=== PATIENT | female | born 1950 | race Caucasian/White ===

== ENCOUNTER 2019-10-10 22:28 | Inpatient (IN) | payer OTHER, SELFPAY ==
[~2019-10-10] VITALS: Ht 160 cm; Wt 112.3 kg
[2019-10-10] MEDS ORDERED: NS 1,000 ML IV ONE (22:45)
[2019-10-10] MEDS ORDERED: MORPHINE 4 MG/ML 1ML VIAL/SYRINGE (J2270) IV ONE (22:45)
[2019-10-10 23:28] LABS: BASO # 0.1 10^3/uL (0.0-0.2); BASO % 0.4 % (0.0-1.0); EOS # 0.1 10^3/uL (0.0-0.5); EOS % 0.2 % (0.0-3.0); HEMATOCRIT 38.6 % (36.0-47.0); HEMOGLOBIN 12.5 g/dl (12.0-15.5); LYMPH # 1.6 10^3/uL (1.5-5.0); LYMPH % 6.6 % (24.0-44.0); MEAN CORPUSCULAR HEMOGLOBIN 30.6 pg (27.0-33.0); MEAN CORPUSCULAR HGB CONC 32.4 g/dl (32.0-36.5); MEAN CORPUSCULAR VOLUME 94.6 fl (80.0-96.0); MONO # 1.4 10^3/uL (0.0-0.8); MONO % 5.9 % (0.0-5.0); NEUTROPHILS # 20.9 10^3/uL (1.5-8.5); NEUTROPHILS % 86.2 % (36.0-66.0); PLATELET COUNT, AUTOMATED 241 10^3/uL (150-450); RED BLOOD COUNT 4.08 10^6/uL (4.00-5.40); WHITE BLOOD COUNT 24.2 10^3/uL (4.0-10.0)
[2019-10-10 23:38] LABS: INR 1.08; PROTHROMBIN TIME 13.7 SECONDS (11.8-14.0)
[2019-10-10 23:39] LABS: PARTIAL THROMBOPLASTIN TIME 22.9 SECONDS (25.0-38.4)
[2019-10-11] VITALS (12 sets, daily range): BP systolic 108–138; BP diastolic 53–86; O2SAT 91–97
[2019-10-11 00:05] LABS: ALT/SGPT 28 U/L (12-78); BILIRUBIN,DIRECT 0.1 MG/DL (0.0-0.2); BILIRUBIN,TOTAL 0.3 MG/DL (0.2-1.0); BLOOD UREA NITROGEN 23 MG/DL (7-18); CARBON DIOXIDE LEVEL 23 MEQ/L (21-32); CHLORIDE LEVEL 107 MEQ/L (98-107); CPK CREATINE PHOSPHOKINASE 339 U/L (26-192); CREATININE FOR GFR 1.05 MG/DL (0.55-1.30); ETHYL ALCOHOL (ETHANOL) < 0.003 % (0.000-0.010); GLOMERULAR FILTRATION RATE 55.2 (>39); GLUCOSE, FASTING 179 MG/DL (70-100); SODIUM LEVEL 141 MEQ/L (136-145); TOTAL PROTEIN 5.6 GM/DL (6.4-8.2)
[2019-10-11] MEDS ORDERED: [UNRECOGNIZED DRUG - CODE] PO (00:43)
[2019-10-11] MEDS ORDERED: MELO15TA28 PO (00:43)
[2019-10-11] MEDS ORDERED: METF750T36 PO (00:43)
[2019-10-11] MEDS ORDERED: BUSP30TA PO (00:43)
[2019-10-11] MEDS ORDERED: AMIT25TA PO (00:43)
[2019-10-11] MEDS ORDERED: SYNT137T7 PO (00:43)
[2019-10-11] MEDS ORDERED: NEXI40CA PO (00:43)
[2019-10-11] MEDS ORDERED: FLON1SPR NARES (00:43)
[2019-10-11] MEDS ORDERED: LEXA1TAB2 PO (00:43)
[2019-10-11] MEDS ORDERED: ZETI10TA16 PO (00:43)
[2019-10-11] MEDS ORDERED: ISOVUE-370 76% 100ML VIAL (Q9967) As Ordered ONE (00:48)
[2019-10-11] MEDS ORDERED: MORPHINE 4 MG/ML 1ML VIAL/SYRINGE (J2270) IV ONE (01:00)
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
[2019-10-11] MEDS ORDERED: MOM 30ML SUSPENSION UDC PO PRN (04:00)
[2019-10-11] MEDS ORDERED: LR 1,000 ML IV SCH (04:00)
[2019-10-11] MEDS ORDERED: MAALOX 30 ML SUSP *UDC PO PRN (04:00)
[2019-10-11] MEDS ORDERED: ACETAMINOPHEN TAB 650MG DOSE (2X325MG) PO PRN (04:00)
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
[2019-10-11] MEDS ORDERED: GLUCOSE 4 GM CHEW TABLET PO PRN (04:15)
[2019-10-11] MEDS ORDERED: DEXTROSE 50% 50 ML SYRINGE IV PRN (04:15)
[2019-10-11] MEDS ORDERED: GLUCAGON FOR INJ 1 MG VIAL (J1610) SC PRN (04:15)
[2019-10-11] MEDS ORDERED: MELO7.5T35 PO (04:22)
[2019-10-11] MEDS ORDERED: CARV25TA PO (04:22)
[2019-10-11] MEDS ORDERED: LOSA25TA14 PO (04:22)
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
[2019-10-11] MEDS: MORPHINE 2 MG/ML 1ML VIAL (J2270) IV PRN ×7 (05:03→22:26)
[2019-10-11] MEDS ORDERED: METOPROLOL 5 MG/5 ML VIAL IV PRN (05:15)
[2019-10-11] MEDS ORDERED: ceFAZolin SOD 2 GM in IV 1 EA IV SCH (06:00)
[2019-10-11 06:47] LABS: HEMOGLOBIN A1c 6.2 %
[2019-10-11] MEDS: LEVOTHYROXINE 137MCG TABLET (0.137MG) PO SCH (06:55)
[2019-10-11 06:59] LABS: INR 1.03; PROTHROMBIN TIME 13.2 SECONDS (11.8-14.0)
[2019-10-11] MEDS: HumaLOG INSULIN (NovoLOG) PER UNIT SC SCH ×3 (07:28→17:30)
[2019-10-11 08:07] LABS: TROPONIN I 4.34 NG/ML (< 0.10)
[2019-10-11] MEDS: FLUTICASONE PROP 0.05% NASAL SPRAY 16 GM (FLONASE) NARES SCH (08:24)
[2019-10-11] MEDS: DOCUSATE SODIUM 100 MG CAP PO SCH ×2 (08:25→20:50)
[2019-10-11] MEDS: PANTOPRAZOLE 40MG TAB (PROTONIX) PO SCH (08:26)
[2019-10-11] MEDS: CARVedilol 12.5 MG TAB PO SCH ×2 (08:26→20:50)
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
[2019-10-11] MEDS: amLODIPine 5 MG TAB PO SCH (09:00)
[2019-10-11] MEDS ORDERED: ESCITALOPRAM OXALATE 10 MG TAB (LEXAPRO) PO SCH ×2 (09:00→21:00)
[2019-10-11] MEDS ORDERED: EZETIMIBE 10 MG TAB (ZETIA) PO SCH ×2 (09:00→21:00)
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
--- NOTE | 2019-10-11 09:12 | CR ---
DATE OF CONSULTATION: 10/11/2019 REASON FOR CONSULTATION: Left distal femur fracture. CHIEF COMPLAINT: Left knee pain. HISTORY OF PRESENT ILLNESS: Chery Gunter is a 68-year-old, morbidly obese female who sustained a mechanical fall yesterday resulting in a left distal femur fracture. The patient had a left total knee arthroplasty performed in [facility] in February of 2018 that was otherwise uncomplicated. She did not have any new antecedent knee pain prior to her fall, but has had some residual pain after her TKA that never resolved. She denied any antecedent calf pain, chest pain, shortness of breath or other constitutional symptoms prior to her fall. She denies any numbness, tingling or burning sensations distally about her left lower extremity. She was admitted by the hospitalist service for preoperative medical optimization. PAST MEDICAL HISTORY: Significant for anxiety, depression, diabetes, hypertension, hyperlipidemia, gastroesophageal reflux disease (GERD), morbid obesity. Medications: Amitryptyline Carvedilol Escitalopram Esomeprazole Ezetimibe Fluticasone Levothyroxine Losartan Meloxicam Metformin ALLERGIES: NO KNOWN DRUG ALLERGIES. However, she does report LATEX ALLERGY. PAST SURGICAL HISTORY: Left total knee arthroplasty February 2018 per history of present illness (HPI), right total knee arthroplasty uncomplicated performed in February 2011, bunionectomy, hysterectomy, and cataract surgery. FAMILY HISTORY: Noncontributory. SOCIAL HISTORY: The patient lives independently. She had just recently moved here from [facility] about 1 week ago to be closer to her family. She does care for three dogs at home. She was independent in all activities of daily living prior to this injury. She does not smoke, drinks socially and does not use illicit drugs. REVIEW OF SYSTEMS: 14-point review of systems was reviewed and is unremarkable. PHYSICAL EXAMINATION: VITAL SIGNS: Temperature 98.4 heart rate 104, respiratory rate 20, blood pressure 126/86, pulse oximetry 95% on room air. GENERAL: This is a morbidly obese female, appears her stated age, in no acute distress. NEUROLOGIC: She is awake, alert and oriented to person, place and time. She has intact sensory and motor function in her left lower extremity, femoral, tibial, sural, saphenous, superficial peroneal, deep peroneal nerve distributions. CARDIOVASCULAR: She has 2+ dorsalis pedis and posterior tibial (DP/PT) pulses and brisk capillary refill to all digits of the left lower extremity. MUSCULOSKELETAL: Focused physical exam of left lower extremity demonstrates no open wounds or abrasions. There is no palpable knee effusion. The patient is able to independently flex and extend all toes and independently dorsiflex and plantar flex her ankle. Knee range of motion is limited secondary to pain and the nature of her injury. RADIOGRAPHS: Plain radiographs of the left knee demonstrates a left knee distal femur fracture around total knee arthroplasty components that extends to the level of the anterior flange. The patient had a CT scan of the knee, which was reviewed, which demonstrates evidence of well-fixed total knee arthroplasty components with a distal femur fracture as described above. The patient also had CT scan of the cervical, thoracic and lumbar spine as part of a trauma workup given the nature of her injury which demonstrated no evidence of acute fracture. Labs: Labs were reviewed demonstrating elevated troponin levels. ASSESSMENT: This is a 68-year-old female with periprosthetic distal femur fracture that extends to the anterior flange of the femur with well-fixed femoral component. PLAN: I discussed with the patient the nature of her injury, given the nature of her fracture this requires internal fixation. Fixation options for paraprosthetic distal femur fracture include intramedullary nail and lateral locking plate and given the distal nature of the fracture this will likely need to be fixed with a lateral locking plate which will require an extended period of non-weightbearing. The patient was discussed with the hospitalist she is pending clearance secondary to her elevated troponin levels and is being transferred to the telemetry unit for monitoring. We will plan for open reduction, internal fixation tomorrow, 10/12/2019. I counseled the patient that I will be her operating surgeon. Her followup care will be conducted by [facility]. The risks, benefits, indications, and alternatives of operative versus nonoperative information resources manager were discussed with the patient, and we will proceed with surgery tomorrow pending clearance. She expressed understanding and agreed. All questions were answered. MADONNA
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
[2019-10-11 13:48] LABS: CK-MB VALUE MASS 15.1 NG/ML (<3.6); MB/CK RELATIVE INDEX 1.52 (< OR =4); TROPONIN I 2.85 NG/ML (< 0.10)
[2019-10-11] MEDS ORDERED: PERCOCET 5MG/325MG TAB PO PRN ×2 (14:30)
[2019-10-11 17:43] LABS: CHOLESTEROL RISK RATIO 8.142 (<5)
--- NOTE | 2019-10-11 19:12 | ECGEPIP ---
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
--- NOTE | 2019-10-11 19:14 | ECGEPIP ---
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
[2019-10-11 19:23] LABS: CK-MB VALUE MASS 10.8 NG/ML (<3.6); MB/CK RELATIVE INDEX 1.08 (< OR =4); TROPONIN I 1.61 NG/ML (< 0.10)
[2019-10-11] MEDS: HEPARIN SOD (PORCINE) 5000 UNITS/ML VIAL SQ SCH (20:47)
[2019-10-11] MEDS ORDERED: AMITRIPTYLINE 25 MG TAB PO SCH (21:00)
[2019-10-11] MEDS ORDERED: HumaLOG INSULIN (NovoLOG) PER UNIT SC SCH (21:00)
[2019-10-12] VITALS (18 sets, daily range): BP systolic 116–142; BP diastolic 64–76; O2SAT 89–95
[2019-10-12] MEDS: MORPHINE 2 MG/ML 1ML VIAL (J2270) IV PRN ×5 (00:27→16:58)
[2019-10-12 06:06] LABS: BASO # 0.1 10^3/uL (0.0-0.2); BASO % 0.8 % (0.0-1.0); EOS # 0.1 10^3/uL (0.0-0.5); EOS % 1.4 % (0.0-3.0); HEMATOCRIT 32.3 % (36.0-47.0); LYMPH # 1.6 10^3/uL (1.5-5.0); LYMPH % 20.4 % (24.0-44.0); MEAN CORPUSCULAR HEMOGLOBIN 31.1 pg (27.0-33.0); MEAN CORPUSCULAR HGB CONC 32.2 g/dl (32.0-36.5); MEAN CORPUSCULAR VOLUME 96.7 fl (80.0-96.0); MONO # 1.3 10^3/uL (0.0-0.8); MONO % 17.3 % (0.0-5.0); NEUTROPHILS # 4.6 10^3/uL (1.5-8.5); NEUTROPHILS % 59.8 % (36.0-66.0); PLATELET COUNT, AUTOMATED 180 10^3/uL (150-450); RED BLOOD COUNT 3.34 10^6/uL (4.00-5.40); WHITE BLOOD COUNT 7.6 10^3/uL (4.0-10.0)
[2019-10-12 06:08] LABS: HEMOGLOBIN 10.4 g/dl (12.0-15.5)
[2019-10-12 06:33] LABS: CALCIUM LEVEL 8.5 MG/DL (8.8-10.2); CREATININE FOR GFR 1.13 MG/DL (0.55-1.30); GLOMERULAR FILTRATION RATE 50.7 (>39); POTASSIUM SERUM 4.1 MEQ/L (3.5-5.1)
[2019-10-12] MEDS: LEVOTHYROXINE 137MCG TABLET (0.137MG) PO SCH (06:44)
[2019-10-12] MEDS: HumaLOG INSULIN (NovoLOG) PER UNIT SC SCH ×2 (07:30→12:00)
[2019-10-12] MEDS: HEPARIN SOD (PORCINE) 5000 UNITS/ML VIAL SQ SCH ×2 (07:55→10:12)
[2019-10-12] MEDS: CARVedilol 12.5 MG TAB PO SCH (08:29)
[2019-10-12] MEDS: FLUTICASONE PROP 0.05% NASAL SPRAY 16 GM (FLONASE) NARES SCH (08:30)
[2019-10-12] MEDS: amLODIPine 5 MG TAB PO SCH (08:30)
[2019-10-12] MEDS: PANTOPRAZOLE 40MG TAB (PROTONIX) PO SCH (08:30)
[2019-10-12] MEDS: DOCUSATE SODIUM 100 MG CAP PO SCH (08:30)
--- NOTE | 2019-10-12 08:48 | IPNPDOC ---
Date Seen The patient was seen on 10/12/19. Progress Note SUBJECTIVE: Patient is a 68 y/o female with a left periprosthetic distal femur fx. She was evaluated by cardiology yesterday and was determined to be at high risk for perioperative MT and it has been recommended that she be transferred to a higher level of care where immediate cardiac catheterization is available. OBJECTIVE PHYSICAL EXAMINATION: VITAL SIGNS: Please see below. GENERAL: obese female, NAD CARDIOVASCULAR: 2+ DP/PT pulses, BCR all digits LLE. RESPIRATORY: Non labored breathing. EXTREMITIES: L knee no open wounds. Ecchymosis on lateral distal thigh extending anteriorly to knee. No skin blistering. Able to flex/extend toes. NEUROLOGICAL: Sensation intact to all distributions LLE LABORATORY DATA, IMAGING STUDIES, MICROBIOLOGY: Please see below. ASSESSMENT: This is a 68-year-old female with a left periprosthetic distal femur fracture around a well fixed TKA component DISPOSITION: After discussion with the hospitalist Dr. Andersen, the patient has been deemed high risk for perioperative MT given risk factors associated with her injury and presentation. The digital circuit designer has recommended that the patient be transferred to a higher level of care so that immediate cardiac intervention could be performed if necessary. A knee immobilizer has been placed for transport. I recommend q8h skin checks for the areas of skin touching the straps and distal posterior splint given her body habitus. Keep NPO if being transferred today. Please reconsult with questions. VS, I&O, 24H, Fishbone Vital Signs/I&O Vital Signs Date Time Temp Pulse Resp B/P (MAP) Pulse Ox O2 Delivery O2 Flow Rate FiO2 10/12/19 08:30 96 142/71 10/12/19 07:00 93 Room Air 10/12/19 06:45 20 10/12/19 04:00 97.0 I&O- Last 24 Hours up to 6 AM 10/12/19 06:00 Intake Total 600 ml Output Total 525 ml Balance 75 ml Laboratory Data 24H LABS Laboratory Tests 2 10/11/19 11:28: Bedside Glucose (Misc Panel) 111H 10/11/19 12:05: Total Creatine Kinase 991#H, Creatine Kinase MB 15.1H, Creatine Kinase MB Relative Index 1.52, Troponin I 2.85#*H 10/11/19 18:30: Total Creatine Kinase 1003H, Creatine Kinase MB 10.8H, Creatine Kinase MB Relative Index 1.08, Troponin I 1.61#*H 10/11/19 18:31: Bedside Glucose (Misc Panel) 104 10/11/19 20:46: Bedside Glucose (Misc Panel) 136H 10/12/19 05:35: Immature Granulocyte % (Auto) 0.3, Neutrophils (%) (Auto) 59.8, Lymphocytes (%) (Auto) 20.4L, Monocytes (%) (Auto) 17.3H, Eosinophils (%) (Auto) 1.4, Basophils (%) (Auto) 0.8, Neutrophils # (Auto) 4.6, Lymphocytes # (Auto) 1.6, Monocytes # (Auto) 1.3H, Eosinophils # (Auto) 0.1, Basophils # (Auto) 0.1, Nucleated Red Blood Cells % (auto) 0.0, Anion Gap 6L, Glomerular Filtration Rate 50.7, Calcium Level 8.5L CBC/BMP Laboratory Tests 10/12/19 05:35 SUNIL CARNEY MD Oct 12, 2019 08:48
[2019-10-12] MEDS ORDERED: ATORVASTATIN 20 MG TAB PO SCH (09:00)
--- NOTE | 2019-10-12 09:33 | ECHO ---
DATE OF PROCEDURE: 10/11/2019 REFERRING PROVIDER: Dr. Jacquie Andersen. LOCATION: Room 3225. REASON FOR THE CONSULT: Elevated serum troponin, preop. 2D MEASUREMENTS: IVS - 0.8 cm LV - 4.1 cm LVPW - 0.9 IVC - 1.5 cm DOPPLER MEASUREMENT: Peak velocity across the aortic valve was 1.5 meters per second. 2D COMMENTS: 1. Technically limited study due to poor acoustic window. 2. The left ventricular size is normal with normal left ventricular wall thickness and a low normal global left ventricular systolic function estimated at 55-60%. The basal anterior septum appeared to be mildly hypokinetic. 3. Normal left atrium. Normal right atrium and right ventricle. 4. The atrial septum appeared to be normal without evidence of defect or shunt. 5. Normal aortic root. 6. No pericardial effusion seen in limited views. 7. Mildly calcified aortic valve, leaflet excursion appeared to be normal. Normal mitral valve and tricuspid valve. The pulmonic valve and proximal pulmonary artery branches were not well visualized. 8. The inferior vena cava was normal in size, central venous pressure is most likely normal. Doppler: No significant valvular abnormalities detected. Abnormal relaxation pattern was noted across the mitral valve leaflets as well as the mitral annulus consistent with features of grade 1 left ventricular diastolic dysfunction. IMPRESSION: 1. Low normal global left ventricular systolic function. There may be basal anteroseptal hypokinesis, mild. There was grade 1 left ventricular diastolic dysfunction manifested by abnormal relaxation. 2. Aortic valve sclerosis without any evidence of significant aortic stenosis. There is no aortic regurgitation. 3. The study was technically limited due to poor acoustic window secondary to body habitus.
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
[2019-10-12] MEDS ORDERED: SLF 3 ML SYR IV PRN (11:30)
[2019-10-12] MEDS ORDERED: SLF 3 ML SYR IV SCH (14:00)
[2019-10-12] MEDS ORDERED: MYLASSUD PO (14:53)
[2019-10-12] MEDS ORDERED: ATOR1TAB21 PO (14:53)
[2019-10-12] MEDS ORDERED: HEPA500011 SQ (14:53)
[2019-10-12] MEDS ORDERED: DOCU100C16 PO (14:53)
[2019-10-12] MEDS ORDERED: AMLO5TAB6 PO (14:53)
[2019-10-12] MEDS ORDERED: MORP2INJ4 IV (14:53)
[2019-10-12] MEDS ORDERED: INSUHUMDS SC ×2 (14:55)
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
== END 2019-10-12 17:17 | disposition short-term general hospital (02) | DRG 533 ==
LOC: M ED 22:28 → M ED INP 10-11 03:50 → ENRESERVTM 10-11 04:19 → ENRESERVDT 10-11 04:19 → M MS5PR 10-11 04:45 → M PCU 10-11 08:53
PROVIDERS: ADMIT Internal Medicine; ATTEND Internal Medicine Nephrology
DX: S72.352A Displaced comminuted fracture of shaft of left femur, initial encounter for closed fracture (principal); I21.4 Non-ST elevation (NSTEMI) myocardial infarction; Z68.41 Body mass index [BMI] 40.0-44.9, adult; E11.9 Type 2 diabetes mellitus without complications; E66.01 Morbid (severe) obesity due to excess calories; F32.9 Major depressive disorder, single episode, unspecified; G43.909 Migraine, unspecified, not intractable, without status migrainosus; J30.9 Allergic rhinitis, unspecified; I10 Essential (primary) hypertension; E03.9 Hypothyroidism, unspecified; K21.9 Gastro-esophageal reflux disease without esophagitis; Z96.653 Presence of artificial knee joint, bilateral; Z79.84 Long term (current) use of oral hypoglycemic drugs; Z79.899 Other long term (current) drug therapy; W16.112A Fall into natural body of water striking water surface causing other injury, initial encounter; Y92.008 Other place in unspecified non-institutional (private) residence as the place of occurrence of the external cause; Y93.K9 Activity, other involving animal care

== ENCOUNTER → 2020-01-22 | Outpatient (CLI) | payer OTHER ==
[~2020-01-22] MED LIST: AMIT25TA PO; AMLO5TAB6 PO; ATOR1TAB21 PO; BUSP30TA PO; CARV25TA PO; DOCU100C16 PO; FLON1SPR NARES; HEPA500011 SQ; INSUHUMDS SC; LEXA1TAB2 PO; LOSA25TA14 PO; MELO15TA28 PO; MELO7.5T35 PO; METF750T36 PO; MORP2INJ4 IV; MYLASSUD PO; NEXI40CA PO; SYNT137T7 PO; ZETI10TA16 PO; [UNRECOGNIZED DRUG - CODE] PO
--- NOTE | 2020-01-23 02:50 | REP ---
Clinical: Fracture. Pain. Technique: AP and frog lateral views of the left femur. Findings: Evidence for prior fracture involving the distal femur with stabilizing orthopedic hardware and prior knee replacement. Heterotopic ossification and chronic healing periosteal reaction at the site of prior fracture extends into the surrounding soft tissues. No obvious acute fracture or dislocation identified. Orthopedic hardware appears intact. Impression: Old left femur fracture. No obvious acute injury. Electronically Signed by Dg Beckham MD 01/23/2020 02:41 A
== END ==
LOC: M WUC 13:53
PROVIDERS: ATTEND Nurse Practitioner Family
DX: S72.402S Unspecified fracture of lower end of left femur, sequela (principal); X58.XXXS Exposure to other specified factors, sequela; Y92.89 Other specified places as the place of occurrence of the external cause

== ENCOUNTER → 2020-06-07 | Outpatient (CLI) | payer OTHER ==
[~2020-06-07] MED LIST changes: +AMLO1TAB24 PO; -AMLO5TAB6 PO
[2020-06-07 13:26] LABS: ALBUMIN 3.4 GM/DL (3.2-5.2); BILIRUBIN,TOTAL 0.5 MG/DL (0.2-1.0); CALCIUM LEVEL 9.1 MG/DL (8.8-10.2); CHOLESTEROL RISK RATIO 4.48 (<5); CREATININE FOR GFR 1.31 MG/DL (0.55-1.30); GLOMERULAR FILTRATION RATE 42.6 (>39); POTASSIUM SERUM 5.1 MEQ/L (3.5-5.1); THYROID STIMULATING HORMONE 0.333 uIU/ML (0.358-3.740); TOTAL 25(OH) VITAMIN D 37.6 NG/ML (30.0-100.0); TOTAL PROTEIN 6.7 GM/DL (6.4-8.2)
[2020-06-07 13:56] LABS: HEMOGLOBIN A1c 6.2 %
== END ==
LOC: M WUC 11:16
PROVIDERS: ATTEND Nurse Practitioner Adult Health
DX: E55.9 Vitamin D deficiency, unspecified (principal); E78.2 Mixed hyperlipidemia; E11.8 Type 2 diabetes mellitus with unspecified complications; I10 Essential (primary) hypertension; Z79.899 Other long term (current) drug therapy

== ENCOUNTER → 2021-02-10 | Outpatient (CLI) | payer OTHER ==
[~2021-02-10] MED LIST changes: -AMIT25TA PO; +AMIT25TA17 PO
--- NOTE | 2021-02-10 19:31 | REPPI ---
INDICATION: M79.641 M79.642 PAIN IN RIGHT HAND PAIN IN LEFT HAND. COMPARISON: None. TECHNIQUE: Eight views, four views of each hand are provided. FINDINGS: Four views of the right hand demonstrate mild diffuse osteopenia. There is osteoarthritic spurring at the DIP joints of the index and small finger and the PIP joints of the ring and small finger. There is mild spurring and narrowing at the 1st carpometacarpal articulation. Subcortical cyst formation is seen in the lunate and navicular bone. There is a small dystrophic calcification adjacent to the ulnar styloid on the right. No erosive changes are seen.. Four views of the left hand demonstrate mild diffuse osteopenia. There are similar osteoarthritic spurs at the DIP joints of the small, ring, long and index finger on the left. Minimal narrowing and spur formation is seen at the 1st MCP joint. Subcortical cyst formation is seen in the capitate and lunate. There is no erosive change. No opaque foreign body noted. IMPRESSION: Osteoarthritic changes as noted above. Some diffuse osteopenia.. <Electronically signed by Jase Rush > 02/10/211926
== END ==
LOC: M PLAIMG 12:25
PROVIDERS: ATTEND Nurse Practitioner Adult Health
DX: M85.841 Other specified disorders of bone density and structure, right hand (principal); M85.842 Other specified disorders of bone density and structure, left hand; M19.041 Primary osteoarthritis, right hand; M19.042 Primary osteoarthritis, left hand; M79.641 Pain in right hand; M79.642 Pain in left hand; M25.50 Pain in unspecified joint; E11.8 Type 2 diabetes mellitus with unspecified complications; E78.2 Mixed hyperlipidemia; E03.9 Hypothyroidism, unspecified; E55.9 Vitamin D deficiency, unspecified; R25.2 Cramp and spasm
CPT/HCPCS: 36415; 73130; 80053; 80061; 82043; 82306; 83036; 83735; 84443; 85652; 86038; 86140; 86200; 86431; G0463

== ENCOUNTER → 2021-02-10 | Outpatient (REF) | payer OTHER ==
[2021-02-10 14:28] LABS: ALBUMIN 3.8 GM/DL (3.2-5.2); ALT/SGPT 32 U/L (12-78); BILIRUBIN,TOTAL 0.7 MG/DL (0.2-1.0); BLOOD UREA NITROGEN 20 MG/DL (7-18); CALCIUM LEVEL 9.8 MG/DL (8.8-10.2); CARBON DIOXIDE LEVEL 32 MEQ/L (21-32); CHLORIDE LEVEL 103 MEQ/L (98-107); CHOLESTEROL LEVEL 135 MG/DL (<200); CREATININE FOR GFR 1.05 MG/DL (0.55-1.30); GLOMERULAR FILTRATION RATE 54.8 (>39); GLUCOSE, FASTING 94 MG/DL (70-100); HDL CHOLESTEROL 33 MG/DL (>40); LDL CHOLESTEROL 37 MG/DL (<100); MAGNESIUM LEVEL 2.1 MG/DL (1.8-2.4); NON-HDL-C 102 MG/DL; POTASSIUM SERUM 4.9 MEQ/L (3.5-5.1); RHEUMATOID FACTOR QUANT < 10.0 IU/ML (<15.0); SODIUM LEVEL 138 MEQ/L (136-145); THYROID STIMULATING HORMONE 0.633 uIU/ML (0.358-3.740); TOTAL 25(OH) VITAMIN D 32.7 NG/ML (30.0-100.0); TRIGLYCERIDES LEVEL 327 MG/DL (<150)
[2021-02-10 14:28] LABS: CREATININE, URINE 70.3 MG/DL; MALB URINE SIEMENS 6.2 MG/L; MAU/CREAT RATIO 8.8 MCG/MG (0.0-30.0)
[2021-02-12 00:08] LABS: ANA (HEP2) Negative (.); CYCLIC CITRULLINATED PEPTIDE 2 units (0-19)
== END ==
LOC: M SFHCPLAZ 12:25
PROVIDERS: ATTEND Nurse Practitioner Adult Health
DX: M25.50 Pain in unspecified joint (principal); E11.8 Type 2 diabetes mellitus with unspecified complications; E78.2 Mixed hyperlipidemia; E03.9 Hypothyroidism, unspecified; E55.9 Vitamin D deficiency, unspecified; R25.2 Cramp and spasm

== ENCOUNTER → 2021-02-17 | Outpatient (CLI) | payer OTHER ==
--- NOTE | 2021-02-17 14:55 | REP ---
INDICATION: RIGHT UPPER QUAD PAIN COMPARISON: None. TECHNIQUE: Real time queen scale ultrasound examination using curved array transducer. FINDINGS: Liver is normal in contour, size, and echogenicity without focal hepatic lesions identified. Pancreas is incompletely evaluated due to interposed bowel gas. The gallbladder is normal and without gallstones, wall thickening, or pericholecystic fluid. The common bile duct is upper limits of normal at approximately 8 mm. Right kidney is normal in reniform shape without hydronephrosis and measures 11.0 x 4.5 x 5.1 cm cm. No ascites in the visualized right upper quadrant. IMPRESSION: Normal limited right upper quadrant ultrasound <Electronically signed by Dg Beckham > 02/17/21 [id number]
== END ==
LOC: M RAD 08:29
PROVIDERS: ATTEND Nurse Practitioner Adult Health
DX: R10.9 Unspecified abdominal pain (principal)

== ENCOUNTER 2021-08-31 14:46 | Inpatient (IN) | payer OTHER ==
[~2021-08-31] VITALS: Ht 157.5 cm; Wt 122.5 kg
--- OUTSIDE RECORDS SUMMARY | 2021-08-31 15:29 | CCD ---
Author Author [facility] [employer] Organization [facility] [employer] Address Unknown Phone Unavailable Care Team Providers Care Reproducer Name Role Phone Julienne Almanzar Unavailable PROBLEMS Type Condition ICD9-CM Code [id number] Code Onset Dates Condition S tatus W/U Status Risk SNOMED Code Notes Problem Chronic GERD K21.9 Active confirmed [id number] Stable on esomeprazole 40 mg once a day, no medication changes at been made Problem Anxiety with depression F41.8 Active confirmed 172456387 Continue escitalopram and amitriptyline with no change Problem Seasonal allergies J30.2 Active confirmed 4 79511180 Problem Hypothyroidism, unspecified type E03.9 Active conf irmed 12267829 check TSH, then adjust medication as needed, I told Ralph that if we have any room to play with that we will increase her dose Problem Mixed hyperlipidemia E78.2 Active confirmed [id number] rechallenge Lipitor Problem Type 2 diabetes mellitus with unspecified complications E11.8 Active confirmed 727976635 Stable for now o n metformin 750 mg, no medication changes have been made Problem Insomnia, unspecified type G47.00 Active confirmed 484221507 Problem Spinal stenosis of lumbar region 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 viktor claudication M48.061 Active confirmed 50633261 Problem Vitamin D deficiency E55.9 Active confirmed 75652535 Continue vitamin D 2000 units daily with no change Problem Decreased hearing of both ears H91.93 Active confir med 662425585 Problem Essential hypertension I10 Active confirmed 65136384 increase losartan from 25 mg twice a day to 100 mg once a day Problem Coronary artery disease invo lving 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 I25.10 Active confirmed 402922 000 needs Entry Level Assistant Manager Problem Neuropathy G62.9 Active confirmed 949401131 Problem Other chronic pain G89.29 Active confirmed 8 3689679 Problem Elevated liver enzymes R74.8 Active confirmed 682168496 ALLERGIES Allergen (clinical drug ingredient) Drug/Non Drug Allergy do cumented on EMR Reaction Allergy Type Onset Date Status duloxetine Cymbalta([facility] Code:[address]-74) not efective Drug Allergy Active ENCOUNTERS from 1950 to 2021-08-23 Encounter Location Date Provider Diagnosis [place] [id number] [facility] [phone] [place] [address] 11 Aug, 2021 Julienne Servage Essential hypertension I10 ; Type 2 diabetes mellitus with unspecified complications E11.8 ; Coronary artery disease involving 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 I25.10 ; Mixed hyperlipidemia E78.2 ; Immunization due Z23 ; Hypothyroidism, unspecified type E03.9 ; Vitamin D deficiency E55.9 ; Spinal stenosis of lumbar region 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nic claudication M48.061 ; Arthralgia, unspecified joint M25.50 ; Pain in right hand M79.641 ; Pain in left hand M79.642 ; Leg cramps R25.2 ; Family history of rheumatoid arthritis Z82.61 ; Chronic GERD K21.9 ; Seasonal allergies J30.2 ; Anxiety with depression F41.8 and Encounter for immunization Z23 IMMUNIZATIONS Vaccine Route Administration Date Status Moderna #1 dose COVID-19 (given elsewhere) SARSCOV2 VAC 100M CG/0.5ML IM Unknown December 07, 2020 Administered Moderna #2 dose COVID-19 (given elsewhere) SARSCOV2 VAC 100M CG/0.5ML IM Unknown January 04, 2021 Administered Influenza Pharmacy Given Unknown Aug 09, 2020 Adminis tered Influenza 18 yrs & older Flublok IM Intramuscular Aug 18, 2021 Administered Pneumococcal Adult 0.5mL Pneumovax 23 IM Intramuscular Aug 18 Administered SOCIAL HISTORY Tobacco Use: Social History Observation Description Date Details (start date - stop date) Never Smoker Sex Assigned At : Social History Observation Description Sex Assigned At Unknown Education: Question Answer Notes Level of Education: Not Finished College Audit Question Answer Notes Total Score: 2 Interpretation: Alcohol Education Language: Question Answer Notes Languages spoken: Kenyan Church: Question Answer Notes Church 33 None Sexual Hx: Question Answer Notes Had sex in the last 12 months (vaginal, oral, or anal)? No Have you ever had an STD? No Drug and Alcohol Question Answer Notes Total Score: 0 Interpretation: No problems reported Alcohol Screening: Question Answer Notes Did you have a drink containing alcohol in the past year? Ye s Points 1 Interpretation Negative How many drinks did you have on a typica l day when you were drinking in the past year? 1 or 2 (0 points) How often did you have a drink containing alcohol in t he past year? Monthly or less (1 point) Tobacco Use: Question Answer Notes Are you a: never smoker REASON FOR REFERRAL from 1950 to 2021-08-23 Reason please eval and treat, moved to area has history of spinal stenosis seeking injections if possible Diagnosis 1 Spinal stenosis of lumbar re gion 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nic claudication (M48.061) Referral Organization [facility] Referring Provider First Name Julienne Referring Provider Last Name Yohan Referring Provider Specialty Family Medicine Referred Provider Adam ([facility]) Vimal Referred Provider Specialty Pain Medicine Referral Priority Routine General Notes Shaila Llanes 08/18/2021 2: 24:19 PM > referral faxJulienne Mccormack ANP 08/22/2021 7:09:32 PM > insurance not accepted by Dr. Medina office notified pt. VITAL SIGNS Weight 226.4 lbs Aug, Weight-kg 102.69 kg Aug, Height 64 in Aug, BMI 38.86 kg/m2 Aug, Heart Rate 80 /min Aug, Respiratory Rate 18 /min Aug, Temperature 96.9 degrees Fahrenheit Aug, Oximetry 96 Aug, Blood pressure systolic 122 mm Hg Aug, Blood pressure diastolic 68 mm Hg Aug, MEDICATIONS Medication SIG (Take, Route, Frequency, Duration) Notes Start Da te End Date Status Gabapentin 300 MG 1 capsule Orally tid for 90 days Active Esomeprazole Magnesium 40 MG 1 capsule Orally Once a day for 90 days Active Atorvastatin Calcium 80 MG 1 tablet Orally Once a day for 90 days Active Ezetimibe 10 MG 1 tablet Orally Once a day for 90 Active Valsartan 320 MG 1 tablet Orally Once a day for 90 days Active Carvedilol 12.5 MG 1 tab Orally Twice a day for 90 days Active Vitamin D 50 MCG (1999) 1 tablet Orally Once a day for 90 day(s) Active Flonase Allergy Relief 50 MCG/ACT 1 spray in each nost ril Nasally Once a day for 90 days Active HYDROcodone-Acetaminophen 5-325 MG 1 tablet as needed Orally [id number] Twice a day, mdd=2 for 30 Days Aug, Active Ezetimibe 10 MG 1 tablet Orally Once a day for 90 day(s) Active buPROPion HCl ER (XL) 150 MG 1 tablet in the morning O rally Once a day for 90 days Aug, Active Trulicity 1.5 MG/0.5ML 1 injection Subcutaneous weekly for 90 days Active Amitriptyline HCl 50 MG 1 tablet at bedtime Orally Once a day fo r 90 days Mar, Active Levothyroxine Sodium 100 MCG 1 tablet in the morning o n an empty stomach Orally Once a day for 90 days Active Escitalopram Oxalate 20 MG 1 tablet Orally Once a day for 90 days Active predniSONE 20 MG 1 tablet Orally bid for shoulder pain for 5 day s Aug, Active PROCEDURES from 1950 to 2021-08-23 Procedure Date Ordered Result Body Site Imm: Flublok Quadrivalent 18 years & older 0.5mL IM Influenza 20 28-08-11 N/A Imm: Pneumovax 23 0.5mL IM Pneumococcal 2021-08-18 N/A RESULTS No Results REASON FOR VISIT Julienne 3 months routine visit MEDICAL (GENERAL) HISTORY Type Description Date Medical History Type 2 DM Medical History Hypertension Medical History Mixed Hyperlipidemia Medical History Hypothyroidism Medical History GERD Medical History Anxiety and Depression Medical History h/o Left Femur Fracture Medical History Seasonal Allergies Medical History Vitamin D Deficiency Medical History Insomnia Medical History Probable Sponal Stenosis Surgical History hysterectomy 1980 Surgical History cataract Surgical History left femur fracture repair 2019 Surgical History hernia repair Goals Section No Information Health Concerns No Information MEDICAL EQUIPMENT No Information MENTAL STATUS No Information FUNCTIONAL STATUS No Information ASSESSMENTS Encounter Date Diagnosis Assessment Notes Treatment Notes Treatm ent Clinical Notes Aug, Type 2 diabetes mellitus wit h unspecified complications (ICD-10 - E11.8) Stable for now on metformin 750 mg, started on Trulicity, tolerating medication with no difficulty Metformin was stopped, will reassess hemoglobin A1c Aug, Essential hypertension (ICD-10 - I10) Per JNC 8 guidelines, goal BP 150/90 if age >60, is meeting goal on current regimen. Advised heart-healthy diet, sodium restriction Aug, Coronary artery disease invo lving 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 (ICD-10 - I25.10) seen by cardiology echo completed. stress test completed, stable Aug, Mixed hyperlipidemia (ICD-10 - E78.2) Back on Lipitor and Zetia, tolerating with no issues Aug, Immunization due (ICD-10 - Z23) Aug, Hypothyroidism, unspecified type (ICD-10 - E03.9 ) on replacement Aug, Vitamin D deficiency (ICD-10 - E55.9) remains on replacement Aug, Spinal stenosis of lumbar re gion 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nic claudication (ICD-10 - M48.061) has been a issue gabapentin helping, currently using 300 mg at night, instructed to increase to bid and use up her current supply and call for renewal for bid if it works wants to wean off arthrotec, expensive but effective. would be willling to try mobic again if gabapentin worked [place] snot want a referral to pain clinic using hydrocodone prn nys i stop compliant. Advised to increase gabapentin to 3 times a day, states it is helping. will tray 300 mg in am and 600 mg in pm will increase celebrex to bid ny i stop reviewed last filled 02/24/21 # [id number] 08/28 [facility] I stop reviewed, pain and medication renewed, tolerating gabapentin 300 mg 3 times daily states is working very well Discussed with patient [place] a [place], will refer to Dr. Medina for further evaluation and treatment, question injections Aug, Arthralgia, unspecified joint (ICD-10 - M25.50) labs reviewed. xray reviewed using voltaren with effect Was referred to rheumatology, has appointment in Aug, Pain in right hand (ICD-10 - M79.641) xrays reviewed appears to be osteoarthritis Aug, Pain in left hand (ICD-10 - M79.642) osteo Aug, Leg cramps (ICD-10 - R25.2) magnesium level wnl 11 Nov, 2021 Family history of rheumatoid arthritis (ICD-10 - Z82.61) daughter and sister who are on medications inital abs were negative hand x ray negative. 11 Aug, 2021 Chronic GERD (ICD-10 - K21.9) Stable on esomeprazole 40 mg once a day, no medication changes at been made controlled with meds Aug, Seasonal allergies (ICD-10 - J30.2) Aug, Anxiety with depression (ICD-10 - F41.8) Continue escitalopram and amitriptyline with no change After long discussion, will restart Wellbutrin 11 Aug, 2021 Encounter for immunization (ICD-10 - Z23) Aug, Other gallbladder ult rasound for evaluation reviewed negative pain improved PLAN OF TREATMENT Medication Medication Name Sig Start Date Stop Date predniSONE 20 MG 1 tablet Orally bid for shoulder pain for 5 day s 15 Aug, 2021 Treatment Notes Assessment Notes Clinical Notes Anxiety with depression After long discu ssion, will restart Wellbutrin Type 2 diabetes mellitus with unspecified complications Stable for now on metformin 750 mg, started on Trulicity, tolerating medication with no difficulty Metformin was stopped, will reassess hemoglobin A1c Chronic GERD controlled with meds Essential hypertension Per JNC 8 guideli yovani, goal BP 150/90 if age >60, is meeting goal on current regimen. Advised heart-healthy diet, sodium restriction Coronary artery disease involving 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 seen by cardiology echo comp leted. stress test completed, stable Mixed hyperlipidemia Back on Lipitor and Zetia, tolerating with no issues Hypothyroidism, unspecified type on repl acement Vitamin D deficiency remains on replacem ent Spinal stenosis of lumbar region 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nic claudica tion has been a issue gabapentin helping, currently using 300 mg at night,instructed to increase to bid and use up her current supply and call for renewal for bid if it workswants to wean off arthrotec, expensive but effective. would be willling to try mobic again if gabapentin workeddoe snot want a referral to pain clinicusing hydrocodone prn health system i stop compliant.Advised to increase gabapentin to 3 times a day,states it is helping.will tray 300 mg in am and 600 mg in pmwill increase celebrex to bidnys i stop reviewed last filled 02/24/21 # [id number] [facility] I stop reviewed, pain and medication renewed, tolerating gabapentin 300 mg 3 times daily states is working very wellDiscussed with patient [place] a [place], will refer to Dr. Medina for further evaluation a nd treatment, question injections Family history of rheumatoid arthritis d alda and sister who are on medicationsinital abs were negative hand x ray negative. Leg cramps magnesium level wnl Arthralgia, unspecified joint labs revie wed. xray reviewed using haylien with effectWas referred to rheumatology, has appointment in October Pain in right hand xrays reviewed appea rs to be osteoarthritis Pain in left hand osteo Pending Tests Test Name Order Date HEMOGLOBIN A1c 2021-08-18 VITAMIN D 25-HYDROXY 2021-08-18 Comprehensive Metabolic Profile (CMP) 2021-08-18 TSH 2021-08-18 Referrals Referral Date Details please eval and treat, moved to area has history of spinal stenosis seeking injections if possible, Vimal Medina ([facility]) Next Appt Details Julienne 3 month routine visit Reason: Provider Name:Alysa Britt, 2021-10-31 01:45:00 PM, [address] [facility], , [place], [place], [facility] [phone] Provider Name:Julienne Almanzar, 02:00:00 PM, [address] [place] [address] , [place], [address], Insurance Providers Payer Name Payer Address Payer Phone Insured Name Patient Relati onship to Insured Coverage Start Date Coverage End Date [employer] [address] [address] [facility] [id number] [place]
--- OUTSIDE RECORDS SUMMARY | 2021-08-31 15:29 | CCD ---
Author Author [facility] [employer] Organization [facility] [employer] Address Unknown Phone Unavailable Care Team Providers Care Construction Job Titles Name Role Phone Julienne Almanzar Unavailable PROBLEMS Type Condition ICD9-CM Code [id number] Code Onset Dates Condition S tatus W/U Status Risk SNOMED Code Notes Problem Chronic GERD K21.9 Active confirmed 9570601 09 Stable on esomeprazole 40 mg once a day, no medication changes at been made Problem Anxiety with depression F41.8 Active confirmed 166934202 Continue escitalopram and amitriptyline with no change Problem Seasonal allergies J30.2 Active confirmed 4 61153338 Problem Hypothyroidism, unspecified type E03.9 Active conf irmed 37018636 check TSH, then adjust medication as needed, I told Ralph that if we have any room to play with that we will increase her dose Problem Mixed hyperlipidemia E78.2 Active confirmed 191172596 rechallenge Lipitor Problem Type 2 diabetes mellitus with unspecified complications E11.8 Active confirmed 029455030 Stable for now o n metformin 750 mg, no medication changes have been made Problem Insomnia, unspecified type G47.00 Active confirmed 973152930 Problem Spinal stenosis of lumbar region 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 viktor claudication M48.061 Active confirmed 94562863 Problem Vitamin D deficiency E55.9 Active confirmed 68961388 Continue vitamin D 2000 units daily with no change Problem Decreased hearing of both ears H91.93 Active confir med 090138241 Problem Essential hypertension I10 Active confirmed 81911551 increase losartan from 25 mg twice a day to 100 mg once a day Problem Coronary artery disease invo lving [place] coronary artery of [place] heart without angina pectoris I25.10 Active confirmed 455936 000 needs Phys Ther Problem Neuropathy G62.9 Active confirmed 403967213 Problem Other chronic pain G89.29 Active confirmed 8 6162826 Problem Elevated liver enzymes R74.8 Active confirmed 332756538 ALLERGIES Allergen (clinical drug ingredient) Drug/Non Drug Allergy do cumented on EMR Reaction Allergy Type Onset Date Status duloxetine Cymbalta([facility] Code:[address]-15) not efective Drug Allergy Active ENCOUNTERS from 1950 to 2021-08-19 Encounter Location Date Provider Diagnosis [place] [address] [facility] [phone] [place] [address] 11 Aug, 2021 Julienne Servage Spinal stenosis of lumbar re gion 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nic claudication M48.061 IMMUNIZATIONS Vaccine Route Administration Date Status Moderna #1 dose COVID-19 (given elsewhere) SARSCOV2 VAC 100M CG/0.5ML IM Unknown December 07, 2020 Administered Moderna #2 dose COVID-19 (given elsewhere) SARSCOV2 VAC 100M CG/0.5ML IM Unknown January 04, 2021 Administered Influenza Pharmacy Given Unknown Aug 09, 2020 Adminis tered Pneumococcal Adult 0.5mL Pneumovax 23 IM Intramuscular [...] Education Language: Question Answer Notes Languages spoken: Setswana Methodist: Question Answer Notes [facility] 33 None Sexual Hx: Question Answer Notes [...] you a: never smoker REASON FOR REFERRAL No Information VITAL SIGNS No information MEDICATIONS Medication SIG (Take, Route, Frequency, Duration) Notes Start Da te End Date Status Gabapentin 300 MG 1 capsule Orally tid for 90 days Active Carvedilol 12.5 MG 1 tab Orally Twice a day for 90 days Active Vitamin D 50 MCG (2000 UT) 1 tablet Orally Once a day for 90 day(s) Active Valsartan 320 MG 1 tablet Orally Once a day for 90 days Active Flonase Allergy Relief 50 MCG/ACT 1 spray in each nost ril Nasally Once a day for 90 days Active Escitalopram Oxalate 20 MG 1 tablet Orally Once a day for 90 days Active Trulicity 1.5 MG/0.5ML 1 injection Subcutaneous weekly for 90 days Active Atorvastatin Calcium 80 MG 1 tablet Orally Once a day for 90 days Active Levothyroxine Sodium 100 MCG 1 tablet in the morning o n an empty stomach Orally Once a day for 90 days Active Ezetimibe 10 MG 1 tablet Orally Once a day for 90 Active Ezetimibe 10 MG 1 tablet Orally Once a day for 90 day(s) Active Amitriptyline HCl 50 MG 1 tablet at bedtime Orally Once a day fo r 90 days Mar, Active HYDROcodone-Acetaminophen 5-325 MG 1 tablet as needed Orally 204855119 Twice a day, mdd=2 for 30 Days Aug, Active Esomeprazole Magnesium 40 MG 1 capsule Orally Once a day for 90 days Active buPROPion HCl ER (XL) 150 MG 1 tablet in the morning O rally Once a day for 90 days Aug, Active PROCEDURES No Information RESULTS No Results REASON FOR VISIT refills MEDICAL (GENERAL) HISTORY Type Description Date Medical [...] Treatment Notes Treatm ent Clinical Notes Aug, Spinal stenosis of lumbar re gion 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nic claudication (ICD-10 - M48.061) PLAN OF TREATMENT Medication Medication Name Sig Start Date Stop Date Escitalopram Oxalate 20 MG 1 tablet Orally Once a day for 90 day s HYDROcodone-Acetaminophen 5-325 MG 1 tablet as needed Orally [id number] Twice a day, mdd=2 for 30 Days Aug, Flonase Allergy Relief 50 MCG/ACT 1 spray in each nost ril Nasally Once a day for 90 days Valsartan 320 MG 1 tablet Orally Once a day for 90 days Atorvastatin Calcium 80 MG 1 tablet Orally Once a day for 90 day s Carvedilol 12.5 MG 1 tab Orally Twice a day for 90 days Levothyroxine Sodium 100 MCG 1 tablet in the morning o n an empty stomach Orally Once a day for 90 days Vitamin D 50 MCG (2000 UT) 1 tablet Orally Once a day for 90 day (s) Ezetimibe 10 MG 1 tablet Orally Once a day for 90 day(s) Esomeprazole Magnesium 40 MG 1 capsule Orally Once a day for 90 days Trulicity 1.5 MG/0.5ML 1 injection Subcutaneous weekly for 90 da ys buPROPion HCl ER (XL) 150 MG 1 tablet in the morning O rally Once a day for 90 days Aug, Amitriptyline HCl 50 MG 1 tablet at bedtime Orally Once a da y for 90 days Mar, Gabapentin 300 MG 1 capsule Orally tid for 90 days Next Appt Details Provider Name:Alysa Britt, 2021-10-31 01:45:00 PM, [address] [place] [address], , [place], [address], Provider Name:Julienne Almanzar, 02:00:00 PM, [facility] [phone], [place], [address], Insurance Providers Payer Name Payer Address Payer Phone Insured Name Patient Relati onship to Insured Coverage Start Date Coverage End Date THOMAS [place] [address] [address] [facility] [phone] RALPH GAN self
--- OUTSIDE RECORDS SUMMARY | 2021-08-31 15:29 | CCD ---
Author Author [facility] [employer] Organization [facility] [employer] Address Unknown Phone Unavailable Care Team Providers Care Canned Food Reconditioning Inspector Name Role Phone Julienne Almanzar Unavailable PROBLEMS Type Condition ICD9-CM Code ONE20-FA Code Onset Dates Condition S tatus W/U Status Risk SNOMED Code Notes Problem Chronic GERD K21.9 Active confirmed 0281221 09 Stable on esomeprazole 40 mg once a day, no medication changes at been made Problem Anxiety with depression F41.8 Active confirmed 041323763 Continue escitalopram and amitriptyline with no change Problem Seasonal allergies J30.2 Active confirmed 4 23552452 Problem Hypothyroidism, unspecified type E03.9 Active conf irmed 57173225 check TSH, then adjust medication as needed, I told Ralph that if we have any room to play with that we will increase her dose Problem Mixed hyperlipidemia E78.2 Active confirmed 375186616 rechallenge Lipitor Problem Type 2 diabetes mellitus with unspecified complications E11.8 Active confirmed 760610338 Stable for now o n metformin 750 mg, no medication changes have been made Problem Insomnia, unspecified type G47.00 Active confirmed 264252513 Problem Spinal stenosis of lumbar region 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 viktor claudication M48.061 Active confirmed 49970015 Problem Vitamin D deficiency E55.9 Active confirmed 73088162 Continue vitamin D 2000 units daily with no change Problem Decreased hearing of both ears H91.93 Active confir med 682372801 Problem Essential hypertension I10 Active confirmed 07457386 increase losartan from 25 mg twice a day to 100 mg once a day Problem Coronary artery disease invo lving [place] coronary artery of [place] heart without angina pectoris I25.10 Active confirmed 487054 000 needs 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 Problem Neuropathy G62.9 Active confirmed 929403310 Problem Other chronic pain G89.29 Active confirmed 8 8657775 Problem Elevated liver enzymes R74.8 Active confirmed 436486063 ALLERGIES Allergen (clinical drug ingredient) Drug/Non Drug Allergy do cumented on EMR Reaction Allergy Type Onset Date Status duloxetine Cymbalta([facility] Code:[address]-26) not efective Drug Allergy Active ENCOUNTERS from 1950 to 2021-07-15 Encounter Location Date Provider Diagnosis [place] [id number] [facility] [phone] [place] [address] 07 Jul, 2021 Julienne Almanzar Arthralgia, unspecified join t M25.50 ; Hypothyroidism, unspecified type E03.9 ; Essential hypertension I10 and Mixed hyperlipidemia E78.2 IMMUNIZATIONS Vaccine Route Administration Date Status Moderna #1 dose COVID-19 (given elsewhere) SARSCOV2 VAC 100M CG/0.5ML IM Unknown December 07, 2020 Administered Moderna #2 dose COVID-19 (given elsewhere) SARSCOV2 VAC 100M CG/0.5ML IM Unknown January 04, 2021 Administered Influenza Pharmacy Given Unknown Aug 09, 2020 Adminis tered SOCIAL HISTORY Tobacco Use: Social History Observation Description Date Details (start date - stop date) Never Smoker Sex Assigned At : Social History Observation Description Sex Assigned At Unknown Education: Question Answer Notes Level of Education: Not Finished College Audit Question Answer Notes Total Score: 2 Interpretation: Alcohol Education Language: Question Answer Notes Languages spoken: Danish Druze: Question Answer Notes Druze 33 None Sexual Hx: Question Answer Notes [...] Notes Start Da te End Date Status Ezetimibe 10 MG 1 tablet Orally Once a day for 90 Active Trulicity 1.5 MG/0.5ML 1 injection Subcutaneous weekly for 90 da ys Apr, Active Esomeprazole Magnesium 40 MG 1 capsule Orally Once a day for 90 day(s ) Active Vitamin D 50 MCG (1999) 1 tablet Orally Once a day for 90 day(s) Active HYDROcodone-Acetaminophen 5-325 MG 1 tablet as needed [id number] Twice a day, mdd=2 for 30 Days May, Active Levothyroxine Sodium 100 MCG 1 tablet in the morning o n an empty stomach Orally Once a day for 90 days Active Diclofenac Sodium 3 % 2 grams topically Twice a day to shoulder for 90 days Active Valsartan 320 MG 1 tablet Orally Once a day for 90 days Active Carvedilol 12.5 MG 1 tab Orally Twice a day Active Ezetimibe 10 MG 1 tablet Orally Once a day for 90 day(s) Active Gabapentin 300 MG 1 capsule Orally tid Active Amitriptyline HCl 50 MG 1 tablet at bedtime Orally Once a day fo r 90 days Mar, Active Celecoxib 100 MG 1 capsule with food Orally bid for 90 days Apr, Active Flonase Allergy Relief 50 MCG/ACT 1 spray in each nost ril Nasally Once a day for 90 days Active Atorvastatin Calcium 80 MG 1 tablet Orally Once a day for 90 days Active Diclofenac-miSOPROStol 75-0.2 MG TAKE 1 TABLET BY MOUT H TWICE DAILY WITH FOOD for 90 days Not-Taking Escitalopram Oxalate 20 MG 1 tablet Orally Once a day for 90 days Active PROCEDURES No Information RESULTS No Results REASON FOR VISIT New Refill Request MEDICAL (GENERAL) HISTORY Type Description Date Medical History Type 2 DM Medical History Hypertension Medical History Mixed Hyperlipidemia Medical History Hypothyroidism Medical History GERD Medical History Anxiety and Depression Medical History h/o Left Femur Fracture Medical History Seasonal Allergies Medical History Vitamin D Deficiency Medical History Insomnia Medical History Probable Sponal Stenosis Surgical History hysterectomy 1979 Surgical History cataract Surgical History left femur fracture repair 2019 Surgical History hernia repair Goals Section No Information Health Concerns No Information MEDICAL EQUIPMENT No Information MENTAL STATUS No Information FUNCTIONAL STATUS No Information ASSESSMENTS Encounter Date Diagnosis Assessment Notes Treatment Notes Treatm ent Clinical Notes Jul, Arthralgia, unspecified joint (ICD-10 - M25.50) Jul, Hypothyroidism, unspecified type (ICD-10 - E03.9 ) Jul, Essential hypertension (ICD-10 - I10) Jul, Mixed hyperlipidemia (ICD-10 - E78.2) PLAN OF TREATMENT Medication Medication Name Sig Start Date Stop Date Valsartan 320 MG 1 tablet Orally Once a day for 90 days Atorvastatin Calcium 80 MG 1 tablet Orally Once a day for 90 day s Diclofenac Sodium 3 % 2 grams topically Twice a day to shoulder for 90 days Trulicity 1.5 MG/0.5ML 1 injection Subcutaneous weekly for 90 da ys Apr, Levothyroxine Sodium 100 MCG 1 tablet in the morning o n an empty stomach Orally Once a day for 90 days Vitamin D 50 MCG (1999) 1 tablet Orally Once a day for 90 day (s) Flonase Allergy Relief 50 MCG/ACT 1 spray in each nost ril Nasally Once a day for 90 days Carvedilol 12.5 MG 1 tab Orally Twice a day Gabapentin 300 MG 1 capsule Orally tid HYDROcodone-Acetaminophen 5-325 MG 1 tablet as needed [id number] Twice a day, mdd=2 for 30 Days May, Ezetimibe 10 MG 1 tablet Orally Once a day for 90 day(s) Celecoxib 100 MG 1 capsule with food Orally bid for 90 days 2020 Next Appt Details Provider Name:Julienne Almanzar, 10:30:00 AM, [address] [facility], , [place], [address], Insurance Providers Payer Name Payer Address Payer Phone Insured Name Patient Relati onship to Insured Coverage Start Date Coverage End Date THOMAS [address]AL [address] [address] [facility] [id number] RALPH GAN
--- OUTSIDE RECORDS SUMMARY | 2021-08-31 15:29 | CCD ---
Author Author [facility] [employer] Organization [facility] [employer] Address Unknown Phone Unavailable Care Team Providers Care Health Care Coach Name Role Phone Julienne Almanzar Unavailable PROBLEMS Type Condition ICD9-CM Code [id number] Code Onset Dates Condition S tatus W/U Status Risk SNOMED Code Notes Problem Chronic GERD K21.9 Active confirmed 2238864 09 Stable on esomeprazole 40 mg once a day, no medication changes at been made Problem Anxiety with depression F41.8 Active confirmed 532829183 Continue escitalopram and amitriptyline with no change Problem Seasonal allergies J30.2 Active confirmed 4 79892584 Problem Hypothyroidism, unspecified type E03.9 Active conf irmed 30423568 check TSH, then adjust medication as needed, I told Ralph that if we have any room to play with that we will increase her dose Problem Mixed hyperlipidemia E78.2 Active confirmed 200880075 rechallenge Lipitor Problem Type 2 diabetes mellitus with unspecified complications E11.8 Active confirmed 681763304 Stable for now o n metformin 750 mg, no medication changes have been made Problem Insomnia, unspecified type G47.00 Active confirmed 321585494 Problem Spinal stenosis of lumbar region 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 viktor claudication M48.061 Active confirmed 09382610 Problem Vitamin D deficiency E55.9 Active confirmed 91066310 Continue vitamin D 2000 units daily with no change Problem Decreased hearing of both ears H91.93 Active confir med 930923711 Problem Essential hypertension I10 Active confirmed 06190404 increase losartan from 25 mg twice a day to 100 mg once a day Problem Coronary artery disease invo lving [place] coronary artery of [place] heart without angina pectoris I25.10 Active confirmed 055602 000 needs Content Checker Problem Neuropathy G62.9 Active confirmed 975044807 Problem Other chronic pain G89.29 Active confirmed 8 4100466 Problem Elevated liver enzymes R74.8 Active confirmed 341691779 ALLERGIES Allergen (clinical drug ingredient) Drug/Non Drug Allergy do cumented on EMR Reaction Allergy Type Onset Date Status duloxetine Cymbalta([facility] Code:[address]-10) not efective Drug Allergy Active ENCOUNTERS from 1950 to 2021-06-22 Encounter Location Date Provider Diagnosis [place] [address] [facility] [phone] [place] [address] Jun, Julienne Almanzar Arthralgia, unspecified join t M25.50 IMMUNIZATIONS Vaccine Route Administration Date Status Moderna #1 dose COVID-19(given elsewhere) SARSCOV2 VAC 100MC G/0.5ML IM Unknown December 07, 2020 Administered Moderna #2 dose COVID-19(given elsewhere) SARSCOV2 VAC 100MC G/0.5ML IM Unknown January 04, 2021 Administered Influenza [...] Education Language: Question Answer Notes Languages spoken: Turkish Mandaeism: Question Answer Notes Mandaeism 33 None Sexual Hx: Question Answer Notes [...] Notes Start Da te End Date Status Vitamin D 50 MCG (1999 UT) 1 tablet Orally Once a day for 90 day(s) Active Ezetimibe 10 MG 1 tablet Orally Once a day for 90 Active Carvedilol 12.5 MG 1 tab Orally Twice a day Active Atorvastatin Calcium 80 MG 1 tablet Orally Once a day Active Celecoxib 100 MG 1 capsule with food Orally bid for 90 days Apr, Active Gabapentin 300 MG 1 capsule Orally tid Active Diclofenac-miSOPROStol 75-0.2 MG TAKE 1 TABLET BY MOUT H TWICE DAILY WITH FOOD for 90 days Not-Taking HYDROcodone-Acetaminophen 5-325 MG 1 tablet as needed [id number] Twice a day, mdd=2 for 30 Days May, Active Amitriptyline HCl 50 MG 1 tablet at bedtime Orally Once a day fo r 90 days Mar, Active Flonase Allergy Relief 50 MCG/ACT 1 spray in each nost ril Nasally Once a day for 90 days Active Esomeprazole Magnesium 40 MG 1 capsule Orally Once a day for 90 day(s ) Active Escitalopram Oxalate 20 MG 1 tablet Orally Once a day for 90 days Active Levothyroxine Sodium 100 MCG 1 tablet in the morning o n an empty stomach Orally Once a day for 90 days Active Valsartan 320 MG 1 tablet Orally Once a day Active Diclofenac Sodium 3 % 2 grams topically Twice a day to shoulder for 90 days Active Ezetimibe 10 MG 1 tablet Orally Once a day for 90 day(s) Active Trulicity 1.5 MG/0.5ML 1 injection Subcutaneous weekly for 90 da ys Apr, Active PROCEDURES No Information RESULTS No Results REASON FOR VISIT refill MEDICAL (GENERAL) HISTORY Type Description Date Medical [...] Notes Treatment Notes Treatm ent Clinical Notes Jun, Arthralgia, unspecified joint (ICD-10 - M25.50) PLAN OF TREATMENT Medication Medication Name Sig Start Date Stop Date HYDROcodone-Acetaminophen 5-325 MG 1 tablet as needed [id number] Twice a day, mdd=2 for 30 Days May, Diclofenac Sodium 3 % 2 grams topically Twice a day to shoulder for 90 days Celecoxib 100 MG 1 capsule with food Orally bid for 90 days 2020 Vitamin D 50 MCG (1999 UT) 1 tablet Orally Once a day for 90 day (s) Gabapentin 300 MG 1 capsule Orally tid Atorvastatin Calcium 80 MG 1 tablet Orally Once a day Trulicity 1.5 MG/0.5ML 1 injection Subcutaneous weekly for 90 da ys Apr, Valsartan 320 MG 1 tablet Orally Once a day Levothyroxine Sodium 100 MCG 1 tablet in the morning o n an empty stomach Orally Once a day for 90 days Ezetimibe 10 MG 1 tablet Orally Once a day for 90 day(s) Flonase Allergy Relief 50 MCG/ACT 1 spray in each nost ril Nasally Once a day for 90 days Carvedilol 12.5 MG 1 tab Orally Twice a day Next Appt Details Provider Name:Julienne Almanzar, 10:30:00 AM, [address] [place] [address], , [place], [address], Insurance Providers Payer Name Payer Address Payer Phone Insured Name Patient Relati onship to Insured Coverage Start Date Coverage End Date THOMAS CRAB[address]REE [address] [address] [facility] [phone] RALPH GAN
--- OUTSIDE RECORDS SUMMARY | 2021-08-31 15:29 | CCD ---
Author Author [facility] Organization [facility] Address Unknown Phone Unavailable Care Team Providers Care Irs Agent Name Role Phone Julienne Almanzar Unavailable PROBLEMS Type Condition ICD9-CM Code [id number] Code Onset Dates Condition S tatus W/U Status Risk SNOMED Code Notes Problem Chronic GERD K21.9 Active confirmed 1536854 [id number] Stable on esomeprazole 40 mg once a day, no medication changes at been made Problem Anxiety with depression F41.8 Active confirmed 128221827 Continue escitalopram and amitriptyline with no change Problem Seasonal allergies J30.2 Active confirmed 4 15453559 Problem Hypothyroidism, unspecified type E03.9 Active conf irmed 54681797 check TSH, then adjust medication as needed, I told Ralph that if we have any room to play with that we will increase her dose Problem Mixed hyperlipidemia E78.2 Active confirmed 397801438 rechallenge Lipitor Problem Type 2 diabetes mellitus with unspecified complications E11.8 Active confirmed 946831638 Stable for now o n metformin 750 mg, no medication changes have been made Problem Insomnia, unspecified type G47.00 Active confirmed 390044189 Problem Spinal stenosis of lumbar region 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 viktor claudication M48.061 Active confirmed 04757787 Problem Vitamin D deficiency E55.9 Active confirmed 85793962 Continue vitamin D 2000 units daily with no change Problem Decreased hearing of both ears H91.93 Active confir med 599229553 Problem Essential hypertension I10 Active confirmed 47475758 increase losartan from 25 mg twice a day to 100 mg once a day Problem Coronary artery disease invo lving [place] coronary artery of teller heart without angina pectoris I25.10 Active confirmed 195582 000 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 Problem Neuropathy G62.9 Active confirmed 825145797 Problem Other chronic pain G89.29 Active confirmed 8 3959821 Problem Elevated liver enzymes R74.8 Active confirmed 837183246 ALLERGIES Allergen (clinical drug ingredient) Drug/Non Drug Allergy do cumented on EMR Reaction Allergy Type Onset Date Status duloxetine Cymbalta([facility] Code:[address]-32) not efective Drug Allergy Active ENCOUNTERS from 1950 to 2021-06-08 Encounter Location Date Provider Diagnosis [place] [id number] [facility] [phone] [place] [address] May, Julienne Harrellage Essential hypertension I10 ; Coronary artery disease involving teller coronary artery of teller heart without angina pectoris I25.10 ; Mixed hyperlipidemia E78.2 ; Type 2 diabetes mellitus with unspecified complications E11.8 ; Hypothyroidism, unspecified type E03.9 ; Vitamin D deficiency E55.9 ; Spinal stenosis of lumbar region 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nic claudication M48.061 ; Arthralgia, unspecified joint M25.50 ; Pain in right hand M79.641 ; Pain in left hand M79.642 ; Leg cramps R25.2 ; Right upper quadrant pain R10.11 ; Family history of rheumatoid arthritis Z82.61 ; Chronic GERD K21.9 and Seasonal a llergies J30.2 IMMUNIZATIONS Vaccine Route Administration Date Status Moderna [...] Education Language: Question Answer Notes Languages spoken: Occitan Muslim: Question Answer Notes Muslim 33 None Sexual Hx: Question Answer Notes [...] REASON FOR REFERRAL No Information VITAL SIGNS Weight 230 lbs May, Weight-kg 104.33 kg May, Height 64 in May, BMI 39.48 kg/m2 May, Heart Rate 86 /min May, Respiratory Rate 18 /min May, Temperature 96.9 degrees Fahrenheit May, Oximetry 97 May, Blood pressure systolic 112 mm Hg May, Blood pressure diastolic 74 mm Hg May, MEDICATIONS Medication SIG (Take, Route, Frequency, Duration) Notes Start Da te End Date Status Vitamin D 50 MCG (1999) 1 tablet Orally Once a day for 90 day(s) Active Ezetimibe 10 MG 1 tablet Orally Once a day for 90 Active Carvedilol 12.5 MG 1 tab Orally Twice a day Active Atorvastatin Calcium 80 MG 1 tablet Orally Once a day Active Celecoxib 100 MG 1 capsule with food Orally bid for 90 days Apr, Active Diclofenac-miSOPROStol 75-0.2 MG TAKE 1 TABLET BY MOUT H TWICE DAILY WITH FOOD for 90 days Not-Taking Diclofenac Sodium 3 % 2 grams topically Twice a day to shoulder for 90 days Active Gabapentin 300 MG 1 capsule Orally tid Active Amitriptyline HCl 50 MG 1 tablet at bedtime Orally Once a day fo r days Mar, Active Flonase Allergy Relief 50 [...] 1 tablet Orally Once a day Active HYDROcodone-Acetaminophen 5-325 MG 1 tablet as needed [id number] Twice a day, mdd=2 for 30 Days May, Active Ezetimibe 10 MG 1 tablet Orally Once a day for 90 day(s) Active Trulicity 1.5 MG/0.5ML 1 injection Subcutaneous weekly for 90 da ys Apr, Active PROCEDURES No Information RESULTS No Results REASON FOR VISIT 3 MONTHS MEDICAL (GENERAL) HISTORY Type Description Date Medical [...] Notes Treatment Notes Treatm ent Clinical Notes May, Essential hypertension (ICD-10 - I10) Per JNC 8 guidelines, goal BP 150/90 if age >60, is meeting goal on current regimen. Advised heart-healthy diet, sodium restriction May, Coronary artery disease invo lving [place] coronary artery of teller heart without angina pectoris (ICD-10 - I25.10) seen by cardiology echo completed. stress test completed, stable May, Mixed hyperlipidemia (ICD-10 - E78.2) she never started the lipitor back up, encouraged to restart it. thought it was giving her muscle aches, will stay on the zetia May, Type 2 diabetes mellitus wit h unspecified complications (ICD-10 - E11.8) Stable for now on metformin 750 mg, started on Trulicity, tolerating medication with no difficulty will stop the Metformin today May, Hypothyroidism, unspecified type (ICD-10 - E03.9 ) on replacement May, Vitamin D deficiency (ICD-10 - E55.9) remains on replacement May, Spinal stenosis of lumbar re gion without [...] in pm will increase celebrex to bid nys i stop reviewed last filled 02/24/21 # [id number] May, Arthralgia, unspecified joint (ICD-10 - M25.50) labs reviewed. xray reviewed using voltaren with effect May, Pain in right hand (ICD-10 - M79.641) xrays reviewed appears to be osteoarthritis May, Pain in left hand (ICD-10 - M79.642) osteo May, Leg cramps (ICD-10 - R25.2) magnesium level wnl May, Right upper quadrant pain (ICD-10 - R10.11) gallbladder ultrasound for evaluation reviewed negative pain improved May, Family history of rheumatoid arthritis (ICD-10 - Z82.61) daughter and sister who are on medications inital abs were negative hand x ray negative. May, Chronic GERD (ICD-10 - K21.9) Stable on esomeprazole 40 mg once a day, no medication changes at been made controlled with meds May, Seasonal allergies (ICD-10 - J30.2) PLAN OF TREATMENT Medication Medication Name Sig Start Date Stop Date Gabapentin 300 MG 1 capsule Orally tid HYDROcodone-Acetaminophen 5-325 MG 1 tablet as needed [id number] Twice a day, mdd=2 for 30 Days May, Celecoxib 100 MG 1 capsule with food Orally bid for 90 days 2020 Vitamin D 50 MCG (1999) 1 tablet Orally Once a day for 90 day (s) Diclofenac Sodium 3 % 2 grams topically Twice a day to shoulder for 90 days Atorvastatin Calcium 80 MG 1 tablet Orally Once a day Trulicity 1.5 MG/0.5ML 1 injection Subcutaneous weekly for da ys Apr, Valsartan 320 MG 1 [...] MG 1 tab Orally Twice a day Treatment Notes Assessment Notes Clinical Notes Chronic GERD controlled with meds Essential hypertension Per JNC 8 guideli yovani, goal BP 150/90 if age >60, is meeting goal on current regimen. Advised heart-healthy diet, sodium restriction Family history of rheumatoid arthritis d alda and sister who are on medicationsinital abs were negative hand x ray negative. Coronary artery disease involving teller coronary artery of teller heart without angina pectoris seen by cardiology echo comp leted. stress test completed, stable Mixed hyperlipidemia she never started t he lipitor back up, encouraged to restart it. thought it was giving her muscle aches, will stay on the zetia Type 2 diabetes mellitus with unspecified complications Stable for now on metformin 750 mg, started on Trulicity, tolerating medication with no difficulty will stop the Metformin today Hypothyroidism, unspecified type on repl acement Vitamin [...] a referral to pain clinicusing hydrocodone prn nys i stop compliant.Advised to increase gabapentin to 3 times a day,states it is helping.will tray 300 mg in am and 600 mg in pmwill increase celebrex to bidnys i stop reviewed last filled 02/24/21 # [id number] Right upper quadrant pain gallbladder ul trasound for evaluation reviewed negative pain improved Leg cramps magnesium level wnl Arthralgia, unspecified joint labs revie wed. xray reviewed using voltaren with effect Pain in right hand xrays reviewed appea rs to be osteoarthritis Pain in left hand osteo Next Appt Details Julienne 3 months routine visit Reason: Provider Name:Julienne Almanzar, 10:30:00 AM, [address] [facility], , [place], [address], Insurance Providers Payer Name Payer Address Payer Phone Insured Name Patient Relati onship to Insured Coverage Start Date Coverage End Date [employer] [address] [address] [place] [address] RALPH GAN
--- OUTSIDE RECORDS SUMMARY | 2021-08-31 15:29 | CCD ---
Author Author [facility] Organization [facility] Address Unknown Phone Unavailable Care Team Providers Care Gage Designer Name Role Phone Julienne Almanzar Unavailable PROBLEMS Type Condition ICD9-CM Code [id number] Code Onset Dates Condition S tatus W/U Status Risk SNOMED Code Notes Problem Chronic GERD K21.9 Active confirmed 5398490 09 Stable on esomeprazole 40 mg once a day, no medication changes at been made Problem Anxiety with depression F41.8 Active confirmed 395939183 Continue escitalopram and amitriptyline with no change Problem Seasonal allergies J30.2 Active confirmed 4 28398867 Problem Hypothyroidism, unspecified type E03.9 Active conf irmed 47472446 check TSH, then adjust medication as needed, I told Ralph that if we have any room to play with that we will increase her dose Problem Mixed hyperlipidemia E78.2 Active confirmed 720042271 rechallenge Lipitor Problem Type 2 diabetes mellitus with unspecified complications E11.8 Active confirmed 039619133 Stable for now o n metformin 750 mg, no medication changes have been made Problem Insomnia, unspecified type G47.00 Active confirmed 974058664 Problem Spinal stenosis of lumbar region 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 viktor claudication M48.061 Active confirmed 12183531 Problem Vitamin D deficiency E55.9 Active confirmed 12338097 Continue vitamin D 2000 units daily with no change Problem Decreased hearing of both ears H91.93 Active confir med 577253605 Problem Essential hypertension I10 Active confirmed 28282823 increase losartan from 25 mg twice a day to 100 mg once a day Problem Coronary artery disease invo lving [place] coronary artery of [place] heart without angina pectoris I25.10 Active confirmed 678265 000 needs Agronomy Specialist Problem Neuropathy G62.9 Active confirmed 028471188 Problem Other chronic pain G89.29 Active confirmed 8 1907686 Problem Elevated liver enzymes R74.8 Active confirmed 776203623 ALLERGIES Allergen (clinical drug ingredient) Drug/Non Drug Allergy do cumented on EMR Reaction Allergy Type Onset Date Status duloxetine Cymbalta([facility] Code:[address]-93) not efective Drug Allergy Active ENCOUNTERS from 1950 to 2021-08-02 Encounter Location Date Provider Diagnosis [place] [address] [facility] [phone] [place] [address] Jul, Julienne Servage IMMUNIZATIONS Vaccine Route Administration Date Status Moderna [...] Education Language: Question Answer Notes Languages spoken: Thai Taoist: Question Answer Notes Taoist 33 None Sexual Hx: Question Answer Notes [...] Notes Start Da te End Date Status Esomeprazole Magnesium 40 MG 1 capsule Orally Once a day for 90 day(s ) Active Vitamin D 50 MCG (1999) 1 tablet Orally Once a day for 90 day(s) Active Carvedilol 12.5 MG 1 tab Orally Twice a day Active Escitalopram Oxalate 20 MG 1 tablet Orally Once a day for 90 days Active Diclofenac-miSOPROStol 75-0.2 MG TAKE 1 TABLET BY MOUT H TWICE DAILY WITH FOOD for 90 days Not-Taking Levothyroxine Sodium 100 MCG 1 tablet in [...] weekly for 90 da ys Apr, Active Flonase Allergy Relief 50 MCG/ACT 1 spray in each nost ril Nasally Once a day for 90 days Active Amitriptyline HCl 50 MG 1 tablet at bedtime Orally Once a day fo r 90 days Mar, Active Ezetimibe 10 MG 1 tablet Orally Once a day for 90 Active Ezetimibe 10 MG 1 tablet Orally Once a day for 90 day(s) Active Gabapentin 300 MG 1 capsule Orally tid Active Atorvastatin Calcium 80 MG 1 tablet Orally Once a day for 90 days Active Celecoxib 100 MG 1 capsule with food Orally bid for 90 days Apr, Active HYDROcodone-Acetaminophen 5-325 MG 1 tablet as needed [id number] Twice a day, mdd=2 for 30 Days May, Active PROCEDURES No Information RESULTS No Results [...] No Information FUNCTIONAL STATUS No Information ASSESSMENTS No Information PLAN OF TREATMENT Medication Medication Name Sig Start Date Stop Date Valsartan 320 MG 1 tablet Orally Once a day for 90 days Atorvastatin Calcium 80 MG 1 tablet Orally Once a day for 90 day s Diclofenac Sodium 3 % 2 grams topically Twice a day to shoulder for 90 days Levothyroxine Sodium 100 MCG 1 tablet in the morning o n an empty stomach Orally Once a day for 90 days Trulicity 1.5 MG/0.5ML 1 injection Subcutaneous weekly for 90 da ys Apr, Flonase Allergy Relief 50 MCG/ACT 1 spray in each nost ril Nasally Once a day for 90 days Escitalopram Oxalate 20 MG 1 tablet Orally Once a day for 90 day s Celecoxib 100 MG 1 capsule with food Orally bid for 90 days 2020 Amitriptyline HCl 50 MG 1 tablet at bedtime Orally Once a da y for 90 days Mar, Carvedilol 12.5 MG 1 tab Orally Twice a day Ezetimibe 10 MG 1 tablet Orally Once a day for 90 day(s) Gabapentin 300 MG 1 capsule Orally tid HYDROcodone-Acetaminophen 5-325 MG 1 tablet as needed [id number] Twice a day, mdd=2 for 30 Days May, Ezetimibe 10 MG 1 tablet Orally Once a day for 90 Esomeprazole Magnesium 40 MG 1 capsule Orally Once a day for 90 day(s) Vitamin D 50 MCG (1999) 1 tablet Orally Once a day for 90 day (s) Next Appt Details Provider Name:Julienne Almanzar, 10:30:00 AM, [address] [facility], , [place], [address], Insurance Providers Payer Name Payer Address Payer Phone Insured Name Patient Relati onship to Insured Coverage Start Date Coverage End Date [address] [address] [facility] [phone] RALPH GAN self
--- OUTSIDE RECORDS SUMMARY | 2021-08-31 15:29 | CCD ---
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 Name Role Phone Julienne Almanzar Unavailable PROBLEMS Type Condition ICD9-CM Code [id number] Code Onset Dates Condition S tatus W/U Status Risk SNOMED Code Notes Problem Chronic GERD K21.9 Active confirmed 6522764 09 Stable on esomeprazole 40 mg once a day, no medication changes at been made Problem Anxiety with depression F41.8 Active confirmed 505991884 Continue escitalopram and amitriptyline with no change Problem Seasonal allergies J30.2 Active confirmed 4 75847458 Problem Hypothyroidism, unspecified type E03.9 Active conf irmed 47992330 check TSH, then adjust medication as needed, I told Ralph that if we have any room to play with that we will increase her dose Problem Mixed hyperlipidemia E78.2 Active confirmed 604067060 rechallenge Lipitor Problem Type 2 diabetes mellitus with unspecified complications E11.8 Active confirmed 235850038 Stable for now o n metformin 750 mg, no medication changes have been made Problem Insomnia, unspecified type G47.00 Active confirmed 950220615 Problem Spinal stenosis of lumbar region 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 viktor claudication M48.061 Active confirmed 61025221 Problem Vitamin D deficiency E55.9 Active confirmed 13278664 Continue vitamin D 2000 units daily with no change Problem Decreased hearing of both ears H91.93 Active confir med 721430513 Problem Essential hypertension I10 Active confirmed 16143684 increase losartan from 25 mg twice a day to 100 mg once a day Problem Coronary artery disease invo lving [place] coronary artery of [place] heart without angina pectoris I25.10 Active confirmed 174353 000 needs Hearing Therapy Teacher Problem Neuropathy G62.9 Active confirmed 258209506 Problem Other chronic pain G89.29 Active confirmed 8 2180490 Problem Elevated liver enzymes R74.8 Active confirmed 626615420 ALLERGIES Allergen (clinical drug ingredient) Drug/Non Drug Allergy do cumented on EMR Reaction Allergy Type Onset Date Status duloxetine Cymbalta([facility] Code:[address]-03) not efective Drug Allergy Active ENCOUNTERS from 1950 to 2021-08-25 Encounter Location Date Provider Diagnosis [place] [id number] [facility] [phone] [place] [address] Aug, Julienne Servage IMMUNIZATIONS Vaccine Route Administration Date [...] 0.5mL Pneumovax 23 IM Intramuscular Aug 18 021 Administered SOCIAL HISTORY Tobacco Use: Social History Observation Description Date Details (start date - stop date) Never Smoker Sex Assigned At : Social History Observation Description Sex Assigned At Unknown Education: Question Answer Notes Level of Education: Not Finished College Audit Question Answer Notes Total Score: 2 Interpretation: Alcohol Education Language: Question Answer Notes Languages spoken: Honduran Scientologist: Question Answer Notes Scientologist 33 None Sexual Hx: Question Answer Notes [...] 5-325 MG 1 tablet as needed Orally [id number] Twice a day, mdd=2 for 30 Days [...] for 5 day s Aug, Active PROCEDURES No Information RESULTS No Results REASON FOR VISIT Bursitis MEDICAL (GENERAL) HISTORY Type Description Date Medical [...] shoulder pain for 5 day s Aug, Next Appt Details Provider Name:Alysaoliva Britt, 2021-10-31 01:45:00 PM, [address] [place] [address], , [place], [address], Provider Name:Julienne Almanzar, 02:00:00 PM, [address] [facility], , [place], [address], Insurance Providers Payer Name Payer Address Payer Phone Insured Name Patient Relati onship to Insured Coverage Start Date Coverage End Date [address]OMAS [address] [address] [facility] [phone] RALPH [employer]
--- OUTSIDE RECORDS SUMMARY | 2021-08-31 15:29 | CCD ---
Author Author [facility] Organization [facility] Address Unknown Phone Unavailable Support Name Relationship Address Phone CR PATTON Next Of Kin [address] [phone] RALPH BARBER Next Of Kin [address] [place] [address] CR LINDQUIST Next Of Kin [address] [place], [place] [id number] MARISOL LINDQUIST Next Of Kin [address] [place], [place] [id number] NIRANJAN LINDQUIST Next Of Kin [address] [facility] [address] Unknown Unavailable RE Next Of Kin Unknown Unavailable CR PATTON ECON [address] [place] [address] Unavailable Re-disclosure Warning The records that you are about to access may contain information from federally-assisted alcohol or drug abuse programs. If such information is present, then the following federally mandated warning applies: This information has been disclosed to you from records protected by federal confidentiality rules (42 CFR part 2). The federal rules prohibit you from making any further disclosure of this information unless further disclosure is expressly permitted by the written consent of the person to whom it pertains or as otherwise permitted by 42 CFR part 2. A general authorization for the release of medical or other information is NOT sufficient for this purpose. The Federal rules restrict any use of the information to criminally investigate or prosecute any alcohol or drug abuse patient.The records that you are about to access may contain highly sensitive health information, the redisclosure of which is protected by Article 27-F of the [facility] Public Health law. If you continue you may have access to information: Regarding HIV / AIDS; Provided by facilities licensed or operated by the [facility] Office of Mental Health; or Provided by the [facility] Office for People With Developmental Disabilities. If such information is present, then the following [facility] mandated warning applies: This information has been disclosed to you from confidential records which are protected by state law. State law prohibits you from making any further disclosure of this information without the specific written consent of the person to whom it pertains, or as otherwise permitted by law. Any unauthorized further disclosure in violation of state law may result in a fine or [place] [facility] sentence or both. A general authorization for the release of medical or other information is NOT sufficient authorization for further disc losure. Encounters Encounter Providers Location Date Indications Data Source(s ) Unknown [address] [place] [address] [place] [address] 08/25/2021 12:00:00 AM EST eCW1 ([facility]) Unknown [address] [facility] [address] 08/19/2021 12:00:00 AM EST eCW1 [facility]) Office Visit, Est Pt., Level 4 PC [address] [place] [address] 08/18/2021 12:00:00 AM EST eCW1 ([facility]) Unknown [address] [facility] [address] 08/18/2021 12:00:00 AM EST eCW1 ([facility]) Unknown [address] [facility] [address] 08/01/2021 12:00:00 AM EDT eCW1 ([facility]) Unknown [address] [facility] [address] 07/14/2021 12:00:00 AM EDT eCW1 ([facility]) Unknown [address] [facility] [place] [address] 06/22/2021 12:00:00 AM EDT eCW1 ([facility]) Office Visit, Est Pt., Level 4 PC [address] [place] [address] 05/31/2021 12:00:00 AM EDT eCW1 ([facility]) Unknown [address] [facility] [address] 04/13/2021 12:00:00 AM EDT eCW1 ([facility]) [place] [address] [facility] [address] 04/11/2021 12:00:00 AM EDT eCW1 ([facility]) [place] [address] [facility] [address] 03/10/2021 12:00:00 AM EDT eCW1 ([facility]) Office Visit, Est Pt., Level 2 FC [address] [place] [address] 03/01/2021 12:00:00 AM EDT eCW1 ([facility]) Unknown [address] [facility] [address] 02/22/2021 12:00:00 AM EDT eCW1 ([facility]) Outpatient [address] [facility] [address] 02/10/2021 12:00:00 AM EDT eCW1 ([facility]) Unknown [address] [facility] [address] 01/03/2021 12:00:00 AM EDT eCW1 ([facility]) [place] [address] [facility] [address] 12/31/2020 12:00:00 AM EDT eCW1 ([facility]) Unknown [address] [facility] [address] 11/01/2020 12:00:00 AM EST eCW1 ([facility]) Unknown [address] [facility] [address] 10/12/2020 12:00:00 AM EST eCW1 ([facility]) Unknown [address] [facility] [address] 09/29/2020 12:00:00 AM EST eCW1 ([facility]) Outpatient [address] [facility] [address] 09/28/2020 12:00:00 AM EST eCW1 ([facility]) Unknown [address] [facility] [address] 09/27/2020 12:00:00 AM EST eCW1 ([facility]) Unknown [address] [facility] [address] 09/21/2020 12:00:00 AM EST eCW1 ([facility]) Unknown [address] [facility] [address] 09/07/2020 12:00:00 AM EST eCW1 ([facility]) Unknown [address] [facility] [address] 08/20/2020 12:00:00 AM EST eCW1 ([facility]) Outpatient [address] [facility] [address] 07/29/2020 12:00:00 AM EDT eCW1 ([facility]) Unknown [address] [facility] [address] 07/28/2020 12:00:00 AM EDT eCW1 ([facility]) Immunizations Vaccine Date Status Description Data Source(s) influenza, recombinant, quadrIvalent,injectable, prese rvative free 08/18/2021 11:28:00 AM EST completed eCW1 ([facility]) influenza, recombinant, quadrIvalent,injectable, prese rvative free 08/18/2021 11:28:00 AM EST completed eCW1 ([facility]) pneumococcal polysaccharide PPV23 08/18/2021 11:07:00 AM EST comple adarsh eCW1 ([facility], [facility]) pneumococcal polysaccharide PPV23 08/18/2021 11:07:00 AM EST comple adarsh eCW1 ([facility], [facility]) pneumococcal polysaccharide PPV23 08/18/2021 11:07:00 AM EST comple adarsh eCW1 ([facility], [facility]) pneumococcal polysaccharide PPV23 08/18/2021 11:07:00 AM EST comple adarsh eCW1 ([facility], [facility]) Moderna #2 dose COVID-19 (given elsewhere) SARSCOV2 VA C 100MCG/0.5ML IM 01/04/2021 10:35:00 AM EDT completed eCW1 ([facility]) Moderna #2 dose COVID-19 (given elsewhere) SARSCOV2 VA C 100MCG/0.5ML IM 01/04/2021 10:35:00 AM EDT completed eCW1 ([facility]) Moderna #2 dose COVID-19 (given elsewhere) SARSCOV2 VA C 100MCG/0.5ML IM 01/04/2021 10:35:00 AM EDT completed eCW1 ([facility]) Moderna #2 dose COVID-19 (given elsewhere) SARSCOV2 VA C 100MCG/0.5ML IM 01/04/2021 10:35:00 AM EDT completed eCW1 ([facility]) Moderna #2 dose COVID-19 (given elsewhere) SARSCOV2 VA C 100MCG/0.5ML IM 01/04/2021 10:35:00 AM EDT completed eCW1 ([facility]) Moderna #2 dose COVID-19 (given elsewhere) SARSCOV2 VA C 100MCG/0.5ML IM 01/04/2021 10:35:00 AM EDT completed eCW1 ([facility]) Moderna #2 dose COVID-19(given elsewhere) SARSCOV2 VAC 100MCG/0.5ML IM 01/04/2021 10:35:00 AM EDT completed eCW1 ([facility]) Moderna #2 dose COVID-19(given elsewhere) SARSCOV2 VAC 100MCG/0.5ML IM 01/04/2021 10:35:00 AM EDT completed eCW1 ([facility]) Moderna #2 dose COVID-19(given elsewhere) SARSCOV2 VAC 100MCG/0.5ML IM 01/04/2021 10:35:00 AM EDT completed eCW1 ([facility]) Moderna #2 dose COVID-19(given elsewhere) SARSCOV2 VAC 100MCG/0.5ML IM 01/04/2021 10:35:00 AM EDT completed eCW1 ([facility]) Moderna #2 dose COVID-19(given elsewhere) SARSCOV2 VAC 100MCG/0.5ML IM 01/04/2021 10:35:00 AM EDT completed eCW1 ([facility]) Moderna #2 dose COVID-19(given elsewhere) SARSCOV2 VAC 100MCG/0.5ML IM 01/04/2021 10:35:00 AM EDT completed eCW1 ([facility]) Moderna #2 dose COVID-19(given elsewhere) SARSCOV2 VAC 100MCG/0.5ML IM 01/04/2021 10:35:00 AM EDT completed eCW1 ([facility]) COVID-19 VACCINE Moderna 01/04/2021 12:00:00 AM EDT completed [employer] Vaccine Series Complete: YESThis Data wa s Submitted to [facility] Via [employer]. Moderna #1 dose COVID-19 (given elsewhere) SARSCOV2 VA C 100MCG/0.5ML IM 12/07/2020 10:34:00 AM EST completed eCW1 ([facility]) Moderna #1 dose COVID-19 (given elsewhere) SARSCOV2 VA C 100MCG/0.5ML IM 12/07/2020 10:34:00 AM EST completed eCW1 ([facility]) Moderna #1 dose COVID-19 (given elsewhere) SARSCOV2 VA C 100MCG/0.5ML IM 12/07/2020 10:34:00 AM EST completed eCW1 ([facility]) Moderna #1 dose COVID-19 (given elsewhere) SARSCOV2 VA C 100MCG/0.5ML IM 12/07/2020 10:34:00 AM EST completed eCW1 ([facility]) Moderna #1 dose COVID-19 (given elsewhere) SARSCOV2 VA C 100MCG/0.5ML IM 12/07/2020 10:34:00 AM EST completed eCW1 ([facility]) Moderna #1 dose COVID-19 (given elsewhere) SARSCOV2 VA C 100MCG/0.5ML IM 12/07/2020 10:34:00 AM EST completed eCW1 ([facility]) Moderna #1 dose COVID-19(given elsewhere) SARSCOV2 VAC 100MCG/0.5ML IM 12/07/2020 10:34:00 AM EST completed eCW1 ([facility]) Moderna #1 dose COVID-19(given elsewhere) SARSCOV2 VAC 100MCG/0.5ML IM 12/07/2020 10:34:00 AM EST completed eCW1 ([facility]) Moderna #1 dose COVID-19(given elsewhere) SARSCOV2 VAC 100MCG/0.5ML IM 12/07/2020 10:34:00 AM EST completed eCW1 ([facility]) Moderna #1 dose COVID-19(given elsewhere) SARSCOV2 VAC 100MCG/0.5ML IM 12/07/2020 10:34:00 AM EST completed eCW1 ([facility]) Moderna #1 dose COVID-19(given elsewhere) SARSCOV2 VAC 100MCG/0.5ML IM 12/07/2020 10:34:00 AM EST completed eCW1 ([facility]) Moderna #1 dose COVID-19(given elsewhere) SARSCOV2 VAC 100MCG/0.5ML IM 12/07/2020 10:34:00 AM EST completed eCW1 ([facility]) Moderna #1 dose COVID-19(given elsewhere) SARSCOV2 VAC 100MCG/0.5ML IM 12/07/2020 10:34:00 AM EST completed eCW1 ([facility]) COVID-19 VACCINE Moderna 12/07/2020 12:00:00 AM EST completed [employer] Vaccine Series Complete: NOThis Data was Submitted to [facility] Via [employer]. IIV3. This is one of two codes replacing CVX 15, which is being retired. 08/09/2020 04:28:00 PM EST completed eCW1 ([facility]) IIV3. This is one of two codes replacing CVX 15, which is being retired. 08/09/2020 04:28:00 PM EST completed eCW1 ([facility]) IIV3. This is one of two codes replacing CVX 15, which is being retired. 08/09/2020 04:28:00 PM EST completed eCW1 ([facility]) IIV3. This is one of two codes replacing CVX 15, which is being retired. 08/09/2020 04:28:00 PM EST completed eCW1 ([facility]) IIV3. This is one of two codes replacing CVX 15, which is being retired. 08/09/2020 04:28:00 PM EST completed eCW1 ([facility]) IIV3. This is one of two codes replacing CVX 15, which is being retired. 08/09/2020 04:28:00 PM EST completed eCW1 ([facility]) IIV3. This is one of two codes replacing CVX 15, which is being retired. 08/09/2020 04:28:00 PM EST completed eCW1 ([facility]) IIV3. This is one of two codes replacing CVX 15, which is being retired. 08/09/2020 04:28:00 PM EST completed eCW1 ([facility]) IIV3. This is one of two codes replacing CVX 15, which is being retired. 08/09/2020 04:28:00 PM EST completed eCW1 ([facility]) IIV3. This is one of two codes replacing CVX 15, which is being retired. 08/09/2020 04:28:00 PM EST completed eCW1 ([facility]) IIV3. This is one of two codes replacing CVX 15, which is being retired. 08/09/2020 04:28:00 PM EST completed eCW1 ([facility]) IIV3. This is one of two codes replacing CVX 15, which is being retired. 08/09/2020 04:28:00 PM EST completed eCW1 ([facility]) IIV3. This is one of two codes replacing CVX 15, which is being retired. 08/09/2020 04:28:00 PM EST completed eCW1 ([facility]) IIV3. This is one of two codes replacing CVX 15, which is being retired. 08/09/2020 04:28:00 PM EST completed eCW1 ([facility]) IIV3. This is one of two codes replacing CVX 15, which is being retired. 08/09/2020 04:28:00 PM EST completed eCW1 ([facility]) IIV3. This is one of two codes replacing CVX 15, which is being retired. 08/09/2020 04:28:00 PM EST completed eCW1 ([facility]) IIV3. This is one of two codes replacing CVX 15, which is being retired. 08/09/2020 04:28:00 PM EST completed eCW1 ([facility]) IIV3. This is one of two codes replacing CVX 15, which is being retired. 08/09/2020 04:28:00 PM EST completed eCW1 ([facility]) IIV3. This is one of two codes replacing CVX 15, which is being retired. 08/09/2020 04:28:00 PM EST completed eCW1 ([facility]) IIV3. This is one of two codes replacing CVX 15, which is being retired. 08/09/2020 04:28:00 PM EST completed eCW1 ([facility]) IIV3. This is one of two codes replacing CVX 15, which is being retired. 08/09/2020 04:28:00 PM EST completed eCW1 ([facility]) Medications Medication Brand Name Start Date Product Form Dose Route Admi nistrative Instructions Pharmacy Instructions Status Indications Reaction Description Data Source(s) Prednisone 20 MG Oral Tablet predniSONE 20 MG predniSONE 20 MG 08/22/2021 12:00:00 AM EST 1.0 {tablet} active pr edniSONE 20 MG eCW1 ([facility], 1928–1983) Prednisone 20 MG Oral Tablet predniSONE 20 MG predniSONE 20 MG 08/22/2021 12:00:00 AM EST 1.0 {tablet} active pr edniSONE 20 MG eCW1 ([facility], [facility]–1983) 24 HR Bupropion Hydrochloride 150 MG Ext ended Release Oral Tablet buPROPion HCl ER (XL) 150 MG buPROPion HCl ER (XL) 150 MG 08/18/2021 12:00:00 AM EST 1.0 {tablet_in_the_morning} active buPROPio n HCl ER (XL) 150 MG eCW1 ([facility], 1928–1983) Acetaminophen 325 MG / Hydrocodone Nanette trate 5 MG Oral Tablet HYDROcodone- Acetaminophen 5-325 MG HYDROcodone-Acetaminophen 5-325 MG 08/18/2021 12:00:00 AM EST 1.0 {tablet_as_needed} active HYDROcodone-Acetaminophen 5-325 MG eCW1 ([facility], 1928–1983) 24 HR Bupropion Hydrochloride 150 MG Ext ended Release Oral Tablet buPROPion HCl ER (XL) 150 MG buPROPion HCl ER (XL) 150 MG 08/18/2021 12:00:00 AM EST 1.0 {tablet_in_the_morning} active buPROPio n HCl ER (XL) 150 MG eCW1 ([facility], 1928–1983) Acetaminophen 325 MG / Hydrocodone Nanette trate 5 MG Oral Tablet HYDROcodone- Acetaminophen 5-325 MG HYDROcodone-Acetaminophen 5-325 MG 08/18/2021 12:00:00 AM EST 1.0 {tablet_as_needed} active HYDROcodone-Acetaminophen 5-325 MG eCW1 ([facility], 1928–1983) Acetaminophen 325 MG / Hydrocodone Nanette trate 5 MG Oral Tablet HYDROcodone- Acetaminophen 5-325 MG HYDROcodone-Acetaminophen 5-325 MG 08/18/2021 12:00:00 AM EST 1.0 {tablet_as_needed} active HYDROcodone-Acetaminophen 5-325 MG eCW1 ([facility], 1928–1983) Acetaminophen 325 MG / Hydrocodone Nanette trate 5 MG Oral Tablet HYDROcodone- Acetaminophen 5-325 MG HYDROcodone-Acetaminophen 5-325 MG 08/18/2021 12:00:00 AM EST 1.0 {tablet_as_needed} active HYDROcodone-Acetaminophen 5-325 MG eCW1 ([facility], 1928–1983) 24 HR Bupropion Hydrochloride 150 MG Ext ended Release Oral Tablet buPROPion HCl ER (XL) 150 MG buPROPion HCl ER (XL) 150 MG 08/18/2021 12:00:00 AM EST 1.0 {tablet_in_the_morning} active buPROPio n HCl ER (XL) 150 MG eCW1 ([facility], 1928–1983) 24 HR Bupropion Hydrochloride 150 MG Ext ended Release Oral Tablet buPROPion HCl ER (XL) 150 MG buPROPion HCl ER (XL) 150 MG 08/18/2021 12:00:00 AM EST 1.0 {tablet_in_the_morning} active buPROPio n HCl ER (XL) 150 MG eCW1 ([facility], 1928–1983) Acetaminophen 325 MG / Hydrocodone Nanette trate 5 MG Oral Tablet HYDROcodone- Acetaminophen 5-325 MG HYDROcodone-Acetaminophen 5-325 MG 05/31/2021 12:00:00 AM EDT 1.0 {tablet_as_needed} active HYDROcodone-Acetaminophen 5-325 MG eCW1 ([facility], 1928–1983) Acetaminophen 325 MG / Hydrocodone Nanette trate 5 MG Oral Tablet HYDROcodone- Acetaminophen 5-325 MG HYDROcodone-Acetaminophen 5-325 MG 05/31/2021 12:00:00 AM EDT 1.0 {tablet_as_needed} active HYDROcodone-Acetaminophen 5-325 MG eCW1 ([facility], 1928–1983) Acetaminophen 325 MG / Hydrocodone Nanette trate 5 MG Oral Tablet HYDROcodone- Acetaminophen 5-325 MG HYDROcodone-Acetaminophen 5-325 MG 05/31/2021 12:00:00 AM EDT 1.0 {tablet_as_needed} active HYDROcodone-Acetaminophen 5-325 MG eCW1 ([facility], [facility]–1983) Acetaminophen 325 MG / Hydrocodone Nanette trate 5 MG Oral Tablet HYDROcodone- Acetaminophen 5-325 MG HYDROcodone-Acetaminophen 5-325 MG 05/31/2021 12:00:00 AM EDT 1.0 {tablet_as_needed} active HYDROcodone-Acetaminophen 5-325 MG eCW1 ([facility], [facility]–1983) 0.5 ML dulaglutide 3 MG/ML Auto-Injector [Trulicity] T rulicity 1.5 MG/0.5ML Trulicity 1.5 MG/0.5ML 04/11/2021 12:00:00 AM EDT active Trulicity 1.5 MG/0.5ML eCW1 ([facility], [facility]–1983) celecoxib 100 MG Oral Capsule Celecoxib 100 MG Celecoxib 100 MG 04/11/2021 12:00:00 AM EDT 1.0 {capsule_with_food} active Celecoxib 100 MG eCW1 ([facility], 1928–[facility]) celecoxib 100 MG Oral Capsule Celecoxib 100 MG Celecoxib 100 MG 04/11/2021 12:00:00 AM EDT 1.0 {capsule_with_food} active Celecoxib 100 MG eCW1 ([facility], [facility]) 0.5 ML dulaglutide 3 MG/ML Auto-Injector [Trulicity] T rulicity 1.5 MG/0.5ML Trulicity 1.5 MG/0.5ML 04/11/2021 12:00:00 AM EDT active Trulicity 1.5 MG/0.5ML eCW1 ([facility], [facility]) celecoxib 100 MG Oral Capsule Celecoxib 100 MG Celecoxib 100 MG 04/11/2021 12:00:00 AM EDT 1.0 {capsule_with_food} active Celecoxib 100 MG eCW1 ([facility], [facility]) 0.5 ML dulaglutide 3 MG/ML Auto-Injector [Trulicity] T rulicity 1.5 MG/0.5ML Trulicity 1.5 MG/0.5ML 04/11/2021 12:00:00 AM EDT active Trulicity 1.5 MG/0.5ML eCW1 ([facility], [facility]–1983) 0.5 ML dulaglutide 3 MG/ML Auto-Injector [Trulicity] T rulicity 1.5 MG/0.5ML Trulicity 1.5 MG/0.5ML 04/11/2021 12:00:00 AM EDT active Trulicity 1.5 MG/0.5ML eCW1 ([facility], [facility]) celecoxib 100 MG Oral Capsule Celecoxib 100 MG Celecoxib 100 MG 04/11/2021 12:00:00 AM EDT 1.0 {capsule_with_food} active Celecoxib 100 MG eCW1 ([facility], [facility]) 0.5 ML dulaglutide 3 MG/ML Auto-Injector [Trulicity] T rulicity 1.5 MG/0.5ML Trulicity 1.5 MG/0.5ML 04/11/2021 12:00:00 AM EDT active Trulicity 1.5 MG/0.5ML eCW1 ([facility], [facility]) celecoxib 100 MG Oral Capsule Celecoxib 100 MG Celecoxib 100 MG 04/11/2021 12:00:00 AM EDT 1.0 {capsule_with_food} active Celecoxib 100 MG eCW1 ([facility], [facility]) celecoxib 100 MG Oral Capsule Celecoxib 100 MG Celecoxib 100 MG 04/11/2021 12:00:00 AM EDT 1.0 {capsule_with_food} active Celecoxib 100 MG eCW1 ([facility], [facility]) 0.5 ML dulaglutide 3 MG/ML Auto-Injector [Trulicity] T rulicity 1.5 MG/0.5ML Trulicity 1.5 MG/0.5ML 04/11/2021 12:00:00 AM EDT active Trulicity 1.5 MG/0.5ML eCW1 ([facility], 1928–1983) Diclofenac Sodium 0.03 MG/MG Topical Gel Diclofenac So dium 3 % Diclofenac Sodium 3 % 03/01/2021 12:00:00 AM EDT active Diclofenac Sodium 3 % eCW1 ([facility], [facility]–1983) Levothyroxine Sodium 0.1 MG Oral Tablet Levothyroxine Sodium 100 MCG Levothyroxine Sodium 100 MCG 03/01/2021 12:00:00 AM EDT active Levothyroxine Sodium 100 MCG eCW1 ([facility], 1928–1983) Diclofenac Sodium 0.03 MG/MG Topical Gel Diclofenac So dium 3 % Diclofenac Sodium 3 % 03/01/2021 12:00:00 AM EDT active Diclofenac Sodium 3 % eCW1 ([facility], 1928–[facility]) Diclofenac Sodium 0.03 MG/MG Topical Gel Diclofenac So dium 3 % Diclofenac Sodium 3 % 03/01/2021 12:00:00 AM EDT active Diclofenac Sodium 3 % eCW1 ([facility], 1928–1983) Levothyroxine Sodium 0.1 MG Oral Tablet Levothyroxine Sodium 100 MCG Levothyroxine Sodium 100 MCG 03/01/2021 12:00:00 AM EDT active Levothyroxine Sodium 100 MCG eCW1 ([facility], [facility]) Levothyroxine Sodium 0.1 MG Oral Tablet Levothyroxine Sodium 100 MCG Levothyroxine Sodium 100 MCG 03/01/2021 12:00:00 AM EDT active Levothyroxine Sodium 100 MCG eCW1 ([facility], 1928–1983) Levothyroxine Sodium 0.1 MG Oral Tablet Levothyroxine Sodium 100 MCG Levothyroxine Sodium 100 MCG 03/01/2021 12:00:00 AM EDT active Levothyroxine Sodium 100 MCG eCW1 ([facility], 1928–1983) Diclofenac Sodium 0.03 MG/MG Topical Gel Diclofenac So dium 3 % Diclofenac Sodium 3 % 03/01/2021 12:00:00 AM EDT active Diclofenac Sodium 3 % eCW1 ([facility], [facility]–1983) Acetaminophen 325 MG / Hydrocodone Nanette trate 5 MG Oral Tablet Hydrocodone- Acetaminophen 5-325 MG Hydrocodone-Acetaminophen 5-325 MG 02/22/2021 12:00:00 AM EDT 1.0 {tablet_as_needed} active Hydrocodone-Acetaminophen 5-325 MG eCW1 ([facility], [facility]–1983) Acetaminophen 325 MG / Hydrocodone Nanette trate 5 MG Oral Tablet Hydrocodone- Acetaminophen 5-325 MG Hydrocodone-Acetaminophen 5-325 MG 12/31/2020 12:00:00 AM EDT 1.0 {tablet_as_needed} active Hydrocodone-Acetaminophen 5-325 MG eCW1 ([facility], 1928–1983) Acetaminophen 325 MG / Hydrocodone Nanette trate 5 MG Oral Tablet Hydrocodone- Acetaminophen 5-325 MG Hydrocodone-Acetaminophen 5-325 MG 12/31/2020 12:00:00 AM EDT 1.0 {tablet_as_needed} active Hydrocodone-Acetaminophen 5-325 MG eCW1 ([facility], 1928–1983) Levothyroxine Sodium 0.112 MG Oral Tablet Levothyroxin e Sodium 112 MCG Levothyroxine Sodium 112 MCG 09/28/2020 12:00:00 AM EST active Levothyroxine Sodium 112 MCG eCW1 ([facility], 1928–1983) Levothyroxine Sodium 0.112 MG Oral Tablet Levothyroxin e Sodium 112 MCG Levothyroxine Sodium 112 MCG 09/28/2020 12:00:00 AM EST active Levothyroxine Sodium 112 MCG eCW1 ([facility], 1928–1983) Levothyroxine Sodium 0.112 MG Oral Tablet Levothyroxin e Sodium 112 MCG Levothyroxine Sodium 112 MCG 09/28/2020 12:00:00 AM EST active Levothyroxine Sodium 112 MCG eCW1 (Formerly [facility], 1928–1983) Levothyroxine Sodium 0.112 MG Oral Tablet Levothyroxin e Sodium 112 MCG Levothyroxine Sodium 112 MCG 09/28/2020 12:00:00 AM EST active Levothyroxine Sodium 112 MCG eCW1 (Formerly [facility], 1928–1983) Levothyroxine Sodium 0.112 MG Oral Tablet Levothyroxin e Sodium 112 MCG Levothyroxine Sodium 112 MCG 09/28/2020 12:00:00 AM EST active Levothyroxine Sodium 112 MCG eCW1 (Formerly [facility], 1928–1983) Levothyroxine Sodium 0.112 MG Oral Tablet Levothyroxin e Sodium 112 MCG Levothyroxine Sodium 112 MCG 09/28/2020 12:00:00 AM EST active Levothyroxine Sodium 112 MCG eCW1 (Formerly [facility], 1928–1983) Levothyroxine Sodium 0.112 MG Oral Tablet Levothyroxin e Sodium 112 MCG Levothyroxine Sodium 112 MCG 09/28/2020 12:00:00 AM EST active Levothyroxine Sodium 112 MCG eCW1 (Formerly [facility], 1928–1983) gabapentin 300 MG Oral Capsule Gabapentin 300 MG Gabapentin 300 MG 07/29/2020 12:00:00 AM EDT 1.0 {capsule} active G abapentin 300 MG eCW1 (Formerly [facility], 1928–1983) gabapentin 300 MG Oral Capsule Gabapentin 300 MG Gabapentin 300 MG 07/29/2020 12:00:00 AM EDT 1.0 {capsule} active G abapentin 300 MG eCW1 (Formerly [facility], 1928–1983) Acetaminophen 325 MG / Hydrocodone Nanette trate 5 MG Oral Tablet Hydrocodone- Acetaminophen 5-325 MG Hydrocodone-Acetaminophen 5-325 MG 07/29/2020 12:00:00 AM EDT 1.0 {tablet_as_needed} active Hydrocodone-Acetaminophen 5-325 MG eCW1 (Formerly [facility], 1928–1983) Acetaminophen 325 MG / Hydrocodone Nanette trate 5 MG Oral Tablet Hydrocodone- Acetaminophen 5-325 MG Hydrocodone-Acetaminophen 5-325 MG 07/29/2020 12:00:00 AM EDT 1.0 {tablet_as_needed} active Hydrocodone-Acetaminophen 5-325 MG eCW1 (Formerly [facility], 1928–1983) Acetaminophen 325 MG / Hydrocodone Nanette trate 5 MG Oral Tablet Hydrocodone- Acetaminophen 5-325 MG Hydrocodone-Acetaminophen 5-325 MG 07/29/2020 12:00:00 AM EDT 1.0 {tablet_as_needed} active Hydrocodone-Acetaminophen 5-325 MG eCW1 (Formerly [facility], 1928–1983) Acetaminophen 325 MG / Hydrocodone Nanette trate 5 MG Oral Tablet Hydrocodone- Acetaminophen 5-325 MG Hydrocodone-Acetaminophen 5-325 MG 07/29/2020 12:00:00 AM EDT 1.0 {tablet_as_needed} active Hydrocodone-Acetaminophen 5-325 MG eCW1 (Formerly [facility], 1928–1983) gabapentin 300 MG Oral Capsule Gabapentin 300 MG Gabapentin 300 MG 07/29/2020 12:00:00 AM EDT 1.0 {capsule} active G abapentin 300 MG eCW1 (Formerly [facility], 1928–1983) Acetaminophen 325 MG / Hydrocodone Nanette trate 5 MG Oral Tablet Hydrocodone- Acetaminophen 5-325 MG Hydrocodone-Acetaminophen 5-325 MG 07/29/2020 12:00:00 AM EDT 1.0 {tablet_as_needed} active Hydrocodone-Acetaminophen 5-325 MG eCW1 (Formerly [facility], 1928–1983) gabapentin 300 MG Oral Capsule Gabapentin 300 MG Gabapentin 300 MG 07/29/2020 12:00:00 AM EDT 1.0 {capsule} active G abapentin 300 MG eCW1 (Formerly [facility], 1928–1983) Insurance Providers Payer name Policy type / Coverage type Policy ID Covered constitution party ID Covered constitution party's relationship to adler Policy Adler Plan Information HUMANA MEDICARE [id number] Maru [id number] HUMANA MEDICARE [id number] Amru [id number] HUMANA MEDICARE [id number] xxxxxxxxx [phone] Humana Medicare F [id number] SELF [id number] HUMANA MEDICARE HMO HM UNAVAILABLE [id number] UNAVAILABLE "" MNC None HUMANA HMO [id number] SP [id number] Humana Medicare F [id number] SELF [id number] HUMANA HMO [id number] SP [id number] HUMANA GOLD [id number] SP [id number] SELF PAY ONLY [id number] SP [id number] HUMANA GOLD [id number] SP [id number] MEDICARE [id number] SP [id number] Medicare replace-Humana [id number] Problems, Conditions, and Diagnoses Code Display Name Description Problem Type Effective Dates Data Source(s) H91.93 [id number] Decreased hearing of both ears Problem 11/10/2020 12:00:00 AM EST eCW1 (Formerly [facility], 1928–1983) R74.8 [id number] Elevated liver enzymes Problem 09/28/2020 12 :00:00 AM EST eCW1 (Formerly [facility], 1928–1983) M48.061 Spinal stenosis of lumbar region Spinal stenosis of lumbar region 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nic claudication Problem 09/28/2020 12:00:00 AM EST e CW1 (Formerly [facility], 1928–1983) G89.29 [id number] Other chronic pain Problem 07/29/2020 12:00: 00 AM EDT eCW1 (Formerly [facility], 1928–1983) G62.9 [id number] Neuropathy Problem 07/29/2020 12:00:00 AM ED T eCW1 (Formerly [facility], 1928–1983) Surgeries/Procedures Procedure Description Date Indications Data Source(s) PNEUMOCOCCAL POLYSAC VACCINE 23-V 2 />YR SUBQ/IM 08/18 12:00:00 AM EST eCW1 (Formerly [facility], 1928–1983) Imm: Flublok Quadrivalent 18 years & older 0.5mL IM Influenz a 08/18/2021 12:00:00 AM EST eCW1 ([facility]) Results ID Date Data Source [id number] 05/31/2021 12:00:00 AM EDT [facility] Name Value Range Interpretation Code Description Data Nini rce(s) Supporting Document(s) SARS coronavirus 2 RNA Not Detected [facility] This lab was ordered by [facility] and rep orted by [facility]. Procedure Social History Code Duration Value Status Description Data Source(s ) Smoking 08/22/2021 12:00:00 AM EST Never Smoker completed Never S moker eCW1 (Formerly [facility], 1928–1983) Smoking 08/22/2021 12:00:00 AM EST Never Smoker completed Never S moker eCW1 (Formerly [facility], 1928–1983) Smoking 08/17/2021 12:00:00 AM EST Never Smoker completed Never S moker eCW1 (Formerly [facility], 1928–1983) Smoking 08/17/2021 12:00:00 AM EST Never Smoker completed Never S moker eCW1 (Formerly [facility], 1928–1983) Smoking 06/04/2021 12:00:00 AM EDT Never Smoker completed Never S moker eCW1 (Formerly [facility], 1928–1983) Smoking 06/04/2021 12:00:00 AM EDT Never Smoker completed Never S moker eCW1 (Formerly [facility], 1928–1983) Smoking 06/04/2021 12:00:00 AM EDT Never Smoker completed Never S moker eCW1 (Formerly [facility], 1928–1983) Smoking 06/04/2021 12:00:00 AM EDT Never Smoker completed Never S moker eCW1 (Formerly [facility], 1928–1983) Smoking 03/01/2021 12:00:00 AM EDT Never Smoker completed Never S moker eCW1 (Formerly [facility], 1928–1983) Smoking 03/01/2021 12:00:00 AM EDT Never Smoker completed Never S moker eCW1 (Formerly [facility], 1928–1983) Smoking 03/01/2021 12:00:00 AM EDT Never Smoker completed Never S moker eCW1 (Formerly [facility], 1928–1983) Smoking 03/01/2021 12:00:00 AM EDT Never Smoker completed Never S moker eCW1 (Formerly [facility], 1928–1983) Smoking 02/09/2021 12:00:00 AM EDT Never Smoker completed Never S moker eCW1 (Formerly [facility], 1928–1983) Smoking 02/09/2021 12:00:00 AM EDT Never Smoker completed Never S moker eCW1 (Formerly [facility], 1928–1983) Smoking 09/28/2020 12:00:00 AM EST Never Smoker completed Never S moker eCW1 (Formerly [facility], 1928–1983) Smoking 09/28/2020 12:00:00 AM EST Never Smoker completed Never S moker eCW1 (Formerly [facility], 1928–1983) Smoking 09/28/2020 12:00:00 AM EST Never Smoker completed Never S moker eCW1 (Formerly [facility], 1928–1983) Smoking 09/28/2020 12:00:00 AM EST Never Smoker completed Never S moker eCW1 (Formerly [facility], 1928–1983) Smoking 09/28/2020 12:00:00 AM EST Never Smoker completed Never S moker eCW1 (Formerly [facility], 1928–1983) Smoking 09/28/2020 12:00:00 AM EST Never Smoker completed Never S moker eCW1 (Formerly [facility], 1928–1983) Smoking 09/28/2020 12:00:00 AM EST Never Smoker completed Never S moker eCW1 (Formerly [facility], 1928–1983) Smoking 07/29/2020 12:00:00 AM EDT Never Smoker completed Never S moker eCW1 (Formerly [facility], 1928–1983) Smoking 07/29/2020 12:00:00 AM EDT Never Smoker completed Never S moker eCW1 (Formerly [facility], 1928–1983) Smoking 07/29/2020 12:00:00 AM EDT Never Smoker completed Never S moker eCW1 (Formerly [facility], 1928–1983) Smoking 07/29/2020 12:00:00 AM EDT Never Smoker completed Never S moker eCW1 (Formerly [facility], 1928–1983) Smoking 07/29/2020 12:00:00 AM EDT Never Smoker completed Never S moker eCW1 (Formerly [facility], 1928–1983) Vital Signs ID Date Data Source UNK Name Value Range Interpretation Code Description Data Source(s) Body weight 226.4 [lb_av] 226.4 [lb_av] eCW1 ([facility]) Body weight 102.69 kg 102.69 kg W1 ([facility]) Body height 64 [in_i] 64 [in_i] eCW1 ([facility]) Body mass index (BMI) [Ratio] 38.86 kg/m2 38.86 kg/m2 eCW1 (Formerly [facility], 1928–1983) Heart rate 80 /min 80 /min eCW1 ([facility]) Respiratory rate 18 /min 18 /min eCW1 ([facility]) Body temperature 96.9 [degF] 96.9 [degF] eCW1 ( Formerly [facility], 1928–1983) Systolic blood pressure 122 mm[Hg] 122 mm[Hg] e CW1 (Formerly [facility], 1928–1983) Diastolic blood pressure 68 mm[Hg] 68 mm[Hg] eCW1 (Formerly [facility], 1928–1983) Body mass index (BMI) [Ratio] 39.48 kg/m2 39.48 kg/m2 eCW1 (Formerly [facility], 1928–1983) Body weight 230 [lb_av] 230 [lb_av] eCW1 ([facility]) Body weight 104.33 kg 104.33 kg eCW1 ([facility]) Body height 64 [in_i] 64 [in_i] eCW1 ([facility]) Heart rate 86 /min 86 /min eCW1 ([facility]) Respiratory rate 18 /min 18 /min eCW1 ([facility]) Body temperature 96.9 [degF] 96.9 [degF] eCW1 ( Formerly [facility], 1928–1983) Systolic blood pressure 112 mm[Hg] 112 mm[Hg] e CW1 (Formerly [facility], 1928–1983) Diastolic blood pressure 74 mm[Hg] 74 mm[Hg] eCW1 (Formerly [facility], 1928–1983) Systolic blood pressure 136 mm[Hg] 136 mm[Hg] e CW1 (Formerly [facility], 1928–1983) Body weight 237.8 [lb_av] 237.8 [lb_av] eCW1 ([facility]) Body height 64 [in_i] 64 [in_i] eCW1 ([facility]) Body mass index (BMI) [Ratio] 40.81 kg/m2 40.81 kg/m2 eCW1 (Formerly [facility], 1928–1983) Heart rate 96 /min 96 /min eCW1 ([facility]) Respiratory rate 20 /min 20 /min eCW1 ([facility]) Body temperature 97 [degF] 97 [degF] eCW1 ([facility]) Diastolic blood pressure 80 mm[Hg] 80 mm[Hg] eCW1 (Formerly [facility], 1928–1983) Body weight 240 [lb_av] 240 [lb_av] eCW1 ([facility]) Body height 64 [in_i] 64 [in_i] eCW1 ([facility]) Body mass index (BMI) [Ratio] 41.19 kg/m2 41.19 kg/m2 eCW1 (Formerly [facility], 1928–1983) Heart rate 90 /min 90 /min eCW1 ([facility]) Respiratory rate 18 /min 18 /min eCW1 ([facility]) Body temperature 98.4 [degF] 98.4 [degF] eCW1 ( Formerly [facility], 1928–1983) Systolic blood pressure 138 mm[Hg] 138 mm[Hg] e CW1 (Formerly [facility], 1928–1983) Diastolic blood pressure 88 mm[Hg] 88 mm[Hg] eCW1 (Formerly [facility], 1928–1983) Diastolic blood pressure 80 mm[Hg] 80 mm[Hg] eCW1 (Formerly [facility], 1928–1983) Body weight 232 [lb_av] 232 [lb_av] eCW1 ([facility]) Body height 64 [in_i] 64 [in_i] eCW1 ([facility]) Body mass index (BMI) [Ratio] 39.82 kg/m2 39.82 kg/m2 eCW1 (Formerly [facility], 1928–1983) Heart rate 84 /min 84 /min eCW1 ([facility]) Respiratory rate 18 /min 18 /min eCW1 ([facility]) Body temperature 98 [degF] 98 [degF] eCW1 ([facility]) Systolic blood pressure 140 mm[Hg] 140 mm[Hg] e CW1 (Formerly [facility], 1928–1983) Body weight 227.8 [lb_av] 227.8 [lb_av] eCW1 ([facility]) Body temperature 98.1 [degF] 98.1 [degF] eCW1 ( Formerly [facility], 1928–1983) Systolic blood pressure 138 mm[Hg] 138 mm[Hg] e CW1 (Formerly [facility], 1928–1983) Diastolic blood pressure 82 mm[Hg] 82 mm[Hg] eCW1 (Formerly [facility], 1928–1983) Body height 64 [in_i] 64 [in_i] eCW1 ([facility]) Body mass index (BMI) [Ratio] 39.10 kg/m2 39.10 kg/m2 eCW1 (Formerly [facility], 1928–1983) Heart rate 76 /min 76 /min eCW1 ([facility]) Respiratory rate 18 /min 18 /min eCW1 ([facility]) Patient Treatment Plan of Care Planned Activity Planned Date Details Description Data Source (s) Prednisone 20 MG Oral Tablet 08/22/2021 12:00:00 AM EST eCW1 (Formerly [facility], 1928–1983) Prednisone 20 MG Oral Tablet 08/22/2021 12:00:00 AM EST eCW1 (Formerly [facility], 1928–1983) 24 HR Bupropion Hydrochloride 150 MG Extended Release Oral Tablet 08/18/2021 12:00:00 AM EST eCW1 ([facility]) Acetaminophen 325 MG / Hydrocodone Bitartrate 5 MG Ora l Tablet 08/18/2021 12:00:00 AM EST eCW1 ([facility]) 24 HR Bupropion Hydrochloride 150 MG Extended Release Oral Tablet 08/18/2021 12:00:00 AM EST eCW1 ([facility]) Acetaminophen 325 MG / Hydrocodone Bitartrate 5 MG Ora l Tablet 08/18/2021 12:00:00 AM EST eCW1 ([facility]) Acetaminophen 325 MG / Hydrocodone Bitartrate 5 MG Ora l Tablet 05/31/2021 12:00:00 AM EDT eCW1 ([facility]) Acetaminophen 325 MG / Hydrocodone Bitartrate 5 MG Ora l Tablet 05/31/2021 12:00:00 AM EDT eCW1 ([facility]) Acetaminophen 325 MG / Hydrocodone Bitartrate 5 MG Ora l Tablet 05/31/2021 12:00:00 AM EDT eCW1 ([facility]) Acetaminophen 325 MG / Hydrocodone Bitartrate 5 MG Ora l Tablet 05/31/2021 12:00:00 AM EDT eCW1 ([facility]) celecoxib 100 MG Oral Capsule 04/11/2021 12:00:00 AM EDT eCW1 (Formerly [facility], 1928–1983) 0.5 ML dulaglutide 3 MG/ML Auto-Injector [Trulicity] 021 12:00:00 AM EDT eCW1 ([facility]) celecoxib 100 MG Oral Capsule 04/11/2021 12:00:00 AM EDT eCW1 (Formerly [facility], 1928–1983) 0.5 ML dulaglutide 3 MG/ML Auto-Injector [Trulicity] 12:00:00 AM EDT eCW1 ([facility]) 0.5 ML dulaglutide 3 MG/ML Auto-Injector [Trulicity] 12:00:00 AM EDT eCW1 ([facility]) celecoxib 100 MG Oral Capsule 04/11/2021 12:00:00 AM EDT eCW1 (Formerly [facility], 1928–1983) 0.5 ML dulaglutide 3 MG/ML Auto-Injector [Trulicity] 12:00:00 AM EDT eCW1 ([facility]) celecoxib 100 MG Oral Capsule 04/11/2021 12:00:00 AM EDT eCW1 (Formerly [facility], 1928–1983) 0.5 ML dulaglutide 3 MG/ML Auto-Injector [Trulicity] 12:00:00 AM EDT eCW1 ([facility]) celecoxib 100 MG Oral Capsule 04/11/2021 12:00:00 AM EDT eCW1 (Formerly [facility], 1928–1983) 0.5 ML dulaglutide 3 MG/ML Auto-Injector [Trulicity] 12:00:00 AM EDT eCW1 ([facility]) celecoxib 100 MG Oral Capsule 04/11/2021 12:00:00 AM EDT eCW1 (Formerly [facility], 1928–1983) Diclofenac Sodium 0.03 MG/MG Topical Gel 03/01/2021 12:00:00 AM EDT eCW1 (Formerly [facility], 1928–1983) Levothyroxine Sodium 0.1 MG Oral Tablet 03/01/2021 12:00:00 AM EDT eCW1 (Formerly [facility], 1928–1983) Diclofenac Sodium 0.03 MG/MG Topical Gel 03/01/2021 12:00:00 AM EDT eCW1 (Formerly [facility], 1928–1983) Levothyroxine Sodium 0.1 MG Oral Tablet 03/01/2021 12:00:00 AM EDT eCW1 (Formerly [facility], 1928–1983) Diclofenac Sodium 0.03 MG/MG Topical Gel 03/01/2021 12:00:00 AM EDT eCW1 (Formerly [facility], 1928–1983) Levothyroxine Sodium 0.1 MG Oral Tablet 03/01/2021 12:00:00 AM EDT eCW1 (Formerly [facility], 1928–1983) Levothyroxine Sodium 0.1 MG Oral Tablet 03/01/2021 12:00:00 AM EDT eCW1 (Formerly [facility], 1928–1983) Diclofenac Sodium 0.03 MG/MG Topical Gel 03/01/2021 12:00:00 AM EDT eCW1 (Formerly [facility], [facility]–1983) Acetaminophen 325 MG / Hydrocodone Bitartrate 5 MG Ora l Tablet 02/22/2021 12:00:00 AM EDT eCW1 ([facility]) Acetaminophen 325 MG / Hydrocodone Bitartrate 5 MG Ora l Tablet 12/31/2020 12:00:00 AM EDT eCW1 ([facility]) Acetaminophen 325 MG / Hydrocodone Bitartrate 5 MG Ora l Tablet 12/31/2020 12:00:00 AM EDT eCW1 ([facility]) Levothyroxine Sodium 0.112 MG Oral Tablet 09/28/2020 12:00:00 AM ES T eCW1 (Formerly [facility], [facility]–1983) Levothyroxine Sodium 0.112 MG Oral Tablet 09/28/2020 12:00:00 AM ES T eCW1 (Formerly [facility], 1928–1983) Levothyroxine Sodium 0.112 MG Oral Tablet 09/28/2020 12:00:00 AM ES T eCW1 (Formerly [facility], 1928–1983) Levothyroxine Sodium 0.112 MG Oral Tablet 09/28/2020 12:00:00 AM ES T eCW1 (Formerly [facility], 1928–1983) Levothyroxine Sodium 0.112 MG Oral Tablet 09/28/2020 12:00:00 AM ES T eCW1 (Formerly [facility], 1928–1983) Levothyroxine Sodium 0.112 MG Oral Tablet 09/28/2020 12:00:00 AM ES T eCW1 (Formerly [facility], 1928–1983) Levothyroxine Sodium 0.112 MG Oral Tablet 09/28/2020 12:00:00 AM ES T eCW1 (Formerly [facility], [facility]–1983) Acetaminophen 325 MG / Hydrocodone Bitartrate 5 MG Ora l Tablet 07/29/2020 12:00:00 AM EDT eCW1 ([facility]) gabapentin 300 MG Oral Capsule 07/29/2020 12:00:00 AM EDT eCW1 (Formerly [facility], [facility]–1983) Acetaminophen 325 MG / Hydrocodone Bitartrate 5 MG Ora l Tablet 07/29/2020 12:00:00 AM EDT eCW1 ([facility]) gabapentin 300 MG Oral Capsule 07/29/2020 12:00:00 AM EDT eCW1 (Formerly [facility], 1928–1983) Acetaminophen 325 MG / Hydrocodone Bitartrate 5 MG Ora l Tablet 07/29/2020 12:00:00 AM EDT eCW1 ([facility]) gabapentin 300 MG Oral Capsule 07/29/2020 12:00:00 AM EDT eCW1 (Formerly [facility], 1928–1983) Acetaminophen 325 MG / Hydrocodone Bitartrate 5 MG Ora l Tablet 07/29/2020 12:00:00 AM EDT eCW1 ([facility]) gabapentin 300 MG Oral Capsule 07/29/2020 12:00:00 AM EDT eCW1 (Formerly [facility], 1928–1983) Acetaminophen 325 MG / Hydrocodone Bitartrate 5 MG Ora l Tablet 07/29/2020 12:00:00 AM EDT eCW1 ([facility])
[2021-08-31] MEDS ORDERED: NS 1,000 ML IV ONE (15:50)
[2021-08-31] MEDS ORDERED: MORPHINE 4 MG/ML 1ML VIAL/SYRINGE (J2270) IV ONE (15:50)
--- NOTE | 2021-08-31 16:32 | REP ---
INDICATION: increased pain. COMPARISON: 10/11/2019 TECHNIQUE: Axial noncontrast images of the lumbosacral spine from mid T12 through mid sacrum with coronal and sagittal reformations. This CT examination was performed using the following dose reduction techniques: Automated exposure control, adjustment of mA and/or kv according to the patient's size, and use of iterative reconstruction technique. FINDINGS: Moderate to advanced multilevel degenerative changes are appreciated and specifically have progressed at the L2-3 level which demonstrates the most heterogeneous sclerotic changes and subchondral cystic changes along with disc space obliteration and vacuum phenomenon. Chronic grade 1 anterolisthesis at the L4-5 level is also noted. There is no evidence for acute fracture/compression injury or acute subluxation. IMPRESSION: Advanced multilevel degenerative spondylosis most pronounced at the L2-3 level and increased from prior examination. Correlation with MRI may be warranted. No acute fracture/compression injury. <Electronically signed by Dg Beckham > 08/31/21 [id number]
--- NOTE | 2021-08-31 16:43 | REP ---
INDICATION: swelling/pain Nontraumatic hip pain. COMPARISON: None. TECHNIQUE: Frontal view of the pelvis with neutral and frog lateral views of the right hip. FINDINGS: Age-related osteopenia and degenerative changes are appreciated. Evaluation of the proximal right femur is limited due to positioning. While no definite acute fractures appreciated, subtle injury cannot be excluded. IMPRESSION: Osteopenia and degenerative changes. As above. <Electronically signed by Dg Beckham > 08/31/21 [id number]
--- NOTE | 2021-08-31 16:44 | REP ---
INDICATION: swelling/pain. COMPARISON: None. TECHNIQUE: Three views of the left shoulder were performed. FINDINGS: Although not performed as an AC joint study since only static images of the left shoulder were obtained there is, however, evidence of an AC joint separation. There is evidence of significant soft tissue swelling along the superior surface of the soft tissues shoulder. Scattered low densities are seen within this soft tissue. There is degenerative change seen involving the glenohumeral joint with humeral head marginal osteophytosis. IMPRESSION: 1. Probable AC joint separation, however, the exam is limited as described above. 2. Significant soft tissue swelling. Abscess cannot be ruled out. Clinical evaluation is necessary. Consider pre and post contrast enhanced CT examination of the entire left shoulder girdle. <Electronically signed by Amado Mcclain > 08/31/21 [id number]
--- NOTE | 2021-08-31 16:45 | REP ---
INDICATION: swelling/pain COMPARISON: None. TECHNIQUE: Four views right knee. FINDINGS: Soft tissue edema is seen medially. A total knee prosthesis is noted. There is no radiographic evidence of acute fracture. A smoothly marginated oval calcification at the medial joint margin measures 9 mm. IMPRESSION: No acute fracture or dislocation. <Electronically signed by Ajit Buenrostro > 08/31/21 [id number]
--- NOTE | 2021-08-31 17:10 | ECGEPIP ---
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
[2021-08-31 17:14] LABS: HEMATOCRIT 33.9 % (36.0-47.0); HEMOGLOBIN 11.3 g/dl (12.0-15.5); MEAN CORPUSCULAR HEMOGLOBIN 30.8 pg (27.0-33.0); MEAN CORPUSCULAR HGB CONC 33.3 g/dl (32.0-36.5); MEAN CORPUSCULAR VOLUME 92.4 fl (80.0-96.0); PLATELET COUNT, AUTOMATED 132 10^3/uL (150-450); RED BLOOD COUNT 3.67 10^6/uL (4.00-5.40); WHITE BLOOD COUNT 28.6 10^3/uL (4.0-10.0)
[2021-08-31 17:29] LABS: INR 1.48; PROTHROMBIN TIME 18.4 SECONDS (12.7-14.5)
[2021-08-31 17:30] LABS: PARTIAL THROMBOPLASTIN TIME 37.4 SECONDS (25.9-37.0)
[2021-08-31 17:37] LABS: ERYTHROCYTE SEDIMENTATION RATE 75 mm/hr (0-30)
[2021-08-31] MEDS ORDERED: HYDROMORPHONE HCL 0.5 MG/ 0.5 ML SYRINGE (J1170 PER 1) IV ONE (17:40)
[2021-08-31 17:45] LABS: ALBUMIN 1.4 GM/DL (3.2-5.2); BILIRUBIN,DIRECT 0.5 MG/DL (0.0-0.2); BILIRUBIN,TOTAL 1.1 MG/DL (0.2-1.0); C REACTIVE PROTEIN QUANTITATIV 45.2 MG/DL (0.00-0.30); CALCIUM LEVEL 7.4 MG/DL (8.8-10.2); CK-MB VALUE MASS 5.4 NG/ML (<3.6); CREATININE FOR GFR 1.64 MG/DL (0.55-1.30); GLOMERULAR FILTRATION RATE 32.8 (>39); MB/CK RELATIVE INDEX 2.09 (< OR =4); POTASSIUM SERUM 4.5 MEQ/L (3.5-5.1); RSV AMPLIFICATION NEGATIVE (NEGATIVE)
[2021-08-31] MEDS ORDERED: DEXTROSE 50% 50 ML SYRINGE IV STA (17:47)
[2021-08-31] MEDS ORDERED: NS 2,000 ML in IV 1 EA IV ONE (17:50)
[2021-08-31] MEDS ORDERED: ISOVUE-370 76% 100ML VIAL As Ordered ONE (17:52)
[2021-08-31 18:19] LABS: LYMPHOCYTES 5 % (16-44); METAMYELOCYTES 1 % (0-0); MONOCYTES 4 % (0-5); NEUTROPHILS 56 % (28-66)
[2021-08-31 18:20] LABS: PLATELET ESTIMATE NORMAL (NORMAL)
--- NOTE | 2021-08-31 19:23 | REPVR ---
PROCEDURE INFORMATION: Exam: CT Left Upper Extremity Without and With Contrast, Shoulder Exam date and time: 08/31/2021 6:28 PM Age: 70 years old Clinical indication: Swelling; Shoulder; Left; Additional info: Pre and post contrast enhanced CT shoulder girdle ? abscess TECHNIQUE: Imaging protocol: CT of the Left upper extremity without and with intravenous contrast was performed. Exam focused on the shoulder. Radiation optimization: All CT scans at this facility use at least one of these dose optimization techniques: automated exposure control; mA and/or kV adjustment per patient size (includes targeted exams where dose is matched to clinical indication); or iterative reconstruction. Contrast material: ISOVUE 370; Contrast volume: 100 ml; Contrast route: INTRAVENOUS (IV); COMPARISON: CR Shoulder, complete 08/31/2021 4:17 PM FINDINGS: Bones/joints: Acromioclavicular joint widened to 8.7 mm a finding which may represent the sequelae of prior trauma. Changes secondary to extension of the adjacent abscess not excluded. Degenerative changes in the glenohumeral joint. Soft tissues: Lobular soft tissue mass superior to the left acromioclavicular joint measures 10.3 x 8 x 3.9 cm contains multiple small locules of gas consistent with a complex abscess. The abscess abuts and tracks into the deltoid and trapezius muscles. There is heterogeneous enhancement of portions of the deltoid and trapezius muscles adjacent to the abscess within irregular border between the abscess and muscles, finding which may suggest myonecrosis. IMPRESSION: 1. Large abscess in the soft tissues superior to the left shoulder joint. Possible myonecrosis demonstrated as well. 2. Acromioclavicular joint widened to 8.7 mm a finding which may represent the sequelae of prior trauma. Changes secondary to extension of the adjacent abscess not excluded. Electronically signed by: Thad Briseno On 08/31/2021 19:22:13 PM
[2021-08-31] MEDS ORDERED: GLUCOSE 4GM CHEW TABLET PO PRN (19:40)
[2021-08-31] MEDS ORDERED: DEXTROSE 50% 50 ML SYRINGE IV PRN (19:40)
[2021-08-31] MEDS ORDERED: VANCOMYCIN HCL 750 MG, VIAL MATE ADAPTER 1 EACH in NS 250 ML IV SCH (19:40)
[2021-08-31] MEDS ORDERED: GLUCAGON INJ 1MG VIAL SC PRN (19:40)
[2021-08-31] MEDS ORDERED: LIDOCAINE 2% MDV 20ML VIAL SC ONE (19:55)
[2021-08-31] MEDS ORDERED: MEROPENEM INJ 1 GM in IV 1 EA IV ONE (20:00)
--- NOTE | 2021-08-31 20:46 | CR.PDOC ---
General Date of Consultation: Aug 31, 2021 Consultation REASON FOR CONSULTATION/CHIEF COMPLAINT: Left shoulder abscess HISTORY OF PRESENT ILLNESS: Patient has reportedly had some issues with her left shoulder for approximately a week. It does not sound as if there was any injury or otherwise. She went to her primary care and reportedly received a course of oral corticosteroids for what was thought to be bursitis. She continued to have worsening symptoms and she was brought to the emergency room. Currently her nephew from [place] is staying with her and is aware that she is in the emergency room. She does sign her own consent for procedures. She was consulted to me with regards to concern for sepsis associated with the abscess on her shoulder. The patient reports that she has not had anything significant to eat in the last 3 days and she has only had something to drink before noon this morning. She also mentioned that she has a referral to rheumatology pending for polyarthropathy ALLERGIES: Please see below. HOME MEDICATIONS: Please see below. PAST MEDICAL/ SURGICAL HISTORY: Essential HTN Remote hx of DM (per pt resolved) Osteopenia Hx of Bel[place] Palsy when she was 17 yrs of age Osteopenia GERD Hemorrhoids Hx of Type 2 NSTEMI ? i/s/o left femur fx (per pt she had an elevated troponin, but the stress test & Echo results were not c/w acute NE) Hypothyroidism Anxiety / Depression Spinal stenosis Class 3 obesity Bilateral Knee replacements Hysterectomy /hx of Endometriosis Bilateral Cataract surgeries Bunionectomy Surgical repair of left femur fracture SOCIAL HISTORY: She moved to the area from [facility] 2 years ago. Her Nephew (Carrillo Rankin [phone]) who lives in [place] is her HCPOA. She richmond snt smoke & drinks alcohol occasionally. FAMILY HISTORY: Mother HTN / Sister DM & COPD REVIEW OF SYSTEMS: The patient does have multiple complaints of pain throughout her joints. The majority of her pain however is coming from her left shoulder. PHYSICAL EXAMINATION: VITAL SIGNS: Please see below. GENERAL APPEARANCE: Patient is alert and oriented but she does state that she feels like at some point she has a little bit of confusion over the last few days EXTREMITIES: The left shoulder AC joint region demonstrates swelling with fluctuance and erythema edema and calor. This is tender to touch. The area is blanchable. This appears to be consistent with an abscess NEUROLOGICAL: Patient is grossly neurovascularly intact to the left upper extremity with light sensation to median, ulnar and radial nerve distributions. She appears to have intact motor to these distributions. Vascular: The patient has a palpable radial pulse to the left wrist LABORATORY DATA: Please see below. ASSESSMENT/PLAN: 1. The hospitalist service has been consulted for the concern with regards to sepsis for the patient. They will start the patient on empiric antibiotics. Procedure: The patient was consented for an aspiration of the left shoulder abscess aspiration. The superior lateral aspect of the abscess was cleansed with chlorhexidine swab. An 18-gauge needle was used to aspirate approximately 3 mL of purulent material that was greenish-brown in color. This was dressed with gauze and paper tape The emergency room ordered Gram stain, aerobic and anaerobic cultures for this. 2. The patient will be taken to the operating room tonight and has been consented for an irrigation and debridement with or without wound VAC dressing and all indicated procedures as well as consented for blood transfusion as necessary. She has signed consent for this. Vital Signs/I&O Vital Signs Date Time Temp Pulse Resp B/P (MAP) Pulse Ox O2 Delivery O2 Flow Rate FiO2 08/31/21 20:25 97.4 98 18 81/49 96 Room Air Laboratory Data Labs 24H Laboratory Tests 2 08/31/21 16:51: Immature Granulocyte % (Auto) , Neutrophils (%) (Auto) , Nucleated Red Blood Cells % (auto) 0.1H, Neutrophils 56, Band Neutrophils 34H, Lymphocytes (Manual) 5L, Monocytes (Manual) 4, Metamyelocytes 1H, Red Blood Cell Morphology NORMAL, Platelet Estimate NORMAL, Erythrocyte Sedimentation Rate 75H, Prothrombin Time 18.4H, Prothromb Time International Ratio 1.48, Activated Partial Thromboplast Time 37.4, Anion Gap 10, Glomerular Filtration Rate 32.8L, Lactic Acid Level 3.5*H, Calcium Level 7.4L, Total Bilirubin 1.1H, Direct Bilirubin 0.5H, Aspartate Amino Transf (AST/SGOT) 132H, Alanine Aminotransferase (ALT/SGPT) 123H , Alkaline Phosphatase 220H, Total Creatine Kinase 258H, Creatine Kinase MB 5.4H, Creatine Kinase MB Relative Index 2.09, Troponin I High Sensitivity 109.0H, C-Reactive Protein, Quantitative 45.20H, Total Protein 5.0L, Albumin 1.4L, Albumin/Globulin Ratio 0.4L, Coronavirus (COVID-19)(PCR) NEGATIVE, Influenza Type A (RT-PCR) NEGATIVE, Influenza Type B (RT-PCR) NEGATIVE, Respiratory Syncytial Virus (PCR) NEGATIVE 08/31/21 19:17: Bedside Glucose (Misc Panel) 92 CBC/BMP Laboratory Tests 08/31/21 16:51 Microbiology Microbiology 08/31/21 Blood Culture, Received Pending 08/31/21 Blood Culture, Received Pending Allergies Coded Allergies: No Known Allergies (Unverified , 10/11/19) Home Medications Scheduled Amitriptyline HCl (Amitriptyline HCl) 50 Mg Tablet, 50 MG PO QHS, (Reported) Atorvastatin Calcium (Atorvastatin Calcium) 80 Mg Tablet, 80 MG PO QHS, (Reported) Bupropion Hcl (Bupropion Xl) 150 Mg Tab.er.24h, 150 MG PO DAILY, (Reported) Carvedilol (Carvedilol) 12.5 Mg Tablet, 12.5 MG PO BID, (Reported) Celecoxib (Celebrex) 100 Mg Capsule, 100 MG PO BID, (Reported) Cholecalciferol (Vitamin D3) (Vitamin D3) 50 Mcg Tablet, 50 MCG PO DAILY, (Reported) Escitalopram Oxalate (Lexapro) 20 Mg Tablet, 20 MG PO DAILY, (Reported) Esomeprazole Magnesium (Esomeprazole Magnesium) 40 Mg Capsule.dr, 40 MG PO DAILY, (Reported) Ezetimibe (Ezetimibe) 10 Mg Tablet, 10 MG PO QHS, (Reported) Fluticasone Propionate (Flonase Allergy Relief) 9.9 Ml [place].susp, 1 SPRAY NA BID, (Reported) Gabapentin (Gabapentin) 300 Mg Capsule, 300 MG PO TID, (Reported) Levothyroxine Sodium (Synthroid) 100 Mcg Tablet, 100 MCG PO DAILY, (Reported) Valsartan (Valsartan) 320 Mg Tablet, 320 MG PO DAILY, (Reported) Scheduled PRN Hydrocodone/Acetaminophen (Hydrocodone-Acetamin 5-325 mg) 1 Each Tablet, 1 TAB PO BID PRN for MODERATE/SEVERE PAIN (PS 5-10), (Reported) CARRILLO VILLAVICENCIO MD Aug 31, 2021 20:46
[2021-08-31] MEDS ORDERED: LR 1,000 ML IV SCH (20:55)
--- NOTE | 2021-08-31 20:59 | HPEPDOC ---
[facility] Medical History & Physical Date of Admission Aug 31, 2021 Date of Service: Aug 31, 2021 Primary Care Physician: Julienne Almanzar Attending Physician: OPAL MERCER MD History and Physical TIME OF SERVICE: 800pm CHIEF COMPLAINT: back pain and shoulder swelling HISTORY OF PRESENT ILLNESS: , a 70 yr old F had made plans to have her nephew and his visit her for Thanksgiving. About 2 weeks ago while carrying heavy groceries, including a 28 lb turkey, she heard a popping sound coming from her left shoulder. Her PCP, diagnosed her with bursitis and started her on steroids. denied having acute shoulder pain but noticed that the range of motion in her shoulder had decreased, and the shoulder was swollen and redder. Today she came to the ER primarily because of 10/10 back pain. She has also had body aches, chills, sweating, headache diarrhea and difficulties walking. REVIEW OF SYSTEMS: 10-point review of systems negative except as listed in HPI PAST MEDICAL/ SURGICAL HISTORY: Essential HTN Remote hx of DM (per pt resolved) Osteopenia Hx of Bellys Palsy when she was 17 yrs of age Osteopenia GERD Hemorrhoids Hx of Type 2 NSTEMI ? i/s/o left femur fx (per pt she had an elevated troponin, but the stress test & Echo results were not c/w acute [place]) Hypothyroidism Anxiety / Depression Spinal stenosis Class 3 obesity Bilateral Knee replacements Hysterectomy /hx of Endometriosis Bilateral Cataract surgeries Bunionectomy Surgical repair of left femur fracture SOCIAL HISTORY: She moved to the area from [facility] 2 years ago. Her Nephew (Carrillo Rankin [phone]) who lives in [place] is her HCPOA. She doesnt smoke & drinks alcohol occasionally. FAMILY HISTORY: Mother HTN / Sister DM & COPD ALLERGIES: Please see below. HOME MEDICATIONS: Please see below. PHYSICAL EXAMINATION: Vital Signs Date Time Temp Pulse Resp B/P (MAP) Pulse Ox O2 Delivery O2 Flow Rate FiO2 08/31/21 14:58 97.4 91 20 112/63 (79) 92 Room Air 09/01/21 00:35 12.0 GENERAL APPEARANCE: well nourished and developed/ NAD HEENT: EOMI / MM pink but dry CARDIOVASCULAR: tachycardic/ NMRG LUNGS: CTAB on RA / not coughing ABDOMEN: contour convex MUSCULOSKELETAL: NCAT INTEGUMENT: she is not flushed or diaphoretic NEUROLOGICAL: CN 2-12 intact speech not dysarthric PSYCHIATRIC: A&O x 3 /able to understand and follow all commands LABORATORY DATA: IMAGING: Hip pelvis xray IMPRESSION: Osteopenia and degenerative changes. As above. Knee xray IMPRESSION: No acute fracture or dislocation. CT LS IMPRESSION: Advanced multilevel degenerative spondylosis most pronounced at the L2-3 level and increased from prior examination. Correlation with MRI may be warranted. No acute fracture/compression injury. Shoulder xray IMPRESSION: 1. Probable AC joint separation, however, the exam is limited as described above. 2. Significant soft tissue swelling. Abscess cannot be ruled out. Clinical evaluation is necessary. Consider pre and post contrast enhanced CT examination of the entire left shoulder girdle. Shoulder CT IMPRESSION: 1. Large abscess in the soft tissues superior to the left shoulder joint. Possible myonecrosis demonstrated as well. 2. Acromioclavicular joint widened to 8.7 mm a finding which may represent the sequelae of prior trauma. Changes secondary to extension of the adjacent abscess not excluded. MICROBIOLOGY: Respiratory panel negative ASSESSMENT: is a 70 yr old F w a hx of HTN, Osteopenia, Anxiety / Depression, Hypothyroidism, Spinal stenosis & obesity who is admitted for sepsis 2/2 complex abscess of the left shoulder, JAMIE and Hypoglycemia. PLAN: 1 Sepsis -2/2 complex abscess of the left shoulder - She has HR >90 / bands >10% / WBC >12 & lactic acidosis Plan: admit to ICU / telemetry / f/u repeat lactic acid and exam in 3H / Meropenem and vancomycin / switch to lactate ringers / target MAP at of least 65 to 70 / edwards / f/u Is and Os with target UOP of at least 0.5 ml/kg/H / f/u FSBS Q1H bc of hypoglycemia w target serum glucose 140-180 while acutely ill / hold BP meds 2 Complex abscess of the left shoulder Plan: will take her to the OR shortly / abx as above / pain meds / the day time team will likely order PT/OT 3 Hypoglycemia -likely due to infection -she has a Remote hx of DM that resolved and is no longer on Metformin or insulin Plan: f/u FSBS Q1H / hypoglycema protocol / treat infection / check A1C 4 JAMIE -2/2 infection Plan: monitor UOP / IVF / f/u repeat BMP, UA & renal US / hold Valsartan & Gabapentin 5 Shock Liver -likely 2/2 infection Plan: check Hepatitis panel / trend LFTs / check coags, and liver US / 6 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 / Spinal stenosis Plan: lidocaine patch / if her pain persists the day time team may consider addressing this with 7 Bicytopenia Plan: f/u CBC 8 History of Essential HTN Plan: hold Amlodipine, Carvedilol 9 Osteopenia -based on imaging studies Plan: f/u w PCP for Dexa Scan 10 Hypothyroidism Plan: Levothyroxine 11 Anxiety / Depression Plan: Amitriptyline, Escitalopram 12 Class 3 obesity -complicates care DVT px w TEDs & SCDs pending surgery Dispo: likely transfer to ARU after at least 2 midnights stay Home Medications Scheduled Amitriptyline HCl (Amitriptyline HCl) 50 Mg Tablet, 50 MG PO QHS Atorvastatin Calcium (Atorvastatin Calcium) 80 Mg Tablet, 80 MG PO QHS Bupropion Hcl (Bupropion Xl) 150 Mg Tab.er.24h, 150 MG PO DAILY Carvedilol (Carvedilol) 12.5 Mg Tablet, 12.5 MG PO BID Celecoxib (Celebrex) 100 Mg Capsule, 100 MG PO BID Cholecalciferol (Vitamin D3) (Vitamin D3) 50 Mcg Tablet, 50 MCG PO DAILY Escitalopram Oxalate (Lexapro) 20 Mg Tablet, 20 MG PO DAILY Esomeprazole Magnesium (Esomeprazole Magnesium) 40 Mg Capsule.dr, 40 MG PO DAILY Ezetimibe (Ezetimibe) 10 Mg Tablet, 10 MG PO QHS Fluticasone Propionate (Flonase Allergy Relief) 9.9 Ml [place].susp, 1 SPRAY NA BID Gabapentin (Gabapentin) 300 Mg Capsule, 300 MG PO TID Levothyroxine Sodium (Synthroid) 100 Mcg Tablet, 100 MCG PO DAILY Valsartan (Valsartan) 320 Mg Tablet, 320 MG PO DAILY Scheduled PRN Hydrocodone/Acetaminophen (Hydrocodone-Acetamin 5-325 mg) 1 Each Tablet, 1 TAB PO BID PRN for MODERATE/SEVERE PAIN (PS 5-10) Allergies Coded Allergies: No Known Allergies (Unverified , 10/11/19) A-FIB/CHADSVASC A-FIB History Current/History of A-Fib/PAF?: No Current PO Anticoag Therapy: No OPAL MERCER MD Aug 31, 2021 20:59
[2021-08-31] MEDS ORDERED: D10W/0.45% SODIUM CHLORIDE 1,000 ML IV SCH (21:00)
[2021-08-31] MEDS ORDERED: VANCOMYCIN HCL 1,000 MG, VIAL MATE ADAPTER 1 EACH in NS 250 ML IV SCH (21:00)
--- OUTSIDE RECORDS SUMMARY | 2021-08-31 21:22 | CCD ---
Author Author [facility] Organization [facility] Address Unknown Phone Unavailable Support Name Relationship Address Phone CR PATTON Next Of Kin [address] [phone] RALPH BARBER Next Of Kin [address] [place] [address] CR LINDQUIST Next Of Kin [address] [place], [place] [id number] MARISOL LINDQUIST Next Of Kin [address] [place], [place] [id number] NIRANJAN LINDQUIST Next Of Kin [address] [facility] [address] Unknown Unavailable RE Next Of Kin Unknown Unavailable CR PATTON ECON [address] [place] [address] Unavailable Re-disclosure Warning The records that you [...] is protected by Article 27-F of the [facility] Public Health law. If you continue you may have access to information: Regarding HIV / AIDS; Provided by facilities licensed or operated by the [facility] Office of Mental Health; or Provided by the [facility] Office for People With Developmental Disabilities. If such information is present, then the following [facility] mandated warning applies: This information has [...] law may result in a fine or mcfp sentence or both. A general authorization for the release of medical or other information is NOT sufficient authorization for further disc losure. Encounters Encounter Providers Location Date Indications Data Source(s ) Unknown [address] [place] [address] [place] [address] 08/25/2021 12:00:00 AM EST eCW1 ([facility]) Unknown [address] [facility] [id number] 08/19/2021 12:00:00 AM EST [facility] Office Visit, Est Pt., Level 4 PC [address] [place] [address] 08/18/2021 12:00:00 AM EST eCW1 ([facility]) Unknown [address] [facility] [address] 08/18/2021 12:00:00 AM EST eCW1 ([facility]) Unknown [address] [facility] [address] 08/01/2021 12:00:00 AM EDT eCW1 ([facility]) Unknown [address] [facility] [address] 07/14/2021 12:00:00 AM EDT eCW1 ([facility]) Unknown [address] [facility] [place] [address] 06/22/2021 12:00:00 AM EDT eCW1 [facility]) Office Visit, Est Pt., Level 4 PC [address] [place] [address] 05/31/2021 12:00:00 AM EDT eCW1 ([facility]) Unknown [address] [facility] [id number] 04/13/2021 12:00:00 AM EDT eCW1 ([facility]) [place] [address] [facility] [address] 04/11/2021 12:00:00 AM EDT eCW1 ([facility]) [place] [address] [facility] [address] 03/10/2021 12:00:00 AM EDT eCW1 ([facility]) Office Visit, Est Pt., Level 2 FC [address] [place] [address] 03/01/2021 12:00:00 AM EDT eCW1 ([facility]) Unknown [address] [facility] [address] 02/22/2021 12:00:00 AM EDT eCW1 ([facility]) Outpatient [address] [facility] [address] 02/10/2021 12:00:00 AM EDT eCW1 ([facility]) Unknown [address] [facility] [address] 01/03/2021 12:00:00 AM EDT eCW1 ([facility]) [place] [address] [facility] [address] 12/31/2020 12:00:00 AM EDT eCW1 ([facility]) [place] [address] [facility] [address] 11/01/2020 12:00:00 AM EST eCW1 ([facility]) Unknown [address] [facility] [address] 10/12/2020 12:00:00 AM EST eCW1 ([facility]) [place] [address] [facility] [address] 09/29/2020 12:00:00 AM EST eCW1 ([facility]) Outpatient [address] [facility] [address] 09/28/2020 12:00:00 AM EST eCW1 ([facility]) Unknown [address] [facility] [address] 09/27/2020 12:00:00 AM EST eCW1 ([facility]) Unknown [address] [facility] [address] 09/21/2020 12:00:00 AM EST eCW1 ([facility]) Unknown [address] [facility] [address] 09/07/2020 12:00:00 AM EST eCW1 ([facility]) Unknown [address] [facility] [address] 08/20/2020 12:00:00 AM EST eCW1 ([facility]) Outpatient [address] [facility] [address] 07/29/2020 12:00:00 AM EDT eCW1 ([facility]) Unknown [address] [facility] [address] 07/28/2020 12:00:00 AM EDT eCW1 ([facility]) Immunizations Vaccine Date Status Description Data Source(s) influenza, recombinant, quadrIvalent,injectable, prese rvative free 08/18/2021 11:28:00 AM EST completed eCW1 ([facility]) influenza, recombinant, quadrIvalent,injectable, prese rvative free 08/18/2021 11:28:00 AM EST completed eCW1 ([facility]) pneumococcal polysaccharide PPV23 08/18/2021 11:07:00 AM EST comple adarsh eCW1 ([facility]) pneumococcal polysaccharide PPV23 08/18/2021 11:07:00 AM EST comple adarsh eCW1 ([facility]) pneumococcal polysaccharide PPV23 08/18/2021 11:07:00 AM EST comple adarsh eCW1 ([facility]) pneumococcal polysaccharide PPV23 08/18/2021 11:07:00 AM EST comple adarsh eCW1 ([facility]) Moderna #2 dose COVID-19 (given elsewhere) SARSCOV2 VA C 100MCG/0.5ML IM 01/04/2021 10:35:00 AM EDT completed eCW1 ([facility]) Moderna #2 dose COVID-19 (given elsewhere) SARSCOV2 VA C 100MCG/0.5ML IM 01/04/2021 10:35:00 AM EDT completed eCW1 ([facility]) Moderna #2 dose COVID-19 (given elsewhere) SARSCOV2 VA C 100MCG/0.5ML IM 01/04/2021 10:35:00 AM EDT completed eCW1 ([facility]) Moderna #2 dose COVID-19 (given elsewhere) SARSCOV2 VA C 100MCG/0.5ML IM 01/04/2021 10:35:00 AM EDT completed eCW1 ([facility]) Moderna #2 dose COVID-19 (given elsewhere) SARSCOV2 VA C 100MCG/0.5ML IM 01/04/2021 10:35:00 AM EDT completed eCW1 ([facility]) Moderna #2 dose COVID-19 (given elsewhere) SARSCOV2 VA C 100MCG/0.5ML IM 01/04/2021 10:35:00 AM EDT completed eCW1 ([facility]) Moderna #2 dose COVID-19(given elsewhere) SARSCOV2 VAC 100MCG/0.5ML IM 01/04/2021 10:35:00 AM EDT completed eCW1 ([facility]) Moderna #2 dose COVID-19(given elsewhere) SARSCOV2 VAC 100MCG/0.5ML IM 01/04/2021 10:35:00 AM EDT completed eCW1 ([facility]) Moderna #2 dose COVID-19(given elsewhere) SARSCOV2 VAC 100MCG/0.5ML IM 01/04/2021 10:35:00 AM EDT completed eCW1 ([facility]) Moderna #2 dose COVID-19(given elsewhere) SARSCOV2 VAC 100MCG/0.5ML IM 01/04/2021 10:35:00 AM EDT completed eCW1 ([facility]) Moderna #2 dose COVID-19(given elsewhere) SARSCOV2 VAC 100MCG/0.5ML IM 01/04/2021 10:35:00 AM EDT completed eCW1 ([facility]) Moderna #2 dose COVID-19(given elsewhere) SARSCOV2 VAC 100MCG/0.5ML IM 01/04/2021 10:35:00 AM EDT completed eCW1 ([facility]) Moderna #2 dose COVID-19(given elsewhere) SARSCOV2 VAC 100MCG/0.5ML IM 01/04/2021 10:35:00 AM EDT completed eCW1 ([facility]) COVID-19 VACCINE Moderna 01/04/2021 12:00:00 AM EDT completed [employer] Vaccine Series Complete: YESThis Data wa s Submitted to [facility] Via [employer]. Moderna #1 dose COVID-19 (given elsewhere) SARSCOV2 VA C 100MCG/0.5ML IM 12/07/2020 10:34:00 AM EST completed eCW1 ([facility]) Moderna #1 dose COVID-19 (given elsewhere) SARSCOV2 VA C 100MCG/0.5ML IM 12/07/2020 10:34:00 AM EST completed eCW1 ([facility]) Moderna #1 dose COVID-19 (given elsewhere) SARSCOV2 VA C 100MCG/0.5ML IM 12/07/2020 10:34:00 AM EST completed eCW1 ([facility]) Moderna #1 dose COVID-19 (given elsewhere) SARSCOV2 VA C 100MCG/0.5ML IM 12/07/2020 10:34:00 AM EST completed eCW1 ([facility]) Moderna #1 dose COVID-19 (given elsewhere) SARSCOV2 VA C 100MCG/0.5ML IM 12/07/2020 10:34:00 AM EST completed eCW1 ([facility]) Moderna #1 dose COVID-19 (given elsewhere) SARSCOV2 VA C 100MCG/0.5ML IM 12/07/2020 10:34:00 AM EST completed eCW1 ([facility]) Moderna #1 dose COVID-19(given elsewhere) SARSCOV2 VAC 100MCG/0.5ML IM 12/07/2020 10:34:00 AM EST completed eCW1 ([facility]) Moderna #1 dose COVID-19(given elsewhere) SARSCOV2 VAC 100MCG/0.5ML IM 12/07/2020 10:34:00 AM EST completed eCW1 ([facility]) Moderna #1 dose COVID-19(given elsewhere) SARSCOV2 VAC 100MCG/0.5ML IM 12/07/2020 10:34:00 AM EST completed eCW1 ([facility]) Moderna #1 dose COVID-19(given elsewhere) SARSCOV2 VAC 100MCG/0.5ML IM 12/07/2020 10:34:00 AM EST completed eCW1 ([facility]) Moderna #1 dose COVID-19(given elsewhere) SARSCOV2 VAC 100MCG/0.5ML IM 12/07/2020 10:34:00 AM EST completed eCW1 ([facility]) Moderna #1 dose COVID-19(given elsewhere) SARSCOV2 VAC 100MCG/0.5ML IM 12/07/2020 10:34:00 AM EST completed eCW1 ([facility]) Moderna #1 dose COVID-19(given elsewhere) SARSCOV2 VAC 100MCG/0.5ML IM 12/07/2020 10:34:00 AM EST completed eCW1 ([facility]) COVID-19 VACCINE Moderna 12/07/2020 12:00:00 AM EST completed [employer] Vaccine Series Complete: NOThis Data was Submitted to [facility] Via [employer]. IIV3. This is one of two codes replacing CVX 15, which is being retired. 08/09/2020 04:28:00 PM EST completed eCW1 ([facility]) IIV3. This is one of two codes replacing CVX 15, which is being retired. 08/09/2020 04:28:00 PM EST completed eCW1 ([facility]) IIV3. This is one of two codes replacing CVX 15, which is being retired. 08/09/2020 04:28:00 PM EST completed eCW1 ([facility]) IIV3. This is one of two codes replacing CVX 15, which is being retired. 08/09/2020 04:28:00 PM EST completed eCW1 ([facility]) IIV3. This is one of two codes replacing CVX 15, which is being retired. 08/09/2020 04:28:00 PM EST completed eCW1 ([facility]) IIV3. This is one of two codes replacing CVX 15, which is being retired. 08/09/2020 04:28:00 PM EST completed eCW1 ([facility]) IIV3. This is one of two codes replacing CVX 15, which is being retired. 08/09/2020 04:28:00 PM EST completed eCW1 ([facility]) IIV3. This is one of two codes replacing CVX 15, which is being retired. 08/09/2020 04:28:00 PM EST completed eCW1 ([facility]) IIV3. This is one of two codes replacing CVX 15, which is being retired. 08/09/2020 04:28:00 PM EST completed eCW1 ([facility]) IIV3. This is one of two codes replacing CVX 15, which is being retired. 08/09/2020 04:28:00 PM EST completed eCW1 ([facility]) IIV3. This is one of two codes replacing CVX 15, which is being retired. 08/09/2020 04:28:00 PM EST completed eCW1 ([facility]) IIV3. This is one of two codes replacing CVX 15, which is being retired. 08/09/2020 04:28:00 PM EST completed eCW1 ([facility]) IIV3. This is one of two codes replacing CVX 15, which is being retired. 08/09/2020 04:28:00 PM EST completed eCW1 ([facility]) IIV3. This is one of two codes replacing CVX 15, which is being retired. 08/09/2020 04:28:00 PM EST completed eCW1 ([facility]) IIV3. This is one of two codes replacing CVX 15, which is being retired. 08/09/2020 04:28:00 PM EST completed eCW1 ([facility]) IIV3. This is one of two codes replacing CVX 15, which is being retired. 08/09/2020 04:28:00 PM EST completed eCW1 ([facility]) IIV3. This is one of two codes replacing CVX 15, which is being retired. 08/09/2020 04:28:00 PM EST completed eCW1 ([facility]) IIV3. This is one of two codes replacing CVX 15, which is being retired. 08/09/2020 04:28:00 PM EST completed eCW1 ([facility]) IIV3. This is one of two codes replacing CVX 15, which is being retired. 08/09/2020 04:28:00 PM EST completed eCW1 ([facility]) IIV3. This is one of two codes replacing CVX 15, which is being retired. 08/09/2020 04:28:00 PM EST completed eCW1 ([facility]) IIV3. This is one of two codes replacing CVX 15, which is being retired. 08/09/2020 04:28:00 PM EST completed eCW1 ([facility]) Medications Medication Brand Name Start Date Product Form Dose Route Admi nistrative Instructions Pharmacy Instructions Status Indications Reaction Description Data Source(s) Prednisone 20 MG Oral Tablet predniSONE 20 MG predniSONE 20 MG 08/22/2021 12:00:00 AM EST 1.0 {tablet} active pr edniSONE 20 MG eCW1 ([facility]) Prednisone 20 MG Oral Tablet predniSONE 20 MG predniSONE 20 MG 08/22/2021 12:00:00 AM EST 1.0 {tablet} active pr edniSONE 20 MG eCW1 ([facility]) 24 HR Bupropion Hydrochloride 150 MG Ext ended Release Oral Tablet buPROPion HCl ER (XL) 150 MG buPROPion HCl ER (XL) 150 MG 08/18/2021 12:00:00 AM EST 1.0 {tablet_in_the_morning} active buPROPio n HCl ER (XL) 150 MG eCW1 ([facility]) Acetaminophen 325 MG / Hydrocodone Nanette trate 5 MG Oral Tablet HYDROcodone- Acetaminophen 5-325 MG HYDROcodone-Acetaminophen 5-325 MG 08/18/2021 12:00:00 AM EST 1.0 {tablet_as_needed} active HYDROcodone-Acetaminophen 5-325 MG eCW1 ([facility]) 24 HR Bupropion Hydrochloride 150 MG Ext ended Release Oral Tablet buPROPion HCl ER (XL) 150 MG buPROPion HCl ER (XL) 150 MG 08/18/2021 12:00:00 AM EST 1.0 {tablet_in_the_morning} active buPROPio n HCl ER (XL) 150 MG eCW1 ([facility]) Acetaminophen 325 MG / Hydrocodone Nanette trate 5 MG Oral Tablet HYDROcodone- Acetaminophen 5-325 MG HYDROcodone-Acetaminophen 5-325 MG 08/18/2021 12:00:00 AM EST 1.0 {tablet_as_needed} active HYDROcodone-Acetaminophen 5-325 MG eCW1 ([facility]) Acetaminophen 325 MG / Hydrocodone Nanette trate 5 MG Oral Tablet HYDROcodone- Acetaminophen 5-325 MG HYDROcodone-Acetaminophen 5-325 MG 08/18/2021 12:00:00 AM EST 1.0 {tablet_as_needed} active HYDROcodone-Acetaminophen 5-325 MG eCW1 ([facility]) Acetaminophen 325 MG / Hydrocodone Nanette trate 5 MG Oral Tablet HYDROcodone- Acetaminophen 5-325 MG HYDROcodone-Acetaminophen 5-325 MG 08/18/2021 12:00:00 AM EST 1.0 {tablet_as_needed} active HYDROcodone-Acetaminophen 5-325 MG eCW1 ([facility]) 24 HR Bupropion Hydrochloride 150 MG Ext ended Release Oral Tablet buPROPion HCl ER (XL) 150 MG buPROPion HCl ER (XL) 150 MG 08/18/2021 12:00:00 AM EST 1.0 {tablet_in_the_morning} active buPROPio n HCl ER (XL) 150 MG eCW1 ([facility]) 24 HR Bupropion Hydrochloride 150 MG Ext ended Release Oral Tablet buPROPion HCl ER (XL) 150 MG buPROPion HCl ER (XL) 150 MG 08/18/2021 12:00:00 AM EST 1.0 {tablet_in_the_morning} active buPROPio n HCl ER (XL) 150 MG eCW1 ([facility]) Acetaminophen 325 MG / Hydrocodone Nanette trate 5 MG Oral Tablet HYDROcodone- Acetaminophen 5-325 MG HYDROcodone-Acetaminophen 5-325 MG 05/31/2021 12:00:00 AM EDT 1.0 {tablet_as_needed} active HYDROcodone-Acetaminophen 5-325 MG eCW1 ([facility]) Acetaminophen 325 MG / Hydrocodone Nanette trate 5 MG Oral Tablet HYDROcodone- Acetaminophen 5-325 MG HYDROcodone-Acetaminophen 5-325 MG 05/31/2021 12:00:00 AM EDT 1.0 {tablet_as_needed} active HYDROcodone-Acetaminophen 5-325 MG eCW1 ([facility]) Acetaminophen 325 MG / Hydrocodone Nanette trate 5 MG Oral Tablet HYDROcodone- Acetaminophen 5-325 MG HYDROcodone-Acetaminophen 5-325 MG 05/31/2021 12:00:00 AM EDT 1.0 {tablet_as_needed} active HYDROcodone-Acetaminophen 5-325 MG eCW1 ([facility]) Acetaminophen 325 MG / Hydrocodone Nanette trate 5 MG Oral Tablet HYDROcodone- Acetaminophen 5-325 MG HYDROcodone-Acetaminophen 5-325 MG 05/31/2021 12:00:00 AM EDT 1.0 {tablet_as_needed} active HYDROcodone-Acetaminophen 5-325 MG eCW1 ([facility]) 0.5 ML dulaglutide 3 MG/ML Auto-Injector [Trulicity] T rulicity 1.5 MG/0.5ML Trulicity 1.5 MG/0.5ML 04/11/2021 12:00:00 AM EDT active Trulicity 1.5 MG/0.5ML eCW1 ([facility]) celecoxib 100 MG Oral Capsule Celecoxib 100 MG Celecoxib 100 MG 04/11/2021 12:00:00 AM EDT 1.0 {capsule_with_food} active Celecoxib 100 MG eCW1 ([facility]) celecoxib 100 MG Oral Capsule Celecoxib 100 MG Celecoxib 100 MG 04/11/2021 12:00:00 AM EDT 1.0 {capsule_with_food} active Celecoxib 100 MG eCW1 ([facility]) 0.5 ML dulaglutide 3 MG/ML Auto-Injector [Trulicity] T rulicity 1.5 MG/0.5ML Trulicity 1.5 MG/0.5ML 04/11/2021 12:00:00 AM EDT active Trulicity 1.5 MG/0.5ML eCW1 ([facility]) celecoxib 100 MG Oral Capsule Celecoxib 100 MG Celecoxib 100 MG 04/11/2021 12:00:00 AM EDT 1.0 {capsule_with_food} active Celecoxib 100 MG eCW1 ([facility]) 0.5 ML dulaglutide 3 MG/ML Auto-Injector [Trulicity] T rulicity 1.5 MG/0.5ML Trulicity 1.5 MG/0.5ML 04/11/2021 12:00:00 AM EDT active Trulicity 1.5 MG/0.5ML eCW1 ([facility]) 0.5 ML dulaglutide 3 MG/ML Auto-Injector [Trulicity] T rulicity 1.5 MG/0.5ML Trulicity 1.5 MG/0.5ML 04/11/2021 12:00:00 AM EDT active Trulicity 1.5 MG/0.5ML eCW1 ([facility]) celecoxib 100 MG Oral Capsule Celecoxib 100 MG Celecoxib 100 MG 04/11/2021 12:00:00 AM EDT 1.0 {capsule_with_food} active Celecoxib 100 MG eCW1 ([facility]) 0.5 ML dulaglutide 3 MG/ML Auto-Injector [Trulicity] T rulicity 1.5 MG/0.5ML Trulicity 1.5 MG/0.5ML 04/11/2021 12:00:00 AM EDT active Trulicity 1.5 MG/0.5ML eCW1 ([facility]) celecoxib 100 MG Oral Capsule Celecoxib 100 MG Celecoxib 100 MG 04/11/2021 12:00:00 AM EDT 1.0 {capsule_with_food} active Celecoxib 100 MG eCW1 ([facility]) celecoxib 100 MG Oral Capsule Celecoxib 100 MG Celecoxib 100 MG 04/11/2021 12:00:00 AM EDT 1.0 {capsule_with_food} active Celecoxib 100 MG eCW1 ([facility]) 0.5 ML dulaglutide 3 MG/ML Auto-Injector [Trulicity] T rulicity 1.5 MG/0.5ML Trulicity 1.5 MG/0.5ML 04/11/2021 12:00:00 AM EDT active Trulicity 1.5 MG/0.5ML eCW1 ([facility]) Diclofenac Sodium 0.03 MG/MG Topical Gel Diclofenac So dium 3 % Diclofenac Sodium 3 % 03/01/2021 12:00:00 AM EDT active Diclofenac Sodium 3 % eCW1 ([facility]) Levothyroxine Sodium 0.1 MG Oral Tablet Levothyroxine Sodium 100 MCG Levothyroxine Sodium 100 MCG 03/01/2021 12:00:00 AM EDT active Levothyroxine Sodium 100 MCG eCW1 ([facility]) Diclofenac Sodium 0.03 MG/MG Topical Gel Diclofenac So dium 3 % Diclofenac Sodium 3 % 03/01/2021 12:00:00 AM EDT active Diclofenac Sodium 3 % eCW1 ([facility]) Diclofenac Sodium 0.03 MG/MG Topical Gel Diclofenac So dium 3 % Diclofenac Sodium 3 % 03/01/2021 12:00:00 AM EDT active Diclofenac Sodium 3 % eCW1 ([facility]) Levothyroxine Sodium 0.1 MG Oral Tablet Levothyroxine Sodium 100 MCG Levothyroxine Sodium 100 MCG 03/01/2021 12:00:00 AM EDT active Levothyroxine Sodium 100 MCG eCW1 ([facility]) Levothyroxine Sodium 0.1 MG Oral Tablet Levothyroxine Sodium 100 MCG Levothyroxine Sodium 100 MCG 03/01/2021 12:00:00 AM EDT active Levothyroxine Sodium 100 MCG eCW1 ([facility]) Levothyroxine Sodium 0.1 MG Oral Tablet Levothyroxine Sodium 100 MCG Levothyroxine Sodium 100 MCG 03/01/2021 12:00:00 AM EDT active Levothyroxine Sodium 100 MCG eCW1 ([facility]) Diclofenac Sodium 0.03 MG/MG Topical Gel Diclofenac So dium 3 % Diclofenac Sodium 3 % 03/01/2021 12:00:00 AM EDT active Diclofenac Sodium 3 % eCW1 ([facility]) Acetaminophen 325 MG / Hydrocodone Nanette trate 5 MG Oral Tablet Hydrocodone- Acetaminophen 5-325 MG Hydrocodone-Acetaminophen 5-325 MG 02/22/2021 12:00:00 AM EDT 1.0 {tablet_as_needed} active Hydrocodone-Acetaminophen 5-325 MG eCW1 ([facility]) Acetaminophen 325 MG / Hydrocodone Nanette trate 5 MG Oral Tablet Hydrocodone- Acetaminophen 5-325 MG Hydrocodone-Acetaminophen 5-325 MG 12/31/2020 12:00:00 AM EDT 1.0 {tablet_as_needed} active Hydrocodone-Acetaminophen 5-325 MG eCW1 ([facility]) Acetaminophen 325 MG / Hydrocodone Nanette trate 5 MG Oral Tablet Hydrocodone- Acetaminophen 5-325 MG Hydrocodone-Acetaminophen 5-325 MG 12/31/2020 12:00:00 AM EDT 1.0 {tablet_as_needed} active Hydrocodone-Acetaminophen 5-325 MG eCW1 ([facility]) Levothyroxine Sodium 0.112 MG Oral Tablet Levothyroxin e Sodium 112 MCG Levothyroxine Sodium 112 MCG 09/28/2020 12:00:00 AM EST active Levothyroxine Sodium 112 MCG eCW1 ([facility]) Levothyroxine Sodium 0.112 MG Oral Tablet Levothyroxin e Sodium 112 MCG Levothyroxine Sodium 112 MCG 09/28/2020 12:00:00 AM EST active Levothyroxine Sodium 112 MCG eCW1 ([facility]) Levothyroxine Sodium 0.112 MG Oral Tablet Levothyroxin e Sodium 112 MCG Levothyroxine Sodium 112 MCG 09/28/2020 12:00:00 AM EST active Levothyroxine Sodium 112 MCG eCW1 ([facility]) Levothyroxine Sodium 0.112 MG Oral Tablet Levothyroxin e Sodium 112 MCG Levothyroxine Sodium 112 MCG 09/28/2020 12:00:00 AM EST active Levothyroxine Sodium 112 MCG eCW1 ([facility]) Levothyroxine Sodium 0.112 MG Oral Tablet Levothyroxin e Sodium 112 MCG Levothyroxine Sodium 112 MCG 09/28/2020 12:00:00 AM EST active Levothyroxine Sodium 112 MCG eCW1 ([facility]) Levothyroxine Sodium 0.112 MG Oral Tablet Levothyroxin e Sodium 112 MCG Levothyroxine Sodium 112 MCG 09/28/2020 12:00:00 AM EST active Levothyroxine Sodium 112 MCG eCW1 ([facility]) Levothyroxine Sodium 0.112 MG Oral Tablet Levothyroxin e Sodium 112 MCG Levothyroxine Sodium 112 MCG 09/28/2020 12:00:00 AM EST active Levothyroxine Sodium 112 MCG eCW1 ([facility]) gabapentin 300 MG Oral Capsule Gabapentin 300 MG Gabapentin 300 MG 07/29/2020 12:00:00 AM EDT 1.0 {capsule} active G abapentin 300 MG eCW1 ([facility]) gabapentin 300 MG Oral Capsule Gabapentin 300 MG Gabapentin 300 MG 07/29/2020 12:00:00 AM EDT 1.0 {capsule} active G abapentin 300 MG eCW1 ([facility]) Acetaminophen 325 MG / Hydrocodone Nanette trate 5 MG Oral Tablet Hydrocodone- Acetaminophen 5-325 MG Hydrocodone-Acetaminophen 5-325 MG 07/29/2020 12:00:00 AM EDT 1.0 {tablet_as_needed} active Hydrocodone-Acetaminophen 5-325 MG eCW1 ([facility]) Acetaminophen 325 MG / Hydrocodone Nanette trate 5 MG Oral Tablet Hydrocodone- Acetaminophen 5-325 MG Hydrocodone-Acetaminophen 5-325 MG 07/29/2020 12:00:00 AM EDT 1.0 {tablet_as_needed} active Hydrocodone-Acetaminophen 5-325 MG eCW1 ([facility]) Acetaminophen 325 MG / Hydrocodone Nanette trate 5 MG Oral Tablet Hydrocodone- Acetaminophen 5-325 MG Hydrocodone-Acetaminophen 5-325 MG 07/29/2020 12:00:00 AM EDT 1.0 {tablet_as_needed} active Hydrocodone-Acetaminophen 5-325 MG eCW1 ([facility]) Acetaminophen 325 MG / Hydrocodone Nanette trate 5 MG Oral Tablet Hydrocodone- Acetaminophen 5-325 MG Hydrocodone-Acetaminophen 5-325 MG 07/29/2020 12:00:00 AM EDT 1.0 {tablet_as_needed} active Hydrocodone-Acetaminophen 5-325 MG eCW1 ([facility]) gabapentin 300 MG Oral Capsule Gabapentin 300 MG Gabapentin 300 MG 07/29/2020 12:00:00 AM EDT 1.0 {capsule} active G abapentin 300 MG eCW1 ([facility]) Acetaminophen 325 MG / Hydrocodone Nanette trate 5 MG Oral Tablet Hydrocodone- Acetaminophen 5-325 MG Hydrocodone-Acetaminophen 5-325 MG 07/29/2020 12:00:00 AM EDT 1.0 {tablet_as_needed} active Hydrocodone-Acetaminophen 5-325 MG eCW1 ([facility]) gabapentin 300 MG Oral Capsule Gabapentin 300 MG Gabapentin 300 MG 07/29/2020 12:00:00 AM EDT 1.0 {capsule} active G abapentin 300 MG eCW1 ([facility]) Insurance Providers Payer name Policy type / Coverage type Policy ID Covered democrat ID Covered democrat's relationship to adler Policy Adler Plan Information HUMANA MEDICARE [id number] Maru [id number] HUMANA MEDICARE [id number] Maru [id number] HUMANA MEDICARE [id number] xxxxxxxxx [phone] Humana Medicare F [id number] SELF [id number] HUMANA MEDICARE HMO HM UNAVAILABLE 18 UNAVAILABLE "" MNC None HUMANA HMO [id number] SP [id number] Humana Medicare F [id number] SELF [id number] HUMANA HMO [id number] SP [id number] HUMANA GOLD [id number] SP [id number] SELF PAY ONLY [id number] SP [id number] HUMANA GOLD [id number] SP [id number] MEDICARE [id number] SP [id number] Medicare replace-Humana [id number] Problems, Conditions, and Diagnoses Code Display Name Description Problem Type Effective Dates Data Source(s) H91.93 [id number] Decreased hearing of both ears Problem 11/10/2020 12:00:00 AM EST eCW1 ([facility]) R74.8 [id number] Elevated liver enzymes Problem 09/28/2020 12 :00:00 AM EST eCW1 ([facility]) M48.061 Spinal stenosis of lumbar region Spinal stenosis of lumbar region 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nic claudication Problem 09/28/2020 12:00:00 AM EST e CW1 ([facility]) G89.29 [id number] Other chronic pain Problem 07/29/2020 12:00: 00 AM EDT eCW1 ([facility]) G62.9 [id number] Neuropathy Problem 07/29/2020 12:00:00 AM ED T eCW1 ([facility]) Surgeries/Procedures Procedure Description Date Indications Data Source(s) PNEUMOCOCCAL POLYSAC VACCINE 23-V 2 />YR SUBQ/IM 08/18 12:00:00 AM EST eCW1 ([facility]) Imm: Flublok Quadrivalent 18 years & older 0.5mL IM Influenz a 08/18/2021 12:00:00 AM EST eCW1 ([facility]) Results ID Date Data Source [id number] 05/31/2021 12:00:00 AM EDT [place] Name Value Range Interpretation Code Description Data Nini rce(s) Supporting Document(s) SARS coronavirus 2 RNA Not Detected [facility] This lab was ordered by [employer] [facility] and rep orted by [facility]. Procedure Social History Code Duration Value Status Description Data Source(s ) Smoking 08/22/2021 12:00:00 AM EST Never Smoker completed Never S moker eCW1 ([facility]) Smoking 08/22/2021 12:00:00 AM EST Never Smoker completed Never S moker eCW1 ([facility]) Smoking 08/17/2021 12:00:00 AM EST Never Smoker completed Never S moker eCW1 ([facility]) Smoking 08/17/2021 12:00:00 AM EST Never Smoker completed Never S moker eCW1 ([facility]) Smoking 06/04/2021 12:00:00 AM EDT Never Smoker completed Never S moker eCW1 ([facility]) Smoking 06/04/2021 12:00:00 AM EDT Never Smoker completed Never S moker eCW1 ([facility]) Smoking 06/04/2021 12:00:00 AM EDT Never Smoker completed Never S moker eCW1 ([facility]) Smoking 06/04/2021 12:00:00 AM EDT Never Smoker completed Never S moker eCW1 ([facility]) Smoking 03/01/2021 12:00:00 AM EDT Never Smoker completed Never S moker eCW1 ([facility]) Smoking 03/01/2021 12:00:00 AM EDT Never Smoker completed Never S moker eCW1 ([facility]) Smoking 03/01/2021 12:00:00 AM EDT Never Smoker completed Never S moker eCW1 ([facility]) Smoking 03/01/2021 12:00:00 AM EDT Never Smoker completed Never S moker eCW1 ([facility]) Smoking 02/09/2021 12:00:00 AM EDT Never Smoker completed Never S moker eCW1 ([facility]) Smoking 02/09/2021 12:00:00 AM EDT Never Smoker completed Never S moker eCW1 ([facility]) Smoking 09/28/2020 12:00:00 AM EST Never Smoker completed Never S moker eCW1 ([facility]) Smoking 09/28/2020 12:00:00 AM EST Never Smoker completed Never S moker eCW1 ([facility]) Smoking 09/28/2020 12:00:00 AM EST Never Smoker completed Never S moker eCW1 ([facility]) Smoking 09/28/2020 12:00:00 AM EST Never Smoker completed Never S moker eCW1 ([facility]) Smoking 09/28/2020 12:00:00 AM EST Never Smoker completed Never S moker eCW1 ([facility]) Smoking 09/28/2020 12:00:00 AM EST Never Smoker completed Never S moker eCW1 ([facility]) Smoking 09/28/2020 12:00:00 AM EST Never Smoker completed Never S moker eCW1 ([facility]) Smoking 07/29/2020 12:00:00 AM EDT Never Smoker completed Never S moker eCW1 ([facility]) Smoking 07/29/2020 12:00:00 AM EDT Never Smoker completed Never S moker eCW1 ([facility]) Smoking 07/29/2020 12:00:00 AM EDT Never Smoker completed Never S moker eCW1 ([facility]) Smoking 07/29/2020 12:00:00 AM EDT Never Smoker completed Never S moker eCW1 ([facility]) Smoking 07/29/2020 12:00:00 AM EDT Never Smoker completed Never S moker eCW1 ([facility]) Vital Signs ID Date Data Source UNK Name Value Range Interpretation Code Description Data Source(s) Body weight 226.4 [lb_av] 226.4 [lb_av] eCW1 ([facility]) Body weight 102.69 kg 102.69 kg W1 ([facility]) Body height 64 [in_i] 64 [in_i] eCW1 ([facility]) Body mass index (BMI) [Ratio] 38.86 kg/m2 38.86 kg/m2 eCW1 ([facility]) Heart rate 80 /min 80 /min eCW1 ([facility]) Respiratory rate 18 /min 18 /min eCW1 ([facility]) Body temperature 96.9 [degF] 96.9 [degF] eCW1 ( [facility]) Systolic blood pressure 122 mm[Hg] 122 mm[Hg] e CW1 ([facility]) Diastolic blood pressure 68 mm[Hg] 68 mm[Hg] eCW1 ([facility]) Body mass index (BMI) [Ratio] 39.48 kg/m2 39.48 kg/m2 eCW1 ([facility]) Body weight 230 [lb_av] 230 [lb_av] eCW1 ([facility]) Body weight 104.33 kg 104.33 kg eCW1 ([facility]) Body height 64 [in_i] 64 [in_i] eCW1 ([facility]) Heart rate 86 /min 86 /min eCW1 ([facility]) Respiratory rate 18 /min 18 /min eCW1 ([facility]) Body temperature 96.9 [degF] 96.9 [degF] eCW1 ( [facility]) Systolic blood pressure 112 mm[Hg] 112 mm[Hg] e CW1 ([facility]) Diastolic blood pressure 74 mm[Hg] 74 mm[Hg] eCW1 ([facility]) Body weight 237.8 [lb_av] 237.8 [lb_av] eCW1 ([facility]) Body height 64 [in_i] 64 [in_i] eCW1 ([facility]) Body mass index (BMI) [Ratio] 40.81 kg/m2 40.81 kg/m2 W1 ([facility]) Systolic blood pressure 136 mm[Hg] 136 mm[Hg] e CW1 ([facility]) Heart rate 96 /min 96 /min eCW1 ([facility]) Respiratory rate 20 /min 20 /min eCW1 ([facility]) Body temperature 97 [degF] 97 [degF] eCW1 ([facility]) Diastolic blood pressure 80 mm[Hg] 80 mm[Hg] eCW1 ([facility]) Body weight 240 [lb_av] 240 [lb_av] eCW1 ([facility]) Body height 64 [in_i] 64 [in_i] eCW1 ([facility]) Body mass index (BMI) [Ratio] 41.19 kg/m2 41.19 kg/m2 eCW1 ([facility]) Heart rate 90 /min 90 /min eCW1 ([facility]) Respiratory rate 18 /min 18 /min eCW1 ([facility]) Body temperature 98.4 [degF] 98.4 [degF] eCW1 ( [facility]) Systolic blood pressure 138 mm[Hg] 138 mm[Hg] e CW1 ([facility]) Diastolic blood pressure 88 mm[Hg] 88 mm[Hg] eCW1 ([facility]) Diastolic blood pressure 80 mm[Hg] 80 mm[Hg] eCW1 ([facility]) Body weight 232 [lb_av] 232 [lb_av] eCW1 ([facility]) Body height 64 [in_i] 64 [in_i] eCW1 ([facility]) Body mass index (BMI) [Ratio] 39.82 kg/m2 39.82 kg/m2 eCW1 ([facility]) Heart rate 84 /min 84 /min eCW1 ([facility]) Respiratory rate 18 /min 18 /min eCW1 ([facility]) Body temperature 98 [degF] 98 [degF] eCW1 ([facility]) Systolic blood pressure 140 mm[Hg] 140 mm[Hg] e CW1 ([facility]) Systolic blood pressure 138 mm[Hg] 138 mm[Hg] e CW1 ([facility]) Body temperature 98.1 [degF] 98.1 [degF] eCW1 ( [facility]) Diastolic blood pressure 82 mm[Hg] 82 mm[Hg] eCW1 ([facility]) Body weight 227.8 [lb_av] 227.8 [lb_av] eCW1 ([facility]) Body height 64 [in_i] 64 [in_i] eCW1 ([facility]) Body mass index (BMI) [Ratio] 39.10 kg/m2 39.10 kg/m2 eCW1 ([facility]) Heart rate 76 /min 76 /min eCW1 ([facility]) Respiratory rate 18 /min 18 /min eCW1 ([facility]) Patient Treatment Plan of Care Planned Activity Planned Date Details Description Data Source (s) Prednisone 20 MG Oral Tablet 08/22/2021 12:00:00 AM EST eCW1 ([facility]) Prednisone 20 MG Oral Tablet 08/22/2021 12:00:00 AM EST eCW1 ([facility]) 24 HR Bupropion Hydrochloride 150 MG Extended Release Oral Tablet 08/18/2021 12:00:00 AM EST eCW1 ([facility]) Acetaminophen 325 MG / Hydrocodone Bitartrate 5 MG Ora l Tablet 08/18/2021 12:00:00 AM EST eCW1 ([facility]) 24 HR Bupropion Hydrochloride 150 MG Extended Release Oral Tablet 08/18/2021 12:00:00 AM EST eCW1 ([facility]) Acetaminophen 325 MG / Hydrocodone Bitartrate 5 MG Ora l Tablet 08/18/2021 12:00:00 AM EST eCW1 ([facility]) Acetaminophen 325 MG / Hydrocodone Bitartrate 5 MG Ora l Tablet 05/31/2021 12:00:00 AM EDT eCW1 ([facility]) Acetaminophen 325 MG / Hydrocodone Bitartrate 5 MG Ora l Tablet 05/31/2021 12:00:00 AM EDT eCW1 ([facility]) Acetaminophen 325 MG / Hydrocodone Bitartrate 5 MG Ora l Tablet 05/31/2021 12:00:00 AM EDT eCW1 ([facility]) Acetaminophen 325 MG / Hydrocodone Bitartrate 5 MG Ora l Tablet 05/31/2021 12:00:00 AM EDT eCW1 ([facility]) celecoxib 100 MG Oral Capsule 04/11/2021 12:00:00 AM EDT eCW1 ([facility]) 0.5 ML dulaglutide 3 MG/ML Auto-Injector [Trulicity] 021 12:00:00 AM EDT eCW1 ([facility]) celecoxib 100 MG Oral Capsule 04/11/2021 12:00:00 AM EDT eCW1 ([facility]) 0.5 ML dulaglutide 3 MG/ML Auto-Injector [Trulicity] 12:00:00 AM EDT eCW1 ([facility]) 0.5 ML dulaglutide 3 MG/ML Auto-Injector [Trulicity] 12:00:00 AM EDT eCW1 ([facility]) celecoxib 100 MG Oral Capsule 04/11/2021 12:00:00 AM EDT eCW1 ([facility]) 0.5 ML dulaglutide 3 MG/ML Auto-Injector [Trulicity] 12:00:00 AM EDT eCW1 ([facility]) celecoxib 100 MG Oral Capsule 04/11/2021 12:00:00 AM EDT eCW1 ([facility]) 0.5 ML dulaglutide 3 MG/ML Auto-Injector [Trulicity] 12:00:00 AM EDT eCW1 ([facility]) celecoxib 100 MG Oral Capsule 04/11/2021 12:00:00 AM EDT eCW1 ([facility]) 0.5 ML dulaglutide 3 MG/ML Auto-Injector [Trulicity] 12:00:00 AM EDT eCW1 ([facility]) celecoxib 100 MG Oral Capsule 04/11/2021 12:00:00 AM EDT eCW1 ([facility]) Diclofenac Sodium 0.03 MG/MG Topical Gel 03/01/2021 12:00:00 AM EDT eCW1 ([facility]) Levothyroxine Sodium 0.1 MG Oral Tablet 03/01/2021 12:00:00 AM EDT eCW1 ([facility]) Diclofenac Sodium 0.03 MG/MG Topical Gel 03/01/2021 12:00:00 AM EDT eCW1 ([facility]) Levothyroxine Sodium 0.1 MG Oral Tablet 03/01/2021 12:00:00 AM EDT eCW1 ([facility]) Diclofenac Sodium 0.03 MG/MG Topical Gel 03/01/2021 12:00:00 AM EDT eCW1 ([facility]) Levothyroxine Sodium 0.1 MG Oral Tablet 03/01/2021 12:00:00 AM EDT eCW1 ([facility]) Levothyroxine Sodium 0.1 MG Oral Tablet 03/01/2021 12:00:00 AM EDT eCW1 ([facility]) Diclofenac Sodium 0.03 MG/MG Topical Gel 03/01/2021 12:00:00 AM EDT eCW1 ([facility]) Acetaminophen 325 MG / Hydrocodone Bitartrate 5 MG Ora l Tablet 02/22/2021 12:00:00 AM EDT eCW1 ([facility]) Acetaminophen 325 MG / Hydrocodone Bitartrate 5 MG Ora l Tablet 12/31/2020 12:00:00 AM EDT eCW1 ([facility]) Acetaminophen 325 MG / Hydrocodone Bitartrate 5 MG Ora l Tablet 12/31/2020 12:00:00 AM EDT eCW1 ([facility]) Levothyroxine Sodium 0.112 MG Oral Tablet 09/28/2020 12:00:00 AM ES T eCW1 ([facility]) Levothyroxine Sodium 0.112 MG Oral Tablet 09/28/2020 12:00:00 AM ES T eCW1 ([facility]) Levothyroxine Sodium 0.112 MG Oral Tablet 09/28/2020 12:00:00 AM ES T eCW1 ([facility]) Levothyroxine Sodium 0.112 MG Oral Tablet 09/28/2020 12:00:00 AM ES T eCW1 ([facility]) Levothyroxine Sodium 0.112 MG Oral Tablet 09/28/2020 12:00:00 AM ES T eCW1 ([facility]) Levothyroxine Sodium 0.112 MG Oral Tablet 09/28/2020 12:00:00 AM ES T eCW1 ([facility]) Levothyroxine Sodium 0.112 MG Oral Tablet 09/28/2020 12:00:00 AM ES T eCW1 ([facility]) Acetaminophen 325 MG / Hydrocodone Bitartrate 5 MG Ora l Tablet 07/29/2020 12:00:00 AM EDT eCW1 ([facility]) gabapentin 300 MG Oral Capsule 07/29/2020 12:00:00 AM EDT eCW1 ([facility]) Acetaminophen 325 MG / Hydrocodone Bitartrate 5 MG Ora l Tablet 07/29/2020 12:00:00 AM EDT eCW1 ([facility]) gabapentin 300 MG Oral Capsule 07/29/2020 12:00:00 AM EDT eCW1 ([facility]) Acetaminophen 325 MG / Hydrocodone Bitartrate 5 MG Ora l Tablet 07/29/2020 12:00:00 AM EDT eCW1 ([facility]) gabapentin 300 MG Oral Capsule 07/29/2020 12:00:00 AM EDT eCW1 ([facility]) Acetaminophen 325 MG / Hydrocodone Bitartrate 5 MG Ora l Tablet 07/29/2020 12:00:00 AM EDT eCW1 ([facility]) gabapentin 300 MG Oral Capsule 07/29/2020 12:00:00 AM EDT eCW1 ([facility]) Acetaminophen 325 MG / Hydrocodone Bitartrate 5 MG Ora l Tablet 07/29/2020 12:00:00 AM EDT eCW1 ([facility])
[2021-08-31] MEDS ORDERED: MIDAZOLAM INJ 2MG/2ML VIAL (J2250 PER 1MG) As Ordered ONE (21:34)
[2021-08-31] MEDS ORDERED: SUGAMMADEX SODIUM 500 MG/5 ML VIAL (BRIDION) As Ordered ONE (21:35)
[2021-08-31] MEDS ORDERED: ONDANSETRON 4MG/2ML VIAL As Ordered ONE (21:35)
[2021-08-31] MEDS ORDERED: propofoL 200 MG/20 ML VIAL As Ordered ONE (21:35)
[2021-08-31] MEDS ORDERED: fentaNYL 100 MCG/2 ML INJECTION (J3010) As Ordered ONE (21:35)
[2021-08-31] MEDS ORDERED: PHENYLephrine 500MCG 5ML (100MCG/ML) SYRINGE As Ordered ONE ×2 (21:35→23:53)
[2021-08-31] MEDS ORDERED: ROCURONIUM BROMIDE 50 MG/5 ML VIAL As Ordered ONE (21:35)
[2021-08-31] MEDS ORDERED: LIDOCAINE 2% 100MG/5ML SDV (FOR ANES.) As Ordered ONE (21:35)
[2021-08-31] MEDS ORDERED: ePHEDrine SULFATE 25 MG/5 ML(5MG/ML) SYRINGE As Ordered ONE (21:35)
[2021-08-31] MEDS ORDERED: dexameTHASONE 4 MG/ML 1ML VIAL (J1100 PER 1MG) As Ordered ONE (21:35)
[2021-08-31] MEDS ORDERED: VANCOMYCIN HCL 1,000 MG, VIAL MATE ADAPTER 1 EACH in NS 250 ML IV ONE (22:00)
[2021-08-31 22:03] LABS: HEMOGLOBIN A1c 6.5 %
[2021-08-31] MEDS ORDERED: ATOR80TA59 PO (22:04)
[2021-08-31] MEDS ORDERED: LEXA1TAB2 PO (22:04)
[2021-08-31] MEDS ORDERED: BUPR150T12 PO (22:04)
[2021-08-31] MEDS ORDERED: FLON1SPR (22:04)
[2021-08-31] MEDS ORDERED: SYNT100T PO (22:04)
[2021-08-31] MEDS ORDERED: HYDR-4571 PO (22:04)
[2021-08-31] MEDS ORDERED: AMIT50TA PO (22:04)
[2021-08-31] MEDS ORDERED: GABA-282 PO (22:04)
[2021-08-31] MEDS ORDERED: ESOM1CAP5 PO (22:04)
[2021-08-31] MEDS ORDERED: CARV12.5 PO (22:04)
[2021-08-31] MEDS ORDERED: EZET10TA21 PO (22:04)
[2021-08-31] MEDS ORDERED: D 202000 PO (22:05)
[2021-08-31] MEDS ORDERED: CELE100C PO (22:05)
[2021-08-31] MEDS ORDERED: VALS1TAB68 PO (22:05)
[2021-08-31] MEDS ORDERED: HOME MED LIST COMPLETE! XX SCH (22:10)
[2021-08-31] MEDS ORDERED: VASOPRESSIN INJ 20 UNITS/ML VIAL As Ordered ONE (22:55)
[2021-08-31] MEDS ORDERED: ACETAMINOPHEN 1000MG 100ML IV BTL (OFIRMEV) (J0131 PER 10MG) As Ordered ONE (23:08)
[2021-08-31] MEDS ORDERED: CALCIUM CHLORIDE 10% 1 GM/10 ML SYR As Ordered ONE (23:38)
[2021-09-01] VITALS (47 sets, daily range): BP systolic 80–167; BP diastolic 52–99
[2021-09-01] MEDS ORDERED: METOCLOPRAMIDE INJ 10MG/2ML VIAL (J2765 PER 1) IV PRN
[2021-09-01] MEDS ORDERED: oxyCODONE 5MG TAB PO PRN
[2021-09-01] MEDS ORDERED: HYDROMORPHONE HCL 0.5 MG/ 0.5 ML SYRINGE (J1170 PER 1) IV PRN
[2021-09-01] MEDS ORDERED: LR 1,000 ML IV SCH
[2021-09-01] MEDS ORDERED: BUPIVACAINE/EPIN 0.5% 30 ML VIAL As Ordered ONE (00:04)
[2021-09-01] MEDS ORDERED: PHENYLephrine 500MCG 5ML (100MCG/ML) SYRINGE As Ordered ONE (00:42)
[2021-09-01] MEDS: LR 1,000 ML IV SCH ×3 (00:50→21:07)
[2021-09-01] MEDS ORDERED: ONDANSETRON 4MG/2ML VIAL IV PRN ×2 (00:55)
[2021-09-01] MEDS ORDERED: ACETAMINOPHEN TAB 650MG DOSE (2X325MG) PO PRN (00:55)
--- NOTE | 2021-09-01 01:19 | IPNPDOC ---
Text Note Date of Service The patient was seen on 09/01/21. NOTE 117AM I evaluated the patient in PACU after the procedure. She was lethargic and confused. #Encephalopathy -per d/w the pt was confused during the pre-op assessment -likely 2/2 infection +/- Hypoglycemia Plan: neuro checks / treat infection / f/u FSBS as scheduled / #Septic Shock -MAP is 52 on Phenylephrine despite receiving 5L of IVF Plan: place in Trendelenburg position / c/w IVF / start Levophed once we get to the ICU / asked to help us place a centra line / repeat labs pending #Oliguria - she has a edwards and has only produced about 30ml of urine Plan: f/u repeat labs and consider Nephro consult and I called Carrillo Rankin (her nephew) and updated him OPAL MERCER MD Sep 01, 2021 01:19
[2021-09-01] MEDS ORDERED: NOREPINEPHRINE BITARTRATE 8 MG in D5W 500 ML IV SCH ×2 (01:30→14:00)
[2021-09-01] MEDS: fentaNYL 100 MCG/2 ML INJECTION (J3010) IV PRN ×4 (01:40→02:30)
--- NOTE | 2021-09-01 02:09 | ROOPDOC ---
[facility] Report Of Operation Report of Operation DATE OF PROCEDURE: 09/01/21 PREPROCEDURE DIAGNOSES: Left shoulder abscess POSTPROCEDURE DIAGNOSES: Left shoulder abscess with AC joint injury PROCEDURE PERFORMED: Irrigation and debridement left shoulder abscess with application of incisional wound VAC drain system; 1 sample for culture/specimen SURGEON: Carrillo Villavicencio MD RECREATIONAL RESORT MANAGER: Christin Parekh PA-C ANESTHESIA: General. ESTIMATED BLOOD LOSS: Approximately 80 mL. COMPLICATIONS: No known complications from the surgery. REMARKS: Patient was becoming more confused, preoperative. FINDINGS: AC joint injury. SPECIMENS REMOVED: Purulent material expressed from abscess was sent for Gram stain and aerobic and anaerobic cultures PROCEDURE NOTE: The patient's left upper extremity was signed in the preoperative area. DESCRIPTION OF PROCEDURE: The patient was brought to the operating room and transferred to the OR table. She then underwent a general anesthetic after a surgical pause was carried out. Patient was appropriately positioned supine with a bump under the left shoulder and the head of the bed elevated about 30 degrees or so. The patient was appropriately prepped and draped and the left shoulder abscess was prepped and draped in the standard sterile fashion. After a surgical safety checklist and timeout was performed, an incision was made over the area of the abscess. Purulent material was expressed. The incision was extended approximately 5 to 6 inches. Electrocautery was used to remove some devitalized tissue. A christine curette was used to mechanically debride all surfaces of the open wound. A rongeur was then used to remove any loose soft tissue. The wound was then irrigated with few 100 mL of normal sterile saline. It was noted that the AC joint had a separation. This was irrigated out and there did not appear to be any communication distal to the AC joint. The superior aspect was open and this was debrided. The rongeur was utilized on the bone and this was bleeding appropriately without any suggestion of osteomyelitis. Continued mechanical debridements were carried out with intermittent irrigations. 3 L of normal sterile saline was passed through the wound using pulse lavage. There was noted to be some tracking towards the trapezius and midline. This was explored and debrided with the curette and the christine to remove any devitalized tissue. Once 3 L of normal sterile saline had been passed through a dilute Betadine solution was instilled into the wound and allowed to sit for a few minutes. This was then irrigated out with normal sterile saline using pulse lavage under reduced pressure. Further mechanical debridement utilizing the christine curette and the rongeur was carried out. All of the muscular surfaces appeared to be bleeding appropriately with the mechanical debridement. It appeared that the mechanical debridement had been up appropriately taken back to vital tissue. As result of the large abscess putting pressure on the skin there was some redundant soft tissue and skin. This resulted in approximately 1.5 cm from each side of the incision being ellipsed out. The remainder of the 3 L of normal sterile saline was washed through the wound. Bleeders were controlled with electrocautery. The wound edges were approximated with two-point 0 nylon suture placed every 1.5 cm to allow for drainage. A Prevena incisional VAC dressing was placed over this wound for drainage. This was approximately 4 cm x 15 cm. This was attached and placed at the Abida suction setting of 125 mmHg. The patient's anesthetic was reversed and she was taken to the recovery room where she was reevaluated by the hospitalist service. Due to the patient's septic state she will reportedly be admitted to the ICU. CARRILLO VILLAVICENCIO MD Sep 01, 2021 02:09
[2021-09-01] MEDS ORDERED: NOREPINEPHRINE 4 MG/4 ML AMP As Ordered ONE (02:17)
--- NOTE | 2021-09-01 02:18 | ROOPDOC ---
[facility] Report Of Operation Report of Operation Or hospitalist to emergently place a central venous access catheter forDATE OF PROCEDURE: 09/01/21 PREPROCEDURE DIAGNOSES: sepsis with hypotension, need for central venous access. POSTPROCEDURE DIAGNOSES: same. PROCEDURE PERFORMED: US guided insertion of right femoral triple lumen central venous catheter. SURGEON: Malcolm Lozada MD ANESTHESIA: local anesthesia with 1% lidocaine. ESTIMATED BLOOD LOSS: Approximately 6 mL. COMPLICATIONS: none. REMARKS: I was asked to emergently place a central venous catheter on this 70 F patient who was in the PACU s/p evacuation of left shoulder abscess and worsening sepsis with hypotension and the perioperative team has lost their peripheral line and is not able to establish another line. FINDINGS: morbidly obese female, delirius, not cooperating well, though awake. She would not stay still long enough to do a safe subclavian or IJ CVC thus I made a decision to go to the right femoral area. US shows a deep location of her femoral artery and vein, small size but fully compressible DESCRIPTION OF PROCEDURE: I was asked by Ms. Gunter who is a 70-year-old female who is located in the postanesthesia care unit following debridement of a left shoulder abscess. She is hypotensive, delirious and not cooperating. She would not stay in place and cooperate for placement of a central venous catheter through the neck or through the chest area. Thus I decided to perform a right femoral central venous access. I used an ultrasound to locate the femoral artery and vein. This is quite deep in location and compared to her habitus, quite small. We used a central line bundle. The right groin is prepped with chlorhexidine and wide sterile drapes were placed. I need a couple of nurses to hold her in place for the procedure. Using a direct anterior approach the femoral vein is cannulated in 1 try with direct entry into the femoral vein noted on ultrasound in good, brisk aspiration of venous blood. A guidewire was threaded through the needle. The subcutaneous tract then enlarged. Using modified Seldinger technique the triple-lumen catheter was inserted through the guidewire. After removal of the guidewire all 3 ports were tested and noted to be aspirating and flushing well. The catheter was then secured to the skin with 3 oh silks. A chlorhexidine-containing nonocclusive dressing then placed on the catheter exit site. Patient tolerated the procedure well. MALCOLM LOZADA MD Sep 01, 2021 02:18
[2021-09-01 04:29] LABS: HEMATOCRIT 31.6 % (36.0-47.0); HEMOGLOBIN 10.1 g/dl (12.0-15.5); MEAN CORPUSCULAR HEMOGLOBIN 30.9 pg (27.0-33.0); MEAN CORPUSCULAR VOLUME 96.6 fl (80.0-96.0); PLATELET COUNT, AUTOMATED 108 10^3/uL (150-450); RED BLOOD COUNT 3.27 10^6/uL (4.00-5.40)
[2021-09-01 04:32] LABS: WHITE BLOOD COUNT 34.8 10^3/uL (4.0-10.0)
[2021-09-01] MEDS: LEVOTHYROXINE 100MCG TABLET (0.1MG) PO SCH (06:00)
[2021-09-01 06:12] LABS: ABG BASE EXCESS -6.8 (-2.0-2.0); ABG HCO3 18.4 MEQ/L (22.0-26.0); ABG O2 SATURATION 96.3 % (95.0-99.0); ABG PARTIAL PRESSURE CO2 35.7 mmHg (35.0-45.0); ABG PARTIAL PRESSURE O2 91.1 mmHg (75.0-100.0); ABG STANDARD HCO3 18.9 MEQ/L (22.0-26.0); ABG TOTAL CO2 19.5 MEQ/L (23.0-31.0); ABG pH (ARTERIAL) 7.331 UNITS (7.350-7.450)
[2021-09-01 07:24] LABS: ALBUMIN 1.2 GM/DL (3.2-5.2); BILIRUBIN,TOTAL 1.5 MG/DL (0.2-1.0); CALCIUM LEVEL 7.6 MG/DL (8.8-10.2); CREATININE FOR GFR 1.54 MG/DL (0.55-1.30); GLOMERULAR FILTRATION RATE 35.3 (>39); MAGNESIUM LEVEL 1.7 MG/DL (1.8-2.4); POTASSIUM SERUM 4.9 MEQ/L (3.5-5.1); TOTAL PROTEIN 4.4 GM/DL (6.4-8.2)
[2021-09-01] MEDS ORDERED: MORPHINE 2 MG/ML 1ML VIAL (J2270) As Ordered ONE (07:29)
--- NOTE | 2021-09-01 07:38 | REPVR ---
PROCEDURE INFORMATION: Exam: XR Chest Exam date and time: 09/01/2021 6:35 AM Age: 70 years old Clinical indication: Other: Hypoxemia TECHNIQUE: Imaging protocol: XR of the chest. Views: 1 view. COMPARISON: CT Chest without contrast 10/11/2019 1:45 AM FINDINGS: Lungs: No consolidation. Pleural spaces: No pleural effusion. No pneumothorax. Question minimal right pleural thickening. Heart/Mediastinum: No cardiomegaly. Vasculature: The aorta is tortuous. Bones/joints: Unremarkable. IMPRESSION: 1. There is no evidence of active pulmonary disease. 2. A followup PA and lateral radiograph is recommended when the patient is clinically able. Electronically signed by: Carson Velasquez On 09/01/2021 07:38:10 AM
[2021-09-01] MEDS: MORPHINE 4 MG/ML 1ML VIAL/SYRINGE (J2270) IV PRN ×2 (07:45→12:09)
[2021-09-01] MEDS: MEROPENEM INJ 1 GM in IV 1 EA IV SCH ×2 (07:53→19:35)
[2021-09-01] MEDS: LIDOCAINE 5% (LIDODERM) PATCH TD SCH (08:04)
[2021-09-01] MEDS: buPROPion **XL** TABLET 150MG (WELLBUTRIN XL) PO SCH (08:09)
[2021-09-01] MEDS: ESCITALOPRAM OXALATE 10 MG TAB (LEXAPRO) PO SCH (08:09)
[2021-09-01] MEDS ORDERED: OMEPRAZOLE 20 MG CAP PO SCH (09:00)
[2021-09-01] MEDS: GABAPENTIN 300 MG CAP PO SCH ×3 (09:00→21:05)
[2021-09-01] MEDS: PANTOPRAZOLE 40MG VIAL (C9113 PER 1) IV SCH (09:00)
[2021-09-01] MEDS ORDERED: LR 1,000 ML IV ONE (09:00)
[2021-09-01] MEDS ORDERED: MEROPENEM INJ 2 GM in NS 100 ML IV SCH (09:00)
[2021-09-01] MEDS: MAG SULF 1GM/100ML (MAG RUN) 1 GM in IV 1 EA IV SCH ×2 (10:00→12:14)
--- NOTE | 2021-09-01 10:17 | IPNPDOC ---
Date Seen The patient was seen on 09/01/21. Progress Note SUBJECTIVE: Patient was seen and examined at bedside. She appears to be quite ill rolling in bed and is disoriented. She is able to tell me the the year and the reason why she is here but is otherwise having trouble articulating review of systems and to history questions. Patient is presently on Levophed at 5 mcg. Wound VAC on the left shoulder is in place. She is currently making 0.15 mL per cake per hour in urine output she has fluids running LR at 120 mL/h. Preliminary blood cultures from 08/31/2021+ for gram-positive cocci in clusters. Likewise abscess Gram stain showing many gram-positive cocci in clusters. OBJECTIVE PHYSICAL EXAMINATION: VITAL SIGNS: please see below General: Appears to be ill rolling in bed disoriented HEENT: PERRLA, EOMI, sclerae clear Neck: supple, normal ROM, no JVD Respiratory: lungs CTAB, no wheeze, no rales, no crackles CVS: RRR, normal S1, S2, no appreciable murmur Abdo: soft, no masses, no hepatosplenomegaly, BS+, no rebound tenderness Extremities: no edema, pulses 2+ MSK: no joint deformities, normal ROM Neuro: no focal neuro deficits, moving all 4 extremities, CN2-12 intact. Strength 5/5 in all 4 extremities. No nystagmus. Psych: calm, cooperative, AAO x 3 LABORATORY DATA, IMAGING STUDIES, MICROBIOLOGY: Please see below. Echocardiogram: Ordered on 09/01/2020. DVT prophylaxis ordered?: Heparin 5000 units q8h ASSESSMENT AND PLAN: Patient is a 70-year-old female with a past medical history of hypertension hypothyroidism osteopenia spinal stenosis obesity depression presented to the ER with 10 out of 10 left shoulder pain. She is admitted for sepsis secondary to complex abscess of the left shoulder acute kidney injury as well as hyperglycemia. She was taken to the OR for debridement and washout of the left shoulder by orthopedic surgeon Dr. Ponce. Perioperatively she developed septic shock and was transferred to the ICU on Levophed drip. She presently has positive blood cultures for gram-positive cocci in clusters, as well as a positive Gram stain from abscess of gram-positive cocci in clusters. She is currently on meropenem and vancomycin. PROBLEMS: 1 Septic shock 2/2 complex abscess of L shoulder -2/2 complex abscess of the left shoulder - WBC 34. Tachycarid to 106. - s/p 3L bolus, ongoing hypotension. Started on levophed - Lactic acid 3.5, on repeat unchaged - 1/2 blood cx positive for gram positive cocci in cluster - s/p washout of L shoulder, wound vac in place - obtain 2D echo to assess for endocarditis - Vancomycin Day 2, meropenem Day 2 - ordered additional 1L LR, repeat LA in 4 hours. 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 Castorena. Recommendations and assistance is greatly appreciated. 2 Complex abscess of the left shoulder - s/p washout by Dr. Ponce on 08/31/21 - wound vac in place - gram stain showing gram positive cocci in clusters. C/w blood cultures - c/w meropenem and vancomycin, Day 2. 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 Dispo: likely transfer to ARU after at least 2 midnights stay. VS, I&O, 24H, Fishbone Vital Signs/I&O Vital Signs Date Time Temp Pulse Resp B/P (MAP) Pulse Ox O2 Delivery O2 Flow Rate FiO2 09/01/21 08:45 106 108/55 (72) 94 Nasal Cannula 4.0 09/01/21 08:00 97.2 24 I&O- Last 24 Hours up to 6 AM 09/01/21 06:00 Intake Total 4570 ml Output Total 435 ml Balance 4135 ml Laboratory Data 24H LABS Laboratory Tests 2 08/31/21 16:51: Immature Granulocyte % (Auto) , Neutrophils (%) (Auto) , Nucleated Red Blood Cells % (auto) 0.1H, Neutrophils 56, Band Neutrophils 34H, Lymphocytes (Manual) 5L, Monocytes (Manual) 4, Metamyelocytes 1H, Red Blood Cell Morphology NORMAL, Platelet Estimate NORMAL, Erythrocyte Sedimentation Rate 75H, Prothrombin Time 18.4H, Prothromb Time International Ratio 1.48, Activated Partial Thromboplast Time 37.4, Fibrinogen 865H, Anion Gap 10, Glomerular Filtration Rate 32.8L, Estimated Mean Plasma Glucose 140H, Hemoglobin A1c 6.5, Lactic Acid Level 3.5*H, Calcium Level 7.4L, Total Bilirubin 1.1H, Direct Bilirubin 0.5H, Aspartate Amino Transf (AST/SGOT) 132H, Alanine Aminotransferase (ALT/SGPT) 123H, Alkaline Lucio sphatase 220H, Total Creatine Kinase 258H, Creatine Kinase MB 5.4H, Creatine Kinase MB Relative Index 2.09, Troponin I High Sensitivity 109.0H, C-Reactive Protein, Quantitative 45.20H, Total Protein 5.0L, Albumin 1.4L, Albumin/Globulin Ratio 0.4L, Coronavirus (COVID-19)(PCR) NEGATIVE, Influenza Type A (RT-PCR) NEGATIVE, Influenza Type B (RT-PCR) NEGATIVE, Respiratory Syncytial Virus (PCR) NEGATIVE 08/31/21 19:17: Bedside Glucose (Misc Panel) 92 08/31/21 21:13: Bedside Glucose (Misc Panel) 70L 09/01/21 01:27: Bedside Glucose (Misc Panel) 63L 09/01/21 02:36: Bedside Glucose (Misc Panel) 125H 09/01/21 03:05: Bedside Glucose (Misc Panel) 123H 09/01/21 04:10: Nucleated Red Blood Cells % (auto) 0.1H, Anion Gap 10, Glomerular Filtration Rate 35.3L, Calcium Level 7.6L, Magnesium Level 1.7L, Total Bilirubin 1.5H, Aspartate Amino Transf (AST/SGOT) 103H, Alanine Aminotransferase (ALT/SGPT) 96H, Alkaline Phosphatase 195H, Total Protein 4.4L, Albumin 1.2L, Albumin/Globulin Ratio 0.4L 09/01/21 06:01: Blood Gas Bicarbonate Standard 18.9L, Arterial Blood pH 7.331L, Arterial Blood Partial Pressure CO2 35.7, Arterial Blood Partial Pressure O2 91.1, Arterial Blood Total CO2 19.5L, Arterial Blood HCO3 18.4L, Arterial Blood Base Excess - 6.8L, Arterial Blood Oxygen Saturation 96.3 09/01/21 07:41: Lactic Acid Level 3.5*H CBC/BMP Laboratory Tests 08/31/21 16:51 09/01/21 04:10 Microbiology Microbiology 08/31/21 Gram Stain, Received Pending 08/31/21 Abscess Culture, Received Pending 08/31/21 Gram Stain - Final, Resulted 08/31/21 Abscess Culture, Resulted Pending 08/31/21 Anaerobic Culture, Resulted Pending 08/31/21 Blood Culture, Received Pending 08/31/21 Blood Culture - Preliminary, Resulted DOLLY RAMACHANDRAN MD Sep 01, 2021 10:17
--- NOTE | 2021-09-01 11:04 | IPNPDOC ---
Text Note Date of Service The patient was seen on 09/01/21. NOTE Postop day 1 I&D washout of abscess with application of Prevena wound VAC to left shoulder associated with sepsis Patient was seen in the PCU this morning. In terms of her comfort level, she is relatively unchanged however she states that her shoulder is painful but it does feel little bit better. She did recognize me from yesterday. She had been having some issues with confusion postoperatively. I also spoke with her nurse and it sounds as if the pressures have been backed off a little bit since the immediate postoperative period. She did have antibiotics hanging. The wound VAC Prevena dressing appeared to be in position without any compromise to the seal. It appeared to be functioning appropriately with some serosanguineous fluid in the tube and approximately 25 mL or so in the collection canister. Microbiology results show one of the blood cultures showing gram-positive cocci in clusters. The initial aspiration of the abscess in the emergency room shows heavy staph aureus. Patient is being medically managed by the hospitalist service. I will continue to monitor the wound. The patient is aware that she will require a Abida dressing change within the next 3 to 7 days, which may involve additional irrigation and debridements. This depends on how the wound appears and the amount of drainage etc. The patient will continue to be evaluated. VS,Genoe, I+O VS, [place], I+O Laboratory Tests 08/31/21 16:51 09/01/21 04:10 Vital Signs Date Time Temp Pulse Resp B/P (MAP) Pulse Ox O2 Delivery O2 Flow Rate FiO2 09/01/21 08:45 106 108/55 (72) 94 Nasal Cannula 4.0 09/01/21 08:00 97.2 24 I&O- Last 24 Hours up to 6 AM 09/01/21 06:00 Intake Total 4570 ml Output Total 435 ml Balance 4135 ml CR VILLAVICENCIO MD Sep 01, 2021 11:04
[2021-09-01] MEDS: VANCOMYCIN HCL 1,000 MG, VIAL MATE ADAPTER 1 EACH in NS 250 ML IV SCH (12:20)
[2021-09-01] MEDS ORDERED: SODIUM CHLORIDE 0.9% 1000ML IV ONE (12:45)
--- NOTE | 2021-09-01 13:10 | CCN ---
CRITICAL CARE NOTE DATE: 09/01/2021 START TIME: 1200 STOP TIME: 1236 SUBJECTIVE: I was asked to attend Cehry Gunter here in the intensive care unit. The patient has been examined, chart reviewed. I spoke at length with the nurse at the bedside, as well as Dr. Rollins. In essence, this 70-year-old female came to visit for Thanksgiving. She claimed severe shoulder pain. She, in essence, was found to have a septic left shoulder. She went to the operating room (OR) for surgical intervention in that regard. Initial culture with Staphylococcus aureus, quite heavy. She is on meropenem and vancomycin. She has received about 3 liters of fluid to date. Her lactic acid remains at 3.4. That has not really changed since her admission yesterday afternoon. She was on Levophed. That has been able to be weaned, and currently on 2 mcg, has a systolic blood pressure of 140. Her heart rate currently 100 with a sinus mechanism. Blood gas done at 0600 this morning has a pH of 7.331, pCO2 of 35.7, pO2 of 91. White blood cell count 34.8, no differential. Hemoglobin 10.1, platelet count 108,000. Sodium 144, potassium 4.9, chloride 112, CO2 22, BUN 33, creatinine 1.54, down from a high of 1.64 yesterday. Albumin diminished at 1.2. She does have a total bilirubin marginally elevated at 1.5. Chest x-ray from this morning shows no evidence of infiltrates or acute process. PHYSICAL EXAMINATION: VITAL SIGNS: As outlined above. GENERAL: She is awake, alert, appropriate and intermittently with complaints of pain, even to the lightest touch anywhere in her body, but is oriented. HEENT: Pupils react. Sclerae clear. She is lying in the right lateral decubitus position. She has a drain in place in the left shoulder. Membranes are moist. Trachea is in the midline. CHEST: Clear to both auscultation and percussion. Expansion symmetric. No significant focal or adventitious breath sounds are identified. Tactile fremitus palpable throughout. CARDIAC EXAM: Distant but regular. Peripheral pulses palpable. No obvious edema. ABDOMEN: Obese. There are active bowel sounds in the distance. EXTREMITIES: Show no obvious cyanosis or clubbing. NEUROLOGIC: She is awake, alert and appropriate. Moves all extremities. PSYCHIATRIC EXAM: Normal mood and affect. LABORATORY DATA: As outlined above. She is currently alluded to meropenem and vancomycin. She has intravenous (IV) fluids running and her Levophed is being weaned currently at 2 mcg/min. ASSESSMENT: The most pressing problems requiring my presence at the bedside: 1. Sepsis with mild shock. 2. Septic left shoulder. Gram stain with Staphylococcus aureus. 3. Renal insufficiency. 4. Liver function abnormalities. PLAN: At this point, I am in agreement with her current IV volume resuscitation. Although her lactic acid really has not bumped much, remains kind of mildly elevated, we have been able to wean her Levophed. My suspicion is we will be able to get that off. I would continue with her IV fluids for now. Her renal function and liver function should be monitored closely. We can repeat a lactic acid later today. I do think she is still mildly volume depleted, as her urine does appear concentrated. I am in agreement with her current antimicrobials. At this point, we will proceed as outlined above. I left the bedside at 1236 hours. Thirty-six hours of critical care at the bedside, not including procedures.
[2021-09-01] MEDS: HEPARIN SOD (PORCINE) 5000UNITS/ML 1ML VIAL/SYRINGE SQ SCH ×2 (13:28→21:06)
[2021-09-01] MEDS: oxyCODONE 5MG TAB PO PRN (14:54)
[2021-09-01] MEDS: NOREPINEPHRINE BITARTRATE 8 MG in D5W 492 ML IV SCH (19:00)
[2021-09-01] MEDS: HYDROmorphone HCL 2 MG/ML 1ML VIAL IV PRN (19:46)
--- NOTE | 2021-09-01 19:48 | ECHO ---
ECHOCARDIOGRAM DATE OF PROCEDURE: 09/01/2021 Age: 70 Gender: Female Height: 62 inches Weight: 246 pounds REFERRING PHYSICIAN: Lisandro Rollins M.D. INDICATION: Gram-positive bacteremia 2D MEASUREMENTS: Aortic root 3.4 cm Left atrium 4.6 cm Ventricular septum 1.13 cm Posterior wall 1.07 cm Left ventricle diastole 4.0 cm Inferior vena cava 2.8 cm (more 50% respiratory variation) DOPPLER MEASUREMENTS: No aortic regurgitation Aortic valve velocity 130 cm/s No mitral regurgitation. Mitral E velocity 76.0 cm/s Mitral A velocity 114 cm/s Trace tricuspid regurgitation No pulmonic regurgitation (technically difficult) MITRAL ANNULAR TISSUE DOPPLER E prime septal 8.6 cm/s E prime lateral 7.8 cm/s DESCRIPTION: Rhythm was sinus. This was a moderately technically difficult echocardiogram. No pericardial effusion. This was a 2D, M-mode, color flow Doppler, and pulsed wave Doppler examination, including mitral annular tissue Doppler. CONCLUSIONS: 1. Normal left ventricle internal dimensions and wall thickness. Normal regional LV wall motion and wall thickening. Normal LV systolic function. LVEF 65% by visual assessment. Grade 1 LV diastolic dysfunction. 2. Mild aortic valve sclerosis of a 3-cuspid aortic valve. No aortic regurgitation. 3. Mild mitral annular calcification. No mitral regurgitation. 4. Moderate left atrial dilatation. 5. No vegetation seen. 6. Otherwise normal appearing echocardiogram Doppler findings.
--- NOTE | 2021-09-01 20:16 | REP ---
INDICATION: rylie and transaminitis COMPARISON: None. TECHNIQUE: Real time queen scale ultrasound examination using curved array transducer. FINDINGS: Evaluate is incomplete due to uncooperative combative nature of patient. Limited images of the liver are grossly normal. Spleen is normal and measures 11.4 x 11.5 x 3.7 cm with 1.2 cm adjacent splenule. The left kidney is normal in reniform shape and measures 11.0 x 5.5 x 6.1 cm without hydronephrosis. Increased central sinus fat consistent with chronic age-related medical renal disease. Visualized portions of the abdominal aorta are normal and measure 2.4 cm maximal diameter. IMPRESSION: Limited abdominal ultrasound with findings as described above. <Electronically signed by Dg Beckham > 09/01/212011
[2021-09-01] MEDS ORDERED: AMITRIPTYLINE 50 MG TAB PO SCH (21:00)
[2021-09-01] MEDS: **NOTE PATIENT COMMENT** MISC XX SCH (21:07)
[2021-09-02] VITALS (23 sets, daily range): BP systolic 92–145; BP diastolic 58–91
[2021-09-02] MEDS: NOREPINEPHRINE BITARTRATE 8 MG in D5W 492 ML IV SCH (02:00)
[2021-09-02] MEDS: LR 1,000 ML IV SCH (03:56)
[2021-09-02] MEDS: HYDROmorphone HCL 2 MG/ML 1ML VIAL IV PRN ×2 (04:13→14:38)
[2021-09-02] MEDS: HEPARIN SOD (PORCINE) 5000UNITS/ML 1ML VIAL/SYRINGE SQ SCH ×3 (05:32→22:23)
[2021-09-02] MEDS: LEVOTHYROXINE 100MCG TABLET (0.1MG) PO SCH (06:23)
[2021-09-02] MEDS: ESCITALOPRAM OXALATE 10 MG TAB (LEXAPRO) PO SCH (08:34)
[2021-09-02] MEDS: GABAPENTIN 300 MG CAP PO SCH ×3 (08:34→22:25)
[2021-09-02] MEDS: buPROPion **XL** TABLET 150MG (WELLBUTRIN XL) PO SCH (08:35)
[2021-09-02] MEDS: MEROPENEM INJ 1 GM in IV 1 EA IV SCH (08:55)
[2021-09-02] MEDS: D5W/LR 1,000 ML IV SCH ×2 (08:55→22:23)
[2021-09-02] MEDS: LIDOCAINE 5% (LIDODERM) PATCH TD SCH (08:56)
[2021-09-02] MEDS: PANTOPRAZOLE 40MG VIAL (C9113 PER 1) IV SCH (08:56)
[2021-09-02 09:26] LABS: HEMATOCRIT 29.3 % (36.0-47.0); HEMOGLOBIN 9.1 g/dl (12.0-15.5); MEAN CORPUSCULAR HEMOGLOBIN 29.8 pg (27.0-33.0); MEAN CORPUSCULAR HGB CONC 31.1 g/dl (32.0-36.5); MEAN CORPUSCULAR VOLUME 96.1 fl (80.0-96.0); RED BLOOD COUNT 3.05 10^6/uL (4.00-5.40)
[2021-09-02 09:31] LABS: PLATELET COUNT, AUTOMATED 72 10^3/uL (150-450); WHITE BLOOD COUNT 32.9 10^3/uL (4.0-10.0)
[2021-09-02 09:39] LABS: HEPATITIS B CORE ANTIBODY IGM NEGATIVE (NEGATIVE); HEPATITIS B SURFACE ANTIGEN NEGATIVE (NEGATIVE); HEPATITIS C VIRUS ABY INDEX 0.1 INDEX (<0.8)
[2021-09-02 09:52] LABS: ALBUMIN 1.1 GM/DL (3.2-5.2); BILIRUBIN,TOTAL 2.4 MG/DL (0.2-1.0); CALCIUM LEVEL 7.9 MG/DL (8.8-10.2); CREATININE FOR GFR 1.43 MG/DL (0.55-1.30); GLOMERULAR FILTRATION RATE 38.4 (>39); MAGNESIUM LEVEL 2.4 MG/DL (1.8-2.4); POTASSIUM SERUM 5.1 MEQ/L (3.5-5.1); TOTAL PROTEIN 4.6 GM/DL (6.4-8.2)
[2021-09-02 10:24] LABS: LYMPHOCYTES 3 % (16-44); MONOCYTES 5 % (0-5); NEUTROPHILS 81 % (28-66)
[2021-09-02 10:25] LABS: PLATELET ESTIMATE DECREASED (NORMAL)
[2021-09-02 10:26] LABS: ANISOCYTOSIS 1+; POIKILOCYTOSIS 1+
[2021-09-02] MEDS: VANCOMYCIN HCL 1,000 MG, VIAL MATE ADAPTER 1 EACH in NS 250 ML IV SCH (12:43)
--- NOTE | 2021-09-02 13:36 | REP ---
INDICATION: confusion, sepsis. R/o CVA, emboli COMPARISON: 10/11/2019 TECHNIQUE: Axial noncontrast images from the skull base to the thoracic inlet with coronal reformations. This CT examination was performed using the following dose reduction techniques: Automated exposure control, adjustment of mA and/or kv according to the patient's size, and use of iterative reconstruction technique. FINDINGS: Age-related atrophy with periventricular leukomalacia and microvascular ischemic changes are appreciated. The ventricles and sulci are symmetric. Buenrostro-white differentiation is maintained. There is no evidence for acute intracranial hemorrhage, mass/mass effect, pathology or infarction. No extra-axial fluid collection. Calvarium is intact. Paranasal sinuses and mastoid air cells are clear. IMPRESSION: Atrophy and microvascular ischemic changes. No acute intracranial hemorrhage, infarction, or mass/mass effect. <Electronically signed by Dg Bekcham > 09/02/21 [id number]
[2021-09-02] MEDS ORDERED: VANCOMYCIN HCL 500 MG in D5W MINI-BAG PLUS 100 ML IV ONE (14:00)
--- NOTE | 2021-09-02 15:35 | IPNPDOC ---
Date Seen The patient was seen on 09/02/21. Progress Note SUBJECTIVE: Patient was seen and examined at bedside in ICU. Patient is extremely somnolent with intermittent periods of waking and confusion. She is oriented to person only. She states that she has diffuse pain but is unable to articulate the location. Patient has been getting Dilaudid as needed for pain control. Her left shoulder wound VAC is in place. The area appears erythematous surrounding it but without any sheela purulence. Patient has been off vasopressors since 12 noon on 09/01/2021. She has remained hemodynamically stable with blood pressure approximately 110-120 systolic. She presently requires 3 L of nasal cannula to support her oxygenation. Of note 2 out of 2 blood cultures as well as shoulder aspiration cultures have all grown methicillin susceptible Staphylococcus aureus. OBJECTIVE PHYSICAL EXAMINATION: VITAL SIGNS: please see below General: Appears to be ill rolling in bed disoriented HEENT: PERRLA, EOMI, sclerae clear Neck: supple, normal ROM, no JVD Respiratory: lungs CTAB, no wheeze, no rales, no crackles CVS: RRR, normal S1, S2, no appreciable murmur Abdo: soft, no masses, no hepatosplenomegaly, BS+, no rebound tenderness Extremities: Left fifth digit has gangrenous features dark and mottled. Left shoulder surgical site has wound VAC in place with surrounding erythema but no sheela purulence MSK: no joint deformities, normal ROM Neuro: Patient is somnolent unable to participate in full neurological examination. She seemed to be moving all 4 extremities and to has no facial droop. Her pupils are equal and light bilaterally, 4 mm in diameter. Psych: calm, cooperative, AAO x 3 LABORATORY DATA, IMAGING STUDIES, MICROBIOLOGY: Please see below. Liver US (09/01/21): Evaluate is incomplete due to uncooperative combative nature of patient. Limited images of the liver are grossly normal. Spleen is normal and measures 11.4 x 11.5 x 3.7 cm with 1.2 cm adjacent splenule. The left kidney is normal in reniform shape and measures 11.0 x 5.5 x 6.1 cm without hydronephrosis. Increased central sinus fat consistent with chronic age-related medical renal disease. Visualized portions of the abdominal aorta are normal and measure 2.4 cm maximal Echocardiogram (09/01/21): 1. Normal left ventricle internal dimensions and wall thickness. Normal regional LV wall motion and wall thickening. Normal LV systolic function. LVEF 65% by visual assessment. Grade 1 LV diastolic dysfunction. 2. Mild aortic valve sclerosis of a 3-cuspid aortic valve. No aortic regurgitation. 3. Mild mitral annular calcification. No mitral regurgitation. 4. Moderate left atrial dilatation. 5. No vegetation seen. 6. Otherwise normal appearing echocardiogram Doppler findings. DVT prophylaxis ordered?: Heparin 5000 units q8h ASSESSMENT AND PLAN: Patient is a 70-year-old female with a past medical history of hypertension hypothyroidism osteopenia spinal stenosis obesity depression presented to the ER with 10 out of 10 left shoulder pain. She is admitted for sepsis secondary to complex abscess of the left shoulder acute kidney injury as well as hyperglycemia. She was taken to the OR for debridement and washout of the left shoulder by orthopedic surgeon Dr. Ponce. Perioperatively she developed septic shock and was transferred to the ICU on Levophed drip. She presently has positive blood cultures for gram-positive cocci in clusters, as well as a positive Gram stain from abscess of gram-positive cocci in clusters. She is currently on meropenem and vancomycin. Blood cultures and wound cultures will come back positive for methicillin sensitive Staph aureus. Discussed with Dr. Marsh ID consult placed. Discontinue vancomycin and meropenem and switch to nafcillin 2 g every 4 hours. PROBLEMS: # Septic shock 2/2 complex abscess of L shoulder -2/2 complex abscess of the left shoulder - WBC 34, repeat 32.9. Tachy to 105. S/p levophed, has been off for 24 hours. Blood pressure stable between 110 to 120. - s/p 3L bolus, ongoing hypotension. - s/p washout of L shoulder, wound vac in place - blood cultures positive for MSSA (2/2), wound culture positive for MSSA (2/2) - 2D echo obtained, d/w Dr. Phillips, shows no vegetations. - Vancomycin Day 3, meropenem Day 3 - ID consultation placed. D/w Dr. Marks. Given MSSA, stop vancomycin, meropenem. Start Nafcilling 2g q4h IV (09/02/21) - patient exhibiting mottling of L 5th digit, cyanosis. Concern for septic emboli - she will require ARAMIS 3-5 days after her admission, we will coordinate with cardiology # Complex abscess of the left shoulder - s/p washout by Dr. Ponce on 08/31/21 - wound vac in place - s/p vancomycin #3 days, meropenem #3 days - wound cx, blood cx positive for MSSA - ID consult placed - started nafcillin 2g q4h IV (09/02/21) #elevated troponin - likely 2/2 demand ischemia in setting of septic shock - hsTrop 109. - 2D echo obtained on 09/01/21 (report above). LVEF 65%. Mild . No vegetations. Normal LV systolic function. - continue to trend troponins. - ongoing sepsis management - will require ARAMIS during this admission # Hypoglycemia -likely due to infection - has a hx of DM2 - A1c 6.5 - started on LR with D5 at 120. BG 117. - c/w FSBS q4h. # JAMIE - 2/2 septic shock - Cr improving, 1.43 - avoid nephrotoxins - monitor UOP - continue with IVF #Thrombocytopenia - PLT trending down (132, 108, 72) - multifactorial, dilutional vs sepsis - hold heparin if < 50,000 - check peripheral smear # Shock Liver - 2/2 septic shock. - AST/ALT improving. Bili 2.5. 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 Code status: FULL CODE Dispo: pending clinical improvement. Prognosis is poor to fair. I d/w patient's nephew and healthcare POA (states forms were signed during prior admit), VS, I&O, 24H, Fishbone Vital Signs/I&O Vital Signs Date Time Temp Pulse Resp B/P (MAP) Pulse Ox O2 Delivery O2 Flow Rate FiO2 09/02/21 14:38 22 09/02/21 11:00 98 128/74 (92) 93 Nasal Cannula 3.0 09/02/21 08:00 99.5 I&O- Last 24 Hours up to 6 AM 09/02/21 05:59 Intake Total 4005 ml Output Total 760 ml Balance 3245 ml Laboratory Data 24H LABS Laboratory Tests 2 09/01/21 17:35: Bedside Glucose (Misc Panel) 109 09/01/21 20:58: Bedside Glucose (Misc Panel) 103 09/01/21 23:13: Bedside Glucose (Misc Panel) 89 09/02/21 00:25: Bedside Glucose (Misc Panel) 90 09/02/21 02:53: Bedside Glucose (Misc Panel) 94 09/02/21 04:05: Bedside Glucose (Misc Panel) 98 09/02/21 05:34: Bedside Glucose (Misc Panel) 85 09/02/21 09:05: Neutrophils (%) (Auto) , Nucleated Red Blood Cells % (auto) 0.1H, Neutrophils 81H, Band Neutrophils 11, Lymphocytes (Manual) 3L, Monocytes (Manual) 5, Poikilocytosis 1+, Anisocytosis 1+, Macrocytosis 1+, Platelet Estimate DECREASED, Immature Platelet Fraction 6.9, Anion Gap 7L, Glomerular Filtration Rate 38.4L, Calcium Level 7.9L, Magnesium Level 2.4, Total Bilirubin 2.4#H, Aspartate Amino Transf (AST/SGOT) 88H, Alanine Aminotransferase (ALT/SGPT) 65, Alkaline Phosphatase 213H, Total Protein 4.6L, Albumin 1.1L, Albumin/Globulin Ratio 0.3L 09/02/21 11:09: Vancomycin Level Trough 7.3L 09/02/21 12:57: Bedside Glucose (Misc Panel) 117H CBC/BMP Laboratory Tests 09/02/21 09:05 Microbiology Microbiology 09/01/21 Blood Culture - Preliminary, Resulted No growth after 24 hours . All specim... 09/01/21 Blood Culture - Preliminary, Resulted No growth after 24 hours . All specim... 08/31/21 Gram Stain - Final, Resulted 08/31/21 Abscess Culture - Preliminary, Resulted Staphylococcus Aureus 08/31/21 Gram Stain - Final, Complete 08/31/21 Abscess Culture - Final, Complete Staphylococcus Aureus 08/31/21 Anaerobic Culture - Final, Complete 08/31/21 Blood Culture - Preliminary, Resulted Staphylococcus Aureus 08/31/21 Blood Culture - Preliminary, Resulted Staphylococcus Aureus DOLLY RAMACHANDRAN MD Sep 02, 2021 15:35
--- NOTE | 2021-09-02 15:42 | ECGEPIP ---
[facility] Test Date: 2021-09-02 Pat Name: RALPH BARBER Department: Room: [place] [address] Gender: Female Testing Director: selvin : 1950 Requested By: DOLLY RAMACHANDRAN Order Number: [id number] Reading MD: Carrillo Phillips Measurements Intervals [place] Rate: 105 P: 56 MT: 164 QRS: 33 QRSD: 100 T: 68 QT: 354 QTc: 467 Interpretive Statements Sinus tachycardia Increased heart rate compared with 08/31/21. Electronically Signed on 09-02-2021 15:42:02 EST by Carrillo Phillips
[2021-09-02 16:34] LABS: CK-MB VALUE MASS 7.7 NG/ML (<3.6); MB/CK RELATIVE INDEX 1.81 (< OR =4)
[2021-09-02] MEDS: NAFCILLIN SOD 2 GM in D5W MINI-BAG PLUS 50 ML IV SCH ×2 (17:17→22:23)
--- NOTE | 2021-09-02 20:06 | REP ---
INDICATION: ischemia of L 5th digit. Please include axilla to fingers. COMPARISON: None. TECHNIQUE: Real time buenrostro scale and color Doppler evaluation of the left upper extremity arterial vasculature using linear high frequency transducer. FINDINGS: Buenrostro scale and color images demonstrate no significant atherosclerotic changes and no obvious focal areas of stenosis or occlusion. Doppler evaluation demonstrates triphasic wave patterns through the subclavian, axillary and proximal to distal brachial arteries with normal velocities. Monophasic wave patterns with normal velocities noted through the proximal to distal radial and ulnar arteries which may be secondary to underlying infectious/inflammatory process. Subcutaneous edema is noted along the forearm to the wrist. Peak systolic velocities (cm/sec) Subclavian artery: 111 cm/sec and triphasic Axillary artery: 86 cm/sec and triphasic Brachial artery (prox): 122 cm/sec and triphasic Brachial artery (dist): 95 cm/sec and triphasic Ulnar artery (prox): 104 cm/sec and monophasic Ulnar artery (mid): 79 cm/sec and monophasic Ulnar artery (dist): 70 cm/sec and monophasic Radial artery (prox): 121 cm/sec and monophasic Radial artery (mid): 84 cm/sec and monophasic Radial artery (dist): 77 cm/sec and monophasic IMPRESSION: 1. Satisfactory flow without evidence for atherosclerotic changes and no obvious focal areas of stenosis or occlusion. 2. Subcutaneous edema through the forearm to the wrist with associated monophasic wave patterns to the ulnar and radial arteries likely related to underlying infectious/inflammatory change. <Electronically signed by Dg Beckham > 09/02/212001
[2021-09-02] MEDS: **NOTE PATIENT COMMENT** MISC XX SCH (22:23)
[2021-09-03] VITALS (12 sets, daily range): BP systolic 95–172; BP diastolic 53–79
[2021-09-03] MEDS: NAFCILLIN SOD 2 GM in D5W MINI-BAG PLUS 50 ML IV SCH ×6 (00:43→21:24)
[2021-09-03] MEDS: HYDROmorphone HCL 2 MG/ML 1ML VIAL IV PRN (00:44)
[2021-09-03 05:02] LABS: HEMATOCRIT 26.5 % (36.0-47.0); HEMOGLOBIN 8.3 g/dl (12.0-15.5); MEAN CORPUSCULAR HEMOGLOBIN 30.3 pg (27.0-33.0); MEAN CORPUSCULAR HGB CONC 31.3 g/dl (32.0-36.5); MEAN CORPUSCULAR VOLUME 96.7 fl (80.0-96.0); RED BLOOD COUNT 2.74 10^6/uL (4.00-5.40)
[2021-09-03 05:17] LABS: ALBUMIN 0.9 GM/DL (3.2-5.2); BILIRUBIN,TOTAL 5.3 MG/DL (0.2-1.0); CALCIUM LEVEL 7.6 MG/DL (8.8-10.2); CREATININE FOR GFR 1.59 MG/DL (0.55-1.30); MAGNESIUM LEVEL 2.5 MG/DL (1.8-2.4); POTASSIUM SERUM 4.9 MEQ/L (3.5-5.1); TOTAL PROTEIN 5.1 GM/DL (6.4-8.2)
[2021-09-03 05:29] LABS: PLATELET COUNT, AUTOMATED 76 10^3/uL (150-450)
[2021-09-03 05:32] LABS: LYMPHOCYTES 8 % (16-44); MONOCYTES 3 % (0-5); NEUTROPHILS 87 % (28-66); PLATELET ESTIMATE DECREASED (NORMAL)
[2021-09-03 05:33] LABS: ANISOCYTOSIS 1+
[2021-09-03] MEDS: LEVOTHYROXINE 100MCG TABLET (0.1MG) PO SCH (06:00)
[2021-09-03] MEDS: HEPARIN SOD (PORCINE) 5000UNITS/ML 1ML VIAL/SYRINGE SQ SCH ×3 (06:40→21:24)
[2021-09-03] MEDS: D5W/LR 1,000 ML IV SCH ×3 (07:13→18:14)
[2021-09-03] MEDS: PANTOPRAZOLE 40MG VIAL (C9113 PER 1) IV SCH (08:23)
[2021-09-03] MEDS: LIDOCAINE 5% (LIDODERM) PATCH TD SCH (08:24)
[2021-09-03] MEDS: buPROPion **XL** TABLET 150MG (WELLBUTRIN XL) PO SCH (08:49)
[2021-09-03] MEDS: GABAPENTIN 300 MG CAP PO SCH ×3 (08:49→21:00)
[2021-09-03 09:18] LABS: INR 1.24; PARTIAL THROMBOPLASTIN TIME 38.2 SECONDS (25.9-37.0)
[2021-09-03] MEDS ORDERED: NS 500 ML IV ONE (14:30)
--- NOTE | 2021-09-03 15:17 | IPNPDOC ---
Text Note Date of Service The patient was seen on 09/03/21. NOTE POD# 2 Left shoulder I&D WO with vac placement Reviewed patient earlier this morning and later this afternoon with Dr. Rollins, hospitalist. Patient continues to have significant confusion and overall discomfort. Reportedly, her left fifth finger has improved in terms of colouration since ; however, she still demonstrates erythema and discolouration concerning for infection. Plan to take the patient to the OR for repeart I&D WO of left shoulder wound and possible reapplication of wound vac. I&D w/o left 5th digit possible amputation. Spoke to Rudy Frias. Consented via telephone for the procedure with Dr. Soto witnessing surgical consent and myself witnessing anesthesia consent. Consent given to OR vest front presser. NPO microphone operator to OR in the morning as stated above. VS,Fishbone, I+O VS, Fishbone, I+O Laboratory Tests 09/03/21 04:40 Vital Signs Date Time Temp Pulse Resp B/P (MAP) Pulse Ox O2 Delivery O2 Flow Rate FiO2 09/03/21 12:00 97.1 93 17 141/76 (97) 95 Nasal Cannula 4.0 I&O- Last 24 Hours up to 6 AM 09/03/21 05:59 Intake Total 2840 ml Output Total 795 ml Balance 2045 ml CR VILLAVICENCIO MD Sep 03, 2021 15:17
[2021-09-03] MEDS: **NOTE PATIENT COMMENT** MISC XX SCH (21:24)
--- NOTE | 2021-09-03 22:54 | IPNPDOC ---
Text Note Date of Service The patient was seen on 09/03/21. NOTE Time of service 1050pm I examined with BUSINESS CONTROL MANAGER Nava who pointed out that the patient has redness & warmth of the right lower extremity. #Suspected RLE Cellulitis -she is on Naficillin which should cover organisms that cause cellulitis #Encephalopathy -her mental status is not back to her baseline VS,Fishbone, I+O VS, Fishbone, I+O Laboratory Tests 09/03/21 04:40 Vital Signs Date Time Temp Pulse Resp B/P (MAP) Pulse Ox O2 Delivery O2 Flow Rate FiO2 09/03/21 20:00 98.3 103 27 165/79 (107) 92 Nasal Cannula 4.0 I&O- Last 24 Hours up to 6 AM 09/03/21 06:00 Intake Total 2600 ml Output Total 720 ml Balance 1880 ml OPAL MERCER MD Sep 03, 2021 22:54
[2021-09-04] VITALS (16 sets, daily range): BP systolic 130–168; BP diastolic 62–95
[2021-09-04] MEDS: NAFCILLIN SOD 2 GM in D5W MINI-BAG PLUS 50 ML IV SCH ×5 (00:59→16:03)
[2021-09-04] MEDS: D5W/LR 1,000 ML IV SCH ×2 (01:05→05:41)
[2021-09-04] MEDS: oxyCODONE 5MG TAB PO PRN (03:14)
[2021-09-04] MEDS: HEPARIN SOD (PORCINE) 5000UNITS/ML 1ML VIAL/SYRINGE SQ SCH ×3 (05:41→22:45)
[2021-09-04] MEDS: LEVOTHYROXINE 100MCG TABLET (0.1MG) PO SCH (05:41)
[2021-09-04 06:36] LABS: BASO # 0.1 10^3/uL (0.0-0.2); BASO % 0.2 % (0.0-1.0); EOS # 0.1 10^3/uL (0.0-0.5); EOS % 0.5 % (0.0-3.0); HEMATOCRIT 25.9 % (36.0-47.0); HEMOGLOBIN 8.3 g/dl (12.0-15.5); LYMPH # 1.2 10^3/uL (1.5-5.0); LYMPH % 5.2 % (24.0-44.0); MEAN CORPUSCULAR HEMOGLOBIN 29.6 pg (27.0-33.0); MEAN CORPUSCULAR VOLUME 92.5 fl (80.0-96.0); MONO # 0.9 10^3/uL (0.0-0.8); MONO % 3.7 % (2.0-8.0); NEUTROPHILS % 87.2 % (36.0-66.0); PLATELET COUNT, AUTOMATED 124 10^3/uL (150-450); WHITE BLOOD COUNT 24.1 10^3/uL (4.0-10.0)
[2021-09-04 06:58] LABS: BILIRUBIN,TOTAL 8.7 MG/DL (0.2-1.0); CALCIUM LEVEL 7.2 MG/DL (8.8-10.2); CREATININE FOR GFR 2.09 MG/DL (0.55-1.30); GLOMERULAR FILTRATION RATE 24.8 (>39); MAGNESIUM LEVEL 2.4 MG/DL (1.8-2.4); POTASSIUM SERUM 4.4 MEQ/L (3.5-5.1); TOTAL PROTEIN 4.5 GM/DL (6.4-8.2)
[2021-09-04] MEDS ORDERED: NS 1,000 ML IV SCH (08:25)
[2021-09-04] MEDS: LIDOCAINE 5% (LIDODERM) PATCH TD SCH (09:00)
[2021-09-04] MEDS ORDERED: propofoL 200 MG/20 ML VIAL As Ordered ONE (09:24)
[2021-09-04] MEDS ORDERED: fentaNYL 100 MCG/2 ML INJECTION (J3010) As Ordered ONE (09:24)
[2021-09-04] MEDS ORDERED: METOCLOPRAMIDE INJ 10MG/2ML VIAL (J2765 PER 1) As Ordered ONE (09:24)
[2021-09-04] MEDS ORDERED: ONDANSETRON 4MG/2ML VIAL As Ordered ONE (09:24)
[2021-09-04] MEDS ORDERED: ROCURONIUM BROMIDE 50 MG/5 ML VIAL As Ordered ONE (09:24)
[2021-09-04] MEDS ORDERED: PHENYLEPHRINE 10MG/ML 1ML VIAL (J2370 PER 1) As Ordered ONE ×2 (09:24→12:36)
[2021-09-04] MEDS ORDERED: LIDOCAINE 2% 100MG/5ML SDV (FOR ANES.) As Ordered ONE (09:24)
[2021-09-04] MEDS ORDERED: ACETAMINOPHEN 1000MG 100ML IV BTL (OFIRMEV) (J0131 PER 10MG) As Ordered ONE (09:26)
[2021-09-04] MEDS ORDERED: PHENYLephrine 500MCG 5ML (100MCG/ML) SYRINGE As Ordered ONE (09:29)
[2021-09-04] MEDS ORDERED: SUGAMMADEX SODIUM 500 MG/5 ML VIAL (BRIDION) As Ordered ONE (09:29)
[2021-09-04] MEDS ORDERED: BUPIVACAINE HCL 0.5% 30 ML VIAL As Ordered ONE (09:58)
--- NOTE | 2021-09-04 11:25 | ROOPDOC ---
[facility] Report Of Operation Report of Operation DATE OF PROCEDURE: 09/04/21 PREPROCEDURE DIAGNOSES: Left shoulder abscess post irrigation and debridement day 3 for repeat irrigation debridement and Prevena VAC dressing change as well as concern for left fifth finger gangrene POSTPROCEDURE DIAGNOSES: As above with confirmation of devitalization of soft tissues of left fifth finger PROCEDURE PERFORMED: Left shoulder irrigation and debridement with left fifth finger examination and debridement with left fifth finger amputation SURGEON: Carrillo Villavicencio MD FITTING SUPERVISOR: ANNALISE ANESTHESIA: General. ESTIMATED BLOOD LOSS: Approximately less than 80 mL. COMPLICATIONS: No known complication REMARKS: The left fifth finger was examined in the preoperative bay and this demonstrated that there was spread of the duskiness and dark tissue as well as the blistering of skin and erythema compared to yesterday's examination. FINDINGS: The left fifth finger was demonstrated to show devitalized tissue. SPECIMENS REMOVED: Soft tissue from left shoulder was sent for culture. Left fifth finger digit soft tissue was sent for Ortho culture PROCEDURE NOTE: The patient was seen in the preoperative area. Consent for the surgery was obtained by contacting the patient's nephew who is her health power of employment law attorney due to the patient's confusion. He consented for the anesthetic and the irrigation and debridement of the left shoulder and left fifth finger with possible left fifth finger amputation. Consent was obtained on 09/03/2021 with witness for the telephone consent. DESCRIPTION OF PROCEDURE: The patient was brought to the operating room and transferred to the operating room table. A surgical pause was carried out and the patient underwent a general anesthetic. She was appropriately positioned with a left gel roll under her shoulder and a arm table. The Abida plus wound VAC dressing was removed. There is evidence of one of the sutures loosening at the distal end of the incision where there was some serosanguineous drainage. She underwent a sterile prep and drape of the left upper extremity to the level of the neck including the shoulder. This was done with chlorhexidine. The patient underwent a standard sterile prep and drape of the left upper extremity. After a surgical safety checklist was performed, the remainder of the sutures to the left shoulder incision were removed. The wound was then irrigated with 3 L of normal sterile saline after a mechanical debridement with a Calloway christine device and curette. Butcher scissors were used to remove some soft tissue from the shoulder. Further irrigation was carried out with another 3 L of normal sterile saline. The wound was then closed with two-point 0 nylon sutures in an interrupted fashion. At the end of the case, a Abida plus wound VAC dressing was applied. This was approximately 4 cm by about 15 to 16 cm in length. This was sent to continuous suction at 125 mmHg. Once the shoulder had been addressed, attention was turned to the left fifth digit. As mentioned the duskiness and blistering and crepitus of the skin had extended. There was a little satellite lesion of this just proximal to the fifth fingernail which was new overnight as well as some extension of this going around the joint of the fifth distal interphalangeal joint. This also seemed to have spread proximally by a degree. There is erythema to the level of the proximal interphalangeal joint and slightly above. A dorsal incision over the devitalized tissue was carried out through skin subcutaneous tissue. The subcutaneous tissue was grayish in nature. This was extended up and it was noted that I could undermine between the fascia and the skin and subcutaneous tissue with a freer type device. The incision was carried up proximal to the distal interphalangeal joint. The decision was made to perform the amputation based on the level of the devitalized tissue. Amputation was started through the distal interphalangeal joint. Once this was completed with cautery for hemostasis, it was noted that the dorsal radially there was still some duskiness to the soft tissue. This was removed and as a result of the amputation of this devitalized tissue, the decision was made to extend the amputation to the metacarpal phalangeal joint in order to have appropriate soft tissue coverage. The flexor and extensor tendons were tenodesed and trimmed. This was done with a PDS suture 2.0. Cautery was utilized for hemostasis. The soft tissues were closed utilizing a racquet type incision that ultimately became vertical closure with the removal of some excessive bulky soft tissue. PDS suture was used to close the soft tissues over the fifth metacarpal head region. There not appear to be any significant bleeding or otherwise. Xeroform gauze was placed over the incision followed by 2 x 2's and a 4 x 4 and this was wrapped with a Kerlix to keep the dressing in position. The patient's anesthetic was reversed and she was taken to the recovery room in stable condition. The patient will be readmitted to the hospitalist service in the PCU/ICU. I did speak to Dr. Rollins, postoperatively with an update. I also spoke with Carrillo Rankin, nephew and health power of employment law attorney of the patient who is currently in [place] and updated him on the decision for the left fifth digit amputation and the left shoulder irrigation and debridement and VAC dressing placement. CARRILLO VILLAVICENCIO MD Sep 04, 2021 11:25
[2021-09-04 12:06] LABS: BASO # 0.1 10^3/uL (0.0-0.2); BASO % 0.3 % (0.0-1.0); EOS # 0.1 10^3/uL (0.0-0.5); EOS % 0.4 % (0.0-3.0); HEMATOCRIT 30.5 % (36.0-47.0); HEMOGLOBIN 9.9 g/dl (12.0-15.5); LYMPH # 1.3 10^3/uL (1.5-5.0); LYMPH % 5.9 % (24.0-44.0); MEAN CORPUSCULAR HEMOGLOBIN 30.2 pg (27.0-33.0); MEAN CORPUSCULAR HGB CONC 32.5 g/dl (32.0-36.5); MONO % 4.8 % (2.0-8.0); NEUTROPHILS # 18.1 10^3/uL (1.5-8.5); NEUTROPHILS % 85.4 % (36.0-66.0); PLATELET COUNT, AUTOMATED 122 10^3/uL (150-450); RED BLOOD COUNT 3.28 10^6/uL (4.00-5.40); WHITE BLOOD COUNT 21.2 10^3/uL (4.0-10.0)
[2021-09-04] MEDS ORDERED: ONDANSETRON 4MG/2ML VIAL IV PRN (12:15)
[2021-09-04] MEDS ORDERED: fentaNYL 100 MCG/2 ML INJECTION (J3010) IV PRN (12:15)
[2021-09-04] MEDS ORDERED: oxyCODONE 5MG TAB PO PRN (12:15)
[2021-09-04] MEDS ORDERED: LR 1,000 ML IV SCH (12:15)
[2021-09-04] MEDS ORDERED: PHENYLEPHRINE HCL IV SCH (12:25)
[2021-09-04] MEDS ORDERED: NS IV SCH (12:25)
[2021-09-04] MEDS: PANTOPRAZOLE 40MG VIAL (C9113 PER 1) IV SCH (12:39)
--- NOTE | 2021-09-04 13:59 | IPNPDOC ---
Date Seen The patient was seen on 09/03/21. Progress Note SUBJECTIVE: Patient was seen and examined at bedside in ICU. Patient is extremely somnolent with intermittent periods of waking and confusion. She is oriented to person only. She states that she has diffuse pain but is unable to articulate the location. Patient has been getting Dilaudid as needed for pain control. Her left shoulder wound VAC is in place. The area appears erythematous surrounding it but without any sheela purulence. Patient has been off vasopressors since 12 noon on 09/01/2021. She has remained hemodynamically stable with blood pressure approximately 110-120 systolic. She presently requires 3 L of nasal cannula to support her oxygenation. Of note 2 out of 2 blood cultures as well as shoulder aspiration cultures have all grown methicillin susceptible Staphylococcus aureus. OBJECTIVE PHYSICAL EXAMINATION: VITAL SIGNS: please see below General: Appears to be ill rolling in bed disoriented HEENT: PERRLA, EOMI, sclerae clear Neck: supple, normal ROM, no JVD Respiratory: lungs CTAB, no wheeze, no rales, no crackles CVS: RRR, normal S1, S2, no appreciable murmur Abdo: soft, no masses, no hepatosplenomegaly, BS+, no rebound tenderness Extremities: Left fifth digit has gangrenous features dark and mottled. Left shoulder surgical site has wound VAC in place with surrounding erythema but no sheela purulence MSK: no joint deformities, normal ROM Neuro: Patient is somnolent unable to participate in full neurological examination. She seemed to be moving all 4 extremities and to has no facial droop. Her pupils are equal and light bilaterally, 4 mm in diameter. Psych: calm, cooperative, AAO x 3 LABORATORY DATA, IMAGING STUDIES, MICROBIOLOGY: Please see below. Liver US (09/01/21): Evaluate is incomplete due to uncooperative combative nature of patient. Limited images of the liver are grossly normal. Spleen is normal and measures 11.4 x 11.5 x 3.7 cm with 1.2 cm adjacent splenule. The left kidney is normal in reniform shape and measures 11.0 x 5.5 x 6.1 cm without hydronephrosis. Increased central sinus fat consistent with chronic age-related medical renal disease. Visualized portions of the abdominal aorta are normal and measure 2.4 cm maximal Echocardiogram (09/01/21): 1. Normal left ventricle internal dimensions and wall thickness. Normal regional LV wall motion and wall thickening. Normal LV systolic function. LVEF 65% by visual assessment. Grade 1 LV diastolic dysfunction. 2. Mild aortic valve sclerosis of a 3-cuspid aortic valve. No aortic regurgitation. 3. Mild mitral annular calcification. No mitral regurgitation. 4. Moderate left atrial dilatation. 5. No vegetation seen. 6. Otherwise normal appearing echocardiogram Doppler findings. DVT prophylaxis ordered?: Heparin 5000 units q8h ASSESSMENT AND PLAN: Patient is a 70-year-old female with a past medical history of hypertension hypothyroidism osteopenia spinal stenosis obesity depression presented to the ER with 10 out of 10 left shoulder pain. She is admitted for sepsis secondary to complex abscess of the left shoulder acute kidney injury as well as hyperglycemia. She was taken to the OR for debridement and washout of the left shoulder by orthopedic surgeon Dr. Ponce. Perioperatively she developed septic shock and was transferred to the ICU on Levophed drip. She presently has positive blood cultures for gram-positive cocci in clusters, as well as a positive Gram stain from abscess of gram-positive cocci in clusters. She is currently on meropenem and vancomycin. Blood cultures and wound cultures will come back positive for methicillin sensitive Staph aureus. Discussed with Dr. Marsh ID consult placed. Discontinue vancomycin and meropenem and switch to nafcillin 2 g every 4 hours. PROBLEMS: # Septic shock 2/2 complex abscess of L shoulder -2/2 complex abscess of the left shoulder - WBC 34, repeat 32.9. Tachy to 105. S/p levophed, has been off for 24 hours. Blood pressure stable between 110 to 120. - s/p 3L bolus, ongoing hypotension. - s/p washout of L shoulder, wound vac in place - blood cultures positive for MSSA (2/2), wound culture positive for MSSA (2/2) - 2D echo obtained, d/w Dr. Phillips, shows no vegetations. - Vancomycin Day 3, meropenem Day 3 - ID consultation placed. D/w Dr. Marks. Given MSSA, stop vancomycin, meropenem. Start Nafcilling 2g q4h IV (09/02/21) - patient exhibiting mottling of L 5th digit, cyanosis. Concern for septic emboli - she will require ARAMIS 3-5 days after her admission, we will coordinate with cardiology # Complex abscess of the left shoulder - s/p washout by Dr. Ponce on 08/31/21 - wound vac in place - s/p vancomycin #3 days, meropenem #3 days - wound cx, blood cx positive for MSSA - ID consult placed - started nafcillin 2g q4h IV (09/02/21) #elevated troponin - likely 2/2 demand ischemia in setting of septic shock - hsTrop 109. - 2D echo obtained on 09/01/21 (report above). LVEF 65%. Mild . No vegetations. Normal LV systolic function. - continue to trend troponins. - ongoing sepsis management - will require ARAMIS during this admission # Hypoglycemia -likely due to infection - has a hx of DM2 - A1c 6.5 - started on LR with D5 at 120. BG 117. - c/w FSBS q4h. # JAMIE - 2/2 septic shock - Cr improving, 1.43 - avoid nephrotoxins - monitor UOP - continue with IVF #Thrombocytopenia - PLT trending down (132, 108, 72) - multifactorial, dilutional vs sepsis - hold heparin if < 50,000 - check peripheral smear # Shock Liver - 2/2 septic shock. - AST/ALT improving. Bili 2.5. 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 Code status: FULL CODE Dispo: pending clinical improvement. Prognosis is poor to fair. I d/w patient's nephew and healthcare POA (states forms were signed during prior admit), VS, I&O, 24H, Fishbone Vital Signs/I&O Vital Signs Date Time Temp Pulse Resp B/P (MAP) Pulse Ox O2 Delivery O2 Flow Rate FiO2 09/04/21 13:05 84 22 114/66 (82) 94 Nasal Cannula 2.0 09/04/21 12:30 97.2 I&O- Last 24 Hours up to 6 AM 09/04/21 06:00 Intake Total 4500.0 ml Output Total 1465 ml Balance 3035.0 ml Laboratory Data 24H LABS Laboratory Tests 2 09/04/21 01:05: Bedside Glucose (Misc Panel) 133H 09/04/21 06:00: Immature Granulocyte % (Auto) 3.2H, Neutrophils (%) (Auto) 87.2H, Lymphocytes (%) (Auto) 5.2L, Monocytes (%) (Auto) 3.7, Eosinophils (%) (Auto) 0.5, Basophils (%) (Auto) 0.2, Neutrophils # (Auto) 21.0H, Lymphocytes # (Auto) 1.2L, Monocytes # (Auto) 0.9H, Eosinophils # (Auto) 0.1, Basophils # (Auto) 0.1, Nucleated Red Blood Cells % (auto) 0.1H 09/04/21 06:06: Anion Gap 8, Glomerular Filtration Rate 24.8L, Calcium Level 7.2L, Magnesium Level 2.4, Total Bilirubin 8.7#H, Aspartate Amino Transf (AST/SGOT) 64H, Alanine Aminotransferase (ALT/SGPT) 34, Alkaline Phosphatase 130H, Total Protein 4.5L, Albumin 1.0L, Albumin/Globulin Ratio 0.3L 09/04/21 08:15: Bedside Glucose (Misc Panel) 143H 09/04/21 11:22: Bedside Glucose (Misc Panel) 162H 09/04/21 11:55: Immature Granulocyte % (Auto) 3.2H, Neutrophils (%) (Auto) 85.4H, Lymphocytes (%) (Auto) 5.9L, Monocytes (%) (Auto) 4.8, Eosinophils (%) (Auto) 0.4, Basophils (%) (Auto) 0.3, Neutrophils # (Auto) 18.1H, Lymphocytes # (Auto) 1.3L, Monocytes # (Auto) 1.0H, Eosinophils # (Auto) 0.1, Basophils # (Auto) 0.1, Nucleated Red Blood Cells % (auto) 0.2H CBC/BMP Laboratory Tests 09/04/21 06:00 09/04/21 06:06 09/04/21 11:55 Microbiology Microbiology 09/04/21 Gram Stain - Final, Resulted 09/04/21 Surgical Biopsy Culture, Resulted Pending 09/04/21 Anaerobic Culture, Resulted Pending 09/04/21 Gram Stain - Final, Resulted 09/04/21 Surgical Biopsy Culture, Resulted Pending 09/04/21 Anaerobic Culture, Resulted Pending 09/01/21 Blood Culture - Preliminary, Resulted No Growth after 72 hours. All specime... 09/01/21 Blood Culture - Preliminary, Resulted No Growth after 72 hours. All specime... 08/31/21 Gram Stain - Final, Complete 08/31/21 Abscess Culture - Final, Complete Staphylococcus Aureus 08/31/21 Gram Stain - Final, Complete 08/31/21 Abscess Culture - Final, Complete Staphylococcus Aureus 08/31/21 Anaerobic Culture - Final, Complete 08/31/21 Blood Culture - Final, Complete Staphylococcus Aureus 08/31/21 Blood Culture - Final, Complete Staphylococcus Aureus DOLLY RAMACHANDRAN MD Sep 04, 2021 13:59
--- NOTE | 2021-09-04 13:59 | IPNPDOC ---
Date Seen The patient was seen on 09/04/21. Progress Note SUBJECTIVE: patient seen and examined bedside in PCU. No acute events overnight. She is hemodynamically stable. She is more alert this morning, able to tell me her name, , her nephew Carrillo's name and that she is admitted for L shoulder pain. She is planned for a repeat washout of L shoulder, wound vac change and debridement of L 5th digit with possible amputations. She denies CP, palpitati ons. OBJECTIVE PHYSICAL EXAMINATION: VITAL SIGNS: please see below General: Appears to be ill rolling in bed disoriented HEENT: PERRLA, EOMI, scleral icterus. Jaundice of skin. Neck: supple, normal ROM, no JVD Respiratory: lungs CTAB, no wheeze, no rales, no crackles CVS: RRR, normal S1, S2, no appreciable murmur Abdo: soft, no masses, no hepatosplenomegaly, BS+, no rebound tenderness Extremities: R leg swollen, diffusely erythematous, skin slightly tender to touch. Left fifth digit has gangrenous features dark and mottled. Left shoulder surgical site has wound VAC in place with surrounding erythema but no sheela purulence. LE pulses 1+ bilaterally. MSK: no joint deformities, normal ROM Neuro: Patient is somnolent unable to participate in full neurological examination. She seemed to be moving all 4 extremities and to has no facial droop. She has reduced strenght in the bilateral upper and lower extremities, which appears to be Her pupils are equal and light bilaterally, 4 mm in anshu meter. Psych: calm, cooperative, AAO x 3 LABORATORY DATA, IMAGING STUDIES, MICROBIOLOGY: Please see below. CT abdo pelvis wo contrast (09/04/21): 1. Question of minimal pancreatitis of the tail since 10/11/2019. 2. Faint stones and sludge in the gallbladder. 3. Mild bilateral lower lobe fibro-atelectatic change, increased since the prior study. 4. Preston catheter in the bladder. 5. Right common femoral vein catheter extending to the right external iliac vein. 6. Minimal free fluid which is nonspecific. 7. Status post hysterectomy. CT chest wo contrast (09/04/21): 1. Mild bilateral lower lobe and posterior right upper lobe and minimal left upper lobe fibro-atelectatic change. 2. Question of minimal pancreatitis of the tail. 3. Layering sludge or faint stones in the gallbladder. 4. Otherwise negative CT chest. CT head wo contrast (09/04/21): Negative noncontrast head CT, unchanged from 09/02/2021. Bilateral LE venous duplex (09/04/21): No evidence for deep venous thrombosis Liver US (09/01/21): Evaluate is incomplete due to uncooperative combative nature of patient. Limited images of the liver are grossly normal. Spleen is normal and measures 11.4 x 11.5 x 3.7 cm with 1.2 cm adjacent splenule. The left kidney is normal in reniform shape and measures 11.0 x 5.5 x 6.1 cm without hydronephrosis. Increased central sinus fat consistent with chronic age-related medical renal disease. Visualized portions of the abdominal aorta are normal and measure 2.4 cm maximal Echocardiogram (09/01/21): 1. Normal left ventricle internal dimensions and wall thickness. Normal regional LV wall motion and wall thickening. Normal LV systolic function. LVEF 65% by visual assessment. Grade 1 LV diastolic dysfunction. 2. Mild aortic valve sclerosis of a 3-cuspid aortic valve. No aortic regurgitation. 3. Mild mitral annular calcification. No mitral regurgitation. 4. Moderate left atrial dilatation. 5. No vegetation seen. 6. Otherwise normal appearing echocardiogram Doppler findings. DVT prophylaxis ordered?: Heparin 5000 units q8h ASSESSMENT AND PLAN: Patient is a 70-year-old female with a past medical history of hypertension hypothyroidism osteopenia spinal stenosis obesity depression presented to the ER with 10 out of 10 left shoulder pain. She is admitted for sepsis secondary to complex abscess of the left shoulder acute kidney injury as well as hyperglycemia. She was taken to the OR for debridement and washout of the left shoulder by orthopedic surgeon Dr. Ponce. Perioperatively she developed septic shock and was transferred to the ICU on Levophed drip. She presently has positive blood cultures for gram-positive cocci in clusters, as well as a positive Gram stain from abscess of gram-positive cocci in clusters. She is currently on meropenem and vancomycin. Blood cultures and wound cultures will come back positive for methicillin sensitive Staph aureus. Discussed with Dr. Marsh ID consult placed. Discontinue vancomycin and meropenem and switch to nafcillin 2 g every 4 hours. PROBLEMS: # Septic shock 2/2 complex abscess of L shoulder -2/2 complex abscess of the left shoulder - WBC 34, repeat 32.9. Tachy to 105. S/p levophed, has been off for 24 hours. Blood pressure stable between 110 to 120. - s/p 3L bolus, ongoing hypotension. - s/p washout of L shoulder, wound vac in place - blood cultures positive for MSSA (2/2), wound culture positive for MSSA (2/2) - 2D echo obtained, d/w Dr. Phillips, shows no vegetations. - completed 3 days vanco and 3 days meropenem; discontinued. - ID consultation placed. D/w Dr. Marks. Given MSSA, stop vancomycin, meropenem. Started Nafcillin 2g q4h IV (09/02/21) - Day #3. - she will require ARAMIS 3-5 days after her admission, we will coordinate with cardiology #Metabolic encephalopathy - likely 2/2 sepsis, bacteremia from MSSA/septic joint L shoulder/L5th digit - d/w Dr. Rodríguez, will hold psych meds, gabapentin - CT head 09/01/[address] 09/04/21, without acute findings. #L 5th digit mottling/gangrenous features - patient seems to remember trauma to L hand prior to admission - mottling becoming worse - s/p exploration and I&D by Dr. Ponce on 09/04/21. Subcutaneous tissue was noted to be queen and not viable, amputation of L 5th digit was performed up to metacarpophalangeal joint. - to follow up intraoperative tissue culture. # Complex abscess of the left shoulder - s/p washout by Dr. Ponce on 08/31/21 - wound vac in place - s/p vancomycin #3 days, meropenem #3 days - wound cx, blood cx positive for MSSA - ID consult placed - started nafcillin 2g q4h IV (09/02/21) - Day #3. - I have concerns that patients hyperbilirubinemia is related to nafcillin- induced acute liver injury - I will confer with Dr. Marks, however at this time I will DC nafcillin and resume IV vancomycin (09/04/21) #Hyperbilirubinemia/hepatic injury 2/2 shock liver vs possible nafcillin tox? - T bili trending up, 8.7 this morning - Transaminases have trended down - CT abdo reviewed, minimal pancreatitis of tail? biliary sludge vs faint stones? - will check lipase - faint stones and sludge in gallbladder - will d/w Dr. Zapata, as patient may require ERCP? - ordered MRCP to assist in diagnosis. - I suspect nafcillin induced hepatic injury, will DC nafcillin as a precaution. Resume vancomycin - continue to trend hepatic function # JAMIE - 2/2 septic shock, although I am considering nafcillin nephrotoxicity at this point. - Cr trending up, 2.09 - no prior history of known CKD - JAMIE likely secondary to reduced perfusion to renal system during septic shock and use of vasopressors - nephrology service was consulted on 09/04/21, discussed with Dr. Verduzco. Recommendations and assistance is greatly appreciated. - I will DC nafcillin, and avoid beta lactams for now - patient placed back on vancomycin. #elevated troponin - likely 2/2 demand ischemia in setting of septic shock - hsTrop 109, trended down to 55.0. - 2D echo obtained on 09/01/21 (report above). LVEF 65%. Mild . No vegetations. Normal LV systolic function. - continue to trend troponins. - ongoing sepsis management - will require ARAMIS during this admission # Hypoglycemia - resolved -likely due to infection - has a hx of DM2 - A1c 6.5 - IVF discontinued, as able to tolerate PO hydration #Thrombocytopenia - PLT trended to 72, now improved to 122. - multifactorial, dilutional vs sepsis - hold heparin if < 50,000 - check peripheral smear #Hypoalbuminemia - Albumin 1.0 - nutrition eval - transfused 25 g Albumin, which will help maintain BP, prevent extravasation of fluid. 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 Code status: FULL CODE Dispo: pending clinical improvement. Prognosis is poor to fair. D/w nephew and healthcare POA [place]. Updates given. At this stage, prognosis remains guarded. VS, I&O, 24H, [facility] V[facility] Signs/I&O Vital Signs Date Time Temp Pulse Resp B/P (MAP) Pulse Ox O2 Delivery O2 Flow Rate FiO2 09/04/21 13:05 84 22 114/66 (82) 94 Nasal Cannula 2.0 09/04/21 12:30 97.2 I&O- Last 24 Hours up to 6 AM 09/04/21 06:00 Intake Total 4500.0 ml Output Total 1465 ml Balance 3035.0 ml Laboratory Data 24H LABS Laboratory Tests 2 09/04/21 01:05: Bedside Glucose (Misc Panel) 133H 09/04/21 06:00: Immature Granulocyte % (Auto) 3.2H, Neutrophils (%) (Auto) 87.2H, Lymphocytes (%) (Auto) 5.2L, Monocytes (%) (Auto) 3.7, Eosinophils (%) (Auto) 0.5, Basophils (%) (Auto) 0.2, Neutrophils # (Auto) 21.0H, Lymphocytes # (Auto) 1.2L, Monocytes # (Auto) 0.9H, Eosinophils # (Auto) 0.1, Basophils # (Auto) 0.1, Nucleated Red Blood Cells % (auto) 0.1H 09/04/21 06:06: Anion Gap 8, Glomerular Filtration Rate 24.8L, Calcium Level 7.2L, Magnesium Level 2.4, Total Bilirubin 8.7#H, Aspartate Amino Transf (AST/SGOT) 64H, Alanine Aminotransferase (ALT/SGPT) 34, Alkaline Phosphatase 130H, Total Protein 4.5L, Albumin 1.0L, Albumin/Globulin Ratio 0.3L 09/04/21 08:15: Bedside Glucose (Misc Panel) 143H 09/04/21 11:22: Bedside Glucose (Misc Panel) 162H 09/04/21 11:55: Immature Granulocyte % (Auto) 3.2H, Neutrophils (%) (Auto) 85.4H, Lymphocytes (%) (Auto) 5.9L, Monocytes (%) (Auto) 4.8, Eosinophils (%) (Auto) 0.4, Basophils (%) (Auto) 0.3, Neutrophils # (Auto) 18.1H, Lymphocytes # (Auto) 1.3L, Monocytes # (Auto) 1.0H, Eosinophils # (Auto) 0.1, Basophils # (Auto) 0.1, Nucleated Red Blood Cells % (auto) 0.2H CBC/BMP Laboratory Tests 09/04/21 06:00 09/04/21 06:06 09/04/21 11:55 Microbiology Microbiology 09/04/21 Gram Stain - Final, Resulted 09/04/21 Surgical Biopsy Culture, Resulted Pending 09/04/21 Anaerobic Culture, Resulted Pending 09/04/21 Gram Stain - Final, Resulted 09/04/21 Surgical Biopsy Culture, Resulted Pending 09/04/21 Anaerobic Culture, Resulted Pending 09/01/21 Blood Culture - Preliminary, Resulted No Growth after 72 hours. All specime... 09/01/21 Blood Culture - Preliminary, Resulted No Growth after 72 hours. All specime... 08/31/21 Gram Stain - Final, Complete 08/31/21 Abscess Culture - Final, Complete Staphylococcus Aureus 08/31/21 Gram Stain - Final, Complete 08/31/21 Abscess Culture - Final, Complete Staphylococcus Aureus 08/31/21 Anaerobic Culture - Final, Complete 08/31/21 Blood Culture - Final, Complete Staphylococcus Aureus 08/31/21 Blood Culture - Final, Complete Staphylococcus Aureus DOLLY RAMACHANDRAN MD Sep 04, 2021 13:59
--- NOTE | 2021-09-04 15:50 | REP ---
INDICATION: r/o DVT COMPARISON: None. TECHNIQUE: Buenrostro scale and color Doppler evaluation using linear high frequency transducer. FINDINGS: Ultrasound examination of the right and left lower extremity deep venous structures from the common femoral veins through the popliteal veins demonstrates normal compressibility, flow and wave patterns in response to respiration and augmentation. Evaluation of the calf veins could not be performed due to body habitus and technical factors. There is no evidence for deep venous thrombosis. IMPRESSION: No evidence for deep venous thrombosis. <Electronically signed by Dg Beckham > 09/04/21 [id number]
[2021-09-04] MEDS ORDERED: SODIUM CHLORIDE NASAL 0.65% SPRAY BTL (OCEAN) PRN (17:05)
--- NOTE | 2021-09-04 20:24 | REPVR ---
PROCEDURE INFORMATION: Exam: CT Head Without Contrast Exam date and time: 09/04/2021 7:42 PM Age: 70 years old Clinical indication: Altered mental status/memory loss; Additional info: AMS TECHNIQUE: Imaging protocol: Computed tomography of the head without contrast. Radiation optimization: All CT scans at this facility use at least one of these dose optimization techniques: automated exposure control; mA and/or kV adjustment per patient size (includes targeted exams where dose is matched to clinical indication); or iterative reconstruction. COMPARISON: CT Head without contrast 09/02/2021 1:16 PM FINDINGS: Brain: Normal. No hemorrhage. Unremarkable white matter. No mass effect. Cerebral ventricles: No ventriculomegaly. Paranasal sinuses: Visualized sinuses are unremarkable. No fluid levels. Mastoid air cells: Visualized mastoid air cells are well aerated. Bones/joints: Unremarkable. No acute fracture. Soft tissues: Unremarkable. IMPRESSION: Negative noncontrast head CT, unchanged from 09/02/2021. Electronically signed by: Justin Blair On 09/04/2021 20:23:55 PM
--- NOTE | 2021-09-04 20:45 | REPVR ---
PROCEDURE INFORMATION: Exam: CT Chest Without Contrast; Diagnostic Exam date and time: 09/04/2021 7:42 PM Age: 70 years old Clinical indication: Other: Hypoxia; Additional info: Hypoxia, AMS TECHNIQUE: Imaging protocol: Diagnostic computed tomography of the chest without contrast. Radiation optimization: All CT scans at this facility use at least one of these dose optimization techniques: automated exposure control; mA and/or kV adjustment per patient size (includes targeted exams where dose is matched to clinical indication); or iterative reconstruction. COMPARISON: CT Chest without contrast 10/11/2019 1:45 AM FINDINGS: Lungs: Mild bilateral lower lobe and right upper lobe and minimal left upper lobe fibro-atelectatic change. Pleural spaces: Unremarkable. No pneumothorax. No pleural effusion. Heart: Unremarkable. No cardiomegaly. No pericardial effusion. Pulmonary arteries: The main pulmonary artery measures 29 mm. Aorta: The ascending thoracic aorta measures 33 mm. Lymph nodes: Unremarkable. No enlarged lymph nodes. Gallbladder and bile ducts: Layering sludge or faint stones in the gallbladder. Pancreas: Slight infiltration of fat around the pancreatic tail. Intraperitoneal space: Trace fluid in the left pericolic gutter which is incompletely evaluated. Bones/joints: Unremarkable. No acute fracture. Soft tissues: Unremarkable. IMPRESSION: 1. Mild bilateral lower lobe and posterior right upper lobe and minimal left upper lobe fibro-atelectatic change. 2. Question of minimal pancreatitis of the tail. 3. Layering sludge or faint stones in the gallbladder. 4. Otherwise negative CT chest. Electronically signed by: Justin Blair On 09/04/2021 20:45:14 PM
--- NOTE | 2021-09-04 20:50 | REPVR ---
PROCEDURE INFORMATION: Exam: CT Abdomen And Pelvis Without Contrast Exam date and time: 09/04/2021 7:42 PM Age: 70 years old Clinical indication: Other: Hypoxia; Additional info: Hypoxia, AMS TECHNIQUE: Imaging protocol: Computed tomography of the abdomen and pelvis without contrast. Radiation optimization: All CT scans at this facility use at least one of these dose optimization techniques: automated exposure control; mA and/or kV adjustment per patient size (includes targeted exams where dose is matched to clinical indication); or iterative reconstruction. COMPARISON: CT ABD PELVIS W/O CONTRAST 10/11/2019 1:45 AM FINDINGS: Tubes, catheters and devices: Right common femoral vein catheter extending to the right external iliac vein. Lungs: Mild bilateral lower lobe fibro-atelectatic change. Liver: Normal. No mass. Gallbladder and bile ducts: Layering of faint stones and sludge in the gallbladder. Pancreas: Question of slight infiltration of fat around the pancreatic tail. Spleen: There is a splenic calcification. Adrenal glands: Normal. No mass. Kidneys and ureters: Normal. No hydronephrosis. Stomach and bowel: Unremarkable. No obstruction. No mucosal thickening. Appendix: A normal appendix is seen. Intraperitoneal space: Minimal free fluid in the pelvis and left pericolic gutter. Vasculature: There is mild calcification of the abdominal aorta. Lymph nodes: Unremarkable. No enlarged lymph nodes. Urinary bladder: There is a Preston catheter in the bladder. Reproductive: Status post hysterectomy. Bones/joints: Unremarkable. No acute fracture. Soft tissues: Unremarkable. IMPRESSION: 1. Question of minimal pancreatitis of the tail since 10/11/2019. 2. Faint stones and sludge in the gallbladder. 3. Mild bilateral lower lobe fibro-atelectatic change, increased since the prior study. 4. Preston catheter in the bladder. 5. Right common femoral vein catheter extending to the right external iliac vein. 6. Minimal free fluid which is nonspecific. 7. Status post hysterectomy. Electronically signed by: Justin Blair On 09/04/2021 20:50:27 PM
[2021-09-04] MEDS: **NOTE PATIENT COMMENT** MISC XX SCH (21:00)
[2021-09-04] MEDS ORDERED: VANCOMYCIN HCL 1,000 MG, VIAL MATE ADAPTER 1 EACH in NS 250 ML IV SCH (22:20)
[2021-09-04] MEDS ORDERED: VANCOMYCIN HCL 1,000 MG, VIAL MATE ADAPTER 1 EACH in NS 250 ML IV ONE (22:25)
[2021-09-05] VITALS (9 sets, daily range): BP systolic 125–179; BP diastolic 57–105
[2021-09-05] MEDS ORDERED: VANCOMYCIN HCL 1,000 MG, VIAL MATE ADAPTER 1 EACH in NS 250 ML IV SCH ×3
[2021-09-05] MEDS: MORPHINE 2 MG/ML 1ML VIAL (J2270) IV PRN (00:03)
[2021-09-05] MEDS: oxyCODONE 5MG TAB PO PRN ×2 (00:20→17:13)
[2021-09-05] MEDS: HEPARIN SOD (PORCINE) 5000UNITS/ML 1ML VIAL/SYRINGE SQ SCH (06:00)
[2021-09-05] MEDS: LEVOTHYROXINE 100MCG TABLET (0.1MG) PO SCH (06:27)
[2021-09-05] MEDS: **NOTE PATIENT COMMENT** MISC XX SCH (07:40)
[2021-09-05 08:05] LABS: BASO # 0.1 10^3/uL (0.0-0.2); BASO % 0.3 % (0.0-1.0); EOS # 0.2 10^3/uL (0.0-0.5); EOS % 0.6 % (0.0-3.0); HEMATOCRIT 29.6 % (36.0-47.0); HEMOGLOBIN 10.1 g/dl (12.0-15.5); LYMPH # 1.4 10^3/uL (1.5-5.0); LYMPH % 5.4 % (24.0-44.0); MEAN CORPUSCULAR HEMOGLOBIN 30.6 pg (27.0-33.0); MEAN CORPUSCULAR HGB CONC 34.1 g/dl (32.0-36.5); MEAN CORPUSCULAR VOLUME 89.7 fl (80.0-96.0); MONO % 3.9 % (2.0-8.0); NEUTROPHILS # 22.6 10^3/uL (1.5-8.5); NEUTROPHILS % 85.9 % (36.0-66.0); PLATELET COUNT, AUTOMATED 171 10^3/uL (150-450); WHITE BLOOD COUNT 26.3 10^3/uL (4.0-10.0)
[2021-09-05] MEDS: LIDOCAINE 5% (LIDODERM) PATCH TD SCH (09:25)
[2021-09-05] MEDS: PANTOPRAZOLE 40MG VIAL (C9113 PER 1) IV SCH (09:25)
[2021-09-05 10:49] LABS: ALBUMIN 0.9 GM/DL (3.2-5.2); BILIRUBIN,TOTAL 4.3 MG/DL (0.2-1.0); CALCIUM LEVEL 7.5 MG/DL (8.8-10.2); CREATININE FOR GFR 1.96 MG/DL (0.55-1.30); GLOMERULAR FILTRATION RATE 26.7 (>39); MAGNESIUM LEVEL 2.4 MG/DL (1.8-2.4); TOTAL PROTEIN 4.7 GM/DL (6.4-8.2)
--- NOTE | 2021-09-05 10:49 | REP ---
INDICATION: for VQ scan COMPARISON: None. TECHNIQUE: PA and cross-table lateral. FINDINGS: The mediastinum and cardiac silhouette are normal. The lung chow are clear and without acute consolidation, effusion, or pneumothorax. The skeletal structures are intact and normal. IMPRESSION: No acute cardiopulmonary process. <Electronically signed by Dg Beckham > 09/05/21 1041
--- NOTE | 2021-09-05 10:50 | REP ---
INDICATION: knee swelling COMPARISON: Right knee of 08/31/2021 TECHNIQUE: Four views each knee FINDINGS: The right knee prosthesis is unchanged. There is no acute fracture, dislocation, or subluxation. The patient is status post left knee TKR and previous ORIF due to a distal femoral fracture which is healed. The prosthesis appears near anatomically aligned. There is no evidence of an acute fracture, dislocation, or subluxation. IMPRESSION: Bilateral chronic changes as described above. <Electronically signed by Amado Mcclain > 09/05/21 1040
[2021-09-05 13:37] LABS: VANCOMYCIN RANDOM 23.4 UG/ML
[2021-09-05] MEDS ORDERED: VANCOMYCIN HCL 750 MG, VIAL MATE ADAPTER 1 EACH in NS 250 ML IV SCH ×2 (15:00→16:00)
--- NOTE | 2021-09-05 15:34 | CR ---
CONSULTATION DATE: 09/05/2021 REQUESTING PHYSICIAN: DOLLY RAMACHANDRAN MD REASON FOR CONSULTATION: Acute kidney injury superimposed on CKD Stage IIIA. HISTORY OF PRESENT ILLNESS: Ms. Chery Gunter is previously unknown to me. History is obtained mostly from chart review as the patient is somewhat of a poor historian. Ms. Chery Gunter is a 70-year-old female who is admit to [facility] on August 31 with a complex abscess of her left shoulder and concomitant sepsis along with acute kidney injury. Creatinine on admission was 1.6. Patient was started on Meropenem and Vancomycin and was also started on IV fluids. She briefly required pressor support as well. On September 01 she underwent irrigation and debridement of left shoulder abscess with placement of a Wound-Vac along with central line placement. On September 04 she underwent left shoulder irrigation with debridement and amputation of left fifth finger as well. Her creatinine peaked at 2.0 yesterday. She has been non-oliguric. She had a transthoracic echocardiogram that did not show vegetations but she is pending transesophageal echocardiogram most likely tomorrow. She had positive blood cultures persistently. She is being seen by Infectious Diseases. She did receive Nafcillin for several days but that was subsequently stopped and switched back to Vancomycin. Nephrology evaluation was requested for help in the management of the patient's acute kidney injury. Patient was seen and examined this morning at the bedside. She reports that she is thirsty. She denies any other complaints. PAST MEDICAL AND PAST SURGICAL HISTORY: Hypertension, osteopenia, remote history of Goodman's palsy, GERD, hemorrhoids, questionable history of NSTEMI, hypothyroidism, anxiety and depression, spinal stenosis, obesity, bilateral knee replacements, hysterectomy, history of endometriosis, bilateral cataract surgeries, bunionectomy, surgical repair of left femur fracture. SOCIAL HISTORY: Patient denies smoking or drugs. She is a social drinker. FAMILY HISTORY: Significant for hypertension in her mother. ALLERGIES: No known drug allergies. HOME MEDICATIONS: Amitriptyline 50 mg p.o. q.h.s., atorvastatin 80 mg p.o. q.h.s., Bupropion 150 mg p.o. daily, Carvedilol 12.5 mg p.o. b.i.d., Celecoxib 100 mg p.o. twice daily, Vitamin D3 50 mcg p.o. daily, Lexapro 20 mg daily, Esomeprazole 40 mg p.o. daily, Zetia 10 mg p.o. q.h.s., Gabapentin 300 mg p.o. three times a day, levothyroxine 100 mg p.o. daily, Valsartan 320 mg p.o. p.r.n. Percocet. REVIEW OF SYSTEMS: Somewhat limited as the patient is a poor historian but she denies fevers or chills. Eyes: Denies visual changes or tearing. ENT: Reports a dry mouth and thirstiness. Denies odynophagia. Cardiac: Denies chest pain or palpitations. Respiratory: Denies shortness of breath at rest. Denies cough. Gastrointestinal: Denies nausea or vomiting. Genitourinary: Currently has a Preston catheter. Endocrine: Reports hypothyroidism and diabetes. Musculoskeletal: There is a recent issue with left shoulder abscess. She also has a history of osteopenia and bilateral knee replacements. Hematologic: Reports anemia and blood transfusion on this admission. Neurologic: Denies seizures or syncope. Psychiatric: Reports anxiety and depression. Skin: Reports reddening of the right lower extremity. The remainder of review of systems is negative or as per the HPI. PHYSICAL EXAMINATION: VITAL SIGNS: Temperature is 96.9, pulse is 100, respiratory rate is 18, blood pressure is 165/83, saturating 93 to 95% on room air. INTAKE AND OUTPUT: Intake yesterday was 4.4 liters, urine output was 2 liters, weight on the bed scale today is 123.4 kg. GENERAL: Patient is seen lying in bed in the PCU, awake, alert and oriented to person, place and situation in no apparent distress. HEENT: Extraocular muscles are intact. Tongue is dry. She looks comfortable on room air. NECK: Jugular veins are not elevated. LUNGS: Clear to auscultation bilaterally. No crackle, rale or rhonchus. HEART: Heart sounds are regular, S1 and S2. There is 1+ edema in the right lower extremity. There is trace pedal edema on the left. ABDOMEN: Soft, obese, and nontender. EXTREMITIES: The right leg is swollen and erythematous. The left lower extremity is without any erythema and no significant edema. The left shoulder has a Wound-Vac in place. GENITOURINARY: There is a Preston catheter present. NEUROLOGIC: The patient follows simple commands, moves extremities on command. Wiggles toes and is cooperative with physical exam. SKIN: Erythema on the right lower extremity. Otherwise warm and dry. There is some mild jaundice. LABORATORY DATA: Sodium 142, potassium 4.0, bicarbonate 21, BUN 49, creatinine 1.9, creatinine on admission was 1.6. Peak creatinine was 2.0 yesterday. Total bilirubin 4.3, magnesium 2.4, ammonia less than 10, albumin 0.9, hemoglobin 10.1, platelets are 171,000. White count is 26. Microbiology: Blood cultures grew staphylococcus aureus x2 sets on August 31 and two sets on September 01. Repeat blood cultures from today are pending. Her left shoulder abscess also grew staphylococcus aureus. She has had two units of PRBC on admission and she has had two doses of albumin as well. A chest x-ray today shows clear lungs. CT of the abdomen and pelvis done on September 04 shows no hydronephrosis. There is a Preston in the decompressed bladder. INPATIENT MEDICATIONS: She is currently on Vancomycin 1 gram IV daily, Heparin 5000 units sub q. 8 hourly (presently held), Synthroid 100 mcg p.o. daily, Morphine p.r.n., Oxycodone p.r.n., Protonix 40 mg IV daily. PROBLEMS: 1. Acute kidney injury superimposed on CKD Stage IIIA. Patient's baseline creatinine is around 1.1. She was admit with a creatinine of 1.6 in the setting of sepsis with septic shock and Staph aureus bacteremia. She was given IV fluid and was briefly on Levophed pressor support. Her renal imaging is negative for obstruction. She has a Preston catheter. She is nonoliguric. Urine output has improved over the course of this admission, yesterday she made two liters of urine. Today, she has already made more than 1 liter of urine. Hemodynamically she has improved as well. Patient is tolerating oral intake. There is no need for IV fluid at this time. There is also no need for any diuretic (chest x-ray with clear lungs. Patient desaturating while on room air). 2. Complex abscess of the left shoulder with associated bacteremia persistently as well. Patient was on Nafcillin for around three days and then was subsequently switched back to Vancomycin. There is no recent random Vancomycin level. I suggest that should be checked to make sure that the patient is therapeutic (Vancomycin random level added onto the labs today). Patient is pending ARAMIS most likely tomorrow and Infectious Disease is following as well. Patient is status post irrigation and debridement on September 01 and September 04 and has a Wound-Vac in place. She continues to have leukocytosis. 3. Chronic diastolic congestive heart failure. An echocardiogram on this admission noted with Grade 1 diastolic dysfunction. No need for any diuretic at the present time. Patient desaturating while on room air. Chest x-ray with clear lungs and she is status post septic shock and is going to be NPO after midnight for ARAMIS tomorrow. She is tolerating oral intake. No need for any IV fluid. 4. Anemia, hemoglobin is 10.1 on the latest labs. The patient had two units of packed red blood cell on this admission. She is not suitable for any IV iron, hence I will not check iron studies at this time. 5. Erythema and swelling of the right lower extremity. I note patient had negative venous Duplex on September 04. 6. Hypoalbuminemia. Patient has received two doses of albumin on this admission, serum albumin is very low and less than 1. If patient ends up requiring diuretics later on on this admission we will give albumin as well, at present there is no need to diurese her. She has other lab abnormalities suggestive of liver issues including elevated total bilirubin, improving transaminases and improving thrombocytopenia. Thank you for involving me in the care of Ms. Gunter. I will be happy to follow her along with you.
--- NOTE | 2021-09-05 17:40 | REP ---
INDICATION: s/p line placement. COMPARISON: 09/05/2021 at 10:27 a.m. TECHNIQUE: Portable FINDINGS: The technique utilized in obtaining the radiograph has magnified the cardiac silhouette and accentuated the interstitial markings. Since the last examination a right-sided internal jugular central venous catheter has been placed the tip of which is in the superior vena cava. The cardiomediastinal silhouette and lung chow are unchanged. The osseous structures are unchanged. IMPRESSION: Central venous catheter as described above. Otherwise no change. <Electronically signed by Amado Mcclain > 09/05/21 [id number]
--- NOTE | 2021-09-05 17:46 | IPNPDOC ---
Text Note Date of Service The patient was seen on 09/05/21. NOTE POD 1 I&D w/o left shoulder and amputation left 5th digit. Was called this am to evaluate serosanguineous collection in vac dressing. Vac reportedly still functioning. Arrived at hospital around 10:15, however, patient was down for multiple tests including MRI and v/Q scan. Returned later around 14:30 when patient was confirmed back in her room. Patient communicative status unchanged. Acknowledges my presence, but no significant verbalization or otherwise occurring in my presence. Left 5th digit hand dressing intact with no staining. Left shoulder prevena dressing intact, however it appeared that the seal was compromised medially and a collection of clotted blood had formed superficial to the blue sponge material. The dressing was removed and the area was cleansed with chlorhexidine. A new prevena dressing was applied in the standard manner. 4 x 15 cm, approximately. Patient reportedly had blood thinners started POD 0 due to concern for dvt ppx. Nursing reports that Right leg appears to be cellulitic. No other fingers or toes show any signs of infection or discolouration. Plan for reevaluation of left hand wound POD 3 and Vac dressing to remain in position for 7-10 days. Gram stain and wound cultures from shoulder show few GPC for the shoulder and Moderate for the finger. Will continue to follow as above. VS,Fishbone, I+O VS, Fishbone, I+O Laboratory Tests 09/05/21 07:39 Vital Signs Date Time Temp Pulse Resp B/P (MAP) Pulse Ox O2 Delivery O2 Flow Rate FiO2 09/05/21 17:13 20 Room Air 09/05/21 16:15 101 95 09/05/21 16:11 161/76 (104) 09/05/21 12:05 98.1 09/05/21 00:59 95 09/04/21 14:30 2.0 I&O- Last 24 Hours up to 6 AM 09/05/21 06:00 Intake Total 4350 ml Output Total 2195 ml Balance 2155 ml CR VILLAVICENCIO MD Sep 05, 2021 17:46
--- NOTE | 2021-09-05 18:29 | REPVR ---
PROCEDURE INFORMATION: Exam: CT Right Lower Extremity Without Contrast, Knee Exam date and time: 09/05/2021 4:27 PM Age: 70 years old Clinical indication: Other: Swelling; Additional info: Mssa sepsis with swelling right knee TECHNIQUE: Imaging protocol: CT of the Right lower extremity without contrast was performed. Exam focused on the knee. Radiation optimization: All CT scans at this facility use at least one of these dose optimization techniques: automated exposure control; mA and/or kV adjustment per patient size (includes targeted exams where dose is matched to clinical indication); or iterative reconstruction. COMPARISON: CR Knee, complete 09/05/2021 10:09 AM FINDINGS: Bones/joints: Status post total knee replacement with patellar resurfacing on the right. Suprapatellar knee joint effusion. Remaining osseous structures appear unremarkable. Soft tissues: Fluid demonstrated between the medial and lateral heads of the gastrocnemius muscle as well as medial to the medial head of the gastrocnemius muscle as well as lateral to the tibialis anterior and peroneus longus muscles. Subcutaneous edema demonstrated in the right leg. IMPRESSION: 1. Suprapatellar knee joint effusion. 2. Fluid demonstrated between the medial and lateral heads of the gastrocnemius muscle as well as medial to the medial head of the gastrocnemius muscle as well as lateral to the tibialis anterior and peroneus longus muscles. No gas locules to suggest infection although infection to be excluded clinically. Percutaneous image guided aspiration of the fluid could be considered if clinically desired. Electronically signed by: Thad Briseno On 09/05/2021 18:28:38 PM
--- NOTE | 2021-09-05 18:34 | IPNPDOC ---
Date Seen The patient was seen on 09/05/21. Progress Note SUBJECTIVE: Chery was seen and examined at the bedside by the critical care service this afternoon, 09/05/21. Our service had initially been consulted for days ago (09/01) in the setting of borderline hypotension with sepsis from complex abscess of the left shoulder s/p incision and debridement. Primary hospitalist service once again reached out to evaluate the patient in the setting of per sistent encephalopathy with staph aureus bacteremia and concern for endocarditis and/or prosthetic joint infection. Since our last critical care evaluation, patient has been diagnosed with staph aureus bacteremia as well as staph aureus infection of left shoulder abscess and left fifth digit. Patient was switched over from meropenem and vancomycin to nafcillin after culture results were obtained and a transthoracic echocardiogram was unremarkable for any appreciated imaging signs for endocarditis. Due to persistent poor perfusion of the left fifth digit, the patient was taken for amputation on 09/04. Due to the multiple areas of staph aureus infection/bacteremia and continued leukocytosis, primary service has switch the patient back to vancomycin from nafcillin. Upon our evaluation, patient reports being in continuous discomfort and is requesting for us to "please get her out of here." She remains a poor historian and a full review of systems was unobtainable due to encephalopathy. OBJECTIVE PHYSICAL EXAMINATION: VITAL SIGNS: Please see below. GENERAL: Elderly female lying flat in bed. She appears in moderate discomfort and is oriented to person and place only. HEENT: Normocephalic, atraumatic. There is bilateral moderate anicteric sclera are appreciated. The sclera is noninjected. Also horizontal nystagmus appreciated on EOMI. CARDIOVASCULAR: Borderline tachycardic rate, regular rhythm. Normal S1, S2. Somewhat distant heart sounds compromising accuracy to appreciate for significant murmurs or rubs. RESPIRATORY: Adequate respiratory effort and tidal volume with no significant adventitious breath sounds appreciated. Due to discomfort and generalized deconditioning, auscultated only anteriorly and laterally. Symmetric chest expansion. No accessory muscle use. No significant conversational dyspnea and saturating at 98% on room air. ABDOMINAL: Significantly obese with generalized tenderness throughout all quadrants. Positive Rashid sign. Difficult to assess for hepatosplenomegaly or palpable masses secondary to habitus. No rigidity appreciated. Hyperactive bowel sounds throughout. EXTREMITIES: There is bilateral lower extremity pitting edema, 12+, greater on the right versus the left. There is marked erythema and warmth of the right lower extremity compared to the left that is present from roughly mid thigh on distally to the malleolus. There is also exquisite tenderness with palpation of right knee scar. Positive right calf tenderness. 1-2+ right pedal edema. There is also 1+ pitting edema of the right upper extremity with no associated tenderness, warmth or erythema. There is a TLC present in the right femoral vein. There remains a wound VAC in place over lying the left shoulder. Genitourinary: Preston catheter remains in place with approximately 250 cc of wai-colored urine present. Lymphatic: There is no right femoral lymphadenopathy or ropey induration appreciated. NEUROLOGICAL: Patient is awake and oriented to self and place only. She struggles maintaining focus, as well as articulating and completing thoughts and is unable to speak full coherent sentences. This is a decrease in her mental status compared to our last critical care evaluation on 09/01. LABORATORY DATA, IMAGING STUDIES, MICROBIOLOGY: Please see below. ASSESSMENT AND PLAN: This is a 70yo female w/ notable h/o htn, morbid obesity, hypothyroidism, anxiety/depression, osteopenia, and GERD who initially presented to [facility] on the evening of 08/31 due to significant back pain as well as hearing a pop in her left shoulder while carrying a 28 pound turkey. She was found to have a complex abscess of the left shoulder and underwent aspiration and subsequent incision and debridement on 08/31 with wound VAC placement. Critical care service was initially consulted for septic shock that resolved quickly with minimal vasopressor support. Since last critical care evaluation, patient has grown staph aureus bacteremia as well as staph aureus infections from left shoulder abscess and left pinky and is s/p amputation of left fifth digit on 09/04. Patient is also developed acute renal failure superimposed on CKD 3 a, direct hyperbilirubinemia, and with persistent encephalopathy, primary team asked for subsequent critical care evaluation. #Sepsis secondary to staph aureus bacteremia, staph aureus left shoulder abscess, and high suspicion for right knee prosthetic joint infection -Patient has confirmed staph aureus bacteremia, staph aureus left shoulder abscess s/p incision and drainage with wound VAC, staph aureus infection of left pinky s/p amputation -Patient continues to have leukocytosis with absolute neutrophilia that is actually slightly improved on 09/05 versus prior day, 09/04. -Patient was initially started on broad-spectrum antibiotics in the form of meropenem and vancomycin but was switched over to nafcillin once staph aureus bacteremia culture was final. Primary service has since switched patient back to vancomycin from nafcillin. -Based on physical examination, there is significant concern for possible prosthetic joint infection of the right knee. Patient is status post bilateral total knee arthroplasties and her right lower extremity was erythematous, warm, swollen and tender to the touch - -specifically over the scar of her right knee. -The primary service is reaching out to orthopedics to assess the patient and possibly perform an aspiration of the joint for fluid analysis. -Patient has been afebrile of late, as well as hemodynamically stable. -Due to right lower extremity exam findings and right femoral vein TLC that has been in place for 4 days, a TLC was placed in the left IJ on afternoon of 09/05. -Post IJ TLC chest x-ray ordered; should it be in good position, will instruct nursing staff to remove right femoral TLC as this may be further nidus for infection. -The infectious disease service has been consulted and is also following along with the patient. They have ordered a CT of the right knee per recommendation of orthopedics. -Due to bacteremia as well as complex Lt shoulder abscess, a TTE was ordered which did not show findings consistent with endocarditis. -Due to high suspicion and continued concern for seeding, a ARAMIS has been scheduled for 09/[address] Phillips of cardiology. #Encephalopathy, multifactorial -Likely secondary to acute renal failure on CKD, hepatic failure, sepsis, and medication effects -We have ordered an ammonia level and had discontinued all of her psychiatric medications; with spoken with the nursing staff and primary service, instructing not to give pain medications if patient is obtunded and unless patient is in pain and discomfort until improvement in hepatic function #Acute renal failure superimposed on chronic kidney disease stage IIIa, slightly improving -Baseline creatinine approximately 11.1; sCr slightly improved on 09/05 at 1.96 from 2.09 on 09/06. -Patient is nonoliguric and has been producing adequate amount of urine of late; Preston catheter remains in place. -Of note, the patient was switched back to vancomycin from nafcillin by the primary service; infectious disease is also following and will assess antimicrobial coverage as vancomycin is known to be nephrotoxic. -Prior renal imaging on admission showed no obstruction -The nephrology service has been consulted and is following along with the patient. #Direct hyperbilirubinemia, improving -Total bilirubin decreased significantly on 09/05 to 4.3 from prior day result of 8.7 (09/04) -CT abdomen pelvis showed mild stones and sludge in the gallbladder with trace associated free fluid. -Per reports from nursing, MRCP has been ordered by the primary service but was unable to be obtained on 09/05 due to patient's agitated state. #Right lower extremity pitting edema, erythema, and pain -Physical exam findings as described above -A bilateral lower extremity duplex ultrasound was negative for DVT prior to admission -Antimicrobial coverage as described above; CT of the knee will be ordered; primary service is reaching back out to orthopedics to again evaluate the patient and assess for possible prosthetic joint infection and joint aspiration for fluid analysis #Grade 1 diastolic dysfunction seen on imaging -Prior TTE obtained during this admission was done in the setting of bacteremia to assess for endocarditis. It showed grade 1 diastolic dysfunction. -Patient is scheduled to undergo a ARAMIS on 09/06 due to continued high suspicion for endocarditis with suspected multiple areas of bacteremic seeding #DVT prophylaxis: Patient had been receiving heparin 5000 units tid but this appears to have been stopped likely in preparation for ARAMIS on 09/06. VS, I&O, 24H, [facility] Vital Signs/I&O Vital Signs Date Time Temp Pulse Resp B/P (MAP) Pulse Ox O2 Delivery O2 Flow Rate FiO2 09/05/21 17:43 18 09/05/21 17:34 98.7 100 148/57 (87) 98 Room Air 09/05/21 00:59 95 09/04/21 14:30 2.0 I&O- Last 24 Hours up to 6 AM 09/05/21 06:00 Intake Total 4350 ml Output Total 2195 ml Balance 2155 ml Laboratory Data 24H LABS Laboratory Tests 2 09/05/21 01:56: Bedside Glucose (Misc Panel) 88 09/05/21 07:39: Immature Granulocyte % (Auto) 3.9H, Neutrophils (%) (Auto) 85.9H, Lymphocytes (%) (Auto) 5.4L, Monocytes (%) (Auto) 3.9, Eosinophils (%) (Auto) 0.6, Basophils (%) (Auto) 0.3, Neutrophils # (Auto) 22.6H, Lymphocytes # (Auto) 1.4L, Monocytes # (Auto) 1.0H, Eosinophils # (Auto) 0.2, Basophils # (Auto) 0.1, Nucleated Red Blood Cells % (auto) 0.1H, Anion Gap 10, Glomerular Filtration Rate 26.7L, Calcium Level 7.5L, Magnesium Level 2.4, Total Bilirubin 4.3#H, Aspartate Amino Transf (AST/SGOT) 61H, Alanine Aminotransferase (ALT/SGPT) 32, Alkaline Phosphatase 103, Total Protein 4.7L, Albumin 0.9L, Albumin/Globulin Ratio 0.2L, Random Vancomycin Level 23.4 09/05/21 11:25: Ammonia < 10 09/05/21 12:15: Bedside Glucose (Misc Panel) 72L 09/05/21 17:19: Bedside Glucose (Misc Panel) 116H CBC/BMP Laboratory Tests 09/05/21 07:39 Microbiology Microbiology 09/05/21 Blood Culture, Received Pending 09/05/21 Blood Culture, Received Pending 09/04/21 Gram Stain - Final, Resulted 09/04/21 Surgical Biopsy Culture - Preliminary, Resulted Staphylococcus Aureus 09/04/21 Anaerobic Culture, Resulted Pending 09/04/21 Gram Stain - Final, Resulted 09/04/21 Surgical Biopsy Culture - Preliminary, Resulted Staphylococcus Aureus 09/04/21 Anaerobic Culture, Resulted Pending 09/01/21 Blood Culture - Preliminary, Resulted Staphylococcus Aureus 09/01/21 Blood Culture - Preliminary, Resulted Staphylococcus Aureus 08/31/21 Gram Stain - Final, Complete 08/31/21 Abscess Culture - Final, Complete Staphylococcus Aureus 08/31/21 Gram Stain - Final, Complete 08/31/21 Abscess Culture - Final, Complete Staphylococcus Aureus 08/31/21 Anaerobic Culture - Final, Complete 08/31/21 Blood Culture - Final, Complete Staphylococcus Aureus 08/31/21 Blood Culture - Final, Complete Staphylococcus Aureus GME ATTESTATION GME ATTESTATION My faculty preceptor for this patient encounter was physically present during the encounter and was fully available. All aspects of the patient interview, examination, medical decision making process, and medical care plan development were reviewed and approved by the faculty preceptor. The faculty preceptor is aware and concurs with the plan as stated in the body of this note and will attest to such by his/her cosignature. ATTENDING NOTE I, Aracely Devine, have conducted an independent examination and history of the patient and agree with the plan as detailed by resident and discussed during rounds. MARCUS BLACK D.O. Sep 05, 2021 18:34 ARACELY DEVINE MD Sep 06, 2021 12:56
--- NOTE | 2021-09-05 18:43 | IPNPDOC ---
Date Seen The patient was seen on 09/05/21. Progress Note SUBJECTIVE: patient seen and examined bedside in PCU. No acute events overnight. She is hemodynamically stable. Alert to person, place. Has intermitted periods of lucidity. R femoral central line DC. Dr Rodríguez placed R IJ on 09/05/21. C/o R knee pain. OBJECTIVE PHYSICAL EXAMINATION: VITAL SIGNS: please see below General: Appears to be ill rolling in bed disoriented HEENT: PERRLA, EOMI, scleral icterus. Jaundice of skin. Neck: supple, normal ROM, no JVD Respiratory: lungs CTAB, no wheeze, no rales, no crackles CVS: RRR, normal S1, S2, no appreciable murmur Abdo: soft, no masses, no hepatosplenomegaly, BS+, no rebound tenderness Extremities: R leg swollen, diffusely erythematous, skin slightly tender to touch. Left fifth digit has gangrenous features dark and mottled. Left shoulder surgical site has wound VAC in place with surrounding erythema but no sheela purulence. LE pulses 1+ bilaterally. MSK: no joint deformities, normal ROM. R knee erythematous, tender to touch. ROM limited by pain. Neuro: Patient is somnolent unable to participate in full neurological examination. She seemed to be moving all 4 extremities and to has no facial droop. She has reduced strenght in the bilateral upper and lower extremities, which appears to be Her pupils are equal and light bilaterally, 4 mm in diameter. Psych: calm, cooperative, AAO x 3 LABORATORY DATA, IMAGING STUDIES, MICROBIOLOGY: Please see below. CT Knee (R) wo contrast (09/05/21): 1. Suprapatellar knee joint effusion. 2. Fluid demonstrated between the medial and lateral heads of the gastrocnemius muscle as well as medial to the medial head of the gastrocnemius muscle as well as lateral to the tibialis anterior and peroneus longus muscles. No gas locules to suggest infection although infection to be excluded clinically. Percutaneous image guided aspiration of the fluid could be considered if clinically desired. CT abdo pelvis wo contrast (09/04/21): 1. Question of minimal pancreatitis of the tail since 10/11/2019. 2. Faint stones and sludge in the gallbladder. 3. Mild bilateral lower lobe fibro-atelectatic change, increased since the prior study. 4. Preston catheter in the bladder. 5. Right common femoral vein catheter extending to the right external iliac vein. 6. Minimal free fluid which is nonspecific. 7. Status post hysterectomy. CT chest wo contrast (09/04/21): 1. Mild bilateral lower lobe and posterior right upper lobe and minimal left upper lobe fibro-atelectatic change. 2. Question of minimal pancreatitis of the tail. 3. Layering sludge or faint stones in the gallbladder. 4. Otherwise negative CT chest. CT head wo contrast (09/04/21): Negative noncontrast head CT, unchanged from 09/02/2021. Bilateral LE venous duplex (09/04/21): No evidence for deep venous thrombosis Liver US (09/01/21): Evaluate is incomplete due to uncooperative combative nature of patient. Limited images of the liver are grossly normal. Spleen is normal and measures 11.4 x 11.5 x 3.7 cm with 1.2 cm adjacent splenule. The left kidney is normal in reniform shape and measures 11.0 x 5.5 x 6.1 cm without hydronephrosis. Increased central sinus fat consistent with chronic age-related medical renal disease. Visualized portions of the abdominal aorta are normal and measure 2.4 cm maximal Echocardiogram (09/01/21): 1. Normal left ventricle internal dimensions and wall thickness. Normal regional LV wall motion and wall thickening. Normal LV systolic function. LVEF 65% by visual assessment. Grade 1 LV diastolic dysfunction. 2. Mild aortic valve sclerosis of a 3-cuspid aortic valve. No aortic regurgitation. 3. Mild mitral annular calcification. No mitral regurgitation. 4. Moderate left atrial dilatation. 5. No vegetation seen. 6. Otherwise normal appearing echocardiogram Doppler findings. DVT prophylaxis ordered?: Heparin 5000 units q8h ASSESSMENT AND PLAN: Patient is a 70-year-old female with a past medical history of hypertension hypothyroidism osteopenia spinal stenosis obesity depression presented to the ER with 10 out of 10 left shoulder pain. She is admitted for sepsis secondary to complex abscess of the left shoulder acute kidney injury as well as hyperglycemia. She was taken to the OR for debridement and washout of the left shoulder by orthopedic surgeon Dr. Ponce. Perioperatively she developed septic shock and was transferred to the ICU on Levophed drip. She presently has positive blood cultures for gram-positive cocci in clusters, as well as a positive Gram stain from abscess of gram-positive cocci in clusters. She is currently on meropenem and vancomycin. Blood cultures and wound cultures will come back positive for methicillin sensitive Staph aureus. Discussed with Dr. Marsh ID consult placed. PROBLEMS: # Septic shock 2/2 complex abscess of L shoulder, possible R prosthetic knee joint infection -2/2 complex abscess of the left shoulder - leukocytosis persists - s/p washout of L shoulder x2, wound vac in place - blood cultures positive for MSSA (2/2), wound culture positive for MSSA (2/2) - 2D echo obtained, d/w Dr. Phillips, shows no vegetations. - completed 3 days vanco and 3 days meropenem; discontinued. - ID consultation placed. D/w Dr. Marks. Given MSSA, stop vancomycin, meropenem. Started Nafcillin 2g q4h IV (09/02/21) - completed 3 days total. Nafcillin was DC due to worsening renal function, and rising bilirubin. - Abx switched to cefazolin on 09/05/[address] Marks (2g q12h, with plan to increase to q8h once renal function improves) - ARAMIS planned by Dr. Phillips on 09/06/21 at 1:30 PM. #Metabolic encephalopathy - likely 2/2 sepsis, bacteremia from MSSA/septic joint L shoulder/L5th digit - d/w Dr. Rodríguez, will hold psych meds, gabapentin - CT head 09/01/[address] 09/04/21, without acute findings. #L 5th digit mottling/gangrenous features - patient seems to remember trauma to L hand prior to admission - s/p exploration and I&D by Dr. Ponce on 09/04/21. Subcutaneous tissue was noted to be queen and not viable, amputation of L 5th digit was performed up to metacarpophalangeal joint. - intraoperative culture of 5th digit amp - positive for staph aureus. # Complex abscess of the left shoulder - s/p washout by Dr. Ponce on 08/31/21 - wound vac in place - s/p vancomycin #3 days, meropenem #3 days - wound cx, blood cx positive for MSSA - ID consult placed - started nafcillin 2g q4h IV (09/02/21) - Day #3. Stopped due to worsening renal function. Was given vancomycin overnight - Dr. Marks recommended cefazolin 2g q12h, to increase to q8h dosing once renal function improved. #R knee pain, erythema - ROM limited by pain - knee swollen, painful to touch, erythematous - has a prosthetic joint - possibly infected given MSSA bacteremia - ordered CT R knee - see above. Effusion noted. - planned for fluoro guided knee aspiration on 09/06/21 - Dr. Ponce informed, he will f/u cultures, with possible plan for washout - patient will be NPO after midnight. #Hyperbilirubinemia/hepatic injury 2/2 shock liver vs possible nafcillin tox? - T bili trending up, 8.7 on 09/04/21 - Transaminases have trended down - CT abdo reviewed, minimal pancreatitis of tail? biliary sludge vs faint stones? - will check lipase - faint stones and sludge in gallbladder - ordered MRCP to assist in diagnosis - patient is unable to remain still for study - Bili declined this morning. - will continue to monitor # JAMIE - 2/2 septic shock, although I am considering nafcillin nephrotoxicity at this point. - Cr trending up, 2.09 - no prior history of known CKD - JAMIE likely secondary to reduced perfusion to renal system during septic shock and use of vasopressors - nephrology service was consulted on 09/04/21, discussed with Dr. Verduzco. Recommendations and assistance is greatly appreciated. - Nafcilin was DC #elevated troponin - likely 2/2 demand ischemia in setting of septic shock - hsTrop 109, trended down to 55.0. - 2D echo obtained on 09/01/21 (report above). LVEF 65%. Mild . No vegetations. Normal LV systolic function. - continue to trend troponins. - ongoing sepsis management - will require ARAMIS during this admission # Hypoglycemia - resolved -likely due to infection - has a hx of DM2 - A1c 6.5 - IVF discontinued, as able to tolerate PO hydration #Thrombocytopenia - PLT trended to 72, now improved to 122. - multifactorial, dilutional vs sepsis - hold heparin if < 50,000 - check peripheral smear #Hypoalbuminemia - Albumin 1.0 - nutrition eval - transfused 25 g Albumin, which will help maintain BP, prevent extravasation of fluid. 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 Code status: FULL CODE Dispo: pending clinical improvement. Prognosis is poor to fair. D/w nephew and healthcare POA [place]. Updates given. At this stage, prognosis remains guarded. VS, I&O, 24H, Fishbone Vital Signs/I&O Vital Signs Date Time Temp Pulse Resp B/P (MAP) Pulse Ox O2 Delivery O2 Flow Rate FiO2 09/05/21 17:43 18 09/05/21 17:34 98.7 100 148/57 (87) 98 Room Air 09/05/21 00:59 95 09/04/21 14:30 2.0 I&O- Last 24 Hours up to 6 AM 09/05/21 06:00 Intake Total 4350 ml Output Total 2195 ml Balance 2155 ml Laboratory Data 24H LABS Laboratory Tests 2 09/05/21 01:56: Bedside Glucose (Misc Panel) 88 09/05/21 07:39: Immature Granulocyte % (Auto) 3.9H, Neutrophils (%) (Auto) 85.9H, Lymphocytes (%) (Auto) 5.4L, Monocytes (%) (Auto) 3.9, Eosinophils (%) (Auto) 0.6, Basophils (%) (Auto) 0.3, Neutrophils # (Auto) 22.6H, Lymphocytes # (Auto) 1.4L, Monocytes # (Auto) 1.0H, Eosinophils # (Auto) 0.2, Basophils # (Auto) 0.1, Nucleated Red Blood Cells % (auto) 0.1H, Anion Gap 10, Glomerular Filtration Rate 26.7L, Calcium Level 7.5L, Magnesium Level 2.4, Total Bilirubin 4.3#H, Aspartate Amino Transf (AST/SGOT) 61H, Alanine Aminotransferase (ALT/SGPT) 32, Alkaline Phosphatase 103, Total Protein 4.7L, Albumin 0.9L, Albumin/Globulin Ratio 0.2L, Random Vancomycin Level 23.4 09/05/21 11:25: Ammonia < 10 09/05/21 12:15: Bedside Glucose (Misc Panel) 72L 09/05/21 17:19: Bedside Glucose (Misc Panel) 116H CBC/BMP Laboratory Tests 09/05/21 07:39 Microbiology Microbiology 09/05/21 Blood Culture, Received Pending 09/05/21 Blood Culture, Received Pending 09/04/21 Gram Stain - Final, Resulted 09/04/21 Surgical Biopsy Culture - Preliminary, Resulted Staphylococcus Aureus 09/04/21 Anaerobic Culture, Resulted Pending 09/04/21 Gram Stain - Final, Resulted 09/04/21 Surgical Biopsy Culture - Preliminary, Resulted Staphylococcus Aureus 09/04/21 Anaerobic Culture, Resulted Pending 09/01/21 Blood Culture - Preliminary, Resulted Staphylococcus Aureus 09/01/21 Blood Culture - Preliminary, Resulted Staphylococcus Aureus 08/31/21 Gram Stain - Final, Complete 08/31/21 Abscess Culture - Final, Complete Staphylococcus Aureus 08/31/21 Gram Stain - Final, Complete 08/31/21 Abscess Culture - Final, Complete Staphylococcus Aureus 08/31/21 Anaerobic Culture - Final, Complete 08/31/21 Blood Culture - Final, Complete Staphylococcus Aureus 08/31/21 Blood Culture - Final, Complete Staphylococcus Aureus DOLLY RAMACHANDRAN MD Sep 05, 2021 18:43
[2021-09-05] MEDS: ceFAZolin SOD 2 GM in IV 1 EA IV SCH (18:44)
[2021-09-05] MEDS: FLUTICASONE PROP 0.05% NASAL SPRAY 16 GM (FLONASE) NARES SCH (21:55)
--- NOTE | 2021-09-05 22:39 | REPVR ---
PROCEDURE INFORMATION: Exam: US Duplex Right Upper Extremity Veins, Limited Exam date and time: 09/05/2021 10:25 PM Age: 70 years old Clinical indication: Edema, localized; Upper extremity, right; Additional info: R/O dvt TECHNIQUE: Imaging protocol: Real-time Duplex ultrasound of the Right Upper Extremity with 2-D queen scale, color Doppler flow and spectral waveform analysis with image documentation. Limited exam focused on the right upper extremity veins. COMPARISON: CT Chest without contrast 09/04/2021 7:46 PM FINDINGS: Right deep veins: Unremarkable. Axillary and brachial veins are patent throughout without thrombus. Normal Doppler waveforms. Normal compressibility and/or augmentation response. Visualized internal jugular and subclavian veins are patent. Right superficial veins: Unremarkable. Visualized cephalic and basilic veins are patent without thrombus. Soft tissues: Subcutaneous edema. IMPRESSION: 1. No evidence of deep vein thrombosis. 2. Subcutaneous edema. Electronically signed by: Thad Briseno On 09/05/2021 22:38:42 PM
[2021-09-06] VITALS: BP 144/62
[2021-09-06 03:46] VITALS: BP 162/82
[2021-09-06] MEDS: FLUTICASONE PROP 0.05% NASAL SPRAY 16 GM (FLONASE) NARES SCH ×2 (04:27→22:23)
[2021-09-06] MEDS: LEVOTHYROXINE 100MCG TABLET (0.1MG) PO SCH (05:38)
[2021-09-06] MEDS: ceFAZolin SOD 2 GM in IV 1 EA IV SCH ×3 (05:55→22:21)
[2021-09-06] MEDS: oxyCODONE 5MG TAB PO PRN (05:55)
[2021-09-06 06:27] LABS: BASO # 0.1 10^3/uL (0.0-0.2); BASO % 0.2 % (0.0-1.0); EOS % 0.2 % (0.0-3.0); HEMATOCRIT 29.7 % (36.0-47.0); HEMOGLOBIN 10.2 g/dl (12.0-15.5); LYMPH # 1.6 10^3/uL (1.5-5.0); LYMPH % 6.5 % (24.0-44.0); MEAN CORPUSCULAR HEMOGLOBIN 30.9 pg (27.0-33.0); MEAN CORPUSCULAR HGB CONC 34.3 g/dl (32.0-36.5); MONO % 3.9 % (2.0-8.0); NEUTROPHILS # 21.5 10^3/uL (1.5-8.5); NEUTROPHILS % 85.3 % (36.0-66.0); PLATELET COUNT, AUTOMATED 254 10^3/uL (150-450); WHITE BLOOD COUNT 25.2 10^3/uL (4.0-10.0)
[2021-09-06 07:03] LABS: BILIRUBIN,TOTAL 2.2 MG/DL (0.2-1.0); CALCIUM LEVEL 7.6 MG/DL (8.8-10.2); CREATININE FOR GFR 1.68 MG/DL (0.55-1.30); GLOMERULAR FILTRATION RATE 31.9 (>39); MAGNESIUM LEVEL 2.1 MG/DL (1.8-2.4); POTASSIUM SERUM 3.5 MEQ/L (3.5-5.1); TOTAL PROTEIN 5.9 GM/DL (6.4-8.2)
[2021-09-06 08:00] VITALS: BP 177/93
[2021-09-06] MEDS: PANTOPRAZOLE 40MG VIAL (C9113 PER 1) IV SCH (08:41)
[2021-09-06] MEDS: LIDOCAINE 5% (LIDODERM) PATCH TD SCH (08:41)
[2021-09-06] MEDS ORDERED: hydrALAZINE 20MG/ML 1ML VIAL (J0360 PER 20MG) IV ONE (09:00)
[2021-09-06] MEDS ORDERED: KCL 10MEQ/100ML SWI (KRUN) 10 MEQ in IV 1 EA IV ONE (09:20)
--- NOTE | 2021-09-06 10:10 | CR ---
INFECTIOUS DISEASE CONSULTATION DATE: 09/05/2021 REASON FOR CONSULTATION: Asked to consult by Dr. Rollins for evaluation of Staphylococcus aureus septic shock with left shoulder abscess and septic arthritis. HISTORY OF PRESENT ILLNESS: Ms. Gunter is a 70-year-old female who was doing well until 08/19/2021, when she developed acute onset of left shoulder pain after she had been carrying a heavy turkey, 28 pounds, from the supermarket to her house. The patient heard a popping sound in her left shoulder. She was seen by Julienne Almanzar on 08/22/2021 and was given prednisone 20 mg by mouth twice a day and was referred to Dr. Carbone for evaluation. She noticed worsening of the pain with decreased range of motion. The shoulder was swollen, red. The patient was seen in the emergency room on 08/27/2021, was also complaining of severe back pain. She had generalized body aches, chills, fever, sweating, headache, and difficulty walking. She was treated with intravenous (IV) vancomycin and meropenem. She had a shoulder CT on 08/31/2021, which showed a large abscess in the soft tissue superior to the left shoulder with possible myonecrosis. Acromioclavicular joint was widened to 8.7 mm, which may be from trauma. The patient was taken to the operating room by Dr. Ponce for debridement and incision and drainage (I and D). On 08/31/2021, her blood cultures as well as her shoulder cultures were positive. Her white count was 34,000. Patient was in the intensive care unit (ICU) on pressors. She went back to the d2itnednxm room (OR) for another debridement on 09/04/2021 for persistent elevated white count and she also had necrosis of the left pinky finger and had an amputation of that finger. The past couple of days, the patient was also complaining of increasing knee pain with redness. An ultrasound of the lower extremity was negative for deep venous thrombosis (DVT) on 09/04/2021 bilaterally. The patient is not able to bend the knee. She has bilateral knee prostheses and now there is a concern for prosthetic joint infection of the right knee. Patient is not able to give a history. She is confused. She was also having a central line being changed from the femoral area to the right internal jugular (IJ). MEDICAL HISTORY: Significant for: 1. Morbid obesity. 2. Anxiety and depression. 3. Severe osteoarthritis. 4. Degenerative disc disease of the lumbar spine with spinal stenosis. 5. Hypercholesterolemia. 6. Hypothyroidism. 7. Gastroesophageal reflux disease. 8. Left femur fracture. 9. Seasonal allergies. 10. Vitamin D deficiency. 11. Insomnia. PAST SURGICAL HISTORY: 1. Hysterectomy 1979. 2. Cataract surgery 2017 and 2018. 3. Left femur fracture repair 2019. 4. Hernia repair. 5. Bilateral total knee arthroplasties (I am not sure about the date, the patient was not able to tell me. They were not done at [facility]). FAMILY HISTORY: Father , mother . She has two sisters. She has a nephew in [place] who is coming to visit. SOCIAL HISTORY: She is a nonsmoker. No alcohol or drug use. PHYSICAL EXAMINATION: GENERAL: She is a sick female in moderate discomfort, especially when being examined. HEART: Normal S1, S2. Tachycardic. No murmurs appreciated. LUNGS: Clear. No wheezes, rales or rhonchi. ABDOMEN: Morbidly obese, soft, nontender. EXTREMITIES: Right knee erythema from the knee to the ankle area with severe tenderness, limited range of motion of the right knee. Patient does not bend her knee. Her left knee also has a total joint replacement scar. There is no redness overlying the red knee. I am able to flex her knee 90 degrees. I am not able to do that on the right side. Right shoulder Prevena dressing. Range of motion is normal of the right shoulder with minimal pain. Left hand amputation of the pinky finger at the metacarpophalangeal joint. LABORATORY DATA: White count 26.3, hemoglobin 10.1, hematocrit 29.6, platelets 171, which have improved from 72. Erythrocyte sedimentation rate (ESR) 75. Sodium 142, potassium 4, chloride 111, bicarbonate 21, BUN 49, creatinine 1.96, glucose 102, calcium 7.5, magnesium 2.4. Bilirubin 4.3 today, yesterday it was 8.7. Previously her bilirubin had been at 2.4 on 09/02/2021. AST was 132 on admission, down to 61, ALT was 123, down to 32. MICROBIOLOGY: Blood cultures on 08/31/2021: Two sets were positive. Blood cultures on 09/01/2021 were persistently positive for methicillin sensitive Streptococcus aureus (MSSA). Left shoulder culture was positive (MSSA). Left shoulder cultures again positive on 09/04/2021 and left pinky finger amputation was also positive for Staphylococcus aureus. Repeat cultures were done on 09/05/2021 and are pending. IMAGING DATA: Chest x-ray done on 09/05/2021 after central line was placed on the right IJ, central venous catheter, no infiltrates or any acute consolidation, effusion, pneumothorax. Head CT done on 09/04/2021 due to mental status changes and encephalopathy was negative. IMPRESSION: 1. This is a 70-year-old female who developed an abscess of her left shoulder status post incision and drainage (I and D) and left finger necrotizing infection status post amputation of the left pinky, has had two dbridements of the left shoulder for septic arthritis, has persistent bacteremia with methicillin sensitive Streptococcus aureus (MSSA) and now it seems like she has seeded her right knee prosthesis. She has significant pain in the right knee with limited range of motion. A CT leg has been ordered and is pending. If there is an effusion, patient will be scheduled for interventional radiology to aspirate the right knee, and if there is an effusion, patient will need synovectomy with incision and drainage. 2. Hyperbilirubinemia with improving AST and ALT. Her bilirubin seems to have increased after nafcillin was added, so patient was switched from nafcillin to vancomycin, but drug of choice for methicillin sensitive Streptococcus aureus (MSSA) would be a beta lactam and therefor a better option would be to switch her to cefazolin if nafcillin has been reported to cause hyperbilirubinemia. PLAN: 1. Please obtain CT leg. If there is an effusion, please schedule aspiration of the right knee to rule out prosthetic joint infection. Dr. Ponce is aware of the right knee concern and will be seeing the patient tomorrow and possibly needs to go to the operating room. 2. Switch to cefazolin 2 grams IV every 12 hours. Once her kidney function improves, increase the dose to 2 grams IV every 8 hours once her GFR is over 40. 3. Repeat blood cultures, two test, today. 4. Transesophageal echocardiogram to rule out endocarditis is scheduled for tomorrow for persistent bacteremia with Dr. Phillips at 1:30. MEDICATIONS: - vancomycin 1 gram IV every 12 hours - morphine 2 mg IV every 4 hours - pantoprazole 40 mg IV daily - lidocaine patch daily - levothyroxine 100 mcg daily - Zofran as needed - oxycodone 5 to 10 mg as needed ALLERGIES: No known drug allergies. Case has been discussed at length with Dr. Ponce and Dr. Rollins.
[2021-09-06] MEDS: CARVedilol 12.5 MG TAB PO SCH ×2 (10:15→22:22)
[2021-09-06 12:00] VITALS: BP 130/73
[2021-09-06] MEDS ORDERED: CETACAINE SPRAY 5GM As Ordered ONE (13:18)
[2021-09-06] MEDS ORDERED: LIDOCAINE VISCOUS 2% SOLN 15ML UDC As Ordered ONE (13:18)
[2021-09-06] MEDS ORDERED: propofoL 200 MG/20 ML VIAL As Ordered ONE (13:23)
[2021-09-06] MEDS ORDERED: LIDOCAINE 2% 100MG/5ML SDV (FOR ANES.) As Ordered ONE (13:23)
[2021-09-06] MEDS: HEPARIN SOD (PORCINE) 5000UNITS/ML 1ML VIAL/SYRINGE SQ SCH ×2 (13:23→22:22)
--- NOTE | 2021-09-06 13:23 | IPNPDOC ---
Date Seen The patient was seen on 09/06/21. Progress Note SUBJECTIVE: Right knee aspiration to occur today along with ARAMIS to rule out endocarditis. Patient appears lethargic and is alert and oriented x3 this morning. She denies chest pain, chills but admits to right knee pain. OBJECTIVE: PHYSICAL EXAMINATION: VITAL SIGNS: please see below General: lethargic, resting in bed HEENT: PERRLA, EOMI, scleral icterus. Neck: supple, normal ROM, no JVD, right IJ catheter in place Respiratory: lungs CTAB, no wheeze, no rales, no crackles CVS: RRR, normal S1, S2, no appreciable murmur Abdo: soft, no masses, no hepatosplenomegaly, BS+, no rebound tenderness Extremities: R leg swollen, diffusely erythematous, skin slightly tender to touch. Left fifth digit has gangrenous features dark and mottled. Left shoulder surgical site has wound VAC in place with improving surrounding erythema but no sheela purulence. LE pulses 1+ bilaterally. MSK: no joint deformities, normal ROM. R knee erythematous, tender to touch. ROM limited by pain. Neuro: Patient is somnolent unable to participate in full neurological examination. She seemed to be moving all 4 extremities and to has no facial droop. She has reduced strength in the bilateral upper and lower extremities, which appears to be Her pupils are equal and light bilaterally, 4 mm in diameter. Psych: calm, cooperative, AAO x 3 LABORATORY DATA, IMAGING STUDIES, MICROBIOLOGY: Please see below. CT Knee (R) w/o contrast (09/05/21): 1. Suprapatellar knee joint effusion. 2. Fluid demonstrated between the medial and lateral heads of the gastrocnemius muscle as well as medial to the medial head of the gastrocnemius muscle as well as lateral to the tibialis anterior and peroneus longus muscles. No gas locules to suggest infection although infection to be excluded clinically. Percutaneous image guided aspiration of the fluid could be considered if clinically desired. CT abdo pelvis wo contrast (09/04/21): 1. Question of minimal pancreatitis of the tail since 10/11/2019. 2. Faint stones and sludge in the gallbladder. 3. Mild bilateral lower lobe fibro-atelectatic change, increased since the prior study. 4. Preston catheter in the bladder. 5. Right common femoral vein catheter extending to the right external iliac vein. 6. Minimal free fluid which is nonspecific. 7. Status post hysterectomy. CT chest wo contrast (09/04/21): 1. Mild bilateral lower lobe and posterior right upper lobe and minimal left upper lobe fibro-atelectatic change. 2. Question of minimal pancreatitis of the tail. 3. Layering sludge or faint stones in the gallbladder. 4. Otherwise negative CT chest. CT head wo contrast (09/04/21): Negative noncontrast head CT, unchanged from 09/02/2021. Bilateral LE venous duplex (09/04/21): No evidence for deep venous thrombosis Liver US (09/01/21): Evaluate is incomplete due to uncooperative combative nature of patient. Limited images of the liver are grossly normal. Spleen is normal and measures 11.4 x 11.5 x 3.7 cm with 1.2 cm adjacent splenule. The left kidney is normal in reniform shape and measures 11.0 x 5.5 x 6.1 cm without hydronephrosis. Increased central sinus fat consistent with chronic age-related medical renal disease. Visualized portions of the abdominal aorta are normal and measure 2.4 cm maximal Echocardiogram (09/01/21): 1. Normal left ventricle internal dimensions and wall thickness. Normal regional LV wall motion and wall thickening. Normal LV systolic function. LVEF 65% by visual assessment. Grade 1 LV diastolic dysfunction. 2. Mild aortic valve sclerosis of a 3-cuspid aortic valve. No aortic regurgitation. 3. Mild mitral annular calcification. No mitral regurgitation. 4. Moderate left atrial dilatation. 5. No vegetation seen. 6. Otherwise normal appearing echocardiogram Doppler findings. DVT prophylaxis ordered?: Heparin 5000 units q8h ASSESSMENT AND PLAN: Patient is a 70-year-old female with a past medical history of hypertension hypothyroidism osteopenia spinal stenosis obesity depression presented to the ER with 10 out of 10 left shoulder pain. She is admitted for sepsis secondary to complex abscess of the left shoulder acute kidney injury as well as hyperglycemia. She was taken to the OR for debridement and washout of the left shoulder by orthopedic surgeon Dr. Ponce. Perioperatively she developed septic shock and was transferred to the ICU on Levophed drip. She presently has positive blood cultures for gram-positive cocci in clusters, as well as a positive Gram stain from abscess of gram-positive cocci in clusters. She is currently on meropenem and vancomycin. Blood cultures and wound cultures will come back positive for methicillin sensitive Staph aureus. Discussed with Dr. Marsh ID consult placed. PLAN: Complex L shoulder abscess 2/2 to MSSA infection, possible R prosthetic knee joint infection, sepsis. Cannot r/o endocarditis -WBC slightly improved to 25.2, afebrile, persistent tachycardia but slightly improved -S/p washout of L shoulder x2, wound vac in place -CT right knee above -All blood cultures since admission positive for MSSA (including most recent repeated on 09/05/21, wound culture positive for MSSA -2D echo obtained, d/w Dr. Phillips, shows no vegetations. Due to increased con fusion and the need for general anesthesia, Dr. Phillips felt as though ARAMIS may not be good idea at this time. ARAMIS order was canceled. Cannot completely rule out endocarditis; however, we are currently treating for bacteremia for a prolonged period of time anyway as we would for endocarditis. Can potentially consider ARAMIS at a later time. -Since admission, the patient has completed 3 days vanco,3 days meropenem which were discontinued. Nafcillin 2g q4h IV (09/02/21) completed 3 days total. Nafci llin was DC due to worsening renal function, and rising bilirubin. -ID is following. Per ID, c/w cefazolin (started 09/05/21), incr to Q8H today. -Plan is for drainage/aspiration of right knee today by IR , f/u cultures and orthopedic recommendations (Dr. Ponce). Will reach out to POA (nephew, [place]) to update today, has made it clear to reach out to him before any further surgeries/procedures or removal of hardware is to take place. Metabolic encephalopathy likely 2/2 sepsis, bacteremia from MSSA/septic joint L shoulder/L5th digit -Still confused to date and time, told me name -CT head 09/01/[address] 09/04/21, without acute findings -C/w treatment above L 5th digit mottling/gangrenous features -likely 2/2 to trauma to L hand prior to admission -S/p exploration and I&D by Dr. Ponce on 09/04/21. Subcutaneous tissue was noted to be queen and not viable, amputation of L 5th digit was performed up to metacarpophalangeal joint. -Intraoperative culture of 5th digit amp - positive for staph aureus. -Ortho following R knee pain, erythema 2/2 to possible R prosthetic knee joint infection -See problem #1 above Hyperbilirubinemia/hepatic injury 2/2 shock liver vs possible nafcillin tox? -jaundice improving, T bili trending down, Max at 8.7 on 09/04/21, AST/ALT also decr -CT abdo reviewed, minimal pancreatitis of tail? biliary sludge vs faint stones? -Lipase 200, faint stones and sludge in gallbladder -Ordered MRCP to assist in diagnosis - patient is unable to remain still for study -C/w daily CMP Acute kidney injury on CKD Stage III likely 2/2 to septic shock, possible nafcillin nephrotoxicity -Cr further improved today, previously on vasopressor support as well -Nafcilin was DC -Nephrology consulted -Daily CMP Elevated troponin likely 2/2 demand ischemia in setting of septic shock -HsTrop trending down -2D echo obtained on 09/01/21 (report above). LVEF 65%. Mild . No vegetations. Normal LV systolic function. -Continue to trend troponins -Ongoing sepsis management -ARAMIS cancelled Thrombocytopenia multifactorial, dilutional vs sepsis -Improving over time. -Hold heparin if < 50,000 -Daily CBC Hypoalbuminemia -Albumin 1.0 -nutrition eval -transfused 25 g Albumin, which will help maintain BP, prevent extravasation of fluid. 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 / Spinal stenosis -chronic, if continues to worsen will obtain additional imaging History of Essential HTN -BP uncontrolled today with systolic 130-170's -Restarted low dose BB today, holding other home meds -monitor for s/s of hypotension Osteopenia -based on imaging studies -f/u w PCP for Dexa Scan Hypothyroidism -cw Levothyroxine Anxiety / Depression - Amitriptyline, Escitalopram - held during encephalopathy Neuropathy -c/w gabapentin Class 3 obesity -complicates care DVT ppx: heparin GI ppx: PPI IV. Code status: FULL CODE Resolved: Hypoglycemia Hypomagnesemia DISPOSITION: Prognosis is poor to fair. To call and update nephew and healthcare POA [place] today as requested. ID, ortho and nephrology following. VS, I&O, 24H, Fishbone Vital Signs/I&O Vital Signs Date Time Temp Pulse Resp B/P (MAP) Pulse Ox O2 Delivery O2 Flow Rate FiO2 09/06/21 12:00 98.5 103 20 130/73 (92) 96 Room Air 09/05/21 00:59 95 09/04/21 14:30 2.0 I&O- Last 24 Hours up to 6 AM 09/06/21 06:00 Intake Total 1560 ml Output Total 1175 ml Balance 385 ml Laboratory Data 24H LABS Laboratory Tests 2 09/05/21 17:19: Bedside Glucose (Misc Panel) 116H 09/06/21 01:21: Bedside Glucose (Misc Panel) 124H 09/06/21 05:24: Immature Granulocyte % (Auto) 3.9H, Neutrophils (%) (Auto) 85.3H, Lymphocytes (%) (Auto) 6.5L, Monocytes (%) (Auto) 3.9, Eosinophils (%) (Auto) 0.2, Basophils (%) (Auto) 0.2, Neutrophils # (Auto) 21.5H, Lymphocytes # (Auto) 1.6, Monocytes # (Auto) 1.0H, Eosinophils # (Auto) 0.0, Basophils # (Auto) 0.1, Nucleated Red Blood Cells % (auto) 0.1H, Anion Gap 9, Glomerular Filtration Rate 31.9L, Calcium Level 7.6L, Magnesium Level 2.1, Total Bilirubin 2.2H, Aspartate Amino Transf (AST/SGOT) 57H, Alanine Aminotransferase (ALT/SGPT) 28, Alkaline Phosphatase 104, Total Protein 5.9#L, Albumin 1.0L, Albumin/Globulin Ratio 0.2L 09/06/21 10:26: Coronavirus (COVID-19)(PCR) NEGATIVE CBC/BMP Laboratory Tests 09/06/21 05:24 Microbiology Microbiology 09/05/21 Blood Culture, Received Pending 09/05/21 Blood Culture - Preliminary, Resulted 09/04/21 Gram Stain - Final, Complete 09/04/21 Surgical Biopsy Culture - Final, Complete Staphylococcus Aureus 09/04/21 Anaerobic Culture - Final, Complete 09/04/21 Gram Stain - Final, Complete 09/04/21 Surgical Biopsy Culture - Final, Complete Staphylococcus Aureus 09/04/21 Anaerobic Culture - Final, Complete 09/01/21 Blood Culture - Final, Complete Staphylococcus Aureus 09/01/21 Blood Culture - Final, Complete Staphylococcus Aureus 08/31/21 Gram Stain - Final, Complete 08/31/21 Abscess Culture - Final, Complete Staphylococcus Aureus 08/31/21 Gram Stain - Final, Complete 08/31/21 Abscess Culture - Final, Complete Staphylococcus Aureus 08/31/21 Anaerobic Culture - Final, Complete 08/31/21 Blood Culture - Final, Complete Staphylococcus Aureus 08/31/21 Blood Culture - Final, Complete Staphylococcus Aureus Queta Kumari MD Sep 06, 2021 13:23
--- NOTE | 2021-09-06 13:57 | IPNPDOC ---
Text Note Date of Service The patient was seen on 09/06/21. NOTE Called yesterday evening to evaluate the patient for query infected right total knee arthroplasty versus cellulitis. A fluoroscopic guided knee aspiration was ordered; however, there was concern that this aspiration may or may not be able to be performed today. I attempted to expedite the process for Gram stain and culture analysis of her right knee fluid by performing an aspiration at the bedside. I spoke with the patient's health power of litigation attorney associate Carrillo Rankin, her nephew, and obtained witnessed consent for a right knee aspiration. Procedure: In the PCU, the patient was prepared for the right knee aspiration. The right knee was cleansed with 3 times chlorhexidine. I attempted a superior lateral entry point in the subpatellar region of the suprapatellar pouch. Advancing the needle and redirecting with suction I was unable to aspirate any joint fluid. I utilized a new 18-gauge needle and tried a different entry point in the suprapatellar pouch laterally. I also change the syringe in case there was any clotted blood or otherwise blocking the aspiration hole. After a repeat of this procedure I was still unable to aspirate any fluid; being fairly certain that I was in the suprapatellar pouch and just posterior to the patella, based on feel. Utilizing a new 18-gauge needle I tried an attempt from the lateral portal region. Again I was unable to aspirate any fluid. Unfortunately I was unable to obtain any fluid from the right knee. I am fairly certain that I was in the suprapatellar pouch, but was unable to aspirate any fluid from this area. The puncture sites were dressed with Band-Aids. I updated Dr. Marks of infectious disease. We will have to rely on the fluoroscopic guided aspiration that is booked for later today. Will follow up on aspiration and plan from there. VS,Fishbone, I+O VS, Fishbone, I+O Laboratory Tests 09/06/21 05:24 Vital Signs Date Time Temp Pulse Resp B/P (MAP) Pulse Ox O2 Delivery O2 Flow Rate FiO2 09/06/21 12:00 98.5 103 20 130/73 (92) 96 Room Air 09/05/21 00:59 95 09/04/21 14:30 2.0 I&O- Last 24 Hours up to 6 AM 09/06/21 06:00 Intake Total 1560 ml Output Total 1175 ml Balance 385 ml CARRILLO VILLAVICENCIO MD Sep 06, 2021 13:57
--- NOTE | 2021-09-06 14:10 | IPN ---
PROGRESS NOTE DATE: 09/06/2021 SUBJECTIVE: Chery is seen and examined this morning at the bedside. She is NPO pending ARAMIS. There is also plan for orthopedics to tap her right knee. She remains afebrile and hemodynamically stable. She complains of being thirsty. She is making good urine output. Her renal function is improving. She is saturating well on room air. She denies shortness of breath. OBJECTIVE: VITAL SIGNS: Temperature 98.5, pulse 103, respiratory rate 20, blood pressure 130/73, saturating 96% on room air. Intake yesterday was 1.5 liters, urine output was 2 liters. Weight in the bed scale today was not recorded. GENERAL: The patient is seen lying in bed, awake, alert, in no acute distress. HEENT: Tongue is dry. NECK: Supple. Jugular veins are not elevated. There is a right-sided internal jugular central venous catheter. HEART: Regular and mildly tachycardic. LUNGS: Clear to auscultation, she is comfortable on room air, no accessory muscle use. ABDOMEN: Soft, obese. She no longer has a femoral catheter. GENITOURINARY: There is a Preston catheter draining urine. EXTREMITIES: The right leg has edema and erythema. The left leg looks more benign. There is tenderness to palpation of the right knee. LABS: Sodium 138, potassium 3.5, bicarbonate 22, BUN 44, creatinine 1.6, magnesium 2.1, albumin 1.0, hemoglobin 10.2, white count 25. Blood culture September 05 is growing Gram positive cocci in clusters. INPATIENT MEDICATIONS: 1. She is on IV Cefazolin. 2. She received one round of potassium chloride. 3. She was started on Carvedilol 12.5 mg po twice daily. 4. She received Hydralazine 10 mg IV x1. Remainder of medications are unchanged as compared to yesterday. PROBLEMS: 1. Persistent bacteremia with MSSA. The patient is pending ARAMIS and she is also pending aspiration of the right knee to rule out prosthetic joint infection. Most recent blood cultures from September 05 are again positive, infectious disease is following closely. She is presently on Cefazolin and has had dbridements of left shoulder for septic arthritis. She has acute kidney injury in the setting of persistent bacteremia and sepsis. She is auto diuresing and is in renal recovery with general supportive care. There is no need for any IV fluid at this time; there is no need for any diuretic at this time. Current medications are appropriate for her GFR. 2. Hypokalemia. Potassium supplementation is ordered. 3. Acute kidney injury superimposed on CKD stage 3A, based on creatinine of 1.1. She was admitted with creatinine of 1.6 which peaked at 2.0 subsequently in the setting of sepsis with septic shock and persistent MSSA bacteremia. She was briefly on Levophed but now is actually hypertensive and on antihypertensive medications. Renal imaging was negative for obstruction. She is nonoliguric. She is currently NPO but there is no need for IV fluid. When she is able to resume a diet after ARAMIS she is able to drink well. Chest x-ray showed clear lungs and the patient is saturating well on room air. 4. Chronic diastolic congestive heart failure. There is no need for diuretic at this time. The patient is saturating well on room air. Chest x-ray shows clear lungs. She is tolerating oral intake (presently NPO for ARAMIS). 5. Hypoalbuminemia. Serum albumin is very low at 1. If she ends up requiring diuretics later on this admission we will give her albumin as well. At present there is no need to diurese her.
[2021-09-06 16:00] VITALS: BP 129/72
[2021-09-06] MEDS ORDERED: LIDOCAINE 1% MDV 20ML VIAL As Ordered ONE (16:47)
--- NOTE | 2021-09-06 18:19 | IPNPDOC ---
Date Seen The patient was seen on 09/06/21. Progress Note SUBJECTIVE: Mark was seen and examined this morning (09/06) at the bedside by the critical care team. She reports no specific area of significant pain but appears to be in some overall discomfort again. At the time we entered the room, the patient was being swabbed for Covid test as apparently there was a known staff exposure on the overnight of . Should this test be negative, patient will proceed with previously scheduled ARAMIS this afternoon with Dr. Phillips. Per nursing, orthopedics (Dr. Ponce) will come by after their surgical schedules complete to assess the patient's knee and possibly perform an aspiration. OBJECTIVE PHYSICAL EXAMINATION: VITAL SIGNS: Please see below. GENERAL: Elderly obese white female who appears to once again be in moderate discomfort while lying flat in bed. She remains oriented to self only. HEENT: Normocephalic, atraumatic. Moderately icteric sclera. Conjunctival pallor is present. Neck: TLC in place in the right IJ CARDIOVASCULAR: Borderline tachycardic rate, regular rhythm. Heart sounds remain distant making appreciation for any significant murmurs or rubs challenging. Normal S1, S2 RESPIRATORY: She continues to take deeper breaths in through her nose. She is saturating well on room air with adequate respiratory effort and tidal volume. Again auscultated anteriorly and laterally with no appreciated significant adventitious breath sounds. ABDOMINAL: Significantly obese with decreased tenderness present versus yesterd ay's exam. Proactive bowel sounds throughout. No rigidity appreciated. EXTREMITIES: Remains bilateral lower extremity pitting edema, approximately 2+ on the right and 1+ on the left. There are remains 2+ right pedal edema. The right lower extremity remains warm to touch as compared to the left with significant calf tenderness and pain with palpation overlying the right patella and scar. Wound VAC remains in place over the left shoulder. Right upper extremity is cooler to the touch with continued 12+ pitting edema. Genitourinary: Preston catheter remains in place. NEUROLOGICAL: Oriented to self only. Similar to yesterday's exam, struggles articulating full sentences and focusing on question/commanded hand. LABORATORY DATA, IMAGING STUDIES, MICROBIOLOGY: Please see below. Assessment and plan: This is a 70-year-old female with notable history of hypertension, morbid obesity, anxiety/depression, and hypothyroidism who initially presented on the evening of 08/31 merrily due to back pain. Earlier during the month, she had felt her left shoulder "pop" while carrying a 20 pound turkey and had been seen by orthopedics as an outpatient. In the ED she was found to have a complex abs cess of left shoulder and underwent aspiration with subsequent incision debridement and drainage on 08/31 with wound VAC placement following. Critical care team had initially been consulted for septic shock that resolved relatively quickly with minimal vasopressor support. Critical care service was again asked to evaluate the patient on 09/05 in the setting of sepsis from staph aureus bacteremia. Patient also and recently developed acute renal failure on CKD stage IIIa, direct hyperbilirubinemia, and was persistently encephalopathic. #Sepsis secondary to staph aureus bacteremia, staph aureus left shoulder abscess s/p I&D, with high suspicion for right knee prosthetic joint infection -Confirmed positive blood culture on 09/01 with MSSA as well as confirmed MSSA cultures of the left shoulder and left pinky (s/p amputation) -Continues to have leukocytosis with absolute neutrophilia that is mildly improved on 09/06 compared to the day prior. -2 repeat blood cultures were ordered on 09/05 and are pending. The infectious disease service is following along has switch the patient from vancomycin to cefazolin. There had been some question of whether or not the nafcillin was contributing to the direct hyperbilirubinemia and hence the prior switch to vancomycin. -Concern for seeding of right knee prosthetic joint remains significant. Per nursing, orthopedics will be seeing the patient after surgical schedule today to evaluate and potentially do an aspiration to assess for need of washout surgical procedure. -CT of the right knee without contrast on 09/05 showed subcutaneous edema and suprapatellar joint effusion but no gas locules. -Patient is to undergo a ARAMIS this afternoon to rule out endocarditis. #Right lower extremity pitting edema, pain, and erythema Physical exam findings as described above and relatively similar to prior days exam. A previous bilateral lower extremity duplex ultrasound was negative for DVT Antimicrobial coverage as described above as well as results of CT of the knee with current plan for evaluation and possible aspiration by orthopedic service. #History of hypertension -Patient has a history of hypertension, but home medications had been held in the setting of initial hypotension requiring small amount of vasopressor support earlier during admission. -Blood pressure was 177/93 this morning. -Important to note that we recommend allowing for permissive hypertension, systolic blood pressures are fine up into the 150s as the patient remains at risk for hypotension related to her ongoing sepsis and possible shock. We would recommend initiating and as needed antihypertensive dosing regimen versus a standing scheduled dosing regimen. #Encephalopathy, multifactorial As documented on prior note, most likely a result of infection, hepatic failure, acute renal failure on CKD, and medication effects Ammonia level on 09/05 was unremarkable. -Previously discontinued patient's psychiatric meds. #Acute renal failure superimposed on chronic kidney disease stage IIIa, improving -Creatinine continues to improve over the past 48 hours. She is nonoliguric and is producing an adequate amount (24-hour milliliter per KG per hour rate of 0.70 with a net negative of 515 cc). -Patient has been switched off of vancomycin to cefazolin; this may help with vancomycin is known to have renal toxicity. -Prior renal imaging during this admission showed no obstruction. -Nephrology service is also following along with patient. #Direct hyperbilirubinemia, improving -Total bilirubin continues to decrease over the past [address] abdomen pelvis did show mild sludge and stones in the gallbladder with trace associated free fluid. -Abdominal physical examination today shows less tenderness than prior exam #Grade 1 diastolic dysfunction as seen on imaging A TTE was obtained earlier in admission to assess for endocarditis in the setting of staph aureus bacteremia. No signs of endocarditis appreciated but grade 1 diastolic dysfunction was visualized. Patient is to undergo a ARAMIS this afternoon due to continued high suspicion for endocarditis. #DVT prophylaxis: This remained held prior to the ARAMIS scheduled for this afternoon. Patient had been receiving 5000 units every 8 hours prior to being held and likely will resume when she returns from the study. Thank you for involving the critical care team in Ms. Gunter' care. We will continue to follow along. Total critical care time spent not including procedures was approximately 45 minutes. VS, I&O, 24H, Fishbone Vital Signs/I&O Vital Signs Date Time Temp Pulse Resp B/P (MAP) Pulse Ox O2 Delivery O2 Flow Rate FiO2 09/06/21 16:23 98.3 98 20 95 Room Air 09/06/21 16:00 129/72 (91) 09/05/21 00:59 95 09/04/21 14:30 2.0 I&O- Last 24 Hours up to 6 AM 09/06/21 06:00 Intake Total 1560 ml Output Total 1175 ml Balance 385 ml Laboratory Data 24H LABS Laboratory Tests 2 09/06/21 01:21: Bedside Glucose (Misc Panel) 124H 09/06/21 05:24: Immature Granulocyte % (Auto) 3.9H, Neutrophils (%) (Auto) 85.3H, Lymphocytes (%) (Auto) 6.5L, Monocytes (%) (Auto) 3.9, Eosinophils (%) (Auto) 0.2, Basophils (%) (Auto) 0.2, Neutrophils # (Auto) 21.5H, Lymphocytes # (Auto) 1.6, Monocytes # (Auto) 1.0H, Eosinophils # (Auto) 0.0, Basophils # (Auto) 0.1, Nucleated Red Blood Cells % (auto) 0.1H, Anion Gap 9, Glomerular Filtration Rate 31.9L, Calciu m Level 7.6L, Magnesium Level 2.1, Total Bilirubin 2.2H, Aspartate Amino Transf (AST/SGOT) 57H, Alanine Aminotransferase (ALT/SGPT) 28, Alkaline Phosphatase 104, Total Protein 5.9#L, Albumin 1.0L, Albumin/Globulin Ratio 0.2L 09/06/21 10:26: Coronavirus (COVID-19)(PCR) NEGATIVE 09/06/21 15:23: Troponin I High Sensitivity 680.0*H 09/06/21 15:38: Bedside Glucose (Misc Panel) 139H CBC/BMP Laboratory Tests 09/06/21 05:24 Microbiology Microbiology 09/06/21 Gram Stain, Received Pending 09/06/21 Body Fluid Culture, Received Pending 09/05/21 Blood Culture - Preliminary, Resulted 09/05/21 Blood Culture - Preliminary, Resulted 09/04/21 Gram Stain - Final, Complete 09/04/21 Surgical Biopsy Culture - Final, Complete Staphylococcus Aureus 09/04/21 Anaerobic Culture - Final, Complete 09/04/21 Gram Stain - Final, Complete 09/04/21 Surgical Biopsy Culture - Final, Complete Staphylococcus Aureus 09/04/21 Anaerobic Culture - Final, Complete 09/01/21 Blood Culture - Final, Complete Staphylococcus Aureus 09/01/21 Blood Culture - Final, Complete Staphylococcus Aureus 08/31/21 Gram Stain - Final, Complete 08/31/21 Abscess Culture - Final, Complete Staphylococcus Aureus 08/31/21 Gram Stain - Final, Complete 08/31/21 Abscess Culture - Final, Complete Staphylococcus Aureus 08/31/21 Anaerobic Culture - Final, Complete 08/31/21 Blood Culture - Final, Complete Staphylococcus Aureus 08/31/21 Blood Culture - Final, Complete Staphylococcus Aureus GME ATTESTATION GME ATTESTATION My faculty preceptor for this patient encounter was physically present during the encounter and was fully available. All aspects of the patient interview, examination, medical decision making process, and medical care plan development were reviewed and approved by the faculty preceptor. The faculty preceptor is aware and concurs with the plan as stated in the body of this note and will attest to such by his/her cosignature. ATTENDING NOTE I, Aracely Devine, conducted an independent examination and history of the patient and agree with the plan as detailed by the resident and discussed during rounds. MARCUS BLACK D.O. Sep 06, 2021 18:19 ARACELY DEVINE MD Sep 09, 2021 13:35
[2021-09-06] MEDS: MORPHINE 2 MG/ML 1ML VIAL (J2270) IV PRN (18:22)
[2021-09-06 20:00] VITALS: BP 129/72
[2021-09-06] MEDS: **NOTE PATIENT COMMENT** MISC XX SCH (21:00)
--- NOTE | 2021-09-06 23:31 | ECGEPIP ---
[facility] Test Date: 2021-09-06 Pat Name: RALPH BARBER Department: Room: [place] [address] Gender: Female Clinical Trials Manager: selvin : [id number] Requested By: Queta Dos Santos Order Number: [id number] Reading MD: Carrillo Morton Measurements Intervals Serafina Rate: 102 P: 13 FL: 168 QRS: 19 QRSD: 96 T: 42 QT: 372 QTc: 484 Interpretive Statements Sinus tachycardia Similar to tracing done 09-02-21 Electronically Signed on 09-06-2021 23:31:05 EST by Carrillo Morton
[2021-09-07] VITALS: BP 158/77
[2021-09-07 04:00] VITALS: BP 121/66
[2021-09-07 05:31] LABS: BASO % 0.2 % (0.0-1.0); EOS # 0.1 10^3/uL (0.0-0.5); EOS % 0.4 % (0.0-3.0); HEMOGLOBIN 8.7 g/dl (12.0-15.5); LYMPH # 1.4 10^3/uL (1.5-5.0); LYMPH % 6.7 % (24.0-44.0); MEAN CORPUSCULAR HEMOGLOBIN 30.1 pg (27.0-33.0); MEAN CORPUSCULAR HGB CONC 33.5 g/dl (32.0-36.5); MONO % 4.8 % (2.0-8.0); NEUTROPHILS # 18.1 10^3/uL (1.5-8.5); NEUTROPHILS % 84.9 % (36.0-66.0); PLATELET COUNT, AUTOMATED 275 10^3/uL (150-450); RED BLOOD COUNT 2.89 10^6/uL (4.00-5.40); WHITE BLOOD COUNT 21.4 10^3/uL (4.0-10.0)
[2021-09-07] MEDS: HEPARIN SOD (PORCINE) 5000UNITS/ML 1ML VIAL/SYRINGE SQ SCH (05:41)
[2021-09-07] MEDS: LEVOTHYROXINE 100MCG TABLET (0.1MG) PO SCH (05:41)
[2021-09-07] MEDS: ceFAZolin SOD 2 GM in IV 1 EA IV SCH (05:42)
[2021-09-07] MEDS: MORPHINE 2 MG/ML 1ML VIAL (J2270) IV PRN ×3 (05:43→23:35)
[2021-09-07 05:59] LABS: ALBUMIN 0.9 GM/DL (3.2-5.2); BILIRUBIN,TOTAL 1.6 MG/DL (0.2-1.0); CALCIUM LEVEL 7.3 MG/DL (8.8-10.2); CREATININE FOR GFR 1.5 MG/DL (0.55-1.30); GLOMERULAR FILTRATION RATE 36.3 (>39); MAGNESIUM LEVEL 2.1 MG/DL (1.8-2.4); POTASSIUM SERUM 3.4 MEQ/L (3.5-5.1)
[2021-09-07] MEDS ORDERED: POTASSIUM CHLORIDE 10MEQ SR TABLET PO ONE (08:00)
[2021-09-07 08:20] VITALS: BP 143/72
[2021-09-07 08:22] VITALS: BP 143/72
[2021-09-07] MEDS: PANTOPRAZOLE 40MG VIAL (C9113 PER 1) IV SCH (08:25)
[2021-09-07] MEDS: LIDOCAINE 5% (LIDODERM) PATCH TD SCH (08:25)
[2021-09-07] MEDS: FLUTICASONE PROP 0.05% NASAL SPRAY 16 GM (FLONASE) NARES SCH (08:25)
[2021-09-07 08:26] VITALS: BP 143/72
[2021-09-07] MEDS: CARVedilol 12.5 MG TAB PO SCH (08:26)
[2021-09-07] MEDS ORDERED: SODIUM CHLORIDE 0.9% INJ 10 ML SYR IV PRN (10:45)
--- NOTE | 2021-09-07 11:50 | IPN ---
INFECTIOUS DISEASE PROGRESS NOTE DATE: 09/06/2021 SUBJECTIVE: Patient was seen at night after she came back from interventional radiology for aspiration of the right knee. She had a COVID exposure. Patient has been fully vaccinated. María was called and she received her two doses of vaccine in December of 2020. She has not had any fever or chills. She was transferred from the intensive care unit (ICU) to the progressive care unit (PCU). She continues complaining of right knee pain and being very fatigued. PHYSICAL EXAMINATION: GENERAL: Obese female in mild discomfort, falls asleep easily, breathing heavily through her nose, stating that her nose is very dry. VITAL SIGNS: Temperature 99, pulse 101, respirations 20, blood pressure 129/72, oxygen saturation 94% on room air. HEART: Normal. S1, S2. Tachycardic. No murmurs appreciated. LUNGS: Anteriorly clear. No wheezes, rales or rhonchi. ABDOMEN: Morbidly obese, soft, nontender. EXTREMITIES: 1+ pitting edema bilaterally. 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 Left shoulder Prevena dressing in place. Patient is able to move her shoulder with good range of motion. Mild tenderness. Right knee erythema with redness extending to the mid thigh and below the knee with tenderness. Patient is not able to bend her knee on the right side. She has an incision from previous arthroplasty. Left knee incision with no redness and no tenderness. Patient is able to flex her knee on the left side about 20-30 degrees. In general, she has bilateral weakness. IMAGING: CT knee showed a suprapatellar knee effusion with fluid demonstrated between the medical and lateral heads of the gastrocnemius, as well as the lateral tibialis anterior and peroneus longus muscles. No gas noted. Percutaneous aspiration was attempted under interventional radiology. They were only able to aspirate 1-2 mL. Chest x-ray shows a right internal jugular (IJ) central venous catheter and no infiltrates. Lungs are clear. LABORATORY DATA: White count 25.2, hemoglobin 10.2, hematocrit 29.7, platelets 254, 85% neutrophils, 6% lymphocytes, 4% monocytes. Sodium 138, potassium 3.5, chloride 107, bicarbonate 22, BUN 44, creatinine 1.68, glucose 126, calcium 7.6, magnesium 2.1. Bilirubin 2.2, AST 57, AST 28, alkaline phosphatase 104. Troponin 680. Albumin 1. MICROBIOLOGY: Blood cultures on 09/05/2021 are still positive, two sets with gram positive cocci in clusters. Knee aspiration is pending. Gram stain and culture. IMPRESSION: 1. 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 Patient is on intravenous (IV) cefazolin 2 grams every 8 hours, dose adjusted as her kidney function has improved. 2. Right lower extremity cellulitis and myositis. Concerning for Right knee prosthesis seeding. Aspiration has been done. Waiting for results. The patient may need incision and drainage (I and D) of the right leg by orthopedic surgery. 3. Hypertension with elevated troponins. Probably demand ischemia. 4. Metabolic encephalopathy. Improving. PLAN: Continue IV cefazolin dose adjusted to 2 grams every 8 hours as Cr improving. Repeat blood cultures until cultures are negative. Transesophageal echocardiogram (ARAMIS) has been rescheduled, according to the hospitalist, as the patient was too sick and treatment course would be the same. Transthoracic echocardiogram done on 09/01/2021 showed no evidence of vegetation with normal ejection fraction. [facility]
[2021-09-07 12:26] VITALS: BP 133/60
[2021-09-07] MEDS ORDERED: SODIUM CHLORIDE 0.9% INJ 10 ML SYR IV SCH (14:00)
--- NOTE | 2021-09-07 14:22 | IPNPDOC ---
Date Seen The patient was seen on 09/07/21. Progress Note SUBJECTIVE: Discussed plan of care with PFS, HCP Carrillo in great detail today at 1400. The patient spoke with her nephew earlier this afternoon and the plan is to make comfort measures. They understand that withdrawing current care, including antibiotics and the need to remove hardware in the right knee, would ultimately mean overwhelming infection. At this time they are hoping for home with hospice care which patient family services has started on. The patient denies any increased pain, chest pain, shortness of breath and appears comfortable in bed currently. OBJECTIVE: PHYSICAL EXAMINATION: VITAL SIGNS: please see below General: lethargic, resting in bed, awake alert oriented x3 HEENT: PERRLA, EOMI, scleral icterus. Neck: supple, normal ROM, no JVD, right IJ catheter in place Respiratory: lungs CTAB, no wheeze, no rales, no crackles CVS: RRR, normal S1, S2, no appreciable murmur Abdo: soft, no masses, no hepatosplenomegaly, BS+, no rebound tenderness Extremities: R leg swollen, diffusely erythematous, skin slightly tender to touch-increased compared to 09/06/2021. Left shoulder surgical site has wound VAC in place with improving surrounding erythema but no sheela purulence. LE pulses 1+ bilaterally. MSK: no joint deformities, normal ROM. R knee erythematous, tender to touch. ROM limited by pain. Neuro: Patient is somnolent unable to participate in full neurological examination. She seemed to be moving all 4 extremities and to has no facial droop. She has reduced strength in the bilateral upper and lower extremities, which appears to be Her pupils are equal and light bilaterally, 4 mm in diameter. Right eye nystagmus Psych: calm, cooperative, AAO x 3 LABORATORY DATA, IMAGING STUDIES, MICROBIOLOGY: Please see below. CT Knee (R) w/o contrast (09/05/21): 1. Suprapatellar knee joint effusion. 2. Fluid demonstrated between the medial and lateral heads of the gastrocnemius muscle as well as medial to the medial head of the gastrocnemius muscle as well as lateral to the tibialis anterior and peroneus longus muscles. No gas locules to suggest infection although infection to be excluded clinically. Percutaneous image guided aspiration of the fluid could be considered if clinically desired. CT abdo pelvis wo contrast (09/04/21): 1. Question of minimal pancreatitis of the tail since 10/11/2019. 2. Faint stones and sludge in the gallbladder. 3. Mild bilateral lower lobe fibro-atelectatic change, increased since the prior study. 4. Preston catheter in the bladder. 5. Right common femoral vein catheter extending to the right external iliac vein. 6. Minimal free fluid which is nonspecific. 7. Status post hysterectomy. CT chest wo contrast (09/04/21): 1. Mild bilateral lower lobe and posterior right upper lobe and minimal left upper lobe fibro-atelectatic change. 2. Question of minimal pancreatitis of the tail. 3. Layering sludge or faint stones in the gallbladder. 4. Otherwise negative CT chest. CT head wo contrast (09/04/21): Negative noncontrast head CT, unchanged from 09/02/2021. Bilateral LE venous duplex (09/04/21): No evidence for deep venous thrombosis Liver US (09/01/21): Evaluate is incomplete due to uncooperative combative nature of patient. Limited images of the liver are grossly normal. Spleen is normal and measures 11.4 x 11.5 x 3.7 cm with 1.2 cm adjacent splenule. The left kidney is normal in reniform shape and measures 11.0 x 5.5 x 6.1 cm without hydronephrosis. Increased central sinus fat consistent with chronic age-related medical renal disease. Visualized portions of the abdominal aorta are normal and measure 2.4 cm maximal Echocardiogram (09/01/21): 1. Normal left ventricle internal dimensions and wall thickness. Normal regional LV wall motion and wall thickening. Normal LV systolic function. LVEF 65% by visual assessment. Grade 1 LV diastolic dysfunction. 2. Mild aortic valve sclerosis of a 3-cuspid aortic valve. No aortic regurgitation. 3. Mild mitral annular calcification. No mitral regurgitation. 4. Moderate left atrial dilatation. 5. No vegetation seen. 6. Otherwise normal appearing echocardiogram Doppler findings. DVT prophylaxis ordered?: Heparin 5000 units q8h ASSESSMENT AND PLAN: Patient is a 70-year-old female with a past medical history of hypertension hypothyroidism osteopenia spinal stenosis obesity depression presented to the ER with 10 out of 10 left shoulder pain. She is admitted for sepsis secondary to complex abscess of the left shoulder acute kidney injury as well as hyperglycemia. She was taken to the OR for debridement and washout of the left shoulder by orthopedic surgeon Dr. Ponce. Perioperatively she developed septic shock and was transferred to the ICU on Levophed drip. She presently has positive blood cultures for gram-positive cocci in clusters, as well as a positive Gram stain from abscess of gram-positive cocci in clusters. She is currently on meropenem and vancomycin. Blood cultures and wound cultures will come back positive for methicillin sensitive Staph aureus. Discussed with Dr. Marsh ID consult placed. 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 Cannot r/o endocarditis -WBC slightly improved 21.4, afebrile, persistent tachycardia -S/p washout of L shoulder x2, wound vac in place -CT right knee above -All blood cultures since admission positive for MSSA (including most recent repeated on 09/05/21, wound culture positive for MSSA -2D echo obtained, d/w Dr. Phillips, shows no vegetations. Due to increased confusion and the need for general anesthesia, Dr. Phillips felt as though ARAMIS may not be good idea at this time. ARAMIS order was canceled. Cannot completely ru le out endocarditis. -Since admission, the patient has completed 3 days vanco,3 days meropenem which were discontinued. Nafcillin 2g q4h IV (09/02/21) completed 3 days total. Nafcillin was DC due to worsening renal function, and rising bilirubin. -ID had been following and was treating infection c/w cefazolin (started 09/05/21). -S/p IR drainage right knee 09/06/21 with right knee fluid cultures growing staph aureus. Patient has hardware in her knees and options were for surgical removal and washout. Spoke a great detail with the patient's healthcare proxy who had spoke with his and today. At this time surgery will not be an option and the plan is to switch to comfort measures only and home with hospice. We will stop all further treatment, labs and start comfort measures. Elevated troponin likely 2/2 demand ischemia in setting of septic shock -HsTrop trending down -2D echo obtained on 09/01/21 (report above). LVEF 65%. Mild . No vegetations. Normal LV systolic function. -ARAMIS wascancelled Metabolic encephalopathy likely 2/2 sepsis, bacteremia from MSSA/septic joint L shoulder/septic right knee joint with hardware/ L5th digit -AAOx3 for me and another attending today. Waxes and wanes mental status -CT head 09/01/[address] 09/04/21, without acute findings L 5th digit mottling/gangrenous features likely 2/2 to trauma to L hand prior to admission -S/p exploration and I&D by Dr. Ponce on 09/04/21. Subcutaneous tissue was noted to be queen and not viable, amputation of L 5th digit was performed up to metacarpophalangeal joint. -Intraoperative culture of 5th digit amp - positive for staph aureus. -Ortho had been following R knee pain 2/2 to R knee septic joint -See problem #1 above Hyperbilirubinemia/hepatic injury 2/2 shock liver vs possible nafcillin tox? -jaundice improving, T bili trending down, Max at 8.7 on 09/04/21, AST/ALT also decr -CT abdo reviewed, minimal pancreatitis of tail? biliary sludge vs faint stones? -Lipase 200, faint stones and sludge in gallbladder -Ordered MRCP to assist in diagnosis but patient was unable to remain still for study Acute kidney injury on CKD Stage III likely 2/2 to septic shock, possible nafcillin nephrotoxicity -Cr further improved today, previously on vasopressor support as well -Nafcilin was DC -Nephrology was following, signed off Thrombocytopenia multifactorial, dilutional vs sepsis -Improving over time Hypoalbuminemia -Albumin 1.0 -nutrition evaluated -transfused 25 g Albumin, which will help maintain BP, prevent extravasation of fluid. 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 New MOLST form to be filled out and placed in chart. Plan is home with hospice care. VS, I&O, 24H, Fishbone Vital Signs/I&O Vital Signs Date Time Temp Pulse Resp B/P (MAP) Pulse Ox O2 Delivery O2 Flow Rate FiO2 09/07/21 12:26 98.1 80 20 133/60 (84) 96 Room Air 09/05/21 00:59 95 09/04/21 14:30 2.0 I&O- Last 24 Hours up to 6 AM 09/07/21 06:00 Intake Total 2500 ml Output Total 1950 ml Balance 550 ml Laboratory Data 24H LABS Laboratory Tests 2 09/06/21 15:23: Troponin I High Sensitivity 680.0*H 09/06/21 15:38: Bedside Glucose (Misc Panel) 139H 09/06/21 22:19: Troponin I High Sensitivity 553.0*H 09/07/21 05:13: Troponin I High Sensitivity 391.0*H, Immature Granulocyte % (Auto) 3.0, Neutrophils (%) (Auto) 84.9H, Lymphocytes (%) (Auto) 6.7L, Monocytes (%) (Auto) 4.8, Eosinophils (%) (Auto) 0.4, Basophils (%) (Auto) 0.2, Neutrophils # (Auto) 18.1H, Lymphocytes # (Auto) 1.4L, Monocytes # (Auto) 1.0H, Eosinophils # (Auto) 0.1, Basophils # (Auto) 0.0, Nucleated Red Blood Cells % (auto) 0.0, Anion Gap 11, Glomerular Filtration Rate 36.3L, Calcium Level 7.3L, Magnesium Level 2.1, Total Bilirubin 1.6H, Aspartate Amino Transf (AST/SGOT) 53H, Alanine Aminotransferase (ALT/SGPT) 19, Alkaline Phosphatase 81, Total Protein 5.0L, Albumin 0.9L, Albumin/Globulin Ratio 0.2L 09/07/21 05:40: Bedside Glucose (Misc Panel) 116H 09/07/21 12:44: Bedside Glucose (Misc Panel) 134H CBC/BMP Laboratory Tests 09/07/21 05:13 Microbiology Microbiology 09/07/21 Blood Culture, Received Pending 09/06/21 Gram Stain - Final, Resulted 09/06/21 Body Fluid Culture - Preliminary, Resulted Staphylococcus Aureus 09/05/21 Blood Culture - Preliminary, Resulted Staphylococcus Aureus 09/05/21 Blood Culture - Preliminary, Resulted Staphylococcus Aureus 09/04/21 Gram Stain - Final, Complete 09/04/21 Surgical Biopsy Culture - Final, Complete Staphylococcus Aureus 09/04/21 Anaerobic Culture - Final, Complete 09/04/21 Gram Stain - Final, Complete 09/04/21 Surgical Biopsy Culture - Final, Complete Staphylococcus Aureus 09/04/21 Anaerobic Culture - Final, Complete 09/01/21 Blood Culture - Final, Complete Staphylococcus Aureus 09/01/21 Blood Culture - Final, Complete Staphylococcus Aureus 08/31/21 Gram Stain - Final, Complete 08/31/21 Abscess Culture - Final, Complete Staphylococcus Aureus 08/31/21 Gram Stain - Final, Complete 08/31/21 Abscess Culture - Final, Complete Staphylococcus Aureus 08/31/21 Anaerobic Culture - Final, Complete 08/31/21 Blood Culture - Final, Complete Staphylococcus Aureus 08/31/21 Blood Culture - Final, Complete Staphylococcus Aureus Queta Kumari MD Sep 07, 2021 14:22
[2021-09-07] MEDS ORDERED: LORazepam 2 MG/ML VIAL IV PRN (14:25)
[2021-09-07] MEDS ORDERED: HYOSCYAMINE SULFATE 0.125 MG SUBL TABLET PO PRN (14:25)
[2021-09-07] MEDS ORDERED: ATROPINE SULFATE 1% OP SOLN 2 ML BTL SL PRN (14:25)
--- NOTE | 2021-09-07 14:43 | IPN ---
PROGRESS NOTE DATE: 09/07/2021 Ms. Gottlieb is seen and examined this morning at the bedside. Dr. Kumari was present as well. Patient complains of thirst. She otherwise offers no other complaints. Denies shortness of breath. She had aspiration of the right knee through interventional radiology yesterday. She is on precautions for COVID exposure. Apparently there is no plan for transesophageal echocardiogram (ARAMIS) at this time. Her renal function continues to improve. Creatinine is down to 1.5 on the latest labs. She is saturating well on room air and tolerating oral intake without any issues and has good urine output to Preston catheter. VITAL SIGNS: Temperature 98.1, pulse 80, respiratory rate 20, blood pressure 133/60, saturating 96% on room air. Intake yesterday was 1.6 liters. Urine output was 1.6 liters. Weight in the bed scale today is 122.5 kg. GENERAL: Patient is seen awake, alert, debilitated, and ill appearing but in no acute distress. HEART: Sounds are regular, s1, S2. There is no audible murmur. LUNGS: Clear to auscultation. No crackle or rale. She is comfortable on room air. ABDOMEN: Soft, obese, and not tender. There is a wound vacuum-assisted closure (VAC) on the left shoulder. There is 1+ pitting edema in the lower extremities, more so in the right lower extremity. There is erythema prominent over the distal right leg and knee. There is a Preston catheter draining clear yellow urine. NEUROLOGIC: She is able to cooperate with physical exam and answer some simple questions appropriately, but she is not able to have a good conversation regarding her medical problems. LABORATORY DATA: Sodium 137, potassium 3.4, bicarbonate 22, BUN 39, creatinine 1.5, magnesium 2.1, troponin 391, albumin 0.9. Hemoglobin 8.7, white count 21, platelets 275. Microbiology: Blood cultures are persistently positive for Staphylococcus aureus, and culture from the right knee also is positive for Staphylococcus aureus. INPATIENT MEDICATIONS: Reviewed by myself. She is on cefazolin 2 grams intravenous (IV) every 8 hours. She received a dose of potassium chloride 30 mEq by mouth times one today. Remainder of medications is all unchanged as compared to yesterday. PROBLEMS: 1. Resolving acute kidney injury (nonoliguric) superimposed on chronic kidney disease (CKD), stage IIIA with a baseline creatinine of 1.1. Patient was admitted with a creatinine of 1.6, which peaked at 2.0 and is now in renal recovery. Creatinine is 1.5 on the latest labs. Her kidney injury was in the setting of sepsis with septic shock earlier on this admission and with persistent methicillin-sensitive Staphylococcus aureus (MSSA) bacteremia. Patient has been having good oral intake without any need for IV fluid, and she has also been having satisfactory urine output without any use of diuretic. I am not really adding much to her care, and her renal function continues to improve, and her electrolytes and acid-base status are reasonable. 2. Persistent Staphylococcus aureus bacteremia. Patient is status post irrigation and drainage of left shoulder abscess and status post left pinky finger amputation. Her most recent blood cultures on September 05 remain positive for Staphylococcus aureus, and her body fluid culture from the right knee was also positive for Staphylococcus aureus. Dr. Marks is following closely. Patient is on IV cefazolin. 3. Hypertension. Blood pressures are acceptable with carvedilol twice a day. 4. Hypokalemia. She received potassium supplementation. DISPOSITION Patient is in renal recovery. Creatinine is downtrending. She has satisfactory urine output. Her electrolytes are stable. I am not really adding much to her care. She has severe and significant infectious issues with persistent bacteremia. If there is any change in her renal function, I would be happy to see her again. Nephrology signing off at this point.
--- NOTE | 2021-09-07 16:30 | REP ---
INDICATION: right knee fluid aspiration. COMPARISON: None. TECHNIQUE: The procedure was performed under the direct supervision of Dr. Buenrostro. The patient has a history of a suprapatellar right knee joint effusion seen on a previous CT scan dated 09/05/2021. The risks and benefits of the procedure were explained and informed consent was obtained by the healthcare proxy. The right knee joint effusion was localized using ultrasound guidance. The skin was prepped and draped in a sterile fashion. 6 mL of 1% lidocaine was used as a local anesthetic. Using ultrasound guidance a 5 Mongolian centesis catheter was inserted and a few drops of red colored aspirate were withdrawn. Estimated blood loss: Less than 1 mL. The patient tolerated the procedure well and there were no immediate complications. FINDINGS: None IMPRESSION: Ultrasound-guided right knee joint aspiration. <Electronically signed by Ford Adames > 09/07/21 [id number] <Electronically signed by Ajit Buenrostro > 09/07/21 [id number]
--- NOTE | 2021-09-07 17:33 | IPNPDOC ---
Text Note Date of Service The patient was seen on 09/07/21. 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 Spoke with Nephew, MALA, over the telephone. Recommended keeping wound vac in position to shoulder. Concern that wound dehiscence could prompt caregivers to suggest return to ED or otherwise. Dressing to remain in place for 1 week. Mr. Rankin agreed to this. Homecare orders as below: Keep wound vac on the left shoulder until Wednesday 09/12. May remove sutures from left shoulder incision and left hand incision on 09/18/21. Cover left shoulder wound with telfa island when wound vac removed. Change telfa on left hand every 2 days or prn soiling. May change wound vac canister prn (sent home with pt). Of note, the patient's knee aspiration did show evidence of periprosthetic infection. Patient was transitioned to portable wound vac suction unit by Reina Parekh PAC. I reviewed the device and it was functioning normally. 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 VS,[place], I+O VS, [place], I+O Laboratory Tests 09/07/21 05:13 Vital Signs Date Time Temp Pulse Resp B/P (MAP) Pulse Ox O2 Delivery O2 Flow Rate FiO2 09/07/21 12:26 98.1 80 20 133/60 (84) 96 Room Air 09/05/21 00:59 95 09/04/21 14:30 2.0 I&O- Last 24 Hours up to 6 AM 09/07/21 06:00 Intake Total 2500 ml Output Total 1950 ml Balance 550 ml CR VILLAVICENCIO MD Sep 07, 2021 17:33
[2021-09-07] MEDS ORDERED: HYOS125TA PO (18:14)
[2021-09-07] MEDS ORDERED: ATIV1TAB10 PO (18:14)
[2021-09-07] MEDS ORDERED: MORP1SOL5 PO (18:14)
--- NOTE | 2021-09-07 22:46 | IPNPDOC ---
Date Seen The patient was seen on 09/07/21. Progress Note SUBJECTIVE: Chery was seen and examined this morning (09/07) by the critical care service while lying in bed. On review of documentation, the orthopedic service did attempt to aspirate the patient's right knee joint at bedside, but after multiple attempts were unable to withdraw any fluid, this was abandoned. The patient was subsequently taken later on in the afternoon of 09/06 for a fluorosc opic guided aspiration of the knee joint. There is now pending culture of the obtained fluid. On questioning this morning, patient denies any significant areas of pain despite being in discomfort. She also denies feeling feverish, palpitations, or significant shortness of breath. OBJECTIVE PHYSICAL EXAMINATION: VITAL SIGNS: Please see below. GENERAL: Elderly obese white female lying flat in bed. She continues to appear to be in moderate discomfort and only oriented to self. HEENT: Normocephalic, atraumatic. Sclera again appear to be mildly icteric. Conjunctival pallor present. Neck: TLC remain in place in the right IJ CARDIOVASCULAR: Borderline tachycardic rate, regular rhythm. Heart sounds remain distant making it difficult to appreciate for discernible murmurs or rubs. Normal S1, S2. Delayed capillary refill approximately 3+ seconds. RESPIRATORY: Breathing appears to be somewhat more normal today as she is not predominantly nasal breathing as she had been the prior 2 days. Tidal volume and respiratory effort remain adequate. Auscultation again occurred anteriorly and laterally and no appreciated significant adventitious breath sounds. ABDOMINAL: Significantly obese. Nontender. No rigidity appreciated. Normoactive bowel sounds throughout. EXTREMITIES: Bilateral lower extremity pitting edema remains present, greater on the right at approximately 2+ and trace to 1+ on the left. The erythema of the right lower extremity appears improved today versus the prior 2 days exams and while the right lower extremity still warmer to touch as compared to the left, the warmth has decreased from previous days. Right calf tenderness remains. Right upper extremity remains edematous with approximately 12 pitting edema and is cool to the touch. NEUROLOGICAL: Remains oriented to self only. She struggles to maintain focus and articulate extended sentences in response to any questions. Psychiatric: Patient becomes tearful at times due to her inability to fully answer questions. LABORATORY DATA, IMAGING STUDIES, MICROBIOLOGY: Please see below. ASSESSMENT AND PLAN: This is a 70-year-old female with notable history of hypertension, hypothyroidism and morbid obesity who initially presented on 08/31 due to back pain. She had been following with orthopedics due to a "popping" sensation in her left shoulder roughly 10 days prior while carrying a heavy turkey. Upon evaluation she was found to have a complicated left shoulder abscess and underwent debridement, incision and drainage with orthopedics with subsequent wound VAC. She was then found to have MSSA bacteremia with further confirm positive infections of the left shoulder and left pinky. The left pinky became necrotic and that required amputation. The patient did develop septic shock and transiently was on vasopressor support that quickly improved pressures. There was a high suspicion for endocarditis in the setting of bacteremia, as well as for seeding of right prosthetic knee joint with right lower extremity erythema and swelling. A bilateral ultrasound showed no DVTs. The patient also had acute renal failure with oliguria as well as direct hyperbilirubinemia, with both of these entities actually improving over the past few days into 09/07. Prior imaging only showed some slight sludge and stones in the gallbladder with surrounding mild fluid collection. The critical care service was consulted primarily for continued sepsis in the setting of bacteremia and encephalopathy. Infectious disease also had been following with the patient. The patient had been most recently receiving cefazolin after previously receiving vancomycin and nafcillin. The initial TLC was in the patient's right femoral vein and given concern for cellulitis and right knee infection 2/2 MSSA seeding surgical knee it was removed. .Patient has poor vascular access and required central line placement. As blood cx still positive PICC line not placed and so a TLC was placed in the right IJ and the right femoral vein line was removed. Patient was seen by orthopedic yesterday and had aspiration from right knee with improvement in right knee appearance. Patient this morning also appears more awake and alert and is oriented. She understands her current medical condition and stated that she was tired of continuing with treatment. After further conversation between the primary service and the patient's daughter, a collaborative decision with the patient was made to official switch her to comfort measures only. We thank the primary service for the opportunity to participate in Chery's care. Total critical care time not including procedures was approximately 35 minutes. VS, I&O, 24H, Fishbone Vital Signs/I&O Vital Signs Date Time Temp Pulse Resp B/P (MAP) Pulse Ox O2 Delivery O2 Flow Rate FiO2 09/07/21 12:26 98.1 80 20 133/60 (84) 96 Room Air 09/05/21 00:59 95 09/04/21 14:30 2.0 I&O- Last 24 Hours up to 6 AM 09/07/21 06:00 Intake Total 2500 ml Output Total 1950 ml Balance 550 ml Laboratory Data 24H LABS Laboratory Tests 2 09/07/21 05:13: Immature Granulocyte % (Auto) 3.0, Neutrophils (%) (Auto) 84.9H, Lymphocytes (%) (Auto) 6.7L, Monocytes (%) (Auto) 4.8, Eosinophils (%) (Auto) 0.4, Basophils (%) (Auto) 0.2, Neutrophils # (Auto) 18.1H, Lymphocytes # (Auto) 1.4L, Monocytes # (Auto) 1.0H, Eosinophils # (Auto) 0.1, Basophils # (Auto) 0.0, Nucleated Red Blood Cells % (auto) 0.0, Anion Gap 11, Glomerular Filtration Rate 36.3L, Calcium Level 7.3L, Magnesium Level 2.1, Total Bilirubin 1.6H, Aspartate Amino Transf (AST/SGOT) 53H, Alanine Aminotransferase (ALT/SGPT) 19, Alkaline Phosphatase 81, Troponin I High Sensitivity 391.0*H, Total Protein 5.0L, Albumin 0.9L, Albumin/Globulin Ratio 0.2L 09/07/21 05:40: Bedside Glucose (Misc Panel) 116H 09/07/21 12:44: Bedside Glucose (Misc Panel) 134H CBC/BMP Laboratory Tests 09/07/21 05:13 Microbiology Microbiology 09/07/21 Blood Culture, Received Pending 09/06/21 Gram Stain - Final, Resulted 09/06/21 Body Fluid Culture - Preliminary, Resulted Staphylococcus Aureus 09/05/21 Blood Culture - Preliminary, Resulted Staphylococcus Aureus 09/05/21 Blood Culture - Preliminary, Resulted Staphylococcus Aureus 09/04/21 Gram Stain - Final, Complete 09/04/21 Surgical Biopsy Culture - Final, Complete Staphylococcus Aureus 09/04/21 Anaerobic Culture - Final, Complete 09/04/21 Gram Stain - Final, Complete 09/04/21 Surgical Biopsy Culture - Final, Complete Staphylococcus Aureus 09/04/21 Anaerobic Culture - Final, Complete 09/01/21 Blood Culture - Final, Complete Staphylococcus Aureus 09/01/21 Blood Culture - Final, Complete Staphylococcus Aureus 08/31/21 Gram Stain - Final, Complete 08/31/21 Abscess Culture - Final, Complete Staphylococcus Aureus 08/31/21 Gram Stain - Final, Complete 08/31/21 Abscess Culture - Final, Complete Staphylococcus Aureus 08/31/21 Anaerobic Culture - Final, Complete 08/31/21 Blood Culture - Final, Complete Staphylococcus Aureus 08/31/21 Blood Culture - Final, Complete Staphylococcus Aureus GME ATTESTATION GME ATTESTATION My faculty preceptor for this patient encounter was physically present during the encounter and was fully available. All aspects of the patient interview, examination, medical decision making process, and medical care plan development were reviewed and approved by the faculty preceptor. The faculty preceptor is aware and concurs with the plan as stated in the body of this note and will attest to such by his/her cosignature. ATTENDING NOTE I, Ava Rodríguez, conducted an independent examination and history of the patient and agree with the plan as detailed by the resident and discussed during rounds MARCUS BLACK D.O. Sep 07, 2021 22:46 AVA RODRÍGUEZ MD Sep 09, 2021 13:59
[2021-09-07] MEDS: SODIUM CHLORIDE 0.9% INJ 10 ML SYR IV SCH (23:34)
[2021-09-07] MEDS: **NOTE PATIENT COMMENT** MISC XX SCH (23:35)
[2021-09-07] MEDS: SODIUM CHLORIDE 0.9% INJ 10 ML SYR IV PRN (23:35)
[2021-09-08] MEDS ORDERED: ANALGESIC BALM CRM 3OZ TOP PRN (00:25)
[2021-09-08] MEDS ORDERED: MORPHINE 2 MG/ML 1ML VIAL (J2270) IV ONE (00:25)
[2021-09-08] MEDS ORDERED: carisoprodoL 350 MG TAB PO PRN (00:25)
[2021-09-08] MEDS: SODIUM CHLORIDE 0.9% INJ 10 ML SYR IV PRN ×2 (00:48→06:40)
[2021-09-08] MEDS: MORPHINE 2 MG/ML 1ML VIAL (J2270) IV PRN ×2 (06:40→11:09)
[2021-09-08] MEDS: SODIUM CHLORIDE 0.9% INJ 10 ML SYR IV SCH (06:40)
[2021-09-08] MEDS ORDERED: HYOS125TA PO (10:24)
[2021-09-08] MEDS ORDERED: MORP1SOL5 PO (10:24)
[2021-09-08] MEDS ORDERED: ATIV1TAB10 PO (10:24)
--- NOTE | 2021-09-08 17:32 | DS.PDOC ---
Discharge Summary General Date of Admission Aug 31, 2021 at 20:55 Date of Discharge 09/08/21 Attending Physician: Queta Kumari MD Discharge Summary PROCEDURES PERFORMED DURING STAY: 1. Irrigation and debridement left shoulder abscess with application of incisional wound VAC drain system 09/01/21 2. US guided insertion of right femoral triple lumen central venous catheter 09/01/21 3. Left shoulder irrigation and debridement with left fifth finger examination and debridement with left fifth finger amputation 09/04/21 4. Right knee aspiration, bedside 09/06/21 5. 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 Could not r/o endocarditis Elevated troponin likely 2/2 demand ischemia in setting of septic shock Metabolic encephalopathy likely 2/2 sepsis, bacteremia from MSSA/septic joint L shoulder/septic right L 5th digit mottling/gangrenous features likely 2/2 to trauma to L hand prior to admission R knee pain 2/2 to R knee septic joint Hyperbilirubinemia/hepatic injury 2/2 shock liver vs possible nafcillin tox? Acute kidney injury on CKD Stage III likely 2/2 to septic shock, possible nafcillin nephrotoxicity Thrombocytopenia multifactorial, dilutional vs sepsis Hypoalbuminemia 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 / Spinal stenosis History of Essential HTN Osteopenia Hypothyroidism Anxiety Depression Neuropathy Resolved Hypoglycemia Resolved Hypomagnesemia Resolved Septic shock COMPLICATIONS/CHIEF COMPLAINT: Abscess Of Left Shoulder,Sepsis. HISTORY OF PRESENT ILLNESS: , a 70 yr old F had made plans to have her nephew and his visit her for Thanksgiving. About 2 weeks ago while carrying heavy groceries, including a 28 lb turkey, she heard a popping sound coming from her left shoulder. Her PCP, diagnosed her with bursitis and started her on steroids. denied having acute shoulder pain but noticed that the range of motion in her shoulder had decreased, and the shoulder was swollen and redder. Today she came to the ER primarily because of 10/10 back pain. She has also had body aches, chills, sweating, headache diarrhea and difficulties walking. She was later admitted for sepsis 2/2 complex abscess of the left shoulder, hypoglycemia, JAMIE and shock liver. HOSPITAL COURSE: Patient was treated for the below problems during her hospital stay here: Multiple infected joints, including complex L shoulder abscess , R knee infected joint with hardware 2/2 to MSSA bacteremia/infection, sepsis. Cannot r/o endocarditis -S/p washout of L shoulder x2, wound vac in place -WBC slightly improved 21.4, afebrile, persistent tachycardia -CT right knee below -Blood cultures since admission positive for MSSA-including most recent repeated on 09/05/21, wound culture positive for MSSA -2D echo obtained, d/w Dr. Phillips, shows no vegetations. Due to increased confusion and the need for general anesthesia, Dr. Phillips felt as though ARAMIS may not be good idea at this time. ARAMIS order was canceled. Cannot completely rule out endocarditis. -Since admission, the patient has completed 3 days vanco, 3 days meropenem which were discontinued. Nafcillin 2g q4h IV (09/02/21) completed 3 days total. Nafcillin was DC due to worsening renal function, and rising bilirubin. -ID had been following and was treating infection c/w cefazolin (started 09/05/21). -S/p IR drainage right knee 09/06/21 with right knee fluid cultures growing staph aureus. Patient has hardware in her knees and options were for surgical removal and washout. Spoke a great detail with the patient's healthcare proxy who had spoke with his and today. At this time surgery will not be an option and the plan is to switch to comfort measures only and home with hospice. We stopped all further treatment, labs. Elevated troponin likely 2/2 demand ischemia in setting of septic shock -HsTrop trending down -2D echo obtained on 09/01/21 (report above). LVEF 65%. Mild . No vegetations. Normal LV systolic function. -ARAMIS was cancelled Metabolic encephalopathy likely 2/2 sepsis, bacteremia from MSSA/septic joint L shoulder/septic right knee joint with hardware/ L5th digit -AAOx2 for me on day of discharge. Waxes and wanes mental status -CT head 09/01/[address] 09/04/21, without acute findings L 5th digit mottling/gangrenous features likely 2/2 to trauma to L hand prior to admission -S/p exploration and I&D by Dr. Ponce on 09/04/21. Subcutaneous tissue was noted to be queen and not viable, amputation of L 5th digit was performed up to metacarpophalangeal joint. -Intraoperative culture of 5th digit amp - positive for staph aureus. -Ortho had been following R knee pain 2/2 to R knee septic joint -See problem #1 above Hyperbilirubinemia/hepatic injury 2/2 shock liver vs possible nafcillin tox? -jaundice improving, T bili trending down, Max at 8.7 on 09/04/21, AST/ALT also decr -CT abd/pelvis reviewed, minimal pancreatitis of tail? biliary sludge vs faint stones? -Lipase 200, faint stones and sludge in gallbladder -Ordered MRCP to assist in diagnosis but patient was unable to remain still for study Acute kidney injury on CKD Stage III likely 2/2 to septic shock, possible nafcillin nephrotoxicity -Cr slowly startd to improve, previously on vasopressor support as well -Nafcilin was DC -Nephrology was following, signed off Thrombocytopenia multifactorial, dilutional vs sepsis -Improving over time Hypoalbuminemia -Albumin 1.0 -nutrition evaluated -transfused 25 g Albumin, which will help maintain BP, prevent extravasation of fluid. 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 / Spinal stenosis -chronic History of Essential HTN -BP at times was uncontrolled -On BB Osteopenia -based on imaging studies Hypothyroidism -Levothyroxine Anxiety / Depression - Amitriptyline, Escitalopram Neuropathy - gabapentin Completely resolved issues: Hypoglycemia Hypomagnesemia Septic shock requiring pressor support in ICU DISCHARGE MEDICATIONS: Please see below. ALLERGIES: Please see below. PHYSICAL EXAMINATION ON DISCHARGE: VITAL SIGNS: please see below General: very lethargic, resting in bed, awake with stimulation, oriented x2 HEENT: PERRLA, EOMI, scleral icterus. Neck: supple, normal ROM, no JVD, right IJ catheter Respiratory: lungs CTAB, no wheeze, no rales, no crackles CVS: RRR, normal S1, S2, no appreciable murmur Abdo: soft, no masses, no hepatosplenomegaly, BS+, no rebound tenderness Extremities: R leg swollen, diffusely erythematous, skin slightly tender to touch-increased compared to 09/06/2021. Left shoulder surgical site has wound VAC in place with improving surrounding erythema but no sheela purulence. LE pulses 1+ bilaterally. MSK: no joint deformities, normal ROM. R knee erythematous, tender to touch. ROM limited by pain. Neuro: Patient is somnolent unable to participate in full neurological e xamination. No focal deficits. Psych: calm, cooperative, AAO x 3 LABORATORY DATA: Please see below MICROBIOLOGY: Please see chart IMAGING STUDIES: CT Knee (R) w/o contrast (09/05/21): 1. Suprapatellar knee joint effusion. 2. Fluid demonstrated between the medial and lateral heads of the gastrocnemius muscle as well as medial to the medial head of the gastrocnemius muscle as well as lateral to the tibialis anterior and peroneus longus muscles. No gas locules to suggest infection although infection to be excluded clinically. Percutaneous image guided aspiration of the fluid could be considered if clinically desired. CT abdo pelvis wo contrast (09/04/21): 1. Question of minimal pancreatitis of the tail since 10/11/2019. 2. Faint stones and sludge in the gallbladder. 3. Mild bilateral lower lobe fibro-atelectatic change, increased since the prior study. 4. Preston catheter in the bladder. 5. Right common femoral vein catheter extending to the right external iliac vein. 6. Minimal free fluid which is nonspecific. 7. Status post hysterectomy. CT chest wo contrast (09/04/21): 1. Mild bilateral lower lobe and posterior right upper lobe and minimal left upper lobe fibro-atelectatic change. 2. Question of minimal pancreatitis of the tail. 3. Layering sludge or faint stones in the gallbladder. 4. Otherwise negative CT chest. CT head wo contrast (09/04/21): Negative noncontrast head CT, unchanged from 09/02/2021. Bilateral LE venous duplex (09/04/21): No evidence for deep venous thrombosis Liver US (09/01/21): Evaluate is incomplete due to uncooperative combative nature of patient. Limited images of the liver are grossly normal. Spleen is normal and measures 11.4 x 11.5 x 3.7 cm with 1.2 cm adjacent splenule. The left kidney is normal in reniform shape and measures 11.0 x 5.5 x 6.1 cm without hydronephrosis. Increased central sinus fat consistent with chronic age-related medical renal disease. Visualized portions of the abdominal aorta are normal and measure 2.4 cm maximal Echocardiogram (09/01/21): 1. Normal left ventricle internal dimensions and wall thickness. Normal regional LV wall motion and wall thickening. Normal LV systolic function. LVEF 65% by visual assessment. Grade 1 LV diastolic dysfunction. 2. Mild aortic valve sclerosis of a 3-cuspid aortic valve. No aortic regurgitation. 3. Mild mitral annular calcification. No mitral regurgitation. 4. Moderate left atrial dilatation. 5. No vegetation seen. 6. Otherwise normal appearing echocardiogram Doppler findings. PROGNOSIS: poor DIET: regular DISPOSITION: Home with Hospice DISCHARGE INSTRUCTIONS / ITEMS TO FOLLOWUP ON ON OUTPATIENT: 1. Discharge to home with Hospice today. Spoke to HCP, nephew at length on 09/07/21. Family is to help take care of her going forward. 2. Wound vac is to remain in place for now. Directions were given to family on management. TIME SPENT ON DISCHARGE: 35 minutes. Vital Signs/I&Os Vital Signs Date Time Temp Pulse Resp B/P (MAP) Pulse Ox O2 Delivery O2 Flow Rate FiO2 09/08/21 09:15 1.0 09/07/21 12:26 98.1 80 20 133/60 (84) 96 Room Air 09/05/21 00:59 95 I&O- Last 24 Hours up to 6 AM 09/08/21 06:00 Intake Total 2280 ml Output Total 1625 ml Balance 655 ml Microbiology Microbiology 09/07/21 Blood Culture - Preliminary, Resulted No growth after 24 hours . All specim... 09/06/21 Gram Stain - Final, Complete 09/06/21 Body Fluid Culture - Final, Complete Staphylococcus Aureus 09/05/21 Blood Culture - Final, Complete Staphylococcus Aureus 09/05/21 Blood Culture - Final, Complete Staphylococcus Aureus 09/04/21 Gram Stain - Final, Complete 09/04/21 Surgical Biopsy Culture - Final, Complete Staphylococcus Aureus 09/04/21 Anaerobic Culture - Final, Complete 09/04/21 Gram Stain - Final, Complete 09/04/21 Surgical Biopsy Culture - Final, Complete Staphylococcus Aureus 09/04/21 Anaerobic Culture - Final, Complete 09/01/21 Blood Culture - Final, Complete Staphylococcus Aureus 09/01/21 Blood Culture - Final, Complete Staphylococcus Aureus 08/31/21 Gram Stain - Final, Complete 08/31/21 Abscess Culture - Final, Complete Staphylococcus Aureus 08/31/21 Gram Stain - Final, Complete 08/31/21 Abscess Culture - Final, Complete Staphylococcus Aureus 08/31/21 Anaerobic Culture - Final, Complete 08/31/21 Blood Culture - Final, Complete Staphylococcus Aureus 08/31/21 Blood Culture - Final, Complete Staphylococcus Aureus Discharge Medications Scheduled PRN Hyoscyamine Sulfate (Hyoscyamine Sulfate) 0.125 Mg Tab.subl, 0.125 MG PO Q4HP PRN for TERMINAL SECRETIONS Use sublingually if unable to swallow Lorazepam (Ativan) 0.5 Mg Tablet, 0.5 MG PO Q4HP PRN for ANXIETY/AGITATION Use sublingually if unable to swallow Morphine Sulfate (Morphine Sulfate) 100 Mg/5 Ml Solution, 0.25-1 ML PO Q2H PRN for PAIN OR DYSPNEA Use sublingually if unable to swallow Allergies Coded Allergies: No Known Allergies (Unverified , 10/11/19) Queta Kumari MD Sep 08, 2021 17:32
== END 2021-09-08 12:24 | disposition home health service (06) | DRG 853 ==
LOC: M ED 14:46 → EDBD 14:46 → M ED INP 20:55 → ENRESERV 21:27 → M PCU 09-01 02:52 → M MSPAV 09-07 18:26
PROVIDERS: ADMIT Internal Medicine; ATTEND Internal Medicine
PROC: 0KD Muscles, Extraction (ICD-10-PCS; principal; 2021-09-01)
PROC: 0R9K0ZZ Drainage of Left Shoulder Joint, Open Approach (ICD-10-PCS; 2021-09-01)
PROC: 06HN33Z Insertion of Infusion Device into Left Femoral Vein, Percutaneous Approach (ICD-10-PCS; 2021-09-01)
PROC: 30233J1 Transfusion of Nonautologous Serum Albumin into Peripheral Vein, Percutaneous Approach (ICD-10-PCS; 2021-09-03)
PROC: 0JBF0ZZ Excision of Left Upper Arm Subcutaneous Tissue and Fascia, Open Approach (ICD-10-PCS; 2021-09-04)
PROC: 0X6W0Z0 Detachment at Left Little Finger, Complete, Open Approach (ICD-10-PCS; 2021-09-04)
PROC: 30233N1 Transfusion of Nonautologous Red Blood Cells into Peripheral Vein, Percutaneous Approach (ICD-10-PCS; 2021-09-04)
PROC: 0S9C3ZZ Drainage of Right Knee Joint, Percutaneous Approach (ICD-10-PCS; 2021-09-06)
DX: A41.01 Sepsis due to Methicillin susceptible Staphylococcus aureus (principal); K72.00 Acute and subacute hepatic failure without coma; R65.21 Severe sepsis with septic shock; G93.41 Metabolic encephalopathy; L02.414 Cutaneous abscess of left upper limb; N17.9 Acute kidney failure, unspecified; Z68.42 Body mass index [BMI] 45.0-49.9, adult; I24.8 Other forms of acute ischemic heart disease; I50.32 Chronic diastolic (congestive) heart failure; I13.0 Hypertensive heart and chronic kidney disease with heart failure and stage 1 through stage 4 chronic kidney disease, or unspecified chronic kidney disease; M60.061 Infective myositis, right lower leg; L03.115 Cellulitis of right lower limb; M00.861 Arthritis due to other bacteria, right knee; I38 Endocarditis, valve unspecified; E16.2 Hypoglycemia, unspecified; E03.9 Hypothyroidism, unspecified; E66.01 Morbid (severe) obesity due to excess calories; Z51.5 Encounter for palliative care; Z66 Do not resuscitate; M47.816 Spondylosis without myelopathy or radiculopathy, lumbar region; M85.80 Other specified disorders of bone density and structure, unspecified site; K21.9 Gastro-esophageal reflux disease without esophagitis; K64.9 Unspecified hemorrhoids; I25.2 Old myocardial infarction; F41.9 Anxiety disorder, unspecified; F32.A Depression, unspecified; B95.61 Methicillin susceptible Staphylococcus aureus infection as the cause of diseases classified elsewhere; D69.6 Thrombocytopenia, unspecified; E83.42 Hypomagnesemia; N18.31 Chronic kidney disease, stage 3a; D64.9 Anemia, unspecified; E88.09 Other disorders of plasma-protein metabolism, not elsewhere classified; E80.6 Other disorders of bilirubin metabolism; E87.6 Hypokalemia; Z20.822 Contact with and (suspected) exposure to COVID-19; Z96.653 Presence of artificial knee joint, bilateral; Z98.41 Cataract extraction status, right eye; Z98.42 Cataract extraction status, left eye; Z87.81 Personal history of (healed) traumatic fracture; Z79.899 Other long term (current) drug therapy; Z53.09 Procedure and treatment not carried out because of other contraindication